=== PATIENT | female | born 1980 ===

== ENCOUNTER → 2019-01-06 | Outpatient (CLI) | payer MEDICAID ==
[~2019-01-06] MED LIST: GADOBUTROL 7.5 MMOL/7.5 ML (GADAVIST) VIAL IV ONE
--- NOTE | 2019-01-06 18:35 | Diagnostic Imaging Report ---
PROCEDURE: MRI pelvis with and without contrast. TECHNIQUE: Multiplanar, multisequence MRI of the pelvis was performed with and without contrast. INDICATION: Vaginal bleeding and cramping and pain status post hysterectomy. FINDINGS: No comparison available. There is a 2.5 x 1.7 cm T2 hypointense and T1 hyperintense focus involving the left adnexa keeping with an endometrioma. There are T2 hypointense bands pulling from the left adnexa to the vaginal cuff and also tethering the sigmoid colon. Findings in keeping with deep pelvic endometriosis. The lesion also tethers the posterior left aspect of the urinary bladder. The right ovary appears normal. The uterus is surgically absent. The deep pelvic endometriosis is best seen on series 8, image 27 and series 7, image nine. There is no dilated bowel. No osseous lesions are seen. No free pelvic fluid is seen. There is no lymphadenopathy in the pelvis. IMPRESSION: 1. Deep pelvic endometriosis with fibrotic bands of T2 hypointensity extending from a left ovarian endometrioma to involve the vaginal cuff, posterior wall of the urinary bladder and tethering the sigmoid colon. Dictated by: Dictated on workstation # [id number]
== END ==
LOC: RAD 16:45
PROVIDERS: ATTEND Obstetrics & Gynecology
DX: N93.9 Abnormal uterine and vaginal bleeding, unspecified (principal); N80.8 Other endometriosis; R19.09 Other intra-abdominal and pelvic swelling, mass and lump; N80.1 Endometriosis of ovary; N80.4 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 of rectovaginal septum and vagina
CPT/HCPCS: 72197

== ENCOUNTER 2019-02-07 11:58 | Emergency (ER) | payer MEDICAID ==
[~2019-02-07] VITALS: Ht 152 cm; Wt 73.3 kg
[2019-02-07] MEDS ORDERED: ONDANSETRON 4 MG/2 ML (SDV) Z0FRAN IVP ONE (12:30)
[2019-02-07] MEDS ORDERED: NS IV 1000 ML 1,000 ML IV SCH (12:30)
[2019-02-07] MEDS ORDERED: KETOROLAC 30 MG/ML VIAL IVP ONE (12:30)
--- NOTE | 2019-02-07 12:32 | ED GI ---
General Chief Complaint: Abdominal/GI Problems Stated Complaint: N/V/D Source of Information: Patient Exam Limitations: No Limitations History of Present Illness Date Seen by Provider: Feb 07, 2019 Time Seen by Provider: 12:20 Initial Comments This is a 38-year-old female who presents to the emergency department with right lower quadrant abdominal pain nausea, vomiting, diarrhea. Patient reports that she has been followed by Dr. Alvarez and Dr. Miller for endometriosis and is to have a colonoscopy on Thursday02/11/2019. Patient reports having an MRI last week which showed her endometriosis has spread close proximity to her colon. Patient reports having chronic diarrhea but states has already with 6 times this morning which is much more than her normal. Patient reports that the pain she is experiencing is worse than normal and different. Timing/Duration: 1 Day Severity/Quality: Mild Location: Generalized Abdomen Radiation: No Radiation Activities at Onset: None Modifying Factors: Improves With Resting Associated Symptoms: Denies Symptoms Allergies and Home Medications Allergies Coded Allergies: Penicillins (Verified Allergy, Unknown, 02/07/19) amoxicillin (Verified Allergy, Unknown, 02/07/19) Home Medications No Active Prescriptions or Reported Meds Patient Home Medication List Home Medication List Reviewed: Yes Review of Systems Review of Systems Constitutional: no symptoms reported, see HPI EENTM: No Symptoms Reported, See HPI Respiratory: No Symptoms Reported, See HPI Cardiovascular: No Symptoms Reported, See HPI Gastrointestinal: Diarrhea, Nausea Genitourinary: No Symptoms Reported, See HPI Musculoskeletal: no symptoms reported, see HPI Skin: no symptoms reported, see HPI Psychiatric/Neurological: No Symptoms Reported, See HPI Endocrine: No Symptoms Reported, See HPI Hematologic/Lymphatic: No Symptoms Reported, See HPI Past Qelyptu-Gjdgme-Mekmob Hx Past Med/Social Hx: Reviewed Nursing Past Med/Soc Hx Patient Social History Physical Abuse: No Sexual Abuse: No Mistreated: No Fear: No Physical Exam Vital Signs Vital Signs - First Documented 02/07/19 12:25 Temp 36.8 Pulse 90 Resp 16 B/P (MAP) 115/91 (99) Pulse Ox 97 Capillary Refill : Height/Weight/BMI Height: '" Weight: lbs. oz. kg; BMI Method: General Appearance: WD/WN, no apparent distress HEENT: PERRL/EOMI, normal ENT inspection, TMs normal, pharynx normal Neck: non-tender, full range of motion, supple, normal inspection Respiratory: chest non-tender, lungs clear, normal breath sounds, no respiratory distress, no accessory muscle use Cardiovascular: normal peripheral pulses, regular rate, rhythm, no edema, no gallop, no JVD, no murmur Gastrointestinal: soft, no pulsatile mass, tenderness (right lower quadrant) Rectal: normal exam Extremities: normal range of motion, non-tender, normal inspection, no pedal edema, no calf tenderness Back: normal inspection, no CVA tenderness Neurologic/Psychiatric: 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 as tested, no motor/sensory deficits, alert, normal mood/affect Skin: normal color, warm/dry Lymphatic: no adenopathy Progress/Results/Core Measures Results/Orders Lab Results Laboratory Tests Test 02/07/19 12:18 02/07/19 12:57 02/07/19 13:57 Range/Units Urine Color YELLOW Urine Clarity CLEAR Urine pH 6.5 5-9 Urine Specific [place] <=1.005 1.016-1.022 Urine Protein NEGATIVE NEGATIVE Urine Glucose (UA) NEGATIVE NEGATIVE Urine Ketones NEGATIVE NEGATIVE Urine Nitrite NEGATIVE NEGATIVE Urine Bilirubin NEGATIVE NEGATIVE Urine Urobilinogen 0.2 < = 1.0 MG/DL Urine Leukocyte Esterase NEGATIVE NEGATIVE Urine RBC (Auto) TRACE-L NEGATIVE Urine RBC NONE /HPF Urine WBC NONE /HPF Urine Squamous Epithelial Cells RARE /HPF Urine Crystals NONE /LPF Urine Bacteria NEGATIVE /HPF Urine Casts NONE /LPF Urine Mucus NEGATIVE /LPF Urine Culture Indicated NO White Blood Count 8.8 4.3-11.0 10^3/uL Red Blood Count 5.51 4.35-5.85 10^6/uL Hemoglobin 16.5 H 11.5-16.0 G/DL Hematocrit 47 35-52 % Mean Corpuscular Volume 86 80-99 FL Mean Corpuscular Hemoglobin 30 25-34 PG Mean Corpuscular Hemoglobin Concent 35 32-36 G/DL Red Cell Distribution Width 13.3 10.0-14.5 % Platelet Count 310 130-400 10^3/uL Mean Platelet Volume 9.6 7.4-10.4 FL Neutrophils (%) (Auto) 56 42-75 % Lymphocytes (%) (Auto) 34 12-44 % Monocytes (%) (Auto) 8 0-12 % Eosinophils (%) (Auto) 2 0-10 % Basophils (%) (Auto) 1 0-10 % Neutrophils # (Auto) 5.0 1.8-7.8 X 10^3 Lymphocytes # (Auto) 3.0 1.0-4.0 X 10^3 Monocytes # (Auto) 0.7 0.0-1.0 X 10^3 Eosinophils # (Auto) 0.2 0.0-0.3 10^3/uL Basophils # (Auto) 0.0 0.0-0.1 10^3/uL Sodium Level 143 135-145 MMOL/L Potassium Level 3.9 3.6-5.0 MMOL/L Chloride Level 107 98-107 MMOL/L Carbon Dioxide Level 27 21-32 MMOL/L Anion Gap 9 5-14 MMOL/L Blood Urea Nitrogen 8 7-18 MG/DL Creatinine 0.71 0.60-1.30 MG/DL Estimat Glomerular Filtration Rate > 60 BUN/Creatinine Ratio 11 Glucose Level 59 *L 70-105 MG/DL Calcium Level 9.6 8.5-10.1 MG/DL Corrected Calcium 8.5-10.1 MG/DL Total Bilirubin 0.3 0.1-1.0 MG/DL Aspartate Amino Transf (AST/SGOT) 22 5-34 U/L Alanine Aminotransferase (ALT/SGPT) 33 0-55 U/L Alkaline Phosphatase 60 40-136 U/L Total Protein 7.6 6.4-8.2 GM/DL Albumin 4.7 H 3.2-4.5 GM/DL Glucometer 119 H 70-110 MG/DL My Orders Orders - PERLA DIA Ua Culture If Indicated (02/07/19 12:24) Ns Iv 1000 Ml (Sodium Chloride 0.9%) (02/07/19 12:30) Ondansetron Injection (Zofran Injectio (02/07/19 12:30) Cbc With Automated Diff (02/07/19 12:24) Comprehensive Metabolic Panel (02/07/19 12:24) Ketorolac Injection (Toradol Injection) (02/07/19 12:30) D50w (Emergency) Syringe (Dextrose 50% 5 (02/07/19 13:32) Accucheck Stat ONCE (02/07/19 13:49) Medications Given in ED Current Medications Medications Dose Ordered Sig/Ismael Route Start Time Stop Time Status Last Admin Dose Admin Dextrose 50 ml STK-MED ONCE .ROUTE 02/07/19 13:32 02/07/19 13:34 DC 02/07/19 13:33 25 ML Ketorolac Tromethamine 30 mg ONCE ONCE IVP 02/07/19 12:30 02/07/19 12:31 DC 02/07/19 12:55 30 MG Ondansetron HCl 4 mg ONCE ONCE IVP 02/07/19 12:30 02/07/19 12:31 DC 02/07/19 12:55 4 MG Vital Signs/I&O 02/07/19 02/07/19 12:25 14:25 Temp 36.8 Pulse 90 74 Resp 16 16 B/P (MAP) 115/91 (99) 111/96 Pulse Ox 97 98 Progress Progress Note : Time: 12:20 Progress Note Patient seen and evaluated, will obtain labs, normal saline 1 L. Zofran 4 mg IV for nausea. 1330 patient found to Glucose of 59, will give half an amp of D50W, IV. Patient talking but slightly lethargic, oriented times 3. Taking sips of Pedialyte. 1355 Accucheck 119, patient reports to be feeling better. Patient is sitting in bed at this time alert stating that she feels much better drinking Pedialyte. Patient reports only eating a cheese sandwich and drinking coffee this morning. The patient was educated on the importance of having a proper diet habits and to eat small frequent meals especially if she is continuing to have problems with pain and nausea. Patient was informed to follow up with Dr. Alvarez and Dr. Miller and inform them of the change of pain and intensity. Patient verbalized understanding. Departure Impression Primary Impression: Abdominal pain Qualified Codes: R10.84 - Generalized abdominal pain Disposition: 01 HOME, SELF-CARE Condition: Improved Departure-Patient Inst. Decision time for Depature: 13:50 Referrals: JAQUAN CLARKE MD (PCP) Primary Care Physician Patient Instructions: Acute Abdomen (Belly Pain), Adult (DC) Add. Discharge Instructions: Follow-up with your general surgeon or her primary care provider if symptoms are not improving or worsen. Use Imodium one tablet every 4-6 hours as needed for diarrhea. Clear liquid diet for the next 4-6 hours, then bland diet as tolerated. Return to emergency department for new, urgent health care needs. All discharge instructions reviewed with patient and/or family. Voiced understanding. Scripts No Active Prescriptions or Reported Meds Copy Copies To 1: MARGARITA MILLER DO; JAQUAN CLARKE MD; DELMAR ALVAREZ AMY ARNP Feb 07, 2019 12:32 POS
[2019-02-07 13:04] LABS: BASOPHILS % (AUTO) 1 % (0-10); EOSINOPHILS # (AUTO) 0.2 10^3/uL (0.0-0.3); EOSINOPHILS % (AUTO) 2 % (0-10); HEMATOCRIT 47 % (35-52); HEMOGLOBIN 16.5 G/DL (11.5-16.0); LYMPHOCYTES % (AUTO) 34 % (12-44); MEAN CORPUSCULAR HEMOGLOBIN 30 PG (25-34); MEAN CORPUSCULAR HGB CONC 35 G/DL (32-36); MEAN CORPUSCULAR VOLUME 86 FL (80-99); MEAN PLATELET VOLUME 9.6 FL (7.4-10.4); MONOCYTES # (AUTO) 0.7 X 10^3 (0.0-1.0); MONOCYTES % (AUTO) 8 % (0-12); NEUTROPHILS % (AUTO) 56 % (42-75); PLATELET COUNT 310 10^3/uL (130-400); RED CELL DISTRIBUTION WIDTH 13.3 % (10.0-14.5); WHITE BLOOD COUNT 8.8 10^3/uL (4.3-11.0)
[2019-02-07 13:11] LABS: BILIRUBIN,URINE NEGATIVE (NEGATIVE); CLARITY,URINE CLEAR; COLOR,URINE YELLOW; GLUCOSE, URINE (UA) NEGATIVE (NEGATIVE); KETONES,URINE NEGATIVE (NEGATIVE); LEUKOCYTE ESTERASE ,URINE NEGATIVE (NEGATIVE); NITRITE,URINE NEGATIVE (NEGATIVE); PH,URINE 6.5 (5-9); PROTEIN,URINE NEGATIVE (NEGATIVE)
[2019-02-07 13:24] LABS: BACTERIA,URINE NEGATIVE /HPF; SQUAMOUS EPITHELIAL CELL,UR RARE /HPF
[2019-02-07 13:28] LABS: ALANINE AMINOTRANSFERASE 33 U/L (0-55); ALBUMIN 4.7 GM/DL (3.2-4.5); ALKALINE PHOSPHATASE 60 U/L (40-136); BILIRUBIN,TOTAL 0.3 MG/DL (0.1-1.0); BUN/CREATININE RATIO 11; CALCIUM 9.6 MG/DL (8.5-10.1); CARBON DIOXIDE 27 MMOL/L (21-32); CHLORIDE 107 MMOL/L (98-107); CREATININE SERUM 0.71 MG/DL (0.60-1.30); GFR ESTIMATED > 60; POTASSIUM 3.9 MMOL/L (3.6-5.0); SODIUM 143 MMOL/L (135-145); TOTAL PROTEIN 7.6 GM/DL (6.4-8.2)
[2019-02-07 13:32] LABS: GLUCOSE 59 MG/DL (70-105)
[2019-02-07] MEDS ORDERED: DEXTROSE 50% 50 ML (IMS) SYR ONE (13:32)
[2019-02-07 14:25] VITALS: BP 111/96
== END 2019-02-07 14:25 | disposition home or self-care (01) ==
LOC: EDUNIT# 11:58 → ER 11:59
DX: R10.31 Right lower quadrant pain (principal); Z88.0 Allergy status to penicillin
CPT/HCPCS: 36415; 80053; 81000; 82962; 85025

== ENCOUNTER 2019-02-09 13:48 | Outpatient (CLI) | payer MEDICAID ==
[~2019-02-09] VITALS: Ht 154 cm; Wt 71.8 kg
== END 2019-02-09 13:54 | disposition home or self-care (01) ==
LOC: PREOP 13:48
PROVIDERS: ATTEND Surgery
DX: Z01.818 Encounter for other preprocedural examination (principal)

== ENCOUNTER 2019-03-18 09:53 | Outpatient (CLI) | payer MEDICAID ==
[~2019-03-18] VITALS: Ht 157.9 cm; Wt 75.7 kg
[2019-03-18 10:01] VITALS: BP 124/84
[2019-03-18 10:35] LABS: BASOPHILS % (AUTO) 1 % (0-10); EOSINOPHILS # (AUTO) 0.1 10^3/uL (0.0-0.3); EOSINOPHILS % (AUTO) 1 % (0-10); HEMATOCRIT 45 % (35-52); HEMOGLOBIN 15.3 G/DL (11.5-16.0); LYMPHOCYTES % (AUTO) 30 % (12-44); MEAN CORPUSCULAR HEMOGLOBIN 30 PG (25-34); MEAN CORPUSCULAR HGB CONC 34 G/DL (32-36); MEAN CORPUSCULAR VOLUME 87 FL (80-99); MONOCYTES # (AUTO) 0.5 X 10^3 (0.0-1.0); MONOCYTES % (AUTO) 7 % (0-12); NEUTROPHILS # (AUTO) 3.9 X 10^3 (1.8-7.8); NEUTROPHILS % (AUTO) 61 % (42-75); PLATELET COUNT 256 10^3/uL (130-400); RED CELL DISTRIBUTION WIDTH 13.7 % (10.0-14.5); WHITE BLOOD COUNT 6.5 10^3/uL (4.3-11.0)
== END 2019-03-18 10:20 | disposition home or self-care (01) ==
LOC: PREOP 09:53
PROVIDERS: ATTEND Obstetrics & Gynecology
DX: Z01.812 Encounter for preprocedural laboratory examination (principal); Z11.2 Encounter for screening for other bacterial diseases; N80.9 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, unspecified
CPT/HCPCS: 36415; 85025; 86850; 86900; 86901; 87081

== ENCOUNTER 2019-04-02 01:19 | Inpatient (IN) | payer MEDICAID ==
[2019-04-02] VITALS (37 sets, daily range): BP systolic 70–165; BP diastolic 33–103
[~2019-04-02] VITALS: Ht 154.9 cm; Wt 77.1 kg
[~2019-04-02 01:19] MED LIST changes: +DOCU100C37 PO; -GADOBUTROL 7.5 MMOL/7.5 ML (GADAVIST) VIAL IV ONE; +HYDR-34 PO; +IBUP-844 PO; +SIME80TA16 PO
--- NOTE | 2019-04-02 01:25 | NUR ---
PT PRESENTS TO OB BY EMS CART. TRANSFERRED TO OB BED. PT NOTED TO BE MOANING AND CHANTING "HELP ME" OVER AND OVER AGAIN. PT REPORTS PAIN OF 10/10 TO ABD AFTER HAVING SMALL BM AND PAIN OF 10/10 TO RIGHT SHOULDER. PT REPORTS HAS NOT PASSED ANY GAS SINCE ARRIVING HOME AFTER SURGERY. PT REPORTS SHE HAS TAKEN PRESCRIBED PAIN MEDS PRIOR TO GOING TO [facility] ER, WHICH DID NOT LESSEN PAIN. PT REPORTS BEING A PREVIOUS DRUG USER, BUT HAS BEEN CLEAN FOR MONTHS, ASIDE FROM SOME MARIJUANA ON NEW YEARS.
--- NOTE | 2019-04-02 01:42 | NUR ---
DR SPEARS NOTIFIED OF PT ARRIVAL AND ASSESSMENT. NEW ORDERS RECEIVED.
[2019-04-02] MEDS ORDERED: fentaNYL INJECTION 100 MCG/2 ML AMP ONE ×2 (01:44→12:49)
[2019-04-02] MEDS ORDERED: METOCLOPRAMIDE INJ 10 MG/2 ML (REGLAN) ONE (01:45)
[2019-04-02] MEDS ORDERED: LORazepam INJ 2 MG/ML (ATIVAN) VIAL ONE (01:45)
--- NOTE | 2019-04-02 01:45 | NUR ---
IV REGLAN GIVEN. IV ATIVAN GIVEN OVER 5 MIN. IV FENTANYL GIVEN OVER 3 MIN. PT ENA WELL.
[2019-04-02] MEDS ORDERED: ONDANSETRON 4 MG/2 ML (SDV) Z0FRAN IVP PRN ×3 (02:00→16:15)
[2019-04-02] MEDS ORDERED: fentaNYL INJECTION 100 MCG/2 ML AMP IVP PRN (02:00)
[2019-04-02] MEDS ORDERED: LORazepam INJ 2 MG/ML (ATIVAN) VIAL IVP ONE (02:00)
--- NOTE | 2019-04-02 02:15 | NUR ---
PT RESTING, WITH CONT MOANING WITH RESP. PT EASILY AWAKENS TO NAME AND REPORTS PAIN IMPROVING. VS REMAIN STABLE WITH THOSE ON ADMIT AND THOSE FROM [facility].
--- NOTE | 2019-04-02 03:00 | NUR ---
PT CONT TO REST. AWAKENS EASILY. NOTED SOME WORK WITH BREATHING, BUT SLOWS DOWN RESP ON COMMAND.
--- NOTE | 2019-04-02 04:25 | NUR ---
NOTED PT TO BE HAVING MORE MOANING WITH AND WORK WITH RESPIRATIONS. HR AND RESP HAVE INCREASED IN RATE AND PT IS NOW DIAPHORETIC. PT CONT TO EASILY AWAKEN BY CALLING NAME. PT STATES PAIN IS BEGINNING TO INCREASE AGAIN IN RIGHT SHOULDER.
--- NOTE | 2019-04-02 04:31 | NUR ---
DR SPEARS NOTIFIED OF PT CHANGE IN STATUS/BEHAVIOR. ORDER OBTAINED FOR CT OF CHEST.
--- NOTE | 2019-04-02 04:45 | NUR ---
PT TAKEN TO CT BY BED BY THIS NURSE AND LABORATORY TECHNOLOGIST.
--- NOTE | 2019-04-02 05:23 | NUR ---
PT RETURNED TO OB ROOM AND VS OBTAINED. DR SPEARS NOTIFIED OF CT BEING COMPLETE. ORDER RECEIVED TO CONSULT INTERNAL MED AND HAVE PT TRANSFERRED TO ICU FOR CLOSER OBSERVATION.
--- NOTE | 2019-04-02 05:45 | NUR ---
PT TAKEN TO ICU BY BED AT THIS TIME. REPORT TO OVIDIO LEVI.
[2019-04-02] MEDS ORDERED: meTOprolol 5 MG/5 ML (LOPRESSOR) VIAL ONE ×2 (05:46→05:47)
[2019-04-02] MEDS ORDERED: METOCLOPRAMIDE INJ 10 MG/2 ML (REGLAN) IVP SCH (06:00)
[2019-04-02 06:02] LABS: ABG BASE EXCESS -4.3 MMOL/L (-2.5-2.5); ABG OXYGEN SATURATION 98 % (94-100); ABG PCO2 51 MMHG (35-45); ABG PO2 89 MMHG (79-93); ABG TCO2 23.8 MMOL/L (21.0-31.0)
--- NOTE | 2019-04-02 06:08 | Pulmonary Consultation ---
History of Present Illness History of Present Illness Date Seen by Provider: Apr 02, 2019 Time Seen by Provider: 05:58 Date of Admission History of Present Illness 38yo with hx of drug use, endometriosis, pelvic mass s/p resection 03/29/19 presents to [place] ED secondary to severe 10/10 abdominal/pelvic pain, and right shoulder pain. Ct of Abd/Pelvis was done there however I do not yet have radiology read. Verbal report is CT of Abd shows no acute process. Pt was transferred to [facility] to OB floor. Pt was given pain meds and Ativan. Pt was noted to be unstable by Dr. Cash and transferred to ICU. Upon presentation pt has SVT with HR 150's and accessory muscle use. No labs have been done here yet. Labs from ED show no leukocytosis, HB is 14. Unable to obtain ROS secondary to lethargy. Allergies and Home Medications Allergies Coded Allergies: Penicillins (Verified Allergy, Severe, childhood reaction-unsure of reaction, 03/18/19) amoxicillin (Verified Allergy, Severe, BREATHING ISSUES, 02/09/19) Home Medications Docusate Sodium 100 Mg Capsule, 100 MG PO BID PRN for CONSTIPATION-1ST LINE Prescribed by: MARCOS JACOBO on 03/28/19 1014 Hydrocodone Bit/Acetaminophen 1 Ea Tablet, 2 EA PO Q6H PRN for Pain-See Instructions Prescribed by: MARCOS JACOBO on 03/28/19 1014 Ibuprofen 600 Mg Tablet, 600 MG PO Q6H PRN for PAIN-MODERATE (5-7) Prescribed by: MARCOS JACOBO on 03/28/19 1014 Simethicone 80 Mg Tab.chew, 40 MG PO TID PRN for INDIGESTION 2ND LINE Prescribed by: MARCOS JACOBO on 03/28/19 1014 Past Cyancwl-Pqrazn-Gpottp Hx Patient Social History Type Used: Cigarettes 2nd Hand Smoke Exposure: Yes Recent Foreign Travel: No Contact w/Someone Who Travel: No Recent Hopitalizations: No Seasonal Allergies Seasonal Allergies: No Past Medical History Surgeries: Yes (DXLS x3, LEEP, oral sx) Section, Hysterectomy, Tonsillectomy Respiratory: No Cardiac: No Neurological: No Female 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 Disorders: 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 oz. kg; 30.71 BMI Method: Exam Exam Height & Weight Height: '" Weight: lbs. oz. kg; 30.71 BMI Method: General Appearance: Severe Distress (unresponsive) HEENT: PERRL/EOMI, TMs Normal, Pharynx Normal Neck: Full Range of Motion, Non Tender, Supple Respiratory: Accessory Muscle Use, Decreased Breath Sounds Cardiovascular: Regular Rate, Rhythm Capillary Refill: Less Than 3 Seconds Gastrointestinal: normal bowel sounds, distended, guarding, rebound Extremity: Normal Capillary Refill Neurologic/Psychiatric: Depressed Affect Skin: Normal Color, Warm/Dry Lymphatic: No Adenopathy Assessment/Plan Assessment/Plan Acute respiratory failure with lethargy - probably secondary to meds given while in hospital -ABG pending -D/C fentanyl and Ativan -Will order PRN Motrin and Tylenol -BiPAP 02/24 -Check UDS -CT scan of chest - reviewed - official report pending -Obtain CT of Abd/pelvis from [place] -Place on end tidal C02 Unresponsive - probably secondary to Ativan and Morphine given while on 3rd floor -Check ABG -Check Accu check -Check stat labs SVT with HR 150 -Give Lopressor 5mg IV x 1 -Check EKG -Check Troponins x 3 Q 6hrs apart Pelvic mass s/p resection/ bilateral oophorectomy 03/29/19 Severe Abdominal pain per report from [place] r/o sepsis -Obtain CT report of abd/pelvis from [facility] -Start Rocephin and Flagyl for now right shoulder pain -consider imaging once pt is more stable Hx of endometriosis Hx of methamphetamine and marijuana -Check UDS TOY SAEZ DO Apr 02, 2019 06:08
[2019-04-02 06:11] LABS: ABG PH 7.25 (7.37-7.43); ALLENS TEST YES-POS; INSPIRED O2 3L; VENTILATOR NO
[2019-04-02 06:12] LABS: PATIENT TEMP 35.4
[2019-04-02] MEDS ORDERED: LACTATED RINGERS 1,000 ML IV SCH ×2 (06:15→07:15)
[2019-04-02 06:37] LABS: HEMOGLOBIN 14.1 G/DL (11.5-16.0); MEAN PLATELET VOLUME 9.8 FL (7.4-10.4); RED CELL DISTRIBUTION WIDTH 13.7 % (10.0-14.5); WHITE BLOOD COUNT 2.9 10^3/uL (4.3-11.0)
[2019-04-02 06:42] LABS: AMPHETAMINE SCREEN, URINE NEGATIVE (NEGATIVE); BARBITURATE SCREEN URINE NEGATIVE (NEGATIVE); BENZODIAZEPINES SCREEN URINE POSITIVE (NEGATIVE); CANNABINOID SCREEN, URINE NEGATIVE (NEGATIVE); COCAINE SCREEN URINE NEGATIVE (NEGATIVE); METHADONE STAT NEGATIVE (NEGATIVE); METHAMPHETAMINE SCREEN URINE S NEGATIVE (NEGATIVE); OPIATE SCREEN URINE POSITIVE (NEGATIVE); OXYCODONE STAT NEGATIVE (NEGATIVE); PROPOXYPHENE STAT NEGATIVE (NEGATIVE); TRICYCLIC ANTIDEPRESSANTS SCRE NEGATIVE (NEGATIVE)
[2019-04-02 06:54] LABS: ALANINE AMINOTRANSFERASE 8 U/L (0-55); ALBUMIN 3.1 GM/DL (3.2-4.5); ALKALINE PHOSPHATASE 37 U/L (40-136); BILIRUBIN,TOTAL 0.4 MG/DL (0.1-1.0); BUN/CREATININE RATIO 10; CALCIUM 7.7 MG/DL (8.5-10.1); CARBON DIOXIDE 16 MMOL/L (21-32); CHLORIDE 114 MMOL/L (98-107); CREATININE SERUM 0.73 MG/DL (0.60-1.30); GFR ESTIMATED > 60; GLUCOSE 127 MG/DL (70-105); MAGNESIUM 1.6 MG/DL (1.6-2.4); PHOSPHORUS 3.9 MG/DL (2.3-4.7); POTASSIUM 4.3 MMOL/L (3.6-5.0); SODIUM 142 MMOL/L (135-145)
[2019-04-02] MEDS: IBUPROFEN 600 MG (MOTRIN) TAB PO SCH ×4 (07:07→23:46)
[2019-04-02] MEDS: ACETAMINOPHEN 325 MG TABLET PO PRN (07:07)
[2019-04-02] MEDS: cefTRIAXone FOR IV USE 1,000 MG in WATER (STERILE) FOR INJECTION 10 ML IV SCH (07:08)
[2019-04-02] MEDS: metroNIDAZOLE 500MG/100ML IVPB 100 ML IV SCH ×3 (07:09→23:00)
--- NOTE | 2019-04-02 07:52 | Diagnostic Imaging Report ---
PROCEDURE: CT angiography of the chest with contrast. TECHNIQUE: Multiple contiguous axial images were obtained through the chest after uneventful bolus administration of intravenous contrast. 3D reconstructed CTA MIP acquisitions were also performed. Auto Exposure Controls were utilized during the CT exam to meet ALARA standards for radiation dose reduction. INDICATION: Tachypnea, diaphoresis. CORRELATION STUDY: None FINDINGS: There is some patient motion artifact as well as attenuation artifact from the patient's upper extremities. This does result in degradation and limitation of this study. The pulmonary arteries demonstrate no definitive filling defect accounting for limitations to suggest pulmonary embolism. Heart size is normal without disproportionate right heart strain. Thoracic aorta unremarkable without aneurysm or dissection. No pathologically enlarged mediastinal lymph nodes. There is presence of trace left pleural effusion and subcentimeter right pleural effusion present. Subsegmental opacities in the posterior lung bases may be reflective of atelectasis. No damaris lobar consolidation. Small amount of perihepatic fluid below the right hemidiaphragm. Trace perisplenic fluid. Increased density of the gallbladder is present. This could reflect perhaps previous contrast administration. Some sludge or debris, however, is not excluded. IMPRESSION: 1. Given limitations with extensive respiratory motion artifact and attenuation artifact, no definitive large central pulmonary embolism suggested. 2. Presumed subsegmental atelectasis at the dependent lung bases along with small pleural effusions. 3. Small volume upper abdominal ascites. A preliminary report was provided by [employer]. Dictated by: Dictated on workstation # [id number]
[2019-04-02] MEDS: LACTATED RINGERS 1,000 ML IV SCH ×4 (08:13→20:47)
--- NOTE | 2019-04-02 08:30 | NUR ---
Patient is tachypneic, tachycardic and reporting abdominal pain. This nurse notified . Order received to obtain another ABG. at bedside 0830, intubation discussed with patient. Patient agreed. Central line, ART line and the possibility of surgery discussed as well. Informed consent's signed by patient. 0858 This nurse notified of patients critical pH 7.23 and lactic acid 3.35. , , RT, this nurse and several other nurses at bedside. 0903 4mg versed administered per Dr. Glass 0906 5cc propofol administered by 0907 size [address], positive color change, position 23 at the lip. Patient bagged while ET tube secured. 0910 IV propofol running @ 20ml/hr by IV pump per 0913 OG down, placement checked with air bolus auscultation. 0918 50mcg Fentanyl IV administered per 0919 50mg IV Rocuronium administered per 0925 Right central line inserted by 0927 Order received from to begin a fentanyl drip and to consult anesthesia for an ART line. This nurse contacted x-ray to update them on placement of central line and order for chest x-ray to confirm placement. 1000 patient hypotensive, on ICU floor verbal order received for Levophed drip, titrate per protocol. 1010 at bedside- order received to consult general surgery. 1017 at bedside- stated that he spoke with . 1029 at bedside. 1030 Myriam, patients sister in law called for an update. Patient spoke with this nurse and OVIDIO Willis about me contacting Myriam, her sister in law to update her, patient stated that it was ok to speak with Myriam about her care and that she wanted Myriam to stay updated, patient asked me to give Myriam her password. This nurse updated Myriam on patients condition.
[2019-04-02] MEDS ORDERED: proPOfol 200 MG/20 ML (DIPRIVAN) VIAL IV ONE (08:49)
[2019-04-02 08:55] LABS: ABG BASE EXCESS -4.6 MMOL/L (-2.5-2.5); ABG OXYGEN SATURATION 95 % (94-100); ABG PCO2 53 MMHG (35-45); ABG PO2 79 MMHG (79-93); ABG TCO2 23.6 MMOL/L (21.0-31.0)
[2019-04-02 08:58] LABS: ABG PH 7.23 (7.37-7.43)
[2019-04-02 08:59] LABS: ALLENS TEST YES-POS; INSPIRED O2 5 L; PATIENT TEMP 36.2; VENTILATOR NO
--- NOTE | 2019-04-02 09:21 | Consultation - Hospitalist ---
HPI History of Present Illness: HPI/Chief Complaint Pt is a Date Seen 04/02/19 Attending Physician Mj Alvarez Bethany N MD Referring Physician Date of Admission Apr 02, 2019 at 01:23 Home Medications & Allergies Home Medications Reviewed patient Home Medication Reconciliation performed by pharmacy medication reconciliations cable television technician and/or nursing. Patients Allergies have been reviewed. Allergies Allergies Coded Allergies Penicillins (Verified Allergy, Severe, childhood reaction-unsure of reaction, 03/18/19) amoxicillin (Verified Allergy, Severe, BREATHING ISSUES, 02/09/19) Past Vnctuft-Dktyeh-Aadbdr Hx Patient Social History Alcohol Use: Occasionally Uses Recreational Drug Use: Yes (marijuana) Smoking Status: Current Everyday Smoker Type Used: Cigarettes 2nd Hand Smoke Exposure: Yes Physical Abuse Screen: No Sexual Abuse: No Recent Foreign Travel: No Contact w/other who traveled: No Recent Hopitalizations: Yes Recent Infectious Disease Expo: No Seasonal Allergies Seasonal Allergies: No Past Medical History Surgeries: Section, Hysterectomy, Tonsillectomy Currently Using CPAP: No Currently Using BIPAP: No Female 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 Disorders: 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 Hysterectomy Loss of Vision: Denies Hearing Impairment: Denies History of Blood Disorders: No Adverse Reaction to Blood Terry: No Physical Exam Physical Exam Vital Signs Vital Signs - First Documented 04/02/19 04/02/19 01:30 09:32 Temp 35.5 Pulse 122 Resp 28 B/P (MAP) 127/85 (99) Pulse Ox 94 O2 Delivery Nasal Cannula O2 Flow Rate 2.00 FiO2 40 Capillary Refill : Less Than 3 Seconds Height, Weight, BMI Height: '" Weight: lbs. oz. kg; 31.84 BMI Method: General Appearance: Severe Distress (tachypneic, ill appearing) HEENT: No Scleral Icterus (L), No Scleral Icterus (R) Respiratory: Accessory Muscle Use, Decreased Breath Sounds, Respiratory Distress Cardiovascular: Regular Rate, Rhythm Gastrointestinal: Abnormal Bowel Sounds (quiet), Distended, Guarding, Tenderness (diffuse) Extremity: Normal Capillary Refill, No Calf Tenderness, No Pedal Edema Neurologic/Psychiatric: Alert, Oriented x3, Depressed Affect Skin: Normal Color, Warm/Dry; No Mottled, No Petechia Results Results/Procedures Labs Laboratory Tests 04/02/19 06:21 Patient resulted labs reviewed. Imaging: Reviewed Imaging Report Assessment/Plan Assessment and Plan Assess & Plan/Chief Complaint Acute Hypercapnic Respiratory Failure - Discussed with Dr Glass, plan to intubate - CTA with no evidence of PE Severe Sepsis Leukopenia - Concern for abdominal pathology given exam - Lactic elevated - Received 30cc/kg bolus - Continue Rocephin and Flagyl - Blood cultures pending Ovarian Mass s/p bilateral oophorectomy - s/p resection by Dr Alvarez earlier this week - Pathology reveals endometriosis - Discussed with Dr Cash who is coming to bedside to exam patient Clinical Quality Measures DVT/VTE Risk/Contraindication: Risk Factor Score Per Nursin RFS Level Per Nursing on Admit: 4+=Very High SAW MCBRIDE MD Apr 02, 2019 09:21
--- NOTE | 2019-04-02 09:44 | Pulmonary Procedures ---
Pulmonary Procedures Date of Procedure Date of Service: Apr 02, 2019 Lumen: triple (US guided) Central Line Procedure: betadine prep, sterile drapes applied, sterile dressing applied Position: internal jugular (R) Anesthesia: local Complications: none Post Position: sutured, good blood return, position confirmed w/ CXR TOY SAEZ DO Apr 02, 2019 09:44
--- NOTE | 2019-04-02 09:45 | Pulmonary Procedures ---
Pulmonary Procedures Date of Procedure Date of Service: Apr 02, 2019 Reason for Intubation: respiratory failure Time of Intubation: 09:45 Intubation Method: orotracheal Tube Size: 8 Medications: Fentanyl, Propofol, Rocuronium, Versed Positive End Tide CO2: Yes Breath Sounds after Intubation: bilateral-equal Intubation Complications: no complications Post Intubation Xray: Yes TOY SAEZ DO Apr 02, 2019 09:45
[2019-04-02] MEDS ORDERED: NS (IVPB) 0 ML ONE ×2 (09:52→20:31)
[2019-04-02] MEDS ORDERED: NOREPINEPHRINE 4 MG/250 ML 250 ML IV ONE (09:53)
--- NOTE | 2019-04-02 09:59 | Diagnostic Imaging Report ---
EXAMINATION: Chest radiograph, portable AP view. DATE: 04/02/2019 9:52 AM hours. INDICATION: 38-year-old female, intubation. COMPARISON: CT chest April 02, 2019. FINDINGS: The endotracheal tube is approximately 1.8 cm above the fanny. Right internal jugular central venous line overlies the mid SVC. The nasogastric tube is in the stomach. Heart size and mediastinal contours are unremarkable. Lung volumes are low. There is no identified pneumothorax. There is no large pleural effusion. There is no identified focal airspace consolidation. IMPRESSION: 1. Low lung volumes without identified acute cardiopulmonary abnormality. 2. Support lines and tubes as above. Dictated by: Dictated on workstation # [id number]
[2019-04-02] MEDS ORDERED: NS IV 1000 ML 1,000 ML ONE (10:03)
[2019-04-02] MEDS: NOREPINEPHRINE 4 MG/250 ML 250 ML IV SCH ×2 (10:05→18:52)
[2019-04-02] MEDS ORDERED: ROCURONIUM 10 MG/ML 5 ML SYRINGE IV ONE ×2 (10:11→15:46)
[2019-04-02] MEDS ORDERED: MIDAZOLAM 5 MG/5 ML (VERSED) VIAL INJ ONE (10:11)
[2019-04-02] MEDS ORDERED: fentaNYL INJECTION 100 MCG/2 ML AMP INJ ONE (10:11)
--- NOTE | 2019-04-02 10:16 | History & Physical-OB/GYN ---
History of Present Illness History of Present Illness Reason for visit/HPI Ms. Lockett was admitted to [facility] secondary to abdominal pain, nausea with vomiting, distended abdomen, elevated heart rate and Postoperative Day #6 from Robotic Surgery where she had a Bilateral Salpingo-oophorectomy and removal of her cervix. This surgery was performed by Dr. Alvarez. Marco Lockett was transferred to this facility from [facility]'s Emergency Department. After being admitted she was given IV pain medication and an anxiolytic, which calmed her down for several hours. However, when she woke up, her abdominal pain was worse with guarding and rebounding. Also, her heart rate and respiratory rate increase and she became diaphoretic. Ms. Lockett was then transferred to the ICU with a consult for the Hospital Remodeler. Date of Admission Apr 02, 2019 at 01:23 Date Seen by a Provider: Apr 02, 2019 Time Seen by a Provider: 09:45 I consulted on this patient on 04/02/19 10:08 Attending Physician Mj Alvarez DO Admitting Physician Mandeep Cash DO Consult Allergies and Home Medications Allergies Coded Allergies: Penicillins (Verified Allergy, Severe, childhood reaction-unsure of reaction, 03/18/19) amoxicillin (Verified Allergy, Severe, BREATHING ISSUES, 02/09/19) Home Medications Docusate Sodium 100 Mg Capsule, 100 MG PO BID PRN for CONSTIPATION-1ST LINE Prescribed by: MARCOS JACOBO on 03/28/19 1014 Hydrocodone Bit/Acetaminophen 1 Ea Tablet, 2 EA PO Q6H PRN for Pain-See Instructions Prescribed by: MARCOS JACOBO on 03/28/19 1014 Ibuprofen 600 Mg Tablet, 600 MG PO Q6H PRN for PAIN-MODERATE (5-7) Prescribed by: MARCOS JACOBO on 03/28/19 1014 Simethicone 80 Mg Tab.chew, 40 MG PO TID PRN for INDIGESTION 2ND LINE Prescribed by: MARCOS JACOBO on 03/28/19 1014 Patient Home Medication List Home Medication List Reviewed: Yes Past Mplxung-Afowtr-Btxzzd Hx Patient Social History Alcohol Use: Occasionally Uses Recreational Drug Use: Yes (marijuana) Smoking Status: Current Everyday Smoker Type Used: Cigarettes 2nd Hand Smoke Exposure: Yes Physical Abuse Screen: No Sexual Abuse: No Recent Foreign Travel: No Contact w/other who traveled: No Recent Hopitalizations: Yes Recent Infectious Disease Expo: No Seasonal Allergies Seasonal Allergies: No Surgeries Yes (DXLS x3, LEEP, oral sx) Section, Hysterectomy, Oophorectomy, Tonsillectomy Respiratory No Currently Using CPAP: No Currently Using BIPAP: No Cardiovascular No Neurological No 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 System Female 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 Disorders: 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 Genitourinary No Gastrointestinal No Musculoskeletal No Endocrine History of Endocrine Disorders: No HEENT History of HEENT Disorders: Yes (READING GLASSES) Loss of Vision: Denies Hearing Impairment: Denies Cancer No Psychosocial History of Psychiatric Problem: No Integumentary History of Skin or Integumenta: No Blood Transfusions History of Blood Disorders: No Adverse Reaction to a Blood Tr: No Review of Systems Constitutional: see HPI Physical Exam Physical Exam Vital Signs Vital Signs Date Time Temp Pulse Resp B/P (MAP) Pulse Ox O2 Delivery O2 Flow Rate FiO2 04/02/19 09:40 Mechanical Ventilator 100.00 04/02/19 09:32 124 24 95 40 04/02/19 09:00 133 35 124/46 (72) 94 Nasal Cannula 5.00 04/02/19 08:00 126 31 109/33 (58) 96 Nasal Cannula 5.00 04/02/19 07:00 124 04/02/19 07:00 124 38 101/59 (73) 98 Nasal Cannula 5.00 04/02/19 06:30 124 35 110/77 (88) 96 Nasal Cannula 5.00 04/02/19 06:27 Nasal Cannula 5.00 04/02/19 06:26 97 Nasal Cannula 5.00 04/02/19 06:15 118 29 110/52 (71) 98 Nasal Cannula 5.00 04/02/19 06:00 113 38 109/71 (84) 98 Nasal Cannula 5.00 04/02/19 05:45 147 04/02/19 05:45 146 25 122/83 (96) 91 Nasal Cannula 5.00 04/02/19 05:30 36.8 140 38 140/74 (96) 90 Nasal Cannula 3.00 04/02/19 05:25 142 36 145/84 (104) 90 Nasal Cannula 3.00 04/02/19 04:49 143 35 122/78 (93) 94 Nasal Cannula 3.00 04/02/19 04:39 146 32 135/74 (94) 92 Nasal Cannula 3.00 04/02/19 04:02 141 34 144/78 (100) 91 Nasal Cannula 3.00 04/02/19 02:45 36.7 138 30 124/81 (95) 94 Nasal Cannula 3.00 04/02/19 01:59 36.3 128 30 124/81 (95) 95 Nasal Cannula 2.00 04/02/19 01:30 35.5 122 28 127/85 (99) 94 Nasal Cannula 2.00 04/02/19 01:30 94 Nasal Cannula 2.00 Capillary Refill : Less Than 3 Seconds Labs Laboratory Tests 04/02/19 05:52: Blood Gas Puncture Site RIGHT RADIAL, Blood Gas Patient Temperature 35.4, Arterial Blood pH 7.25*L, Arterial Blood Partial Pressure CO2 51H, Arterial Blood Partial Pressure O2 89, Arterial Blood HCO3 22L, Arterial Blood Total CO2 23.8, Arterial Blood Oxygen Saturation 98, Arterial Blood Base Excess -4.3L, Sanju Test YES-POS, Blood Gas Ventilator Setting NO, Blood Gas Inspired Oxygen 3L 04/02/19 06:08: Urine Opiates Screen POSITIVEH, Urine Oxycodone Screen NEGATIVE, Urine Methadone Screen NEGATIVE, Urine Propoxyphene Screen NEGATIVE, Urine Barbiturates Screen NEGATIVE, Ur Tricyclic Antidepressants Screen NEGATIVE, Urine Phencyclidine Screen NEGATIVE, Urine Amphetamines Screen NEGATIVE, Urine Methamphetamines Screen NEGATIVE, Urine Benzodiazepines Screen POSITIVEH, Urine Cocaine Screen NEGATIVE, Urine Cannabinoids Screen NEGATIVE 04/02/19 06:21: White Blood Count 2.9L, Red Blood Count 4.79, Hemoglobin 14.1, Hematocrit 44, Mean Corpuscular Volume 91, Mean Corpuscular Hemoglobin 29, Mean Corpuscular Hemoglobin Concent 32, Red Cell Distribution Width 13.7, Platelet Count 126L, Mean Platelet Volume 9.8, Sodium Level 142, Potassium Level 4.3, Chloride Level 114H, Carbon Dioxide Level 16L, Anion Gap 12, Blood Urea Nitrogen 7, Creatinine 0.73, Estimat Glomerular Filtration Rate > 60, BUN/Creatinine Ratio 10, Glucose Level 127H, Lactic Acid Level 3.36*H, Calcium Level 7.7L, Corrected Calcium 8.4L , Phosphorus Level 3.9, Magnesium Level 1.6, Total Bilirubin 0.4, Aspartate Amino Transf (AST/SGOT) 6, Alanine Aminotransferase (ALT/SGPT) 8, Alkaline Phosphatase 37L, Troponin I < 0.028, B-Type Natriuretic Peptide 28.5, Total Protein 5.0L, Albumin 3.1L, Triglycerides Level 85 04/02/19 08:32: Lactic Acid Level 3.35*H 04/02/19 08:53: Blood Gas Puncture Site RT RAD, Blood Gas Patient Temperature 36.2, Arterial Blood pH 7.23*L, Arterial Blood Partial Pressure CO2 53H, Arterial Blood Partial Pressure O2 79, Arterial Blood HCO3 22L, Arterial Blood Total CO2 23.6, Arterial Blood Oxygen Saturation 95, Arterial Blood Base Excess -4.6L, Sanju Test YES- POS, Blood Gas Ventilator Setting NO, Blood Gas Inspired Oxygen 5 L General Appearance: Other (Ms. Lockett was being intubated by Hospital Remodeler when I evaluated her) Respiratory: Respiratory Distress Cardiovascular: Tachycardia Abdominal: distended, tenderness (Even intubated she responds to palpation. Incisions from robotic surgery appear to be healing well. Also, moderate amount of ecchymosis on right lateral side of abdomen) Extremity: Normal Inspection, Normal Range of Motion, Non Tender, No Calf Tenderness Assessment/Plan Assessment and Plan Assessment: Postoperative Day #6 from Robotic Surgery with Bilateral Salpingo- oophorectomy and Colpectomy 2.Abdominal Pain 3. Rebound 4. Guarding 5. Distended Abdomen 6. Tachypnea 7. Tachycardia Plan: Ms. Lockett was admitted to the ICU where Internal Medicine was consulted. She was intubated and continuous telemetry was started. General Surgery was con sulted. Admission Diagnosis Admission Status: Inpatient Order (span 2 midnights) Reason for Inpatient Admission: Intubated in the ICU. Clinical Quality Measures DVT/VTE Risk/Contraindication: Risk Factor Score Per Nursin RFS Level Per Nursing on Admit: 4+=Very High MANDEEP CASH DO Apr 02, 2019 10:16
[2019-04-02] MEDS: PROPOFOL DRIP (ICU) 100 ML IV SCH ×2 (11:05→17:39)
[2019-04-02] MEDS: RT-ALBUTEROL/IPRATROPIUM 3 ML (DUONEB) VIAL INH SCH ×3 (11:10→21:40)
[2019-04-02] MEDS: fentaNYL INJECTION 1,250 MCG in NS (IVPB) 250 ML IV SCH (11:21)
--- NOTE | 2019-04-02 11:39 | Consultation - Surgery ---
History of Present Illness History of Present Illness Patient Consulted On(dacia/time) 04/02/19 11:31 Time Seen by Provider: 10:20 History of Present Illness Surgery asked to consult regarding Abdominal distention, Elevated lactic acid, sepstic shock. HPI per IM: Ms. Lockett was admitted to [facility] secondary to abdominal pain, nausea with vomiting, distended abdomen, elevated heart rate and Postoperative Day #6 from Robotic Surgery where she had a Bilateral Salpingo- oophorectomy and removal of her cervix. This surgery was performed by Dr. Alvarez. Marco Lockett was transferred to this facility from [facility] Emergency Department. After being admitted she was given IV pain medication and an anxiolytic, which calmed her down for several hours. However, when she woke up, her abdominal pain was worse with guarding and rebounding. Also, her heart rate and respiratory rate increase and she became diaphoretic. When I saw pt she was intubated and sedated. All info obtained from chart and talking to the other physicians. Allergies and Home Medications Allergies Coded Allergies: Penicillins (Verified Allergy, Severe, childhood reaction-unsure of reaction, 03/18/19) amoxicillin (Verified Allergy, Severe, BREATHING ISSUES, 02/09/19) Home Medications Docusate Sodium 100 Mg Capsule, 100 MG PO BID PRN for CONSTIPATION-1ST LINE Prescribed by: MARCOS JACOBO on 03/28/19 1014 Hydrocodone Bit/Acetaminophen 1 Ea Tablet, 2 EA PO Q6H PRN for Pain-See Instructions Prescribed by: MARCOS JACOBO on 03/28/19 1014 Ibuprofen 600 Mg Tablet, 600 MG PO Q6H PRN for PAIN-MODERATE (5-7) Prescribed by: MARCOS JACOBO on 03/28/19 1014 Simethicone 80 Mg Tab.chew, 40 MG PO TID PRN for INDIGESTION 2ND LINE Prescribed by: MARCOS JACOBO on 03/28/19 1014 Patient Home Medication List Home Medication List Reviewed: Yes Past Nvmagot-Xisiuv-Zdbzfm Hx Patient Social History Alcohol Use: Occasionally Uses Recreational Drug Use: Yes (marijuana) Smoking Status: Current Everyday Smoker Type Used: Cigarettes 2nd Hand Smoke Exposure: Yes Recent Foreign Travel: No Contact w/Someone Who Travel: No Recent Infectious Disease Expo: No Recent Hopitalizations: Yes Physical Abuse Screen: No Sexual Abuse: No Seasonal Allergies Seasonal Allergies: No Surgeries History of Surgeries: Yes (DXLS x3, LEEP, oral sx) Surgeries: Section, Hysterectomy, Oophorectomy, Tonsillectomy Respiratory History of Respiratory Disorde: No Cardiovascular History of Cardiac Disorders: No Neurological History of Neurological Disord: No 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 System Female 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 Disorders: 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 Genitourinary History of Genitourinary Disor: No Gastrointestinal History of Gastrointestinal Di: No Musculoskeletal History of Musculoskeletal Dis: No Endocrine History of Endocrine Disorders: No HEENT History of HEENT Disorders: Yes (READING GLASSES) Loss of Vision: Denies Hearing Impairment: Denies Cancer History of Cancer: No Psychosocial History of Psychiatric Problem: No Integumentary History of Skin or Integumenta: No Blood Transfusions History of Blood Disorders: No Adverse Reaction to a Blood Tr: No Family Medical History Significant Family History: Other Conditions/Hx (unable to obtain, pt intubate d.) Review of Systems-General ROS-Unable to Obtain: pt intubate and sedated Physical Exam-General Problems Physical Exam Vital Signs Vital Signs - First Documented 04/02/19 04/02/19 01:30 09:32 Temp 35.5 Pulse 122 Resp 28 B/P (MAP) 127/85 (99) Pulse Ox 94 O2 Delivery Nasal Cannula O2 Flow Rate 2.00 FiO2 40 Capillary Refill : Less Than 3 Seconds General Appearance: moderate distress, obese Eyes: Bilateral Eye PERRL, Bilateral Eye EOMI HEENT: No scleral icterus (R), No scleral icterus (L); other (ET in place) Neck: supple; No thyromegaly Respiratory: lungs clear, decreased breath sounds (bases), accessory muscle use Cardiovascular: no murmur, tachycardia Gastrointestinal: distended, guarding, tenderness, other (small ecchymosis from previous sx) Extremities: no calf tenderness, normal capillary refill, pedal edema Neurologic/Psychiatric: other (unable to obtain, pt intubated) Skin: cool, diaphoresis Lymphatic: no adenopathy (neck, axilla or groin) Data Review Labs Laboratory Tests 04/02/19 05:52: Blood Gas Puncture Site RIGHT RADIAL, Blood Gas Patient Temperature 35.4, Arterial Blood pH 7.25*L, Arterial Blood Partial Pressure CO2 51H, Arterial Blood Partial Pressure O2 89, Arterial Blood HCO3 22L, Arterial Blood Total CO2 23.8, Arterial Blood Oxygen Saturation 98, Arterial Blood Base Excess -4.3L, Sanju Test YES-POS, Blood Gas Ventilator Setting NO, Blood Gas Inspired Oxygen 3L 04/02/19 06:08: Urine Opiates Screen POSITIVEH, Urine Oxycodone Screen NEGATIVE, Urine Methadone Screen NEGATIVE, Urine Propoxyphene Screen NEGATIVE, Urine Barbiturates Screen NEGATIVE, Ur Tricyclic Antidepressants Screen NEGATIVE, Urine Phencyclidine Screen NEGATIVE, Urine Amphetamines Screen NEGATIVE, Urine Methamphetamines Screen NEGATIVE, Urine Benzodiazepines Screen POSITIVEH, Urine Cocaine Screen NEGATIVE, Urine Cannabinoids Screen NEGATIVE 04/02/19 06:21: White Blood Count 2.9L, Red Blood Count 4.79, Hemoglobin 14.1, Hematocrit 44, Mean Corpuscular Volume 91, Mean Corpuscular Hemoglobin 29, Mean Corpuscular Hemoglobin Concent 32, Red Cell Distribution Width 13.7, Platelet Count 126L, Mean Platelet Volume 9.8, Sodium Level 142, Potassium Level 4.3, Chloride Level 114H, Carbon Dioxide Level 16L, Anion Gap 12, Blood Urea Nitrogen 7, Creatinine 0.73, Estimat Glomerular Filtration Rate > 60, BUN/Creatinine Ratio 10, Glucose Level 127H, Lactic Acid Level 3.36*H, Calcium Level 7.7L, Corrected Calcium 8.4L , Phosphorus Level 3.9, Magnesium Level 1.6, Total Bilirubin 0.4, Aspartate Amino Transf (AST/SGOT) 6, Alanine Aminotransferase (ALT/SGPT) 8, Alkaline Phosphatase 37L, Troponin I < 0.028, B-Type Natriuretic Peptide 28.5, Total Protein 5.0L, Albumin 3.1L, Triglycerides Level 85 04/02/19 08:32: Lactic Acid Level 3.35*H 04/02/19 08:53: Blood Gas Puncture Site RT RAD, Blood Gas Patient Temperature 36.2, Arterial Blood pH 7.23*L, Arterial Blood Partial Pressure CO2 53H, Arterial Blood Partial Pressure O2 79, Arterial Blood HCO3 22L, Arterial Blood Total CO2 23.6, Arterial Blood Oxygen Saturation 95, Arterial Blood Base Excess -4.6L, Sanju Test YES- POS, Blood Gas Ventilator Setting NO, Blood Gas Inspired Oxygen 5 L Assessment/Plan Assessment/Plan Assessment/Plan Sepsis Elevated Lactic Acid Abdominal distention with pain Pt did not have UA; therefore it was ordered. CTA of chest did not demonstrate PE, did show some mild atelectasis at bases. We are currently trying to get CT abd/pelvis clouded over from [place]. CT report from [place] did not indicate free air or abscess, but did show some thickened colon. Nothing is jumping out to explain her tachycardia, abdominal pain and hypotension. She may need a diagnostic laparoscopy to look at intestine and make sure nothing is compromised. I will attempt to get a hold of her family to discuss options. Clinical Quality Measures DVT/VTE Risk/Contraindication: Risk Factor Score Per Nursin RFS Level Per Nursing on Admit: 4+=Very High ARON BARKER DO Apr 02, 2019 11:39
[2019-04-02] MEDS: PHENYLEPHRINE INJECTION 20 MG in NS (IVPB) 250 ML IV SCH ×4 (12:00→23:05)
[2019-04-02] MEDS ORDERED: PROPOFOL INJECTION 50 ML IV ONE (12:48)
[2019-04-02] MEDS ORDERED: MIDAZOLAM 2 MG/2 ML (VERSED) VIAL ONE (12:49)
[2019-04-02] MEDS ORDERED: DEXAMETHASONE 10 MG/ML (DECADRON) 1 ML VIAL ONE ×2 (12:50→15:30)
[2019-04-02] MEDS ORDERED: SEVOFLURANE (ULTANE) 15 ML INHAL SOLN ONE ×8 (12:50→15:29)
[2019-04-02] MEDS ORDERED: BUP/EPI 0.5% 1:200,000 (SENSORCAINE) 30 ML VIAL ONE (12:56)
[2019-04-02] MEDS ORDERED: ONDANSETRON 4 MG/2 ML (SDV) Z0FRAN ONE (13:08)
--- NOTE | 2019-04-02 13:09 | Occ Therapy Progress Note ---
Therapy Progress Note Pt is intubated at this time and OT eval/tx is not indicated. OT will re-assess at later date once pt is appropriate for therapy. CIARA PEREZ OT Apr 02, 2019 13:08
--- NOTE | 2019-04-02 13:23 | Consultation - Hospitalist ---
HPI History of Present Illness: HPI/Chief Complaint Chief complaint: Medical management from hospitalist service History of present illness: This is a 38-year-old white female who presented after an uncomplicated robotic procedure removing her uterus and a significant fibroid that was adhesed to the ureters who had been doing well for the 6 days postoperatively and tell abruptly she began having abdominal pain went [place] [facility] subsequently sent to [facility] for higher level of management along with evaluation of critical illness. She ultimately required intubation by Dr. Glass due to respiratory compromise. CT did not show any evidence of pulmonary emboli. Abdominal pain and distention is noted. Hypotension is precluding aggressive sedation for ventilator purposes. Source: patient Date Seen 04/02/19 Attending Physician Mj Alvarez Bethany N MD Referring Physician Date of Admission Apr 02, 2019 at 01:23 Home Medications & Allergies Home Medications Reviewed patient Home Medication Reconciliation performed by pharmacy medication reconciliations police service technician and/or nursing. Patients Allergies have been reviewed. Allergies Allergies Coded Allergies Penicillins (Verified Allergy, Severe, childhood reaction-unsure of reaction, 03/18/19) amoxicillin (Verified Allergy, Severe, BREATHING ISSUES, 02/09/19) Past Wnbybnc-Sqwtei-Fatukx Hx Past Med/Social Hx: Reviewed Nursing Past Med/Soc Hx, Reviewed and Corrections made Patient Social History Alcohol Use: Occasionally Uses Recreational Drug Use: Yes (marijuana) Smoking Status: Current Everyday Smoker Type Used: Cigarettes 2nd Hand Smoke Exposure: Yes Physical Abuse Screen: No Sexual Abuse: No Recent Foreign Travel: No Contact w/other who traveled: No Recent Hopitalizations: Yes Recent Infectious Disease Expo: No Seasonal Allergies Seasonal Allergies: No Past Medical History Surgeries: Section, Hysterectomy, Oophorectomy, Tonsillectomy Currently Using CPAP: No Currently Using BIPAP: No Female 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 Disorders: 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 Hysterectomy Loss of Vision: Denies Hearing Impairment: Denies History of Blood Disorders: No Adverse Reaction to Blood Terry: No Family History Other Conditions/Hx (unable to obtain, pt intubated.) Review of Systems ROS-Unable to Obtain: intubated Constitutional: see HPI Physical Exam Physical Exam Vital Signs Vital Signs - First Documented 04/02/19 04/02/19 01:30 09:32 Temp 35.5 Pulse 122 Resp 28 B/P (MAP) 127/85 (99) Pulse Ox 94 O2 Delivery Nasal Cannula O2 Flow Rate 2.00 FiO2 40 Capillary Refill : Less Than 3 Seconds Height, Weight, BMI Height: '" Weight: lbs. oz. kg; 31.84 BMI Method: General Appearance: Moderate Distress (in process of sedation for intubation), Other (intubated) Eyes: Bilateral Eye PERRL, Bilateral Eye EOMI HEENT: No Scleral Icterus (L), No Scleral Icterus (R) Respiratory: Crackles, Decreased Breath Sounds, Other (intubated) Cardiovascular: Tachycardia Gastrointestinal: Abnormal Bowel Sounds (quiet), Distended, Guarding, Tenderness (diffuse) Back: Normal Inspection, No CVA Tenderness, No Vertebral Tenderness Extremity: Normal Inspection, Normal Range of Motion, Non Tender, No Calf Tenderness Neurologic/Psychiatric: Depressed Affect, Other (intubated) Skin: Normal Color, Warm/Dry; No Mottled, No Petechia Lymphatic: No Adenopathy Results Results/Procedures Labs Laboratory Tests 04/02/19 06:21 Patient resulted labs reviewed. Imaging: Reviewed Imaging Report Assessment/Plan Assessment and Plan Assess & Plan/Chief Complaint Assessment: Respiratory failure requiring intubation Postop abdominal pain with distention consulting general surgery Coarse breath sounds evaluating for postop pneumonia Hypotension Plan: Maintain intubation Critical illness management Appreciate general surgery Diagnosis/Problems Diagnosis/Problems (1) Respiratory failure (2) Required emergency intubation (3) Abdominal distention (4) Bilateral atelectasis (5) Hypotension (6) Abdominal pain Status: Acute Clinical Quality Measures DVT/VTE Risk/Contraindication: Risk Factor Score Per Nursin RFS Level Per Nursing on Admit: 4+=Very High MATEUSZ YUSUF DO Apr 02, 2019 13:23
[2019-04-02 13:39] LABS: BILIRUBIN,URINE NEGATIVE (NEGATIVE); CLARITY,URINE SL CLOUDY; COLOR,URINE DARK YELLOW; GLUCOSE, URINE (UA) NEGATIVE (NEGATIVE); KETONES,URINE NEGATIVE (NEGATIVE); LEUKOCYTE ESTERASE ,URINE NEGATIVE (NEGATIVE); NITRITE,URINE NEGATIVE (NEGATIVE); PH,URINE 6.5 (5-9); PROTEIN,URINE TRACE (NEGATIVE)
[2019-04-02 13:47] LABS: BACTERIA,URINE TRACE /HPF; RBC,URINE RARE /HPF
[2019-04-02] MEDS ORDERED: morphine INJ 10 MG/ML 1ML (SYR OR VIAL) ONE (13:50)
[2019-04-02] MEDS ORDERED: PHENYLEPHRINE INJ 10 MG/ML (FOR DRIP KITS ONLY) ONE ×3 (14:30→23:03)
[2019-04-02] MEDS: LACTATED RINGERS 1,000 ML IV PRN (14:53)
[2019-04-02] MEDS ORDERED: PHENYLEPHRINE 100 MCG/ML 10 ML (ANESTHESIA) SYR ONE (15:34)
--- NOTE | 2019-04-02 15:42 | Progress Note-Post Operative ---
Post-Operative Progess Note Surgeon (s)/Inspector Receiving (s) Surgeon ARON BARKER DO Inspector Receiving: Barbara Chavez, MSIII Vidhya Vigil MSIII Pre-Operative Diagnosis Abd pain and distention, Septic Shock Post-Operative Diagnosis Sigmoid Colon perforation Procedure & Operative Findings Date of Procedure 04/02/19 Procedure Performed/Findings Sigmoid colon Resection with end Colostomy, Consuelo's procedure Anesthesia Type GET Estimated Blood Loss Estimated blood loss (mL): 200ml Specimens/Packing Specimens Removed portion of sigmoid colon ARON BARKER DO Apr 02, 2019 15:42
[2019-04-02] MEDS ORDERED: PROMETHAZINE INJ 25 MG/ML (PHENERGAN) AMP IVP ONE (16:15)
[2019-04-02] MEDS ORDERED: HYDROmorphone 2 MG/ML VIAL (DILAUDID) IV ONE (16:15)
[2019-04-02] MEDS ORDERED: morphine INJ 10 MG/ML 1ML (SYR OR VIAL) IVP ONE (16:15)
--- NOTE | 2019-04-02 16:48 | Diagnostic Imaging Report ---
EXAMINATION: Chest radiograph, portable AP view. DATE: 04/02/2019 4:33 PM. INDICATION: 38-year-old female, endotracheal tube exchange. COMPARISON: April 02, 2019 at 0944 hours. FINDINGS: The endotracheal tube is approximately 2.5 cm above the fanny. Right internal jugular central venous line overlies the upper SVC. The nasogastric tube overlies the stomach. Stable overall appearance of the cardiomediastinal silhouette. There is no identified pneumothorax. There is no large pleural effusion. Lung lines are low. There is no identified focal airspace consolidation. IMPRESSION: 1. Low lung volumes without definite acute cardiopulmonary abnormality. 2. Support lines and tubes as above. Dictated by: Dictated on workstation # [id number]
--- NOTE | 2019-04-02 17:00 | NUR ---
This nurse taking over care of patient at 1700. Report received from Cristiane NOLANglobal consumer sector vice president. Midline abdominal incision with gauze and medipore tape, c/d/i. colostomy to left lower abdomen, stoma is moist and pink. VSS. Patient remains on ventilator. med in lowest position with wheels locked, side rails are up.
--- NOTE | 2019-04-02 17:20 | NUR ---
Telephone order received from for lovenox injection 30mg daily starting tomorrow, PADDY ohara, and SCD's.
[2019-04-03] VITALS (30 sets, daily range): BP systolic 94–125; BP diastolic 56–84
[2019-04-03] MEDS: inSUlin ASPART (NovoLOG) 1 UNIT/0.01 ML (CHARGE PER UNIT) SC SCH ×5 (00:20→23:00)
[2019-04-03] MEDS: PHENYLEPHRINE INJECTION 20 MG in NS (IVPB) 250 ML IV SCH ×4 (01:01→13:28)
[2019-04-03] MEDS: PROPOFOL DRIP (ICU) 100 ML IV SCH ×4 (01:02→20:29)
[2019-04-03] MEDS ORDERED: NS (IVPB) 100 ML ONE (02:00)
[2019-04-03] MEDS ORDERED: VASOPRESSIN INJECTION 20 UNIT/ML VIAL ONE (02:00)
[2019-04-03] MEDS: RT-ALBUTEROL/IPRATROPIUM 3 ML (DUONEB) VIAL INH SCH ×6 (02:05→22:19)
[2019-04-03] MEDS ORDERED: NOREPINEPHRINE 4 MG/250 ML 250 ML IV SCH (03:00)
[2019-04-03] MEDS ORDERED: VASOPRESSIN 20 UNITS/NS 100 ML DRIP IV SCH ×2 (03:00)
[2019-04-03] MEDS: LACTATED RINGERS 1,000 ML IV SCH ×3 (03:33→17:41)
[2019-04-03] MEDS: NOREPINEPHRINE 4 MG/250 ML 250 ML IV SCH ×3 (03:34→20:04)
--- NOTE | 2019-04-03 03:54 | OPERATIVE REPORT ---
DATE OF SERVICE: 04/02/2019 PREOPERATIVE DIAGNOSES: Abdominal pain, abdominal distention, septic shock. POSTOPERATIVE DIAGNOSIS: Sigmoid colon perforation. PROCEDURE: Sigmoid colon resection with end-colostomy with a Consuelo's procedure. SURGEON: Aron Barker DO FIRST ASSISTS: Barbara Chavez, MS3 and Vidhya Vigil MS3. ANESTHESIA: General endotracheal tube. SPECIMEN: Portion of sigmoid colon as well as fluid culture. BLOOD LOSS: Approximately 200 mL. FLUIDS: Per anesthesia. POSTOPERATIVE CONDITION: Stable. INDICATION FOR PROCEDURE: The patient is a 38-year-old female who on Thursday had a large surgery for removal of an endometrioma. She was doing well until yesterday when she stated she had a bowel movement, then felt abdominal pain and got progressively worse. She presented to the emergency room, sent here and then actually sent to the ICU in respiratory distress and then intubated. FINDINGS: The patient had a small hole in the sigmoid colon. PROCEDURE NOTE: After informed consent was obtained, the patient was brought to the operating room, placed on the table in supine position. First started with a diagnostic laparoscopy, placed 11 mm trocar port supraumbilically using a #11 blade with local lidocaine and carried this down through the skin and subcutaneous tissue, then deepened down to subcutaneous tissue with Bovie electrocautery down to fascia. Fascia incised with Bovie electrocautery, then bluntly entered the abdomen, placed an 11 mm trocar port under direct visualization. Created pneumoperitoneum and then placed another 5 mm port just suprapubically in the midline with local lidocaine, 11 blade for stab incision and VersaStep system all done under direct visualization. Upon entry, noted a lot of murky fluid. This was suctioned out and carefully started looking around. Using the suction automotive parts manager, carefully moved intestine either way and then placed the patient in Trendelenburg. Looking down in the pelvis, more murky fluid and thought we saw was a flecks of poop and then fecal material and then found a small hole in the sigmoid colon. At this point, then elected to switch to an open procedure. I made a midline incision with a #10 blade, carried down through the skin and subcutaneous tissue, then deepened down to subcutaneous tissue with Bovie electrocautery, going down to fascia, incised the fascia from the supraumbilical incision down to the suprapubic incision carefully protecting the bowel with my hand, then elected to place the Omni retractor. Placed Omni retractor with foreign body baker to hold the abdomen open and then packed the small intestine up and used a malleable to hold the small intestine out away, able to visualize the opening in the sigmoid colon. At this point, I elected to come across the sigmoid colon above this, got under the mesentery bluntly and then placed a PERI-75, clamped and fired, thereby transecting and then used this as a handle and coming across the mesentery with the LigaSure, clamping, coagulating and transecting coming down and then going past this whole. Again getting around the colon bluntly through the mesentery with my finger as well as use a little bit of Bovie electrocautery and then able to place a contour stapler across the distal portion of sigmoid colon was below the sacral promontory, saw almost low rectal, able to get across clamped and fired, thereby transecting and then continued to take this off, take the sigmoid colon off and removed this, passed this off table. Visualized both right and left ureters. These were carefully from all of our dissection, freed up the sigmoid colon along the sidewall along the white line of Toldt to get some length. Then copiously irrigated with 3-4 liters of warm normal saline and suctioned this out. At this point, then elected to create the colostomy, grasp the skin and made a circular incision and carried this down through the fat to the fascia, made a cruciate incision in the fascia and then spread the muscle gently and then went through the peritoneum into the abdomen, got two and almost three fingers into this opening to stretch it to be able to bring the sigmoid colon through. This point, then able to bring the sigmoid colon through, did not appear to be twisted and felt like it was in good position and then closed the midline incision closing with a #1 double stranded PDS suture, one from the superior portion, one from the inferior portion running together and meet in the middle and then tied and then irrigated the incision, closed the skin with sandi and then placed a 10/10 drape and then matured the colostomy using a 3-0 Vicryl to do a Devika type colostomy at the 3 o'clock, 6 o'clock, 9 o'clock and 12 o'position to crispin the colon and sutured to the skin and then in between here sutured with 3-0 Vicryl simple sutures two in between all of these. Colostomy looked good. A colostomy bag was placed. The patient was then transferred back to the ICU in stable condition. Sponge, instrument and needle count correct at the end of the case. Job ID: [id number] DocumentID: [id number] Dictated Date: 04/02/2019 20:14:28 Passenger Car Upholsterer Apprentice Date: 04/03/2019 03:54:06 Dictated By: ARON BARKER DO
[2019-04-03 03:55] LABS: BASOPHILS % (AUTO) 0 % (0-10); EOSINOPHILS # (AUTO) 0.1 10^3/uL (0.0-0.3); EOSINOPHILS % (AUTO) 1 % (0-10); HEMATOCRIT 39 % (35-52); HEMOGLOBIN 12.8 G/DL (11.5-16.0); LYMPHOCYTES # (AUTO) 0.5 X 10^3 (1.0-4.0); LYMPHOCYTES % (AUTO) 4 % (12-44); MEAN CORPUSCULAR HEMOGLOBIN 30 PG (25-34); MEAN CORPUSCULAR HGB CONC 33 G/DL (32-36); MEAN CORPUSCULAR VOLUME 90 FL (80-99); MEAN PLATELET VOLUME 9.6 FL (7.4-10.4); MONOCYTES # (AUTO) 0.7 X 10^3 (0.0-1.0); MONOCYTES % (AUTO) 4 % (0-12); NEUTROPHILS # (AUTO) 14.1 X 10^3 (1.8-7.8); NEUTROPHILS % (AUTO) 92 % (42-75); PLATELET COUNT 284 10^3/uL (130-400); RED CELL DISTRIBUTION WIDTH 14.1 % (10.0-14.5); WHITE BLOOD COUNT 15.5 10^3/uL (4.3-11.0)
[2019-04-03 04:12] LABS: ALANINE AMINOTRANSFERASE 10 U/L (0-55); ALBUMIN 2.2 GM/DL (3.2-4.5); ALKALINE PHOSPHATASE 28 U/L (40-136); BILIRUBIN,TOTAL 0.3 MG/DL (0.1-1.0); BUN/CREATININE RATIO 14; CALCIUM 7.7 MG/DL (8.5-10.1); CARBON DIOXIDE 16 MMOL/L (21-32); CHLORIDE 112 MMOL/L (98-107); CREATININE SERUM 0.78 MG/DL (0.60-1.30); GFR ESTIMATED > 60; GLUCOSE 197 MG/DL (70-105); MAGNESIUM 1.5 MG/DL (1.6-2.4); POTASSIUM 4.1 MMOL/L (3.6-5.0); SODIUM 140 MMOL/L (135-145); TOTAL PROTEIN 4.3 GM/DL (6.4-8.2)
[2019-04-03 04:17] LABS: BAND NEUTROPHILS 49 %; LYMPHOCYTES % (MANUAL) 3 %; MONOCYTES % (MANUAL) 10 %; NEUTROPHILS % (MANUAL) 38 %; RBC MORPH NORMAL
[2019-04-03 04:26] LABS: ABG BASE EXCESS -8.4 MMOL/L (-2.5-2.5); ABG OXYGEN SATURATION 79 % (94-100); ABG PCO2 39 MMHG (35-45); ABG PO2 47 MMHG (79-93); ABG TCO2 18.7 MMOL/L (21.0-31.0)
[2019-04-03] MEDS: POTASSIUM CL 10MEQ/50ML IVPB 50 ML IV SCH (04:28)
[2019-04-03] MEDS: KCL 20 MEQ TAB (K-DUR) PO SCH (04:28)
[2019-04-03] MEDS: MAGNESIUM 1 GM/100 ML IVPB 100 ML IV SCH ×3 (04:28→08:30)
[2019-04-03 04:30] LABS: ABG PH 7.26 (7.37-7.43)
[2019-04-03 04:31] LABS: INSPIRED O2 30%
[2019-04-03 04:32] LABS: VENTILATOR YES
[2019-04-03] MEDS ORDERED: SODIUM BICARB 8.4% 50 MEQ/50 ML VIAL IV ONE (06:00)
[2019-04-03] MEDS ORDERED: LACTATED RINGERS 1,000 ML IV SCH (06:00)
--- NOTE | 2019-04-03 06:09 | Pulmonary Progress Note ---
Subjective Time Seen by a Provider: 06:09 Subjective/Events-last exam Sedated on vent Sepsis Event Evaluation Height, Weight, BMI Height: '" Weight: lbs. oz. kg; 31.84 BMI Method: Focused Exam Lactate Level 04/02/19 06:21: Lactic Acid Level 3.36*H 04/02/19 08:32: Lactic Acid Level 3.35*H Exam Exam Vital Signs Date Time Temp Pulse Resp B/P (MAP) Pulse Ox O2 Delivery O2 Flow Rate FiO2 04/03/19 04:00 98 Mechanical Ventilator 30 04/03/19 04:00 36.0 30.00 04/03/19 03:00 105 24 107/62 (77) 97 Mechanical Ventilator 32.00 04/03/19 02:30 Mechanical Ventilator 32.00 04/03/19 02:05 97 24 96 36 04/03/19 02:00 107 23 122/75 (91) 96 Mechanical Ventilator 30.00 04/03/19 01:02 115 04/03/19 01:00 121 04/03/19 01:00 121 16 95/62 (73) 96 Mechanical Ventilator 50.00 04/03/19 00:00 113 24 94/63 (73) 97 Mechanical Ventilator 50.00 04/03/19 00:00 98 Mechanical Ventilator 36 04/02/19 23:00 122 15 84/59 (67) 96 Mechanical Ventilator 50.00 04/02/19 22:00 117 15 94/61 (72) 97 Mechanical Ventilator 50.00 04/02/19 21:40 113 24 98 36 04/02/19 21:00 117 24 97/63 (74) 97 Mechanical Ventilator 50.00 04/02/19 20:00 98 Mechanical Ventilator 36 04/02/19 20:00 118 24 94/63 (73) 98 Mechanical Ventilator 50.00 04/02/19 20:00 35.4 04/02/19 19:00 122 24 106/84 (91) 97 Mechanical Ventilator 50.00 04/02/19 19:00 122 04/02/19 18:51 120 24 99 40 04/02/19 18:00 122 24 104/79 (87) 99 Mechanical Ventilator 50.00 04/02/19 17:39 125 04/02/19 17:00 Mechanical Ventilator 40 04/02/19 17:00 36.5 24 98/78 (85) 97 Mechanical Ventilator 40 04/02/19 17:00 125 23 114/82 (93) 97 Mechanical Ventilator 50.00 04/02/19 17:00 36.5 04/02/19 16:50 24 97/78 (84) 96 Mechanical Ventilator 40 04/02/19 16:45 Mechanical Ventilator 40 04/02/19 16:40 24 98/60 (73) 96 Mechanical Ventilator 40 04/02/19 16:30 Mechanical Ventilator 40 04/02/19 16:30 24 97/50 (66) 96 Mechanical Ventilator 40 04/02/19 16:20 24 101/62 (75) 96 Mechanical Ventilator 40 04/02/19 16:15 Mechanical Ventilator 40 04/02/19 16:10 24 102/60 (74) 96 Mechanical Ventilator 40 04/02/19 16:00 138 24 100/72 (81) 95 Mechanical Ventilator 50.00 04/02/19 16:00 Mechanical Ventilator 40 04/02/19 16:00 24 102/67 (79) 96 Mechanical Ventilator 40 04/02/19 16:00 98 Mechanical Ventilator 40 04/02/19 15:53 36.4 12 104/60 (75) 100 Mechanical Ventilator 40 04/02/19 15:53 Mechanical Ventilator 40 04/02/19 13:00 129 13 110/63 (79) 97 Mechanical Ventilator 50.00 04/02/19 12:33 136 04/02/19 12:00 142 9 99/35 (56) 92 Mechanical Ventilator 100.00 04/02/19 12:00 36.2 04/02/19 12:00 97 Mechanical Ventilator 40 04/02/19 11:25 140 36 95 40 04/02/19 11:05 123 04/02/19 11:00 133 16 132/103 (113) 94 Mechanical Ventilator 100.00 04/02/19 10:00 120 11 70/55 (60) 99 Mechanical Ventilator 100.00 04/02/19 09:40 Mechanical Ventilator 100.00 04/02/19 09:32 124 24 95 40 04/02/19 09:00 133 35 124/46 (72) 94 Nasal Cannula 5.00 04/02/19 08:00 96 Nasal Cannula 5.00 04/02/19 08:00 36.4 04/02/19 08:00 126 31 109/33 (58) 96 Nasal Cannula 5.00 04/02/19 07:00 124 04/02/19 07:00 124 38 101/59 (73) 98 Nasal Cannula 5.00 04/02/19 06:30 124 35 110/77 (88) 96 Nasal Cannula 5.00 04/02/19 06:27 Nasal Cannula 5.00 04/02/19 06:26 97 Nasal Cannula 5.00 04/02/19 06:15 118 29 110/52 (71) 98 Nasal Cannula 5.00 I & O 04/03/19 07:00 Intake Total 2000 ml Output Total 1420 ml Balance 580 ml Height & Weight Height: '" Weight: lbs. oz. kg; 31.84 BMI Method: General Appearance: Severe Distress (unresponsive) HEENT: PERRL/EOMI, TMs Normal, Pharynx Normal Neck: Full Range of Motion, Non Tender, Supple Respiratory: Accessory Muscle Use, Decreased Breath Sounds Cardiovascular: Regular Rate, Rhythm Capillary Refill: Less Than 3 Seconds Gastrointestinal: normal bowel sounds, distended, guarding, rebound Extremity: Normal Capillary Refill Neurologic/Psychiatric: Depressed Affect Skin: Normal Color, Warm/Dry Lymphatic: No Adenopathy Results Lab Laboratory Tests 04/02/19 06:21 04/03/19 03:45 Assessment/Plan Assessment/Plan Acute respiratory failure -Continue Ventilator -Propofol, Fentanyl -CT scan of chest - reviewed - Severe sepisis with Sigmoid Perforation s/p resection with colostomy -Micro called and said she is growing enterococcus from surgical culture -Change Rocephin to Merrem and add vanco -Add Eraxis since pt had perforation Metabolic lactic acidosis -LA is worse -Give another liter bolus -Continue LR at 150 Hypotension -Pt is currently on Robert and Vasopressin Hypomag -replace Pelvic mass s/p resection/ bilateral oophorectomy 03/29/19 Hx of endometriosis Hx of methamphetamine and marijuana TOY SAEZ DO Apr 03, 2019 06:09
[2019-04-03] MEDS: IBUPROFEN 600 MG (MOTRIN) TAB PO SCH ×4 (06:28→23:01)
[2019-04-03] MEDS: metroNIDAZOLE 500MG/100ML IVPB 100 ML IV SCH ×3 (06:31→22:21)
[2019-04-03] MEDS: cefTRIAXone FOR IV USE 1,000 MG in WATER (STERILE) FOR INJECTION 10 ML IV SCH (06:32)
[2019-04-03] MEDS: ENOXAPARIN 30 MG/0.3 ML (LOVENOX) SYR SC SCH (08:30)
[2019-04-03] MEDS: PANTOPRAZOLE 40 MG (PROTONIX) VIAL IV SCH (08:30)
[2019-04-03] MEDS ORDERED: MAGNESIUM 1 GM/100 ML IVPB 100 ML IV ONE (08:45)
[2019-04-03] MEDS ORDERED: ANIDULAFUNGIN INJECTION 200 MG in NS (IVPB) 250 ML IV ONE (08:45)
[2019-04-03] MEDS ORDERED: PHARMACY TO DOSE IV SCH (08:45)
[2019-04-03] MEDS ORDERED: VANCOMYCIN 1,750 MG/NS 500 ML IVPB IV NR ×2 (08:48)
--- NOTE | 2019-04-03 08:54 | NUR ---
PTD Vanco - 1750mg over 2 hours x 1, then 1250mg every 12 hours. Trough 04/05 @ 0830.
--- NOTE | 2019-04-03 09:20 | Diagnostic Imaging Report ---
EXAMINATION: Chest radiograph, portable AP view. DATE: 04/03/2019 3:14 AM hours. INDICATION: 38-year-old female, on ventilation. COMPARISON: April 02, 2019. FINDINGS: The endotracheal tube is 1.9 cm above the fanny. The nasogastric tube extends to the distal margin of the included field of view. Right internal jugular central venous line overlies the lower SVC. Stable overall appearance of the cardiomediastinal silhouette. There is no identified pneumothorax. There is a gradient of attenuation overlying the right lung base. There is no definite airspace consolidation in the left lung. The opacification in the right lung base appears new since comparison study. IMPRESSION: 1. Gradient of attenuation overlying the right lung base which may relate to right-sided pleural effusion, infiltrate, and/or atelectasis. This is new since comparison exam. 2. Support lines and tubes, as above. Dictated by: Dictated on workstation # [id number]
--- NOTE | 2019-04-03 09:27 | Anesthesia-General Post-Op ---
General Significant Intra-Op Events Notes Patient to the OR yesterday. Was brought to the OR ventilated, sedated and requiring vasoactive medications. Patient Condition Mental Status/LOC: Same as Preop Cardiovascular: Satisfactory (Still requiring vasoactive medications) Nausea/Vomiting: Absent Respiratory: Satisfactory (Patient still ventilated as she was preop) Pain: Controlled Complications: Absent Post Op Complications Complications None Follow Up Care/Instructions Patient Instructions None needed. Anesthesia/Patient Condition Patient Condition No apparent adverse anesthesia problems. Someone from Anesthesia will follow up tomorrow. MAGEN VILLA CRNA Apr 03, 2019 09:26
[2019-04-03] MEDS: fentaNYL INJECTION 1,250 MCG in NS (IVPB) 250 ML IV SCH (10:18)
[2019-04-03] MEDS: MEROPENEM 500 MG in WATER (STERILE) FOR INJECTION 10 ML IV SCH ×3 (10:24→20:03)
--- NOTE | 2019-04-03 12:09 | Progress Note - Hospitalist ---
Subjective HPI/CC On Admission Date Seen by Provider: Apr 03, 2019 Time Seen by Provider: 10:30 Chief complaint: Medical management from hospitalist service History of present illness: This is a 38-year-old white female who presented after an uncomplicated robotic procedure removing her uterus and a significant fibroid that was adhesed to the ureters who had been doing well for the 6 days postoperatively and tell abruptly she began having abdominal pain went [facility] subsequently sent to [facility] for higher level of management along with evaluation of critical illness. She ultimately required intubation by Dr. Glass due to respiratory compromise. CT did not show any evidence of pulmonary emboli. Abdominal pain and distention is noted. Hypotension is precluding aggressive sedation for ventilator purposes. Subjective/Events-last exam Required Exp Lap with open procedure yesterday at [address] Arriaga revealing bowel perforation Requiring pressor therapy currently Vanc and Eraxis and Nikolay maintained Diprivan and Fentanyl maintained Colostomy output monitored Critically ill Focused Exam Lactate Level 04/02/19 08:32: Lactic Acid Level 3.35*H 04/03/19 06:15: Lactic Acid Level 5.38*H 04/03/19 08:15: Lactic Acid Level 5.95*H Lactic Acid Level Objective Exam Vital Signs Vital Signs Date Time Temp Pulse Resp B/P (MAP) Pulse Ox O2 Delivery O2 Flow Rate FiO2 04/03/19 14:00 93 24 103/71 (82) 96 Mechanical Ventilator 40.00 04/03/19 12:00 36.6 04/03/19 12:00 40 Capillary Refill : Less Than 3 SecondsLess Than 3 Seconds General Appearance: No Apparent Distress, Other (sedated on vent) Respiratory: Lungs Clear, Decreased Breath Sounds Cardiovascular: Tachycardia Skin: Normal Color, Warm/Dry Results/Procedures Lab Laboratory Tests 04/03/19 03:45 Patient resulted labs reviewed. Imaging: Reviewed Imaging Report Assessment/Plan Assessment and Plan Assess & Plan/Chief Complaint Assessment: Respiratory failure requiring intubation vent day # 2 Severe sepsis maintained on aggressive IVF and pressor therapy Acute peritonitis Bowel perforation s/p Exp Lap open procedure requiring colostomy POD # 1 Postop Hyst 6 days prior to admit PNA Hypotension requiring pressor therapy Plan: Maintain intubation Critical illness management Appreciate general surgery and Pulmonology Abx Monitor closely Diagnosis/Problems Diagnosis/Problems (1) Respiratory failure (2) Required emergency intubation (3) Abdominal distention (4) Bilateral atelectasis (5) Hypotension (6) Abdominal pain Status: Acute (7) S/P exploratory laparotomy (8) Bowel perforation (9) Peritonitis (10) Colostomy in place Clinical Quality Measures DVT/VTE Risk/Contraindication: Risk Factor Score Per Nursin RFS Level Per Nursing on Admit: 4+=Very High MATEUSZ YUSUF DO Apr 03, 2019 12:09
--- NOTE | 2019-04-03 12:22 | Physical Therapy Progress Note ---
Therapy Progress Note Orders received for therapy 04/02/2019, patient currently intubated. We will check patient status 04/04/2019 to begin PT evaluation. LINDSEY EDGE PT Apr 03, 2019 12:22
--- NOTE | 2019-04-03 14:26 | Progress Note - Surgery ---
Subjective Time Seen by a Provider: 11:56 Subjective/Events-last exam Pt seen and examined, sedated on vent. Pt is still requiring pressors for BP support. Review of Systems unable to obtain, pt sedated on vent Focused Exam Lactate Level 04/02/19 08:32: Lactic Acid Level 3.35*H 04/03/19 06:15: Lactic Acid Level 5.38*H 04/03/19 08:15: Lactic Acid Level 5.95*H Objective Exam Vital Signs Date Time Temp Pulse Resp B/P (MAP) Pulse Ox O2 Delivery O2 Flow Rate FiO2 04/03/19 13:29 94 04/03/19 13:00 98 24 114/73 (87) 93 Mechanical Ventilator 40.00 04/03/19 12:30 93 04/03/19 12:00 36.6 04/03/19 12:00 88 23 120/80 (93) 95 Mechanical Ventilator 40.00 04/03/19 11:00 92 24 112/73 (86) 96 Mechanical Ventilator 40.00 04/03/19 10:58 Mechanical Ventilator 40.00 04/03/19 10:54 98 24 94 40 04/03/19 10:00 87 24 125/84 (98) 95 Mechanical Ventilator 30.00 04/03/19 09:00 101 23 111/73 (86) 92 Mechanical Ventilator 30.00 04/03/19 08:20 98 24 92 32 04/03/19 08:00 91 23 116/77 (90) 94 Mechanical Ventilator 30.00 04/03/19 08:00 95 Mechanical Ventilator 40 04/03/19 07:56 98 04/03/19 07:00 84 04/03/19 07:00 85 23 123/77 (92) 94 Mechanical Ventilator 30.00 04/03/19 06:00 90 24 100/66 (77) 96 Mechanical Ventilator 30.00 04/03/19 05:00 94 24 96/60 (72) 97 Mechanical Ventilator 30.00 04/03/19 04:00 98 Mechanical Ventilator 30 04/03/19 04:00 111 24 96/56 (69) 94 Mechanical Ventilator 30.00 04/03/19 04:00 36.0 30.00 04/03/19 03:00 105 24 107/62 (77) 97 Mechanical Ventilator 32.00 04/03/19 02:30 Mechanical Ventilator 32.00 04/03/19 02:05 97 24 96 36 04/03/19 02:00 107 23 122/75 (91) 96 Mechanical Ventilator 30.00 04/03/19 01:02 115 04/03/19 01:00 121 04/03/19 01:00 121 16 95/62 (73) 96 Mechanical Ventilator 50.00 04/03/19 00:00 113 24 94/63 (73) 97 Mechanical Ventilator 50.00 04/03/19 00:00 98 Mechanical Ventilator 36 04/02/19 23:00 122 15 84/59 (67) 96 Mechanical Ventilator 50.00 04/02/19 22:00 117 15 94/61 (72) 97 Mechanical Ventilator 50.00 04/02/19 21:40 113 24 98 36 04/02/19 21:00 117 24 97/63 (74) 97 Mechanical Ventilator 50.00 04/02/19 20:00 98 Mechanical Ventilator 36 04/02/19 20:00 118 24 94/63 (73) 98 Mechanical Ventilator 50.00 04/02/19 20:00 35.4 04/02/19 19:00 122 24 106/84 (91) 97 Mechanical Ventilator 50.00 04/02/19 19:00 122 04/02/19 18:51 120 24 99 40 04/02/19 18:00 122 24 104/79 (87) 99 Mechanical Ventilator 50.00 04/02/19 17:39 125 04/02/19 17:00 Mechanical Ventilator 40 04/02/19 17:00 36.5 24 98/78 (85) 97 Mechanical Ventilator 40 04/02/19 17:00 125 23 114/82 (93) 97 Mechanical Ventilator 50.00 04/02/19 17:00 36.5 04/02/19 16:50 24 97/78 (84) 96 Mechanical Ventilator 40 04/02/19 16:45 Mechanical Ventilator 40 04/02/19 16:40 24 98/60 (73) 96 Mechanical Ventilator 40 04/02/19 16:30 Mechanical Ventilator 40 04/02/19 16:30 24 97/50 (66) 96 Mechanical Ventilator 40 04/02/19 16:20 24 101/62 (75) 96 Mechanical Ventilator 40 04/02/19 16:15 Mechanical Ventilator 40 04/02/19 16:10 24 102/60 (74) 96 Mechanical Ventilator 40 04/02/19 16:00 138 24 100/72 (81) 95 Mechanical Ventilator 50.00 04/02/19 16:00 Mechanical Ventilator 40 04/02/19 16:00 24 102/67 (79) 96 Mechanical Ventilator 40 04/02/19 16:00 98 Mechanical Ventilator 40 04/02/19 15:53 36.4 12 104/60 (75) 100 Mechanical Ventilator 40 04/02/19 15:53 Mechanical Ventilator 40 I & O 04/03/19 07:00 Intake Total 2000 ml Output Total 2070 ml Balance -70 ml Capillary Refill : Less Than 3 SecondsLess Than 3 Seconds General Appearance: No Apparent Distress, Chronically ill HEENT: Other (Pupils equal and reactive, ET tube in place) Respiratory: Accessory Muscle Use, Decreased Breath Sounds, Other (on ventilation support) Cardiovascular: Regular Rate, Rhythm, No Murmur Gastrointestinal: distended (mild), other (ostomy is slightly purple and eleazar matous (normal for Post-Op day 1)) Extremity: Normal Capillary Refill Neurologic/Psychiatric: Depressed Affect Results Lab Laboratory Tests 04/02/19 18:07: Glucometer 119H 04/02/19 18:25: Troponin I < 0.028 04/03/19 00:14: Glucometer 123H 04/03/19 03:45: White Blood Count 15.5H, Red Blood Count 4.31L, Hemoglobin 12.8, Hematocrit 39, Mean Corpuscular Volume 90, Mean Corpuscular Hemoglobin 30, Mean Corpuscular Hemoglobin Concent 33, Red Cell Distribution Width 14.1, Platelet Count 284, Mean Platelet Volume 9.6, Neutrophils (%) (Auto) 92H, Lymphocytes (%) (Auto) 4L, Monocytes (%) (Auto) 4, Eosinophils (%) (Auto) 1, Basophils (%) (Auto) 0, Neutrophils # (Auto) 14.1H, Lymphocytes # (Auto) 0.5L, Monocytes # (Auto) 0.7, Eosinophils # (Auto) 0.1, Basophils # (Auto) 0.0, Neutrophils % (Manual) 38, Lymphocytes % (Manual) 3, Monocytes % (Manual) 10, Band Neutrophils 49, Blood Morphology Comment NORMAL, Sodium Level 140, Potassium Level 4.1, Chloride Level 112H, Carbon Dioxide Level 16L, Anion Gap 12, Blood Urea Nitrogen 11, Creatinine 0.78, Estimat Glomerular Filtration Rate > 60, BUN/Creatinine Ratio 14, Glucose Level 197H, Calcium Level 7.7L, Corrected Calcium 9.1, Phosphorus Level 3.0, Magnesium Level 1.5L, Total Bilirubin 0.3, Aspartate Amino Transf (AST/SGOT) 14, Alanine Aminotransferase (ALT/SGPT) 10, Alkaline Phosphatase 28L, Total Protein 4.3L, Albumin 2.2L 04/03/19 04:10: Blood Gas Puncture Site LEFT BRACHIAL, Blood Gas Patient Temperature 36.0, Arterial Blood pH 7.26*L, Arterial Blood Partial Pressure CO2 39, Arterial Blood Partial Pressure O2 47L, Arterial Blood HCO3 17*L, Arterial Blood Total CO2 18.7L, Arterial Blood Oxygen Saturation 79L, Arterial Blood Base Excess -8.4L, Sanju Test NA, Blood Gas Ventilator Setting YES, Blood Gas Inspired Oxygen 30% 04/03/19 06:15: Lactic Acid Level 5.38*H 04/03/19 08:15: Lactic Acid Level 5.95*H 04/03/19 11:20: Glucometer 232H Microbiology 04/02/19 Gram Stain, Resulted Pending 04/02/19 Anaerobic Culture, Resulted Pending 04/02/19 Surgical Culture - Preliminary, Resulted Enterococcus species 04/02/19 Gram Stain - Final, Resulted 04/02/19 Sputum Culture - Preliminary, Resulted Usual upper respiratory susan Assessment/Plan Assessment/Plan Assessment/Plan S/P Hartmanns procedure Continue IV fluids, IV ABX, pain control, mechanical ventilation. Will try to wean down pressors and give pt sedation vacation; hopefully can get some weaning parameters and start trying tomorrow. Clinical Quality Measures DVT/VTE Risk/Contraindication: Risk Factor Score Per Nursin RFS Level Per Nursing on Admit: 4+=Very High ARON BARKER DO Apr 03, 2019 14:26
--- NOTE | 2019-04-03 17:32 | NUR ---
Neosynephrine titrated down this shift. Off at 1530. Vasopressin off at 1600. Patient tolerating well. VSS.
[2019-04-03] MEDS: VANCOMYCIN 1250 MG/NS 250 ML IVPB IV SCH ×2 (21:14)
[2019-04-04] VITALS (27 sets, daily range): BP systolic 98–134; BP diastolic 60–93
[2019-04-04] MEDS: LACTATED RINGERS 1,000 ML IV SCH ×2 (00:08→15:34)
[2019-04-04] MEDS: RT-ALBUTEROL/IPRATROPIUM 3 ML (DUONEB) VIAL INH SCH ×6 (02:23→21:31)
[2019-04-04] MEDS: MEROPENEM 500 MG in WATER (STERILE) FOR INJECTION 10 ML IV SCH ×4 (02:55→20:03)
[2019-04-04 03:14] LABS: BASOPHILS % (AUTO) 0 % (0-10); EOSINOPHILS % (AUTO) 0 % (0-10); HEMATOCRIT 28 % (35-52); HEMOGLOBIN 9.5 G/DL (11.5-16.0); LYMPHOCYTES # (AUTO) 0.6 X 10^3 (1.0-4.0); LYMPHOCYTES % (AUTO) 5 % (12-44); MEAN CORPUSCULAR HEMOGLOBIN 29 PG (25-34); MEAN CORPUSCULAR HGB CONC 34 G/DL (32-36); MEAN CORPUSCULAR VOLUME 88 FL (80-99); MEAN PLATELET VOLUME 9.7 FL (7.4-10.4); MONOCYTES # (AUTO) 0.4 X 10^3 (0.0-1.0); MONOCYTES % (AUTO) 3 % (0-12); NEUTROPHILS # (AUTO) 11.1 X 10^3 (1.8-7.8); NEUTROPHILS % (AUTO) 92 % (42-75); PLATELET COUNT 230 10^3/uL (130-400); RED CELL DISTRIBUTION WIDTH 13.6 % (10.0-14.5); WHITE BLOOD COUNT 12.1 10^3/uL (4.3-11.0)
[2019-04-04 03:43] LABS: ALANINE AMINOTRANSFERASE 7 U/L (0-55); ALBUMIN 1.9 GM/DL (3.2-4.5); ALKALINE PHOSPHATASE 37 U/L (40-136); BILIRUBIN,TOTAL 0.3 MG/DL (0.1-1.0); BUN/CREATININE RATIO 17; CALCIUM 7.4 MG/DL (8.5-10.1); CARBON DIOXIDE 22 MMOL/L (21-32); CHLORIDE 110 MMOL/L (98-107); CREATININE SERUM 0.64 MG/DL (0.60-1.30); GFR ESTIMATED > 60; GLUCOSE 99 MG/DL (70-105); MAGNESIUM 2.2 MG/DL (1.6-2.4); PHOSPHORUS 1.7 MG/DL (2.3-4.7); SODIUM 141 MMOL/L (135-145); TRIGLYCERIDES 263 MG/DL (<150)
[2019-04-04 04:42] LABS: ABG BASE EXCESS 2.8 MMOL/L (-2.5-2.5); ABG OXYGEN SATURATION 96 % (94-100); ABG PCO2 31 MMHG (35-45); ABG PH 7.53 (7.37-7.43); ABG PO2 68 MMHG (79-93); ABG TCO2 26.4 MMOL/L (21.0-31.0)
[2019-04-04 04:45] LABS: ALLENS TEST YES-POS; INSPIRED O2 35%; PATIENT TEMP 37.2; VENTILATOR YES
[2019-04-04] MEDS: PROPOFOL DRIP (ICU) 100 ML IV SCH (04:54)
[2019-04-04] MEDS: NOREPINEPHRINE 4 MG/250 ML 250 ML IV SCH (05:03)
[2019-04-04] MEDS: POTASSIUM CL 10MEQ/50ML IVPB 50 ML IV SCH ×10 (05:03→11:51)
[2019-04-04] MEDS: MAGNESIUM 1 GM/100 ML IVPB 100 ML IV SCH (05:04)
[2019-04-04] MEDS: KCL 20 MEQ TAB (K-DUR) PO SCH (05:04)
[2019-04-04] MEDS: IBUPROFEN 600 MG (MOTRIN) TAB PO SCH ×3 (05:05→18:16)
[2019-04-04] MEDS: inSUlin ASPART (NovoLOG) 1 UNIT/0.01 ML (CHARGE PER UNIT) SC SCH ×3 (05:05→18:17)
[2019-04-04] MEDS ORDERED: FUROSEMIDE 40 MG/4 ML INJ (LASIX) IVP ONE (05:30)
--- NOTE | 2019-04-04 05:33 | Pulmonary Progress Note ---
Subjective Time Seen by a Provider: 05:32 Subjective/Events-last exam sedated on vent Sepsis Event Evaluation Height, Weight, BMI Height: '" Weight: lbs. oz. kg; 31.84 BMI Method: Focused Exam Lactate Level 04/02/19 08:32: Lactic Acid Level 3.35*H 04/03/19 06:15: Lactic Acid Level 5.38*H 04/03/19 08:15: Lactic Acid Level 5.95*H Exam Exam Vital Signs Date Time Temp Pulse Resp B/P (MAP) Pulse Ox O2 Delivery O2 Flow Rate FiO2 04/04/19 05:00 112 23 104/64 (77) 95 Mechanical Ventilator 35.00 04/04/19 04:54 107/67 04/04/19 04:00 95 Mechanical Ventilator 40 04/04/19 04:00 37.2 04/04/19 04:00 121 23 105/62 (76) 95 Mechanical Ventilator 35.00 04/04/19 03:00 121 24 111/61 (78) 93 Mechanical Ventilator 35.00 04/04/19 02:33 Mechanical Ventilator 35.00 04/04/19 02:23 112 24 97 35 04/04/19 02:00 112 23 98/60 (73) 96 Mechanical Ventilator 40.00 04/04/19 01:00 120 24 112/66 (81) 96 Mechanical Ventilator 40.00 04/04/19 00:42 119 04/04/19 00:00 37.0 04/04/19 00:00 95 Mechanical Ventilator 40 04/04/19 00:00 120 23 113/72 (86) 96 Mechanical Ventilator 40.00 04/03/19 23:00 113 23 114/69 (84) 95 Mechanical Ventilator 40.00 04/03/19 22:19 Mechanical Ventilator 40.00 04/03/19 22:19 113 24 97 40 04/03/19 22:00 117 24 115/71 (86) 97 Mechanical Ventilator 50.00 04/03/19 21:00 116 23 115/71 (86) 96 Mechanical Ventilator 50.00 04/03/19 20:29 111/71 04/03/19 20:00 115 23 112/70 (84) 95 Mechanical Ventilator 50.00 04/03/19 20:00 95 Mechanical Ventilator 40 04/03/19 19:31 37.1 1/12/20 19:00 117 24 112/67 (82) 94 Mechanical Ventilator 50.00 04/03/19 18:50 114 24 94 50 04/03/19 18:44 115 04/03/19 18:00 118 24 111/68 (82) 93 Mechanical Ventilator 40.00 04/03/19 17:00 123 23 100/60 (73) 94 Mechanical Ventilator 40.00 04/03/19 16:00 125 23 105/69 (81) 92 Mechanical Ventilator 40.00 04/03/19 16:00 95 Mechanical Ventilator 40 04/03/19 16:00 37.0 04/03/19 15:25 111 24 92 50 04/03/19 15:00 112 23 103/69 (80) 90 Mechanical Ventilator 40.00 04/03/19 14:00 93 24 103/71 (82) 96 Mechanical Ventilator 40.00 04/03/19 13:29 94 04/03/19 13:00 98 24 114/73 (87) 93 Mechanical Ventilator 40.00 04/03/19 12:30 93 04/03/19 12:00 36.6 04/03/19 12:00 88 23 120/80 (93) 95 Mechanical Ventilator 40.00 04/03/19 12:00 95 Mechanical Ventilator 40 04/03/19 11:00 92 24 112/73 (86) 96 Mechanical Ventilator 40.00 04/03/19 10:58 Mechanical Ventilator 40.00 04/03/19 10:54 98 24 94 40 04/03/19 10:00 87 24 125/84 (98) 95 Mechanical Ventilator 30.00 04/03/19 09:00 101 23 111/73 (86) 92 Mechanical Ventilator 30.00 04/03/19 08:20 98 24 92 32 04/03/19 08:00 91 23 116/77 (90) 94 Mechanical Ventilator 30.00 04/03/19 08:00 95 Mechanical Ventilator 40 04/03/19 07:56 98 04/03/19 07:00 84 04/03/19 07:00 85 23 123/77 (92) 94 Mechanical Ventilator 30.00 04/03/19 06:00 90 24 100/66 (77) 96 Mechanical Ventilator 30.00 I & O 04/04/19 07:00 Intake Total 1199 ml Output Total 1420 ml Balance -221 ml Height & Weight Height: '" Weight: lbs. oz. kg; 31.84 BMI Method: General Appearance: No Apparent Distress, Other (sedated on vent) HEENT: Other (Pupils equal and reactive, ET tube in place) Respiratory: Lungs Clear, Decreased Breath Sounds Cardiovascular: Tachycardia Capillary Refill: Less Than 3 Seconds Gastrointestinal: distended (mild), other (ostomy is slightly purple and edematous (normal for Post-Op day 1)) Extremity: Normal Capillary Refill Neurologic/Psychiatric: Depressed Affect Skin: Normal Color, Warm/Dry Results Lab Laboratory Tests 04/02/19 06:21 04/03/19 03:45 04/04/19 03:00 Assessment/Plan Assessment/Plan Acute respiratory failure -Continue Ventilator -will attempt vent weaning -Propofol, Fentanyl -CT scan of chest - reviewed - 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
[2019-04-04] MEDS: metroNIDAZOLE 500MG/100ML IVPB 100 ML IV SCH (06:09)
--- NOTE | 2019-04-04 07:23 | Diagnostic Imaging Report ---
EXAMINATION: Chest 1 view HISTORY: Dyspnea. COMPARISON: 04/03/2019 FINDINGS: Stable configuration of the endotracheal tube, enteric tube, and right internal jugular central line. Continued low lung volumes are noted. There is somewhat improved aeration in the right lung base with continued likely layering pleural effusion. No new focal consolidations are seen. Stable cardiac silhouette. No acute osseous abnormalities. IMPRESSION: 1. Somewhat improved aeration in the right lung base with continued likely layering pleural effusion. 2. Stable support devices. Dictated by: Dictated on workstation # [id number]
[2019-04-04 07:51] LABS: ABG BASE EXCESS 3.4 MMOL/L (-2.5-2.5); ABG OXYGEN SATURATION 93 % (94-100); ABG PCO2 34 MMHG (35-45); ABG PH 7.51 (7.37-7.43); ABG PO2 59 MMHG (79-93); ABG TCO2 27.6 MMOL/L (21.0-31.0); ALLENS TEST YES-POS
[2019-04-04 07:52] LABS: INSPIRED O2 35%; PATIENT TEMP 36.8; VENTILATOR YES
--- NOTE | 2019-04-04 08:19 | Anesthesia-General Post-Op ---
General Patient Condition Mental Status/LOC: Unreactive Cardiovascular: Satisfactory Nausea/Vomiting: Absent Respiratory: Unsatisfactory Post Op Complications Complications None Follow Up Care/Instructions Patient Instructions None needed. Anesthesia/Patient Condition Patient Condition Patient is still intubated. Plan is to ween and attempt to extubate today SILAS SWARTZ CRNA Apr 04, 2019 08:19
--- NOTE | 2019-04-04 08:22 | Physical Therapy Progress Note ---
Therapy Progress Note Patient is currently sedated and intubated. PT will continue to monitor patient's medical statue and initiate treatment when patient is able to actively participate with skilled therapy. VICKEY SUMMERS PT Apr 04, 2019 08:22
[2019-04-04] MEDS: ENOXAPARIN 30 MG/0.3 ML (LOVENOX) SYR SC SCH (09:05)
[2019-04-04] MEDS: PANTOPRAZOLE 40 MG (PROTONIX) VIAL IV SCH (09:06)
--- NOTE | 2019-04-04 09:07 | NUR ---
UNABLE TO SPEAK WITH THE PATIENT AT THIS TIME. REVIEWED MED REC IT WAS AT LAST RECENT ADMISSION, ACCORDING TO EXT MED HX PATIENT DID FILL THE PRESCRIPTION MEDICATION ORDERED AND I LEFT OTC MEDS REPORTED.
[2019-04-04] MEDS: ANIDULAFUNGIN INJECTION 100 MG in NS (IVPB) 100 ML IV SCH (09:33)
[2019-04-04] MEDS: VANCOMYCIN 1250 MG/NS 250 ML IVPB IV SCH ×4 (09:42→21:27)
--- NOTE | 2019-04-04 11:15 | Physical Therapy Progress Note ---
Therapy Progress Note PT rechecked with RN secondary to patient extubated this a.m. Hold per RN on this date. PT to begin in a.m. VICKEY SUMMERS PT Apr 04, 2019 11:15
--- NOTE | 2019-04-04 11:32 | Progress Note - Hospitalist ---
MELISSA MONIQUE [facility] 04/04/19 1132: Subjective HPI/CC On Admission Date Seen by Provider: Apr 04, 2019 Time Seen by Provider: 09:00 Chief complaint: Medical management from hospitalist service History of present illness: This is a 38-year-old white female who presented after an uncomplicated robotic procedure removing her uterus and a significant fibroid that was adhesed to the ureters who had been doing well for the 6 days postoperatively and tell abruptly she began having abdominal pain went [facility] subsequently sent to [facility] for higher level of management along with evaluation of critical illness. She ultimately required intubation by Dr. Glass due to respiratory compromise. CT did not show any evidence of pulmonary emboli. Abdominal pain and distention is noted. Hypotension is precluding aggressive sedation for ventilator purposes. Subjective/Events-last exam Patient is s/p surgery for extensive endometriosis on 03/29/2019 and Consuelo procedure on 04/02/2019 for bowel perforation. She went to the [place] ED department with excruciating abdominal pain on 04/02/2019 and was transferred over to [facility] floor and later to ICU. Patient was extubated this morning at approximately 8:30am and is doing better. Patient was awake and minimally talking but responding to questions as best she could. Focused Exam Lactate Level 04/02/19 08:32: Lactic Acid Level 3.35*H 04/03/19 06:15: Lactic Acid Level 5.38*H 04/03/19 08:15: Lactic Acid Level 5.95*H Respiratory: No Accessory Muscle Use, No Respiratory Distress Skin: normal color Objective Exam Vital Signs Vital Signs Date Time Temp Pulse Resp B/P (MAP) Pulse Ox O2 Delivery O2 Flow Rate FiO2 04/04/19 11:06 96 Nasal Cannula 2.00 04/04/19 10:00 111 11 111/68 (82) 04/04/19 08:00 30 04/04/19 04:00 37.2 Capillary Refill : Less Than 3 SecondsLess Than 3 Seconds General Appearance: No Apparent Distress, WD/WN Respiratory: No Accessory Muscle Use, No Respiratory Distress Rectal: Deferred Neurologic/Psychiatric: Alert Skin: Normal Color Results/Procedures Lab Laboratory Tests 04/04/19 03:00 Patient resulted labs reviewed. Imaging: Reviewed Imaging Report Assessment/Plan Assessment and Plan Assess & Plan/Chief Complaint Assessment: Respiratory failure requiring intubation, currently off of vent Bowel perforation s/p Exp Lap open procedure requiring colostomy Postop Hyst 6 days prior to admit electrolyte abnormalities Plan: Critical illness management replace electrolytes Continue abx Monitor closely Clinical Quality Measures DVT/VTE Risk/Contraindication: Risk Factor Score Per Nursin RFS Level Per Nursing on Admit: 4+=Very High NAJMA MYLES DO 04/04/192106: Subjective Subjective/Events-last exam Pt was extubated. Enterococcus and other bacteria on preliminary culture of peritoneal fluid. Pt doing very well. Illicit drug abuse in history noted. Will maintain ICU status for now. Review of Systems General: Fatigue Pulmonary: Dyspnea, Cough Gastrointestinal: Abdominal Pain Objective Exam General Appearance: No Apparent Distress, WD/WN, Chronically ill Respiratory: Chest Non Tender, Lungs Clear, Normal Breath Sounds, No Accessory Muscle Use, No Respiratory Distress Cardiovascular: Regular Rate, Rhythm, No Edema, No Gallop, No JVD, No Murmur, Normal Peripheral Pulses Neurologic/Psychiatric: Alert Assessment/Plan Assessment and Plan Assess & Plan/Chief Complaint Maintain broad spectrum abx ICU status Diagnosis/Problems Diagnosis/Problems (1) Respiratory failure (2) Colostomy in place (3) Peritonitis (4) Bowel perforation (5) Required emergency intubation (6) Bilateral atelectasis (7) Hypotension (8) S/P exploratory laparotomy Supervisory-Addendum Brief Verification & Attestation Participated in pt care: history, MDM, physical Personally performed: exam, history, MDM, supervision of care Care discussed with: Medical Student Procedures: n/a Results interpretation: Verified all documentation Verification and Attestation of Medical Student E/M Service A medical student performed and documented this service in my presence. I reviewed and verified all information documented by the medical student and made modifications to such information, when appropriate. I personally performed the physical exam and medical decision making. Najma Myles, Apr 04, 2019,21:06 MELISSA MONIQUE [facility] Apr 04, 2019 11:32 NAJMA MYLES DO Apr 04, 2019 21:07
[2019-04-04] MEDS: fentaNYL INJECTION 1,250 MCG in NS (IVPB) 250 ML IV SCH ×2 (11:52→16:18)
--- NOTE | 2019-04-04 14:21 | Progress Note - Surgery ---
Subjective Time Seen by a Provider: 13:05 Subjective/Events-last exam Pt seen and examined, extubated and alert. States pain is controlled, she is just very tired and weak. Review of Systems Pulmonary: No Dyspnea, No Cough Cardiovascular: No: Chest Pain, Palpitations Gastrointestinal: No: Nausea, Vomiting unable to obtain, pt sedated on vent Focused Exam Lactate Level 04/02/19 08:32: Lactic Acid Level 3.35*H 04/03/19 06:15: Lactic Acid Level 5.38*H 04/03/19 08:15: Lactic Acid Level 5.95*H Objective Exam Vital Signs Date Time Temp Pulse Resp B/P (MAP) Pulse Ox O2 Delivery O2 Flow Rate FiO2 04/04/19 12:00 95 Nasal Cannula 2.00 04/04/19 12:00 37.0 04/04/19 12:00 101 12 110/69 (83) 96 Nasal Cannula 2.00 04/04/19 11:06 96 Nasal Cannula 2.00 04/04/19 11:00 99 9 121/66 (84) 96 Nasal Cannula 2.00 04/04/19 10:00 111 11 111/68 (82) 96 Nasal Cannula 2.00 04/04/19 09:00 125 17 101/65 (77) 95 Nasal Cannula 2.00 04/04/19 08:30 Nasal Cannula 2.00 04/04/19 08:30 97 Nasal Cannula 2.00 04/04/19 08:00 96 Mechanical Ventilator 30 04/04/19 08:00 114 12 117/65 (82) 97 Mechanical Ventilator 35.00 04/04/19 07:00 114 04/04/19 07:00 111 13 111/69 (83) 97 Mechanical Ventilator 35.00 04/04/19 06:50 113 12 95 35 04/04/19 06:45 110 24 96 35 04/04/19 06:00 114 24 105/67 (80) 96 Mechanical Ventilator 35.00 04/04/19 05:00 112 23 104/64 (77) 95 Mechanical Ventilator 35.00 04/04/19 04:54 107/67 04/04/19 04:00 95 Mechanical Ventilator 40 04/04/19 04:00 37.2 04/04/19 04:00 121 23 105/62 (76) 95 Mechanical Ventilator 35.00 04/04/19 03:00 121 24 111/61 (78) 93 Mechanical Ventilator 35.00 04/04/19 02:33 Mechanical Ventilator 35.00 04/04/19 02:23 112 24 97 35 04/04/19 02:00 112 23 98/60 (73) 96 Mechanical Ventilator 40.00 04/04/19 01:00 120 24 112/66 (81) 96 Mechanical Ventilator 40.00 04/04/19 00:42 119 04/04/19 00:00 37.0 04/04/19 00:00 95 Mechanical Ventilator 40 04/04/19 00:00 120 23 113/72 (86) 96 Mechanical Ventilator 40.00 04/03/19 23:00 113 23 114/69 (84) 95 Mechanical Ventilator 40.00 04/03/19 22:19 Mechanical Ventilator 40.00 04/03/19 22:19 113 24 97 40 04/03/19 22:00 117 24 115/71 (86) 97 Mechanical Ventilator 50.00 04/03/19 21:00 116 23 115/71 (86) 96 Mechanical Ventilator 50.00 04/03/19 20:29 111/71 04/03/19 20:00 115 23 112/70 (84) 95 Mechanical Ventilator 50.00 04/03/19 20:00 95 Mechanical Ventilator 40 04/03/19 19:31 37.1 04/03/19 19:00 117 24 112/67 (82) 94 Mechanical Ventilator 50.00 04/03/19 18:50 114 24 94 50 04/03/19 18:44 115 04/03/19 18:00 118 24 111/68 (82) 93 Mechanical Ventilator 40.00 04/03/19 17:00 123 23 100/60 (73) 94 Mechanical Ventilator 40.00 04/03/19 16:00 125 23 105/69 (81) 92 Mechanical Ventilator 40.00 04/03/19 16:00 95 Mechanical Ventilator 40 04/03/19 16:00 37.0 04/03/19 15:25 111 24 92 50 04/03/19 15:00 112 23 103/69 (80) 90 Mechanical Ventilator 40.00 I & O 04/04/19 07:00 Intake Total 1199 ml Output Total 1590 ml Balance -391 ml Capillary Refill : Less Than 3 SecondsLess Than 3 Seconds General Appearance: No Apparent Distress, WD/WN Respiratory: Lungs Clear, No Accessory Muscle Use, No Respiratory Distress Cardiovascular: Tachycardia Gastrointestinal: distended (mild), other (ostomy is slightly purple and edematous (normal for Post-Op day 2), midline incision is C/D/I) Extremity: No Calf Tenderness Neurologic/Psychiatric: Alert Results Lab Laboratory Tests 04/03/19 17:23: Glucometer 117H 04/03/19 22:51: Glucometer 83 04/04/19 03:00: White Blood Count 12.1H, Red Blood Count 3.23L, Hemoglobin 9.5#L, Hematocrit 28L , Mean Corpuscular Volume 88, Mean Corpuscular Hemoglobin 29, Mean Corpuscular Hemoglobin Concent 34, Red Cell Distribution Width 13.6, Platelet Count 230, Mean Platelet Volume 9.7, Neutrophils (%) (Auto) 92H, Lymphocytes (%) (Auto) 5L, Monocytes (%) (Auto) 3, Eosinophils (%) (Auto) 0, Basophils (%) (Auto) 0, Neutrophils # (Auto) 11.1H, Lymphocytes # (Auto) 0.6L, Monocytes # (Auto) 0.4, Eosinophils # (Auto) 0.0, Basophils # (Auto) 0.0, Sodium Level 141, Potassium Level 3.0L, Chloride Level 110H, Carbon Dioxide Level 22, Anion Gap 9, Blood Urea Nitrogen 11, Creatinine 0.64, Estimat Glomerular Filtration Rate > 60, BUN/Creatinine Ratio 17, Glucose Level 99, Calcium Level 7.4L, Corrected Calcium 9.1, Phosphorus Level 1.7L, Magnesium Level 2.2, Total Bilirubin 0.3, Aspartate Amino Transf (AST/SGOT) 10, Alanine Aminotransferase (ALT/SGPT) 7, Alkaline Phosphatase 37L, Total Protein 4.0L, Albumin 1.9L, Triglycerides Level 263H 04/04/19 04:00: Blood Gas Puncture Site RIGHT RADIAL, Blood Gas Patient Temperature 37.2, Arterial Blood pH 7.53H, Arterial Blood Partial Pressure CO2 31L, Arterial Blood Partial Pressure O2 68L, Arterial Blood HCO3 26, Arterial Blood Total CO2 26.4, Arterial Blood Oxygen Saturation 96, Arterial Blood Base Excess 2.8H, Sanju Test YES-POS, Blood Gas Ventilator Setting YES, Blood Gas Inspired Oxygen 35% 04/04/19 07:44: Blood Gas Puncture Site RR, Blood Gas Patient Temperature 36.8, Arterial Blood pH 7.51H, Arterial Blood Partial Pressure CO2 34L, Arterial Blood Partial Pressure O2 59L, Arterial Blood HCO3 27, Arterial Blood Total CO2 27.6, Arterial Blood Oxygen Saturation 93L, Arterial Blood Base Excess 3.4H, Sanju Test YES- POS, Blood Gas Ventilator Setting YES, Blood Gas Inspired Oxygen 35% 04/04/19 11:16: Glucometer 89 Microbiology 04/02/19 Gram Stain - Final, Resulted 04/02/19 Anaerobic Culture - Preliminary, Resulted Culture In Progress 04/02/19 Surgical Culture - Preliminary, Resulted Enterococcus species Gram Positive Simon 04/02/19 Urine Culture - Final, Complete NO GROWTH 04/02/19 Gram Stain - Final, Complete 04/02/19 Sputum Culture - Final, Complete Usual upper respiratory susan Assessment/Plan Assessment/Plan Assessment/Plan S/P Hartmanns procedure Continue IV fluids, IV ABX, and pain control. Pt told to use IS and move around more, ambulate if possible. Clinical Quality Measures DVT/VTE Risk/Contraindication: Risk Factor Score Per Nursin RFS Level Per Nursing on Admit: 4+=Very High ARON BARKER DO Apr 04, 2019 14:21
--- NOTE | 2019-04-04 14:48 | ST Dysphagia Evaluation ---
Speech Evaluation-General Medical Diagnosis Postoperative abdom. pain acute respiratory failure requiring intubatio Onset Date: Apr 02, 2019 Therapy Diagnosis Therapy Diagnosis: Oropharyngeal Dysphagia Precautions Precautions: Aspiration Referral Referring Physician: Dr. Myles Medical History Reviewed History: Yes Social History Current Living Status: Friend Speech PLF/Current-Dysphagia Prior Level of Function Patient was active and independent prior to her initial surgery. Subjective Patient was pleasant and cooperative with the Bedside Dysphagia Evaluation. Cognitive Status Patient Orientation: Person, Place, Situation Oral Motor Skills Dentition: Natural, Tumbled, Stained Ability to Follow Directions: Good Oral Expression Ability: No Impairment Voice Voice Phonatory-Based Quality: Breathy Voice Pitch: Normal Voice Loudness: Mildly Soft/Quiet Face Facial Symmetry: Symmetrical Oral-Facial Assessment Oral-Facial Dentition: Normal Labial Seal Description: Normal Smile: Reduced ROM Puff Cheeks: Reduced Strength Lingual Protrusion: Normal Lingual ROM: Normal Lingual Strength: Normal Pharynx Velopharyngeal Move.: Normal Volitional Dry Swallow: Yes Voluntary Cough: Yes Can Clear Throat Volitionally: Yes Dysphagia Evaluation Consistencies Presented: Regular, Thin Liquid, Mechanical Soft, Pureed Oral phase is within normal limits for all consistencies. Pharyngeal phase is within normal range of function. Dietary Recommendations: Regular Liquid Recommendations: Thin Swallowing Precautions: Alternate Liquids/Solids, Double Swallow, Decreased Bolus 1/2 Tsp, Liquids from Straw, Small Bites and Sips, Sitting Upright 90 Degrees, Sitting 90 Degrees 30 Post Intake Dysphagia Evaluation Summary Patient had undergone removal of the uterus. She suffered complications with severe abdominal pain and was re-admitted to the ICU via ED. Patient was intubated at that time. The patient was extubated today with physician's orders received for BDE. Patient completed the eval with the following presentations: Thin at 1/2 tsp via spoon x2, small sips via straw x2 without difficultly. Patient received 1/2 tsp of puree, mechanical soft and regular without difficulty. Patient is recommended for regular texture with thin liquids. Patient's nurse was informed of the recommendation as well as written on the white board in her room. Barriers to Learning None identified Speech-Plan Patient/Family Goals Patient/Family Goals: Patient plans on returning home upon hospital discharge. Treatment Plan Speech Therapy Treatment Plan: Discontinue ST Patient does not require further ST services at this time. Treatment Duration: Apr 04, 2019 Frequency: 1 time per week Estimated Hrs Per Day: .25 hour per day Rehab Potential: Good Barriers to Learning: None identified Pt/Family Agrees to Plan: Yes Safety Risks/Education Teaching Recipient: Patient, Family Teaching Methods: Discussion Response to Teaching: Verbalize Understanding Education Topics Provided: Safety of oral intake and diet recs. Time Speech Therapy Time In: 14:40 Speech Therapy Time Out: 14:55 Total Billed Time: 15 Billed Treatment Time 1ANA ROSA [address] Apr 04, 2019 14:48
[2019-04-04] MEDS ORDERED: FLU QUADRIvalent (5+ YOA) 2019-2020 (AFLURIA) 0.5 ML IM ONE (16:30)
[2019-04-05] VITALS (29 sets, daily range): BP systolic 106–157; BP diastolic 60–119
[2019-04-05] MEDS: IBUPROFEN 600 MG (MOTRIN) TAB PO SCH ×4 (00:27→18:00)
[2019-04-05] MEDS: inSUlin ASPART (NovoLOG) 1 UNIT/0.01 ML (CHARGE PER UNIT) SC SCH ×4 (00:27→18:00)
[2019-04-05] MEDS: RT-ALBUTEROL/IPRATROPIUM 3 ML (DUONEB) VIAL INH SCH ×5 (01:43→21:32)
--- NOTE | 2019-04-05 01:49 | NUR ---
FIO2 TO 40% REPORTED TO RN Addendum: 04/05/19 at 0150 by VICKEY ROTH RT Amended: Links added.
[2019-04-05 03:39] LABS: BASOPHILS % (AUTO) 0 % (0-10); EOSINOPHILS # (AUTO) 0.1 10^3/uL (0.0-0.3); EOSINOPHILS % (AUTO) 1 % (0-10); HEMATOCRIT 34 % (35-52); LYMPHOCYTES # (AUTO) 0.6 X 10^3 (1.0-4.0); LYMPHOCYTES % (AUTO) 3 % (12-44); MEAN CORPUSCULAR HEMOGLOBIN 29 PG (25-34); MEAN CORPUSCULAR HGB CONC 32 G/DL (32-36); MEAN CORPUSCULAR VOLUME 91 FL (80-99); MEAN PLATELET VOLUME 9.3 FL (7.4-10.4); MONOCYTES # (AUTO) 0.6 X 10^3 (0.0-1.0); MONOCYTES % (AUTO) 3 % (0-12); NEUTROPHILS # (AUTO) 20.9 X 10^3 (1.8-7.8); NEUTROPHILS % (AUTO) 94 % (42-75); PLATELET COUNT 269 10^3/uL (130-400); RED CELL DISTRIBUTION WIDTH 14.5 % (10.0-14.5); WHITE BLOOD COUNT 22.2 10^3/uL (4.3-11.0)
[2019-04-05] MEDS: MEROPENEM 500 MG in WATER (STERILE) FOR INJECTION 10 ML IV SCH ×4 (03:54→20:24)
[2019-04-05 04:02] LABS: ALANINE AMINOTRANSFERASE 9 U/L (0-55); ALBUMIN 2.3 GM/DL (3.2-4.5); ALKALINE PHOSPHATASE 59 U/L (40-136); BILIRUBIN,TOTAL 0.3 MG/DL (0.1-1.0); BUN/CREATININE RATIO 25; CALCIUM 7.9 MG/DL (8.5-10.1); CARBON DIOXIDE 23 MMOL/L (21-32); CHLORIDE 109 MMOL/L (98-107); CREATININE SERUM 0.53 MG/DL (0.60-1.30); GFR ESTIMATED > 60; GLUCOSE 66 MG/DL (70-105); MAGNESIUM 1.9 MG/DL (1.6-2.4); PHOSPHORUS 3.8 MG/DL (2.3-4.7); POTASSIUM 4.3 MMOL/L (3.6-5.0); SODIUM 142 MMOL/L (135-145); TOTAL PROTEIN 4.7 GM/DL (6.4-8.2)
[2019-04-05 04:25] LABS: ABG BASE EXCESS 3.2 MMOL/L (-2.5-2.5); ABG OXYGEN SATURATION 93 % (94-100); ABG PCO2 59 MMHG (35-45); ABG PO2 72 MMHG (79-93); ABG TCO2 30.7 MMOL/L (21.0-31.0)
[2019-04-05 04:26] LABS: ABG PH 7.35 (7.37-7.43); ALLENS TEST YES-POS; INSPIRED O2 65%; VENTILATOR NO
--- NOTE | 2019-04-05 04:56 | Pulmonary Progress Note ---
Subjective Time Seen by a Provider: 04:50 Subjective/Events-last exam Pt currently on BiPAP. Sepsis Event Evaluation Height, Weight, BMI Height: '" Weight: lbs. oz. kg; 31.84 BMI Method: Focused Exam Lactate Level 04/02/19 08:32: Lactic Acid Level 3.35*H 04/03/19 06:15: Lactic Acid Level 5.38*H 04/03/19 08:15: Lactic Acid Level 5.95*H Exam Exam Vital Signs Date Time Temp Pulse Resp B/P (MAP) Pulse Ox O2 Delivery O2 Flow Rate FiO2 04/05/19 04:20 NIV Bilevel 40.00 04/05/19 04:00 94 Nasal Cannula 2.00 04/05/19 04:00 117 19 145/110 (122) 92 NIV Bilevel 65.00 04/05/19 03:00 115 15 125/77 (93) 92 NIV Bilevel 65.00 04/05/19 02:00 120 17 123/77 (92) 92 NIV Bilevel 65.00 04/05/19 01:43 112 21 97 50.00 04/05/19 01:00 114 17 136/80 (98) 95 NIV Bilevel 65.00 04/05/19 00:41 119 04/05/19 00:00 118 23 132/87 (102) 93 NIV Bilevel 65.00 04/05/19 00:00 36.8 04/05/19 00:00 94 Nasal Cannula 2.00 04/04/19 23:00 106 16 128/93 (105) 93 NIV Bilevel 65.00 04/04/19 22:30 NIV Bilevel 65.00 04/04/19 22:25 107 17 90 80.00 04/04/19 22:00 109 20 125/76 (92) 88 Nasal Cannula 3.00 04/04/19 21:31 91 Nasal Cannula 8.00 04/04/19 21:00 105 17 110/80 (90) 90 Nasal Cannula 3.00 04/04/19 20:00 105 12 111/66 (81) 90 Nasal Cannula 3.00 04/04/19 20:00 36.8 04/04/19 20:00 94 Nasal Cannula 2.00 04/04/19 19:03 89 Nasal Cannula 3.00 04/04/19 19:00 125 24 111/68 (82) 80 Nasal Cannula 3.00 04/04/19 18:40 105 04/04/19 18:00 101 14 130/93 (105) 91 Nasal Cannula 3.00 04/04/19 17:00 102 8 112/68 (83) 90 Nasal Cannula 2.00 04/04/19 16:00 94 Nasal Cannula 2.00 04/04/19 16:00 101 11 117/68 (84) 93 Nasal Cannula 2.00 04/04/19 16:00 36.8 04/04/19 15:00 99 19 134/82 (99) 93 Nasal Cannula 2.00 04/04/19 14:59 93 Nasal Cannula 2.00 04/04/19 14:00 95 10 117/68 (84) 93 Nasal Cannula 2.00 04/04/19 13:00 101 13 104/73 (83) 95 Nasal Cannula 2.00 04/04/19 13:00 102 04/04/19 12:00 95 Nasal Cannula 2.00 04/04/19 12:00 37.0 04/04/19 12:00 101 12 110/69 (83) 96 Nasal Cannula 2.00 04/04/19 11:06 96 Nasal Cannula 2.00 04/04/19 11:00 99 9 121/66 (84) 96 Nasal Cannula 2.00 04/04/19 10:00 111 11 111/68 (82) 96 Nasal Cannula 2.00 04/04/19 09:00 125 17 101/65 (77) 95 Nasal Cannula 2.00 04/04/19 08:30 Nasal Cannula 2.00 04/04/19 08:30 97 Nasal Cannula 2.00 04/04/19 08:00 96 Mechanical Ventilator 30 04/04/19 08:00 114 12 117/65 (82) 97 Mechanical Ventilator 35.00 04/04/19 07:00 114 04/04/19 07:00 111 13 111/69 (83) 97 Mechanical Ventilator 35.00 04/04/19 06:50 113 12 95 35 04/04/19 06:45 110 24 96 35 04/04/19 06:00 114 24 105/67 (80) 96 Mechanical Ventilator 35.00 04/04/19 05:00 112 23 104/64 (77) 95 Mechanical Ventilator 35.00 04/04/19 04:54 107/67 I & O 04/05/19 07:00 Intake Total 660 ml Output Total 4250 ml Balance -3590 ml Height & Weight Height: '" Weight: lbs. oz. kg; 31.84 BMI Method: General Appearance: No Apparent Distress, WD/WN, Chronically ill Respiratory: Chest Non Tender, Lungs Clear, Normal Breath Sounds, No Accessory Muscle Use, No Respiratory Distress Cardiovascular: Regular Rate, Rhythm, No Edema, No Gallop, No JVD, No Murmur, Normal Peripheral Pulses Capillary Refill: Less Than 3 Seconds Gastrointestinal: distended (mild), other (ostomy is slightly purple and edematous (normal for Post-Op day 2), midline incision is C/D/I) Extremity: No Calf Tenderness Neurologic/Psychiatric: Alert Results Lab Laboratory Tests 04/04/19 03:00 04/05/19 03:30 Assessment/Plan Assessment/Plan Acute respiratory failure -Currently requiring BiPAP -Trial back to vapotherm today -CXR shows worsening bilateral infiltrates and elevated leukocytosis -Continue Merrem and vanco, and eraxis -Repeat [place] cultures -Check BNP and give 80mg of lasix x 1 -Propofol, Fentanyl -CT scan of chest - reviewed - Severe sepisis with Sigmoid Perforation s/p resection with colostomy -Micro called and said she is growing enterococcus from surgical culture -Merrem and vanco Eraxis Worsening leukocytosis -Repeat [place] cultures Pelvic mass s/p resection/ bilateral oophorectomy 03/29/19 Hx of endometriosis Hx of methamphetamine and marijuana TOY SAEZ DO Apr 05, 2019 04:56
[2019-04-05] MEDS ORDERED: FUROSEMIDE 40 MG/4 ML INJ (LASIX) IVP ONE (05:00)
--- NOTE | 2019-04-05 05:59 | Diagnostic Imaging Report ---
CHEST 1 VIEW, AP/PA ONLY Indication: Dyspnea Comparison: 04/04/2019 Findings: Diffuse airspace consolidations have developed since exam of prior day. ET and enteric tubes have been removed. Stable right IJ central venous catheter. No pleural effusion or pneumothorax. Normal heart size. Impression: 1. New diffuse bilateral pulmonary opacities would favor pulmonary edema given the rapidity of development. Pulmonary hemorrhage or multifocal infection is also a possibility. Dictated by: Dictated on workstation # [id number]
[2019-04-05] MEDS: POTASSIUM CL 10MEQ/50ML IVPB 50 ML IV SCH ×5 (06:02→09:04)
[2019-04-05] MEDS: KCL 20 MEQ TAB (K-DUR) PO SCH (06:03)
[2019-04-05] MEDS: MAGNESIUM 1 GM/100 ML IVPB 100 ML IV SCH (06:03)
[2019-04-05 08:02] LABS: BILIRUBIN,URINE NEGATIVE (NEGATIVE); CLARITY,URINE CLEAR; COLOR,URINE YELLOW; GLUCOSE, URINE (UA) NEGATIVE (NEGATIVE); KETONES,URINE NEGATIVE (NEGATIVE); LEUKOCYTE ESTERASE ,URINE NEGATIVE (NEGATIVE); NITRITE,URINE NEGATIVE (NEGATIVE); PH,URINE 5.5 (5-9); PROTEIN,URINE NEGATIVE (NEGATIVE)
[2019-04-05] MEDS ORDERED: POTASSIUM PHOSPHATE INJ 30 MM in NS (IVPB) 250 ML IV ONE (08:11)
[2019-04-05 08:33] LABS: BACTERIA,URINE NEGATIVE /HPF; WBC,URINE RARE /HPF
[2019-04-05] MEDS ORDERED: TROUGH ORDER-PHARMACY XX NR (09:00)
[2019-04-05] MEDS: PANTOPRAZOLE 40 MG (PROTONIX) VIAL IV SCH (09:04)
[2019-04-05] MEDS: VANCOMYCIN 1250 MG/NS 250 ML IVPB IV SCH ×2 (09:04)
[2019-04-05] MEDS: ENOXAPARIN 40 MG/0.4 ML (LOVENOX) SYR SC SCH (09:05)
[2019-04-05] MEDS: ANIDULAFUNGIN INJECTION 100 MG in NS (IVPB) 100 ML IV SCH (09:05)
--- NOTE | 2019-04-05 09:30 | NUR ---
flu vac non admin due to low grade temp at this time.
--- NOTE | 2019-04-05 10:04 | NUR ---
vanc am dose given now post trough.
--- NOTE | 2019-04-05 10:17 | Physical Therapy Progress Note ---
Therapy Progress Note On hold per RN and on bipap. PT will continue to monitor and check back tomorrow. VICKEY SUMMERS PT Apr 05, 2019 10:17
[2019-04-05] MEDS: VANCOMYCIN INJECTION 1,500 MG in NS IV 500 ML 500 ML IV SCH ×2 (10:30→23:26)
--- NOTE | 2019-04-05 11:58 | Progress Note - Hospitalist ---
MELISSA MONIQUE [facility] 04/05/19 1158: Subjective HPI/CC On Admission Date Seen by Provider: Apr 05, 2019 Time Seen by Provider: 08:32 Chief complaint: Medical management from hospitalist service History of present illness: This is a 38-year-old white female who presented after an uncomplicated robotic procedure removing her uterus and a significant fibroid that was adhesed to the ureters who had been doing well for the 6 days postoperatively and tell abruptly she began having abdominal pain went [place] [facility] subsequently sent to [facility] for higher level of management along with evaluation of critical illness. She ultimately required intubation by Dr. Glass due to respiratory compromise. CT did not show any evidence of pulmonary emboli. Abdominal pain and distention is noted. Hypotension is precluding aggressive sedation for ventilator purposes. Subjective/Events-last exam Yesterday patient became tachypneic and tachycardic. Trial of increased pain meds were done to r/o pain as a cause of poor vital signs but patient did not improve and was placed on BIPAP machine. CXR showed worsening b/l infiltrates. Pt has leukocytosis and repeat blood cultures were drawn, BNP was also drawn. Patient will undergo CT of abdomen and pelvis to r/o abscess. Pulmonology is following. Focused Exam Lactate Level 04/03/19 06:15: Lactic Acid Level 5.38*H 04/03/19 08:15: Lactic Acid Level 5.95*H 04/05/19 05:30: Lactic Acid Level 0.71 Objective Exam Vital Signs Vital Signs Date Time Temp Pulse Resp B/P (MAP) Pulse Ox O2 Delivery O2 Flow Rate FiO2 04/05/19 11:00 112 12 128/85 (99) 98 NIV Bilevel 40.00 04/05/19 08:00 40 04/05/19 07:00 37.6 Capillary Refill : Less Than 3 SecondsLess Than 3 Seconds Results/Procedures Lab Laboratory Tests 04/05/19 03:30 Patient resulted labs reviewed. Imaging: Reviewed Imaging Report Assessment/Plan Assessment and Plan Assess & Plan/Chief Complaint Assessment: Acute respiratory failure, patient currently on bipap and being monitored, possible early ARDS b/l infiltrates in lung Bowel perforation s/p Exp Lap open procedure requiring colostomy Postop Hyst 6 days prior to admit Electrolyte abnormalities Plan: Critical illness management Blood cultures pain control Continue abx replace electrolytes Monitor closely Clinical Quality Measures DVT/VTE Risk/Contraindication: Risk Factor Score Per Nursin RFS Level Per Nursing on Admit: 4+=Very High NAJMA MYLES DO 04/05/192125: Subjective Subjective/Events-last exam Pt having tachycardia and tachypnea requiring biPAP Elevated white count of 22 may suggest sepsis with abdominal abscess versus ARDS Review of Systems General: Fatigue Pulmonary: Dyspnea Neurological: Confusion Objective Exam General Appearance: No Apparent Distress, WD/WN, Chronically ill Respiratory: Accessory Muscle Use, Decreased Breath Sounds, Respiratory Distress, Other (on bipap) Cardiovascular: Regular Rate, Rhythm, Tachycardia Assessment/Plan Assessment and Plan Assess & Plan/Chief Complaint BiPAP Prognosis guarded Supervisory-Addendum Brief Verification & Attestation Participated in pt care: history, MDM, physical Personally performed: exam, history, MDM, supervision of care Care discussed with: Medical Student Procedures: n/a Results interpretation: Verified all documentation Verification and Attestation of Medical Student E/M Service A medical student performed and documented this service in my presence. I reviewed and verified all information documented by the medical student and made modifications to such information, when appropriate. I personally performed the physical exam and medical decision making. Najma Mlyes, Apr 05, 2019,21:[address] [facility] Apr 05, 2019 11:58 NAJMA MYLES DO Apr 05, 2019 21:26
--- NOTE | 2019-04-05 11:59 | Progress Note - Surgery ---
Subjective Time Seen by a Provider: 11:37 Subjective/Events-last exam Pt seen and examined, on BiPap. States pain controlled. Review of Systems Pulmonary: Dyspnea, Cough Cardiovascular: No: Chest Pain, Palpitations Gastrointestinal: Abdominal Pain (minimal); No: Nausea, Vomiting unable to obtain, pt sedated on vent Focused Exam Lactate Level 04/03/19 06:15: Lactic Acid Level 5.38*H 04/03/19 08:15: Lactic Acid Level 5.95*H 04/05/19 05:30: Lactic Acid Level 0.71 Objective Exam Vital Signs Date Time Temp Pulse Resp B/P (MAP) Pulse Ox O2 Delivery O2 Flow Rate FiO2 04/05/19 11:00 112 12 128/85 (99) 98 NIV Bilevel 40.00 04/05/19 10:17 116 15 96 40.00 04/05/19 10:00 114 12 150/119 (129) 96 NIV Bilevel 40.00 04/05/19 09:00 111 18 116/99 (105) 94 NIV Bilevel 40.00 04/05/19 08:00 97 NIV Bilevel 2.00 40 04/05/19 08:00 112 22 147/87 (107) 96 NIV Bilevel 40.00 04/05/19 07:00 121 04/05/19 07:00 122 18 111/95 (100) 96 NIV Bilevel 40.00 04/05/19 07:00 37.6 04/05/19 06:00 129 36 157/92 (113) 95 NIV Bilevel 40.00 04/05/19 05:00 123 20 138/79 (98) 93 NIV Bilevel 40.00 04/05/19 04:20 NIV Bilevel 40.00 04/05/19 04:00 94 Nasal Cannula 2.00 04/05/19 04:00 117 19 145/110 (122) 92 NIV Bilevel 65.00 04/05/19 03:00 115 15 125/77 (93) 92 NIV Bilevel 65.00 04/05/19 02:00 120 17 123/77 (92) 92 NIV Bilevel 65.00 04/05/19 01:43 112 21 97 50.00 04/05/19 01:00 114 17 136/80 (98) 95 NIV Bilevel 65.00 04/05/19 00:41 119 04/05/19 00:00 118 23 132/87 (102) 93 NIV Bilevel 65.00 04/05/19 00:00 36.8 04/05/19 00:00 94 Nasal Cannula 2.00 04/04/19 23:00 106 16 128/93 (105) 93 NIV Bilevel 65.00 04/04/19 22:30 NIV Bilevel 65.00 04/04/19 22:25 107 17 90 80.00 04/04/19 22:00 109 20 125/76 (92) 88 Nasal Cannula 3.00 04/04/19 21:31 91 Nasal Cannula 8.00 04/04/19 21:00 105 17 110/80 (90) 90 Nasal Cannula 3.00 04/04/19 20:00 105 12 111/66 (81) 90 Nasal Cannula 3.00 04/04/19 20:00 36.8 04/04/19 20:00 94 Nasal Cannula 2.00 04/04/19 19:03 89 Nasal Cannula 3.00 04/04/19 19:00 125 24 111/68 (82) 80 Nasal Cannula 3.00 04/04/19 18:40 105 04/04/19 18:00 101 14 130/93 (105) 91 Nasal Cannula 3.00 04/04/19 17:00 102 8 112/68 (83) 90 Nasal Cannula 2.00 04/04/19 16:00 94 Nasal Cannula 2.00 04/04/19 16:00 101 11 117/68 (84) 93 Nasal Cannula 2.00 04/04/19 16:00 36.8 04/04/19 15:00 99 19 134/82 (99) 93 Nasal Cannula 2.00 04/04/19 14:59 93 Nasal Cannula 2.00 04/04/19 14:00 95 10 117/68 (84) 93 Nasal Cannula 2.00 04/04/19 13:00 101 13 104/73 (83) 95 Nasal Cannula 2.00 04/04/19 13:00 102 04/04/19 12:00 95 Nasal Cannula 2.00 04/04/19 12:00 37.0 04/04/19 12:00 101 12 110/69 (83) 96 Nasal Cannula 2.00 I & O 04/05/19 07:00 Intake Total 760 ml Output Total 4750 ml Balance -3990 ml Capillary Refill : Less Than 3 SecondsLess Than 3 Seconds General Appearance: No Apparent Distress, Chronically ill HEENT: PERRL/EOMI Respiratory: Accessory Muscle Use, Decreased Breath Sounds Cardiovascular: No Murmur, Tachycardia Gastrointestinal: distended, other (ostomy is still purplish and edematous (still normal for postop) midline incision c/d/i) Extremity: Normal Capillary Refill Neurologic/Psychiatric: Depressed Affect Skin: Normal Color, Warm/Dry Lymphatic: No Adenopathy Results Lab Laboratory Tests 04/04/19 17:50: Glucometer 77 04/04/19 22:54: Glucometer 78 04/05/19 03:30: White Blood Count 22.2H, Red Blood Count 3.76L, Hemoglobin 11.0L, Hematocrit 34L , Mean Corpuscular Volume 91, Mean Corpuscular Hemoglobin 29, Mean Corpuscular Hemoglobin Concent 32, Red Cell Distribution Width 14.5, Platelet Count 269, Mean Platelet Volume 9.3, Neutrophils (%) (Auto) 94H, Lymphocytes (%) (Auto) 3L, Monocytes (%) (Auto) 3, Eosinophils (%) (Auto) 1, Basophils (%) (Auto) 0, Neutrophils # (Auto) 20.9H, Lymphocytes # (Auto) 0.6L, Monocytes # (Auto) 0.6, Eosinophils # (Auto) 0.1, Basophils # (Auto) 0.0, Sodium Level 142, Potassium Level 4.3, Chloride Level 109H, Carbon Dioxide Level 23, Anion Gap 10, Blood Urea Nitrogen 13, Creatinine 0.53L, Estimat Glomerular Filtration Rate > 60, BUN/Creatinine Ratio 25, Glucose Level 66L, Calcium Level 7.9L, Corrected Calcium 9.3, Phosphorus Level 3.8, Magnesium Level 1.9, Total Bilirubin 0.3, Aspartate Amino Transf (AST/SGOT) 20, Alanine Aminotransferase (ALT/SGPT) 9, Alkaline Phosphatase 59, B-Type Natriuretic Peptide 71.0, Total Protein 4.7L, Albumin 2.3L 04/05/19 04:15: Blood Gas Puncture Site RIGHT RADIAL, Blood Gas Patient Temperature 37.0, Arterial Blood pH 7.35L, Arterial Blood Partial Pressure CO2 59H, Arterial Blood Partial Pressure O2 72L, Arterial Blood HCO3 29H, Arterial Blood Total CO2 30.7, Arterial Blood Oxygen Saturation 93L, Arterial Blood Base Excess 3.2H, Sanju Test YES-POS, Blood Gas Ventilator Setting NO, Blood Gas Inspired Oxygen 65% 04/05/19 05:30: Lactic Acid Level 0.71 04/05/19 05:45: Glucometer 67L 04/05/19 06:10: Urine Color YELLOW, Urine Clarity CLEAR, Urine pH 5.5, Urine Specific [place] 1.010L, Urine Protein NEGATIVE, Urine Glucose (UA) NEGATIVE, Urine Ketones NEGATIVE, Urine Nitrite NEGATIVE, Urine Bilirubin NEGATIVE, Urine Urobilinogen 0.2, Urine Leukocyte Esterase NEGATIVE, Urine RBC (Auto) TRACE-I, Urine RBC 2-5H , Urine WBC RARE, Urine Squamous Epithelial Cells NONE, Urine Crystals NONE, Urine Bacteria NEGATIVE, Urine Casts NONE, Urine Mucus NEGATIVE, Urine Culture Indicated NO 04/05/19 06:31: Glucometer 91 04/05/19 09:08: Vancomycin Level Trough 11.4 04/05/19 11:28: Glucometer 93 Microbiology 04/02/19 Gram Stain - Final, Resulted 04/02/19 Anaerobic Culture - Preliminary, Resulted Culture In Progress 04/02/19 Surgical Culture - Preliminary, Resulted Lactobacillus rhamnosus Enterococcus faecalis See Comments 04/02/19 Urine Culture - Final, Complete NO GROWTH 04/02/19 Gram Stain - Final, Complete 04/02/19 Sputum Culture - Final, Complete Usual upper respiratory susan 04/02/19 Blood Culture - Preliminary, Resulted No growth Assessment/Plan Assessment/Plan Assessment/Plan S/P Hartmanns procedure Increased WBC - probably respiratory in nature. Continue IV fluids, IV ABX, and pain control. Pt told to use IS and move around more, ambulate if possible. Clinical Quality Measures DVT/VTE Risk/Contraindication: Risk Factor Score Per Nursin RFS Level Per Nursing on Admit: 4+=Very High ARON BARKER DO Apr 05, 2019 11:59
[2019-04-05] MEDS: LACTATED RINGERS 1,000 ML IV SCH (20:23)
[2019-04-05] MEDS: fentaNYL INJECTION 1,250 MCG in NS (IVPB) 250 ML IV SCH (23:26)
[2019-04-06] VITALS (30 sets, daily range): BP systolic 92–153; BP diastolic 56–104
[2019-04-06] MEDS: inSUlin ASPART (NovoLOG) 1 UNIT/0.01 ML (CHARGE PER UNIT) SC SCH ×4 (00:50→18:01)
[2019-04-06] MEDS: IBUPROFEN 600 MG (MOTRIN) TAB PO SCH ×4 (00:50→18:01)
[2019-04-06] MEDS: RT-ALBUTEROL/IPRATROPIUM 3 ML (DUONEB) VIAL INH SCH ×6 (01:30→22:49)
[2019-04-06] MEDS: MEROPENEM 500 MG in WATER (STERILE) FOR INJECTION 10 ML IV SCH ×4 (03:28→21:00)
[2019-04-06 03:43] LABS: BASOPHILS % (AUTO) 0 % (0-10); EOSINOPHILS # (AUTO) 0.1 10^3/uL (0.0-0.3); EOSINOPHILS % (AUTO) 1 % (0-10); HEMATOCRIT 32 % (35-52); HEMOGLOBIN 10.1 G/DL (11.5-16.0); LYMPHOCYTES # (AUTO) 0.8 X 10^3 (1.0-4.0); LYMPHOCYTES % (AUTO) 5 % (12-44); MEAN CORPUSCULAR HEMOGLOBIN 29 PG (25-34); MEAN CORPUSCULAR HGB CONC 31 G/DL (32-36); MEAN CORPUSCULAR VOLUME 94 FL (80-99); MEAN PLATELET VOLUME 9.4 FL (7.4-10.4); MONOCYTES # (AUTO) 0.9 X 10^3 (0.0-1.0); MONOCYTES % (AUTO) 5 % (0-12); NEUTROPHILS # (AUTO) 15.9 X 10^3 (1.8-7.8); NEUTROPHILS % (AUTO) 90 % (42-75); PLATELET COUNT 256 10^3/uL (130-400); RED CELL DISTRIBUTION WIDTH 14.4 % (10.0-14.5); WHITE BLOOD COUNT 17.7 10^3/uL (4.3-11.0)
[2019-04-06 04:05] LABS: ALANINE AMINOTRANSFERASE 8 U/L (0-55); ALBUMIN 2.3 GM/DL (3.2-4.5); ALKALINE PHOSPHATASE 83 U/L (40-136); BILIRUBIN,TOTAL 0.4 MG/DL (0.1-1.0); BUN/CREATININE RATIO 21; CALCIUM 8.4 MG/DL (8.5-10.1); CARBON DIOXIDE 28 MMOL/L (21-32); CHLORIDE 105 MMOL/L (98-107); CREATININE SERUM 0.56 MG/DL (0.60-1.30); GFR ESTIMATED > 60; GLUCOSE 78 MG/DL (70-105); MAGNESIUM 1.9 MG/DL (1.6-2.4); POTASSIUM 4.8 MMOL/L (3.6-5.0); SODIUM 144 MMOL/L (135-145); TOTAL PROTEIN 4.9 GM/DL (6.4-8.2); TRIGLYCERIDES 244 MG/DL (<150)
--- NOTE | 2019-04-06 04:40 | Pulmonary Progress Note ---
Subjective Time Seen by a Provider: 04:35 Subjective/Events-last exam No complications noted. Sepsis Event Evaluation Height, Weight, BMI Height: '" Weight: lbs. oz. kg; 31.84 BMI Method: Focused Exam Lactate Level 04/03/19 06:15: Lactic Acid Level 5.38*H 04/03/19 08:15: Lactic Acid Level 5.95*H 04/05/19 05:30: Lactic Acid Level 0.71 Exam Exam Vital Signs Date Time Temp Pulse Resp B/P (MAP) Pulse Ox O2 Delivery O2 Flow Rate FiO2 04/06/19 04:00 97 NIV Bilevel 30 04/06/19 03:00 107 15 106/65 (79) 95 NIV Bilevel 30.00 04/06/19 02:00 118 28 115/70 (85) 95 NIV Bilevel 30.00 04/06/19 01:31 107 19 96 30.00 04/06/19 01:00 107 17 108/80 (89) 95 NIV Bilevel 30.00 04/06/19 01:00 105 04/06/19 00:00 111 25 116/73 (87) 96 NIV Bilevel 30.00 04/06/19 00:00 97 NIV Bilevel 30 04/05/19 23:00 111 17 109/71 (84) 95 NIV Bilevel 30.00 04/05/19 22:00 109 23 112/65 (81) 95 NIV Bilevel 30.00 04/05/19 21:32 112 19 94 40.00 04/05/19 21:00 112 20 113/69 (84) 94 NIV Bilevel 30.00 04/05/19 20:00 112 26 112/60 (77) 95 NIV Bilevel 30.00 04/05/19 20:00 36.4 04/05/19 20:00 97 NIV Bilevel 30 04/05/19 19:00 110 04/05/19 19:00 25 116/68 (84) 94 NIV Bilevel 30.00 04/05/19 18:58 110 19 97 40.00 04/05/19 18:00 108 29 113/66 (82) 94 NIV Bilevel 30.00 04/05/19 17:00 110 24 106/66 (79) 94 NIV Bilevel 30.00 04/05/19 16:00 97 NIV Bilevel 35 04/05/19 16:00 36.8 04/05/19 16:00 107 23 107/62 (77) 94 NIV Bilevel 30.00 04/05/19 15:12 NIV Bilevel 30.00 04/05/19 15:10 110 16 97 40.00 04/05/19 15:00 109 25 125/106 (112) 97 NIV Bilevel 40.00 04/05/19 14:00 105 25 128/78 (95) 98 NIV Bilevel 40.00 04/05/19 13:00 105 18 120/86 (97) 98 NIV Bilevel 40.00 04/05/19 13:00 104 04/05/19 12:00 97 NIV Bilevel 40 04/05/19 12:00 35.8 04/05/19 12:00 105 13 109/90 (96) 98 NIV Bilevel 40.00 04/05/19 11:00 112 12 128/85 (99) 98 NIV Bilevel 40.00 04/05/19 10:17 116 15 96 40.00 04/05/19 10:00 114 12 150/119 (129) 96 NIV Bilevel 40.00 04/05/19 09:00 111 18 116/99 (105) 94 NIV Bilevel 40.00 04/05/19 08:00 97 NIV Bilevel 2.00 40 04/05/19 08:00 112 22 147/87 (107) 96 NIV Bilevel 40.00 04/05/19 07:00 121 04/05/19 07:00 122 18 111/95 (100) 96 NIV Bilevel 40.00 04/05/19 07:00 37.6 04/05/19 06:00 129 36 157/92 (113) 95 NIV Bilevel 40.00 04/05/19 05:00 123 20 138/79 (98) 93 NIV Bilevel 40.00 I & O 04/06/19 07:00 Intake Total 0 ml Output Total 3575 ml Balance -3575 ml Height & Weight Height: '" Weight: lbs. oz. kg; 31.84 BMI Method: General Appearance: No Apparent Distress, WD/WN, Chronically ill HEENT: PERRL/EOMI Respiratory: Accessory Muscle Use, Decreased Breath Sounds, Respiratory Distress, Other (on bipap) Cardiovascular: Regular Rate, Rhythm, Tachycardia Capillary Refill: Less Than 3 Seconds Gastrointestinal: distended, other (ostomy is still purplish and edematous (still normal for postop) midline incision c/d/i) Extremity: Normal Capillary Refill Neurologic/Psychiatric: Depressed Affect Skin: Normal Color, Warm/Dry Lymphatic: No Adenopathy Results Lab Laboratory Tests 04/05/19 03:30 04/06/19 03:30 Assessment/Plan Assessment/Plan Acute respiratory failure -Currently requiring BiPAP -Trial back to vapotherm today -CXR shows worsening bilateral infiltrates and elevated leukocytosis -Continue Merrem and vanco, d/c eraxis -Repeat segovia cultures -Propofol, Fentanyl -CT scan of chest - reviewed - Bilateral peumonia -IS -Continue Vanco, Merrem, and Zyvox 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
[2019-04-06] MEDS: KCL 20 MEQ TAB (K-DUR) PO SCH (05:34)
[2019-04-06] MEDS: POTASSIUM CL 10MEQ/50ML IVPB 50 ML IV SCH (05:34)
[2019-04-06] MEDS: MAGNESIUM 1 GM/100 ML IVPB 100 ML IV SCH (05:34)
--- NOTE | 2019-04-06 06:47 | Progress Note - Surgery ---
POLI LARIOS,MED STUDENT 04/06/19 0647: Subjective Date Seen by a Provider: Apr 06, 2019 Time Seen by a Provider: 06:23 Subjective/Events-last exam Patient seen and examined this morning. She is on bipap. Denies any pain at this time. Review of Systems Pulmonary: Dyspnea, Cough Cardiovascular: No: Chest Pain, Palpitations Gastrointestinal: No: Nausea, Abdominal Pain Focused Exam Lactate Level 04/03/19 08:15: Lactic Acid Level 5.95*H 04/05/19 05:30: Lactic Acid Level 0.71 Objective Exam Vital Signs Date Time Temp Pulse Resp B/P (MAP) Pulse Ox O2 Delivery O2 Flow Rate FiO2 04/06/19 06:00 105 12 134/94 (107) 95 NIV Bilevel 30.00 04/06/19 05:00 104 18 145/83 (103) 96 NIV Bilevel 30.00 04/06/19 04:00 97 NIV Bilevel 30 04/06/19 04:00 104 21 128/90 (103) 95 NIV Bilevel 30.00 04/06/19 03:00 107 15 106/65 (79) 95 NIV Bilevel 30.00 04/06/19 02:00 118 28 115/70 (85) 95 NIV Bilevel 30.00 04/06/19 01:31 107 19 96 30.00 04/06/19 01:00 107 17 108/80 (89) 95 NIV Bilevel 30.00 04/06/19 01:00 105 04/06/19 00:00 111 25 116/73 (87) 96 NIV Bilevel 30.00 04/06/19 00:00 97 NIV Bilevel 30 04/05/19 23:00 111 17 109/71 (84) 95 NIV Bilevel 30.00 04/05/19 22:00 109 23 112/65 (81) 95 NIV Bilevel 30.00 04/05/19 21:32 112 19 94 40.00 04/05/19 21:00 112 20 113/69 (84) 94 NIV Bilevel 30.00 04/05/19 20:00 112 26 112/60 (77) 95 NIV Bilevel 30.00 04/05/19 20:00 36.4 04/05/19 20:00 97 NIV Bilevel 30 04/05/19 19:00 110 1/14/20 19:00 25 116/68 (84) 94 NIV Bilevel 30.00 04/05/19 18:58 110 19 97 40.00 04/05/19 18:00 108 29 113/66 (82) 94 NIV Bilevel 30.00 04/05/19 17:00 110 24 106/66 (79) 94 NIV Bilevel 30.00 04/05/19 16:00 97 NIV Bilevel 35 04/05/19 16:00 36.8 04/05/19 16:00 107 23 107/62 (77) 94 NIV Bilevel 30.00 04/05/19 15:12 NIV Bilevel 30.00 04/05/19 15:10 110 16 97 40.00 04/05/19 15:00 109 25 125/106 (112) 97 NIV Bilevel 40.00 04/05/19 14:00 105 25 128/78 (95) 98 NIV Bilevel 40.00 04/05/19 13:00 105 18 120/86 (97) 98 NIV Bilevel 40.00 04/05/19 13:00 104 04/05/19 12:00 97 NIV Bilevel 40 04/05/19 12:00 35.8 04/05/19 12:00 105 13 109/90 (96) 98 NIV Bilevel 40.00 04/05/19 11:00 112 12 128/85 (99) 98 NIV Bilevel 40.00 04/05/19 10:17 116 15 96 40.00 04/05/19 10:00 114 12 150/119 (129) 96 NIV Bilevel 40.00 04/05/19 09:00 111 18 116/99 (105) 94 NIV Bilevel 40.00 04/05/19 08:00 97 NIV Bilevel 2.00 40 04/05/19 08:00 112 22 147/87 (107) 96 NIV Bilevel 40.00 04/05/19 07:00 121 04/05/19 07:00 122 18 111/95 (100) 96 NIV Bilevel 40.00 04/05/19 07:00 37.6 I & O 04/06/19 07:00 Intake Total 0 ml Output Total 3575 ml Balance -3575 ml Capillary Refill : Less Than 3 SecondsLess Than 3 Seconds General Appearance: WD/WN HEENT: PERRL/EOMI; No Scleral Icterus (L), No Scleral Icterus (R) Respiratory: Accessory Muscle Use, Decreased Breath Sounds, Respiratory Distress, Other (on bipap) Cardiovascular: No Murmur, Tachycardia Peripheral Pulses: 2+ Dorsalis Pedis (R), 2+ Left Dors-Pedis (L), 2+ Radial Pulses (R), 2+ Radial Pulses (L) Gastrointestinal: distended, other (ostomy is still purplish and edematous (still normal for postop) midline incision c/d/i) Neurologic/Psychiatric: Alert Skin: Normal Color, Warm/Dry Results Lab Laboratory Tests 04/05/19 09:08: Vancomycin Level Trough 11.4 04/05/19 11:28: Glucometer 93 04/05/19 17:26: Glucometer 75 04/06/19 03:30: White Blood Count 17.7H, Red Blood Count 3.44L, Hemoglobin 10.1L, Hematocrit 32L , Mean Corpuscular Volume 94, Mean Corpuscular Hemoglobin 29, Mean Corpuscular Hemoglobin Concent 31L, Red Cell Distribution Width 14.4, Platelet Count 256, Mean Platelet Volume 9.4, Neutrophils (%) (Auto) 90H, Lymphocytes (%) (Auto) 5L, Monocytes (%) (Auto) 5, Eosinophils (%) (Auto) 1, Basophils (%) (Auto) 0, Neutrophils # (Auto) 15.9H, Lymphocytes # (Auto) 0.8L, Monocytes # (Auto) 0.9, Eosinophils # (Auto) 0.1, Basophils # (Auto) 0.0, Sodium Level 144, Potassium Level 4.8, Chloride Level 105, Carbon Dioxide Level 28, Anion Gap 11, Blood Urea Nitrogen 12, Creatinine 0.56L, Estimat Glomerular Filtration Rate > 60, BUN/Creatinine Ratio 21, Glucose Level 78, Calcium Level 8.4L, Corrected Calcium 9.8, Phosphorus Level 4.0, Magnesium Level 1.9, Total Bilirubin 0.4, Aspartate Amino Transf (AST/SGOT) 20, Alanine Aminotransferase (ALT/SGPT) 8, Alkaline Phosphatase 83, Total Protein 4.9L, Albumin 2.3L, Triglycerides Level 244H Microbiology 04/02/19 Gram Stain - Final, Resulted 04/02/19 Anaerobic Culture - Preliminary, Resulted Bacteroides thetaiotaomicron 04/02/19 Surgical Culture - Final, Resulted Lactobacillus rhamnosus Enterococcus faecalis See Comments 1/11/20 Urine Culture - Final, Complete NO GROWTH 04/02/19 Gram Stain - Final, Complete 04/02/19 Sputum Culture - Final, Complete Usual upper respiratory susan 04/02/19 Blood Culture - Preliminary, Resulted No growth Assessment/Plan Assessment/Plan Assessment/Plan Assessment: -s/p Hartmanns procedure -Acute respiratory failure Plan: -Continue IV fluids, IV abx and pain control -Trial off bipap to be done later today Clinical Quality Measures DVT/VTE Risk/Contraindication: Risk Factor Score Per Nursin RFS Level Per Nursing on Admit: 4+=Very High KADEEM ARRIAGA DO 04/06/19 1631: Subjective Time Seen by a Provider: 16:15 Subjective/Events-last exam Pt seen and examined, no new complaints. Unfortunately nurse states colostomy has changed color. Objective Exam Gastrointestinal: other (ostomy now looks dusky brown, tried to visualize lower to see if intestine was viable, but couldn't) Assessment/Plan Assessment/Plan Assessment/Plan Colostomy Failure It appears that the colostomy has lost blood supply and will need to be revised. I explained to the pt; she was obviously upset because she doesn't want to have to go back to surgery. I told her if she didn't it would get worse and then she could get sick and . She agreed to colostomy revision; will try to just go through ostomy site and not open pt back up. May have to open midline incision. Pt understood and all questions answered to her satisfaction. Supervisory-Addendum Brief Verification & Attestation Participated in pt care: history, MDM, physical Personally performed: exam, history, MDM Care discussed with: Medical Student Procedures: n/a Verification and Attestation of Medical Student E/M Service A medical student performed and documented this service in my presence. I reviewed and verified all information documented by the medical student and made modifications to such information, when appropriate. I personally performed the physical exam and medical decision making. Kadeem Arriaga, Apr 06, 2019,16:31 POLI LARIOS,MED STUDENT Apr 06, 2019 06:47 KADEEM ARRIAGA DO Apr 06, 2019 16:31
--- NOTE | 2019-04-06 07:46 | Diagnostic Imaging Report ---
INDICATION: Sepsis Upright portable AP view of chest is obtained. Since study of one day earlier, diffuse bilateral airspace disease has shown slight improvement. Right jugular central venous catheter remains in place and there is no evidence of pneumothorax or significant pleural fluid. IMPRESSION: Diffuse bilateral airspace disease which may represent edema, pneumonia or ARDS has shown mild improvement. Dictated by: Dictated on workstation # [id number]
[2019-04-06] MEDS: PANTOPRAZOLE 40 MG (PROTONIX) VIAL IV SCH (08:31)
[2019-04-06] MEDS: ANIDULAFUNGIN INJECTION 100 MG in NS (IVPB) 100 ML IV SCH (08:31)
[2019-04-06] MEDS: ENOXAPARIN 40 MG/0.4 ML (LOVENOX) SYR SC SCH (08:32)
--- NOTE | 2019-04-06 08:50 | NUR ---
Risk Management Note: AID discussion completed with patient regarding her return to surgery. Explained to the patient that her unexpected return to surgery will be reviewed/investigated according to our processes for reviewing these events. Informed her that I will disclose the findings of the review following it's completion. Allowed the patient the opportunity to ask questions regarding this review. None at this time. Provided the patient with my business card with contact information if she would like to reach out to me at any time.
--- NOTE | 2019-04-06 08:54 | NUR ---
THIS NURSE NOTIFIED DR BARKER PT STOMA LOOKED BLACK. DR BARKER TO ASSESS PT SOON.
--- NOTE | 2019-04-06 08:56 | Physical Therapy Evaluation ---
PT Evaluation-General Medical Diagnosis Admission Date Apr 02, 2019 at 01:23 Medical Diagnosis: Postoperative abdom. pain acute respiratory failure requiring intubatio Onset Date: Apr 02, 2019 Therapy Diagnosis Therapy Diagnosis: impaired mobility, strength, endurance Precautions Precautions/Isolations: Fall Prevention, Standard Precautions Referral Physician: Maria Luisa Reason for Referral: Evaluation/Treatment Medical History Additional Medical History Surgeries Yes (DXLS x3, LEEP, oral sx) Section, Hysterectomy, Oophorectomy, Tonsillectomy Reviewed History: Yes Social History Home: [facility] Current Living Status: Other Family Entry Into Home: Stairs With Railing PT Steps Into Home: 5 Prior Prior Level of Function SCALE: Activities may be completed with or without assistive devices. 1-Stsphjwhgj-jmbjvfz completes the activity by him/herself with no assistance from a helper. 5-Set-up or Clean-up Assistance-helper sets up or cleans up; patient completes activity. [place] assists only prior to or following the activity. 4-Supervision or Touching Assistance-helper provides verbal cues and/or touching/steadying and/or contact guard assistance as patient completes activity. Assistance may be provided throughout the activity or intermittently. 3-Partial/Moderate Assistance-helper does LESS THAN HALF the effort. [place] lifts, holds or supports trunk or limbs, but provides less than half the effort. 2-Substantial/Maximal Assistance-helper does MORE THAN HALF the effort. [place] lifts or holds trunk or limbs and provides more than half the effort. 1-Zfudxribu-azyoku does ALL the effort. Patient does none of the effort to complete the activity. Or, the assistance of 2 or more helpers is required for the patient to complete the activity. If activity was not attempted, code reason: 7-Patient Refused. 9-Not Applicable-not attempted and the patient did not perform the activity before the current illness, exacerbation or injury. 10-Not Attempted due to Environmental Limitations-(lack of equipment, weather restraints, etc.). 88-Not Attempted due to Medical Conditions or Safety Concerns. Bed Mobility: 6 Transfers (B,C,W/C): 6 Gait: 6 Stairs: 6 Indoor Mobility (Ambulation): Independent Stairs: Independent PT Evaluation-Current Subjective Patient in bed pre tx, agrees to PT, has no complaints of pain at rest. Pt/Family Goals to be independent at home Objective Patient Orientation: Person, Confused Attachments: SCD's, Mcadams Catheter, IV vapotherm ROM/Strength ROM Lower Extremities WNL Strength Lower Extremities 4/5 gross BLE Integumentary/Posture Integumentary BLE swelling but not pitting Sensory Hearing: Functional Sensation Right Lower Extremit: Intact Sensation Left Lower Extremity: Intact Transfers Roll Left to Right (QC): 1 Sit to Lying (QC): 1 Lying to Sitting/Side of Bed(Q: 1 Patient is able to assist with rolling and supine <-> sit but still needs assist of 2 therapists. Patient sat at the edge of the bed for about 10 min. Balance Sitting Static: Fair Sitting Dynamic: Poor Treatment BLE seated exercises x10 (AP, LAQ) Assessment/Needs Patient has impaired mobility, strength, endurance. She gets SOB with activity but is able and eager to participate. Rehab Potential: Fair PT Prison Goals Prison Goals PT Engineering Test Mechanic Goals Time Frame: Apr 13, 2019 Roll Left & Right (QC): 3 Sit to Lying (QC): 3 Lying-Sitting on Side/Bed(QC): 3 Sit to Stand (QC): 3 Chair/Eed-sf-Juloq Xfer(QC): 3 Walk 10 feet (QC): 3 PT Plan Problem List Problem List: Activity Tolerance, Functional Strength, Safety, Balance, Gait, Transfer, Bed Mobility, ROM Treatment/Plan Treatment Plan: Continue Plan of Care Treatment Plan: Bed Mobility, Education, Functional Activity Darius, Functional Strength, Gait, Safety, Therapeutic Exercise, Transfers Treatment Duration: Apr 13, 2019 Frequency: 6 times per week Estimated Hrs Per Day: .25 hour per day Patient and/or Family Agrees t: Yes Safety Risks/Education Patient Education: Transfer Techniques, Correct Positioning, Safety Issues Teaching Recipient: Patient Teaching Methods: Demonstration, Discussion Response to Teaching: Reinforcement Needed Discharge Recommendations Plan Patient will perform bed mobility and transfer training, balance and endurance training, functional strengthening, stair training, gait training, and education, to improve functional mobility and independence at home. Therapy Discharge Recommendati: Other, See Comments (home with family) Time/GCodes Time In: 827 Time Out: 843 Total Billed Treatment Time: 16 Total Billed Treatment 1 visit EVJay Laure MARCIEKIMANI CASASIS PT Apr 06, 2019 08:56
[2019-04-06] MEDS ORDERED: TROUGH ORDER-PHARMACY XX NR (09:00)
--- NOTE | 2019-04-06 10:56 | Progress Note - Hospitalist ---
MELISSA MONIQUE [facility] 04/06/19 1056: Subjective HPI/CC On Admission Date Seen by Provider: Apr 06, 2019 Time Seen by Provider: 08:20 Chief complaint: Medical management from hospitalist service History of present illness: This is a 38-year-old white female who presented after an uncomplicated robotic procedure removing her uterus and a significant fibroid that was adhesed to the ureters who had been doing well for the 6 days postoperatively and tell abruptly she began having abdominal pain went [place] [facility] subsequently sent to [facility] for higher level of management along with evaluation of critical illness. She ultimately required intubation by Dr. Glass due to respiratory compromise. CT did not show any evidence of pulmonary emboli. Abdominal pain and distention is noted. Hypotension is precluding aggressive sedation for ventilator purposes. Subjective/Events-last exam Patient was awake and off bipap at the time of visit. She was drinking water and was alert. Waiting on cultures to be re-drawn. Pulmonology is following. CXR shows ARDS has mild improvement. Focused Exam Lactate Level 04/05/19 05:30: Lactic Acid Level 0.71 Objective Exam Vital Signs Vital Signs Date Time Temp Pulse Resp B/P (MAP) Pulse Ox O2 Delivery O2 Flow Rate FiO2 04/06/19 10:11 96 Vapotherm 30.00 35 04/06/19 09:00 100 134/97 (109) 04/06/19 08:00 17 04/06/19 08:00 36.2 Capillary Refill : Less Than 3 SecondsLess Than 3 Seconds General Appearance: No Apparent Distress, WD/WN Respiratory: No Accessory Muscle Use, Crackles Cardiovascular: Regular Rate, Rhythm Rectal: Deferred Neurologic/Psychiatric: Alert Results/Procedures Lab Laboratory Tests 04/06/19 03:30 Patient resulted labs reviewed. Imaging: Reviewed Imaging Report Assessment/Plan Assessment and Plan Assess & Plan/Chief Complaint Assessment: Acute respiratory failure, will continue bipap and being monitored, possible early ARDS (improving based on CXR) b/l infiltrates in lung Bowel perforation s/p Exp Lap open procedure requiring colostomy Postop Hyst 6 days prior to admit Electrolyte abnormalities Plan: Critical illness management Blood cultures pain control Continue abx replace electrolytes Monitor closely Clinical Quality Measures DVT/VTE Risk/Contraindication: Risk Factor Score Per Nursin RFS Level Per Nursing on Admit: 4+=Very High NAJMA MYLES DO 04/06/192049: Subjective Subjective/Events-last exam ARDS appears improved on chest X-ray. White count is decreased. BiPAP off and now on Vapotherm. Pt doing well otherwise. Pt is oriented and appears to be doing better. Review of Systems General: Fatigue Pulmonary: Dyspnea Objective Exam General Appearance: Anxious, Chronically ill, Mild Distress Respiratory: Accessory Muscle Use, Crackles, Decreased Breath Sounds Cardiovascular: Regular Rate, Rhythm Neurologic/Psychiatric: Alert, Oriented x3, No Motor/Sensory Deficits, Normal Mood/Affect Assessment/Plan Assessment and Plan Assess & Plan/Chief Complaint ICU status Vapotherm IV abx IVF Max support Diagnosis/Problems Diagnosis/Problems (1) Respiratory failure (2) Hypotension (3) Bilateral atelectasis (4) Required emergency intubation (5) Bowel perforation (6) Peritonitis (7) Colostomy in place (8) S/P exploratory laparotomy Supervisory-Addendum Brief Verification & Attestation Participated in pt care: history, MDM, physical Personally performed: exam, history, MDM, supervision of care Care discussed with: Medical Student Procedures: n/a Results interpretation: Verified all documentation Verification and Attestation of Medical Student E/M Service A medical student performed and documented this service in my presence. I reviewed and verified all information documented by the medical student and made modifications to such information, when appropriate. I personally performed the physical exam and medical decision making. Najma Myles, Apr 06, 2019,20:50 [facility] Apr 06, 2019 10:56 NAJMA MYLES DO Apr 06, 2019 20:50
[2019-04-06] MEDS: VANCOMYCIN INJECTION 1,500 MG in NS IV 500 ML 500 ML IV SCH (11:50)
--- NOTE | 2019-04-06 14:46 | NUR ---
1145 DUE TO CHANGES IN STAFFING CARE OF PT TO THIS RN. REPORT RECEIVED FROM Elsy BURDICK RN.
--- NOTE | 2019-04-06 16:00 | Occupational Therapy Eval ---
OT Evaluation-General/PLF Medical Diagnosis Admission Date Apr 02, 2019 at 01:23 Medical Diagnosis: Postoperative abdom. pain acute respiratory failure requiring intubatio Onset Date: Apr 02, 2019 Therapy Diagnosis Therapy Diagnosis: Decreased ADL skills Precautions Precautions/Isolations: Fall Prevention, Standard Precautions Safety Interventions: None Weight Bear Status Weight Bearing Restriction: Weight Bearing/Tolerated Referral Physician: Maria Luisa Referral Reason: Activity Tolerance, Self Care, Evaluation/Treatment, Strengthening/ROM Medical History Current History Pt. underwent hysterectomy and had difficulty post op. Sustained respiratory failure and went on ventilator. Extubated on 04-04-19. Reviewed History: Yes Social History Home: Multilevel (Can stay on main level) Current Living Status: Other Family (brother, sis-in-law, son) Entry Into Home: Stairs With Railing Steps Into Home: 5 ADL-Prior Level of Function SCALE: Activities may be completed with or without assistive devices. 7-Bvubrgfdzs-ljuousc completes the activity by him/herself with no assistance from a helper. 5-Set-up or Clean-up Assistance-helper sets up or cleans up; patient completes activity. [place] assists only prior to or following the activity. 4-Supervision or Touching Assistance-helper provides verbal cues and/or touching/steadying and/or contact guard assistance as patient completes activity. Assistance may be provided throughout the activity or intermittently. 3-Partial/Moderate Assistance-helper does LESS THAN HALF the effort. [place] lifts, holds or supports trunk or limbs, but provides less than half the effort. 2-Substantial/Maximal Assistance-helper does MORE THAN HALF the effort. [place] lifts or holds trunk or limbs and provides more than half the effort. 6-Eostnypxq-efctdg does ALL the effort. Patient does none of the effort to complete the activity. Or, the assistance of 2 or more helpers is required for the patient to complete the activity. If activity was not attempted, code reason: 7-Patient Refused. 9-Not Applicable-not attempted and the patient did not perform the activity before the current illness, exacerbation or injury. 10-Not Attempted due to Environmental Limitations-(lack of equipment, weather restraints, etc.). 88-Not Attempted due to Medical Conditions or Safety Concerns. ADL PLOF Comments Pt. was independent with ADLs, driving. Has 11 year old son. 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 Appearance Pt. in bed. Agrees to work with OT. Mental Status/Objective Patient Orientation: Person, Place Attachments: Drains, Mcadams Catheter, IV, Oxygen, Telemetry Current Hand Dominance: Right Upper Extremity ROM Pt. is able to raise bilateral shoulders to approximately 90 degrees. Able to grasp but grasp is weak and slow. Upper Extremity Strength 3/5 distally 2/5 proximally ADL-Treatment Eating (QC): 9 (Pt. is NPO at this time.) Oral Hygiene (QC): 7 Shower/Bathe Self (QC): 88 Upper Body Dressing (QC): 88 Lower Body Dressing (QC): 88 On/Off Footwear (QC): 1 Toileting Hygiene (QC): 1 Pt. transferred supine-sit with mod x 2. Sat on side of bed with CGA for approximately 10 minutes. Pt. has multiple lines and tubing. Pt. able to wash face with warm washcloth. Attempted to brush hair but unable to do so thoroughly. OT did this for her. Pt. has difficulty fully keeping head upright. Slumped position noted. Transferred sit-supine with max x 2. Max x 2 to roll in bed and then for bed positioning. All needs met. Education OT Patient Education: Correct positioning, Modified ADL techniques, Progress toward Goal/Update tx plan, Purpose of tx/functional activities, Reviewed precautions, Rehab process, Transfer techniques Teaching Recipient: Patient, Family Teaching Methods: Demonstration, Discussion Response to Teaching: Verbalize Understanding, Return Demonstration, Reinforcement Needed OT Short Term Goals Short Term Goals Time Frame: Apr 20, 2019 Eatin Oral hygiene: 3 Toileting hygiene: 2 Shower/bathe self: 2 Upper body dressin Lower body dressin Putting on/taking off footwear: 2 OT Residential Goals Wrecking Supervisor Goals Time Frame: May 04, 2019 Eating (QC): 5 Oral Hygiene (QC): 5 Toileting Hygiene (QC): 4 Shower/Bathe Self (QC): 4 Upper Body Dressing (QC): 5 Lower Body Dressing (QC): 4 On/Off Footwear (QC): 4 Additional Goals: 1-Demonstrate ADL Tasks, 2-Verbalize Understanding, 3- ImproveStrength/Darius 1=Demonstrate adherence to instructed precautions during ADL tasks. 2=Patient will verbalize/demonstrate understanding of assistive devices/modifications for ADL. 3=Patient will improve strength/tolerance for activity to enable patient to perform ADL's. OT Education/Plan Problem List/Assessment Assessment: Decreased Activ Tolerance, Decreased UE Strength, Dependent Transfers, Impaired Bed Mobility, Impaired Funct Balance, Impaired I ADL's, Impaired Self-Care Skills, Restricted Funct UE ROM Discharge Recommendations Plan/Recommendations: Continue POC Therapy Discharge Recommendati: 24 Hour Supervision, Post Acute OT Comment Equipment needs and discharge location to be determined. Treatment Plan/Plan of Care Treatment,Training & Education: Yes Patient would benefit from OT for education, treatment and training to promote independence in ADL's, mobility, safety and/or upper extremity function for ADL's. Plan of Care: ADL Retraining, Functional Mobility, UE Funct Exercise/Act Treatment Duration: May 04, 2019 Frequency: 5 times per week Estimated Hrs Per Day: .5 hour per day Agreement: Yes Rehab Potential: Fair Time/GCodes Start Time: 14:25 Stop Time: 14:50 Total Time Billed (hr/min): 25 Billed Treatment Time 1, EVH x 10minutes, ADL x 15minutes RAJAN MARCELINO OT Apr 06, 2019 16:00
[2019-04-06] MEDS ORDERED: HYDROmorphone 2 MG/ML VIAL (DILAUDID) ONE (17:28)
[2019-04-06] MEDS ORDERED: morphine INJ 10 MG/ML 1ML (SYR OR VIAL) ONE (17:29)
[2019-04-06] MEDS ORDERED: PROMETHAZINE INJ 25 MG/ML (PHENERGAN) AMP ONE (17:29)
[2019-04-06] MEDS: VANCOMYCIN INJECTION 1,250 MG in NS (IVPB) 250 ML IV SCH (18:00)
[2019-04-06] MEDS: LACTATED RINGERS 1,000 ML IV SCH (18:07)
--- NOTE | 2019-04-06 18:58 | NUR ---
PT TO OR VIA BED ACCOMPANIED BY OR STAFF. PT PLACED ON NON REBREATHER WITH FLOW PER RT.
[2019-04-06] MEDS ORDERED: SEVOFLURANE (ULTANE) 15 ML INHAL SOLN ONE (19:01)
[2019-04-06] MEDS ORDERED: ROCURONIUM 10 MG/ML 5 ML SYRINGE IV ONE (19:01)
[2019-04-06] MEDS ORDERED: proPOfol 200 MG/20 ML (DIPRIVAN) VIAL IV ONE (19:01)
[2019-04-06] MEDS ORDERED: MIDAZOLAM 2 MG/2 ML (VERSED) VIAL ONE ×3 (19:01→19:52)
[2019-04-06] MEDS ORDERED: SUCCINYLCHOLINE INJ 100 MG/5 ML SYR ONE (19:01)
[2019-04-06] MEDS ORDERED: fentaNYL INJECTION 100 MCG/2 ML AMP ONE (19:02)
[2019-04-06] MEDS: LACTATED RINGERS 1,000 ML IV PRN ×2 (19:11→19:55)
--- NOTE | 2019-04-06 19:59 | Progress Note-Post Operative ---
Post-Operative Progess Note Surgeon (s)/Driver Helper (s) Surgeon ARON BARKER DO Driver Helper: Veronica Pre-Operative Diagnosis Colostomy complication - ischemic Post-Operative Diagnosis Same Procedure & Operative Findings Date of Procedure 04/06/19 Procedure Performed/Findings Partial colon resection with colostomy revision Anesthesia Type GET Estimated Blood Loss Estimated blood loss (mL): scant Specimens/Packing Specimens Removed portion of sigmoid colon ARON BARKER DO Apr 06, 2019 19:59
[2019-04-06] MEDS ORDERED: PROPOFOL DRIP (ICU) 100 ML IV ONE (20:00)
[2019-04-06] MEDS ORDERED: PHENYLEPHRINE 100 MCG/ML 10 ML (ANESTHESIA) SYR ONE (20:22)
[2019-04-06] MEDS ORDERED: ONDANSETRON 4 MG/2 ML (SDV) Z0FRAN IVP PRN (20:30)
[2019-04-06] MEDS ORDERED: HYDROmorphone 2 MG/ML VIAL (DILAUDID) IV ONE (20:30)
--- NOTE | 2019-04-06 21:00 | NUR ---
REPORT REC FROM MARK PRESS OPERATOR [employer]. PT IS POST OP COLOSTOMY REVISION. PT IS INTUBATED WITH SIZE 8 ETT WITH VENT SETTINGS OF TV 450, RATE 16, FIO2 60% AND 5 OF PEEP
--- NOTE | 2019-04-06 21:20 | Diagnostic Imaging Report ---
INDICATION: Status post tube placement. COMPARISON: Earlier same day FINDINGS: Single frontal radiographic view of the chest was obtained and demonstrates interval placement of endotracheal tube, tip of which terminates just below the clavicular heads. Right internal jugular central venous catheter is also seen with tip projecting over the SVC. Lungs continue to show scattered infiltrates bilaterally, although there has been significant interval improvement in aeration when compared to prior exam. Small left effusion is suspected. There is no pneumothorax. Cardiac silhouette is stable. IMPRESSION: 1. Lines and tubes as above. 2. Significant overall improved aeration, but with persistent scattered bilateral infiltrates, greatest within the right upper lobe. 3. Probable small left basilar effusion. Dictated by: Dictated on workstation # [id number]
[2019-04-06] MEDS ORDERED: NS IV 1000 ML 1,000 ML IV SCH (21:45)
[2019-04-06 22:48] LABS: ABG BASE EXCESS 8.6 MMOL/L (-2.5-2.5); ABG OXYGEN SATURATION 84 % (94-100); ABG PCO2 52 MMHG (35-45); ABG PH 7.42 (7.37-7.43); ABG PO2 48 MMHG (79-93)
[2019-04-06 22:49] LABS: ALLENS TEST YES-POS; INSPIRED O2 35%; PATIENT TEMP 36.3; VENTILATOR YES
[2019-04-06] MEDS ORDERED: DOBUTamine DRIP 250 ML IV SCH (23:00)
[2019-04-07] VITALS (28 sets, daily range): BP systolic 92–129; BP diastolic 58–82
[2019-04-07] MEDS: IBUPROFEN 600 MG (MOTRIN) TAB PO SCH ×4 (00:20→18:31)
[2019-04-07] MEDS: inSUlin ASPART (NovoLOG) 1 UNIT/0.01 ML (CHARGE PER UNIT) SC SCH ×4 (00:21→18:31)
[2019-04-07] MEDS: fentaNYL INJECTION 1,250 MCG in NS (IVPB) 250 ML IV SCH (02:28)
[2019-04-07] MEDS: RT-ALBUTEROL/IPRATROPIUM 3 ML (DUONEB) VIAL INH SCH ×5 (02:35→18:19)
[2019-04-07] MEDS: MEROPENEM 500 MG in WATER (STERILE) FOR INJECTION 10 ML IV SCH ×4 (02:36→21:11)
[2019-04-07] MEDS: VANCOMYCIN INJECTION 1,250 MG in NS (IVPB) 250 ML IV SCH ×3 (02:36→17:47)
--- NOTE | 2019-04-07 02:37 | OPERATIVE REPORT ---
DATE OF SERVICE: 04/06/2019 PREOPERATIVE DIAGNOSIS: Colostomy complication ischemia. POSTOPERATIVE DIAGNOSIS: Colostomy complication ischemia. PROCEDURE: Partial colon resection with colostomy revision. SURGEON: Kadeem Arriaga DO. FIELD LIABILITY GENERALIST: Theron Martin DO ANESTHESIA: General endotracheal tube. SPECIMEN: Portion of sigmoid colon. BLOOD LOSS: Scant. FLUIDS: Per anesthesia. POSTOPERATIVE CONDITION: Stable. INDICATION FOR PROCEDURE: The patient is a 38-year-old female, who recently had a colostomy secondary to sigmoid colon perforation. The colostomy began looking ischemic and needed to get this revised. FINDINGS: The patient had ischemic portion end of the colostomy, but able to revise this. PROCEDURE NOTE: After informed consent was obtained, the patient was brought to the operating room, placed on the table in supine position. She was sterilely prepped and draped in normal fashion. Elected to try first going through and taking down the colostomy. Cut out all the sutures, pulled the colostomy up and actually could get a pretty decent amount pulled up, able to then just cut the ischemic portion off (basically resecting a portion of colon. Cut down until that the portion of colon was bleeding and saw good pink colon. Once we removed this portion; then we revised the colostomy and sutured it at 3, 6 and 9 o'clock positions and in between with 2 to 3 separate 3-0 Vicryl pop-offs. Colostomy is pink, could feel there was good going into the abdomen and at this point end of the procedure, sponge, instrument and needle count correct at the end of the case. Dr. Martin assisted on this case helping to mature the colostomy, identify anatomy and hold anatomy out of the way. Job ID: [id number] DocumentID: [id number] Dictated Date: 04/06/2019 20:02:01 Bus Girl Date: 04/07/2019 02:36:48 Dictated By: KADEEM ARRIAGA DO [facility]
[2019-04-07 03:06] LABS: ABG OXYGEN SATURATION 91 % (94-100); ABG PCO2 55 MMHG (35-45); ABG PO2 65 MMHG (79-93); ABG TCO2 34.7 MMOL/L (21.0-31.0); BASOPHILS % (AUTO) 0 % (0-10); EOSINOPHILS % (AUTO) 0 % (0-10); HEMATOCRIT 29 % (35-52); HEMOGLOBIN 8.9 G/DL (11.5-16.0); LYMPHOCYTES # (AUTO) 0.5 X 10^3 (1.0-4.0); LYMPHOCYTES % (AUTO) 5 % (12-44); MEAN CORPUSCULAR HEMOGLOBIN 29 PG (25-34); MEAN CORPUSCULAR HGB CONC 31 G/DL (32-36); MEAN CORPUSCULAR VOLUME 93 FL (80-99); MEAN PLATELET VOLUME 9.4 FL (7.4-10.4); MONOCYTES # (AUTO) 0.2 X 10^3 (0.0-1.0); MONOCYTES % (AUTO) 3 % (0-12); NEUTROPHILS # (AUTO) 8.5 X 10^3 (1.8-7.8); NEUTROPHILS % (AUTO) 92 % (42-75); PLATELET COUNT 232 10^3/uL (130-400); RED CELL DISTRIBUTION WIDTH 14.4 % (10.0-14.5); WHITE BLOOD COUNT 9.2 10^3/uL (4.3-11.0)
[2019-04-07 03:08] LABS: ALLENS TEST YES-POS; INSPIRED O2 50%; PATIENT TEMP 36.8; VENTILATOR YES
[2019-04-07 03:22] LABS: CARBON DIOXIDE 29 MMOL/L (21-32); CHLORIDE 101 MMOL/L (98-107); POTASSIUM 4.7 MMOL/L (3.6-5.0); SODIUM 141 MMOL/L (135-145)
[2019-04-07 03:23] LABS: ALANINE AMINOTRANSFERASE 10 U/L (0-55); ALBUMIN 2.2 GM/DL (3.2-4.5); ALKALINE PHOSPHATASE 70 U/L (40-136); BILIRUBIN,TOTAL 0.3 MG/DL (0.1-1.0); BUN/CREATININE RATIO 22; CREATININE SERUM 0.49 MG/DL (0.60-1.30); GFR ESTIMATED > 60; GLUCOSE 122 MG/DL (70-105); MAGNESIUM 1.8 MG/DL (1.6-2.4); TOTAL PROTEIN 4.7 GM/DL (6.4-8.2)
--- NOTE | 2019-04-07 03:59 | Pulmonary Progress Note ---
Subjective Date Seen by a Provider: Apr 07, 2019 Time Seen by a Provider: 03:54 Subjective/Events-last exam S/p repeat surgery. Pt was left on vent post surgery. Sepsis Event Evaluation Height, Weight, BMI Height: '" Weight: lbs. oz. kg; 31.84 BMI Method: Focused Exam Lactate Level 04/05/19 05:30: Lactic Acid Level 0.71 Exam Exam Vital Signs Date Time Temp Pulse Resp B/P (MAP) Pulse Ox O2 Delivery O2 Flow Rate FiO2 04/07/19 01:00 93 04/07/19 00:00 97 Mechanical Ventilator 55 04/07/19 00:00 36.3 04/07/19 00:00 95 15 97/60 (72) 100 Mechanical Ventilator 55.00 04/06/19 23:00 85 16 95/61 (72) 100 Mechanical Ventilator 55.00 04/06/19 22:00 86 16 95/66 (76) 99 Mechanical Ventilator 60.00 04/06/19 21:00 101 15 102/64 (77) 98 Mechanical Ventilator 60.00 04/06/19 21:00 Mechanical Ventilator 70 04/06/19 21:00 97 Mechanical Ventilator 60 04/06/19 21:00 36.5 16 121/82 (95) 98 Mechanical Ventilator 70 04/06/19 20:50 20 121/82 (95) 98 Mechanical Ventilator 04/06/19 20:45 Mechanical Ventilator 80 04/06/19 20:40 20 99/63 (75) 98 Mechanical Ventilator 80 04/06/19 20:30 Mechanical Ventilator 80 04/06/19 20:30 16 97/59 (72) 97 Mechanical Ventilator 80 04/06/19 20:30 99 93/55 04/06/19 20:20 16 97/56 (70) 97 Mechanical Ventilator 80 04/06/19 20:14 Mechanical Ventilator 80 04/06/19 20:14 36.5 16 100/69 (79) 98 Mechanical Ventilator 80 04/06/19 19:00 106 04/06/19 18:00 96 129/98 (108) 96 Vapotherm 30.00 35.00 04/06/19 17:00 95 136/85 (102) 95 Vapotherm 30.00 35.00 04/06/19 16:15 96 Vapotherm 35 04/06/19 16:00 98 131/89 (103) 98 Vapotherm 30.00 35.00 04/06/19 16:00 36.8 04/06/19 15:17 96 Vapotherm 30.00 35 04/06/19 15:00 101 139/85 (103) 97 Vapotherm 30.00 35.00 04/06/19 14:00 101 147/104 (118) 95 Vapotherm 30.00 35.00 04/06/19 13:00 107 153/92 (112) 95 Vapotherm 30.00 35.00 04/06/19 12:37 103 04/06/19 12:00 37.1 04/06/19 12:00 96 Vapotherm 35 04/06/19 12:00 106 140/97 (111) 97 Vapotherm 30.00 35.00 04/06/19 11:00 97 102/83 (89) 95 Vapotherm 30.00 35.00 04/06/19 10:11 96 Vapotherm 30.00 35 04/06/19 10:00 98 139/85 (103) 93 Vapotherm 30.00 35.00 04/06/19 09:00 100 134/97 (109) 95 Vapotherm 30.00 35.00 04/06/19 08:00 110 17 128/76 (93) 94 Vapotherm 30.00 35.00 04/06/19 08:00 96 Vapotherm 35 04/06/19 08:00 36.2 04/06/19 07:34 Vapotherm 30.00 35.00 04/06/19 07:31 94 Vapotherm 30.00 35 04/06/19 07:00 102 14 146/101 (116) 97 NIV Bilevel 30.00 04/06/19 06:39 103 04/06/19 06:00 105 12 134/94 (107) 95 NIV Bilevel 30.00 04/06/19 05:00 104 18 145/83 (103) 96 NIV Bilevel 30.00 04/06/19 04:00 97 NIV Bilevel 30 04/06/19 04:00 104 21 128/90 (103) 95 NIV Bilevel 30.00 I & O 04/07/19 07:00 Intake Total 2430 ml Output Total 1400 ml Balance 1030 ml Height & Weight Height: '" Weight: lbs. oz. kg; 31.84 BMI Method: General Appearance: Anxious, Chronically ill, Other (sedated on vent) HEENT: PERRL/EOMI; No Scleral Icterus (L), No Scleral Icterus (R) Respiratory: Accessory Muscle Use, Crackles, Decreased Breath Sounds Cardiovascular: Regular Rate, Rhythm Capillary Refill: Less Than 3 Seconds Peripheral Pulses: 2+ Dorsalis Pedis (R), 2+ Left Dors-Pedis (L), 2+ Radial Pulses (R), 2+ Radial Pulses (L) Gastrointestinal: other (ostomy now looks dusky brown, tried to visualize lower to see if intestine was viable, but couldn't) Skin: Normal Color, Warm/Dry Results Lab Laboratory Tests 04/06/19 03:30 04/07/19 02:55 Assessment/Plan Assessment/Plan Acute respiratory failure -Pt was left on vent after repeat surgery yesterday -Wean vent -CXR shows worsening bilateral infiltrates and elevated leukocytosis - Merrem and vanco, -Repeat segovia cultures -Propofol, Fentanyl -CT scan of chest - reviewed - S/p colostomy revision 04/05/19 Bilateral peumonia -IS -Continue Vanco, Merrem 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
[2019-04-07] MEDS ORDERED: FUROSEMIDE 40 MG/4 ML INJ (LASIX) IVP ONE (04:00)
[2019-04-07] MEDS: LACTATED RINGERS 1,000 ML IV SCH (04:50)
[2019-04-07] MEDS: POTASSIUM CL 10MEQ/50ML IVPB 50 ML IV SCH (05:58)
[2019-04-07] MEDS: MAGNESIUM 1 GM/100 ML IVPB 100 ML IV SCH (05:59)
[2019-04-07] MEDS: KCL 20 MEQ TAB (K-DUR) PO SCH (05:59)
[2019-04-07] MEDS: ENOXAPARIN 40 MG/0.4 ML (LOVENOX) SYR SC SCH (08:05)
[2019-04-07] MEDS: PANTOPRAZOLE 40 MG (PROTONIX) VIAL IV SCH (08:05)
--- NOTE | 2019-04-07 08:24 | Diagnostic Imaging Report ---
INDICATION: Intubated, infiltrate. COMPARISON: 04/06/2019. FINDINGS: Single view of the chest demonstrates stable support lines. There has been interval increase in bilateral interstitial pulmonary infiltrates. There is no pneumothorax or large effusion. The heart size is stable. Osseous structures are age-appropriate. IMPRESSION: 1. Stable support lines without pneumothorax. 2. Increasing interstitial infiltrates. Dictated by: Dictated on workstation # [id number]
--- NOTE | 2019-04-07 08:24 | Physical Therapy Progress Note ---
Therapy Progress Note Patient is sedated on ventilator at this time. PT will continue to monitor and resume therapy when indicated. VICKEY SUMMERS PT Apr 07, 2019 08:24
--- NOTE | 2019-04-07 08:29 | Occ Therapy Progress Note ---
Therapy Progress Note Pt. evaluated yesterday. Pt. was put back on ventilator support. Will hold therapy at this time until extubated and medically stable. Will continue to monitor. [id number] RAJAN MARCELINO OT Apr 07, 2019 08:29
--- NOTE | 2019-04-07 09:56 | NUR ---
Pastoral care, have rounded on pt who has been intubated, have not had any contact with family, will continue to monitor.
--- NOTE | 2019-04-07 11:12 | Anesthesia-General Post-Op ---
General Patient Condition Mental Status/LOC: Same as Preop Cardiovascular: Satisfactory Nausea/Vomiting: Absent Respiratory: Satisfactory Pain: Controlled Complications: Absent Post Op Complications Complications None Follow Up Care/Instructions Patient Instructions None needed. Anesthesia/Patient Condition Patient Condition Patient is doing well, no complaints, stable vital signs, no apparent adverse anesthesia problems. No complications reported per nursing. POONAM DOWNING CRNA Apr 07, 2019 11:12
--- NOTE | 2019-04-07 11:34 | Progress Note - Hospitalist ---
MELISSA MONIQUE [facility] 04/07/19 1134: Subjective HPI/CC On Admission Date Seen by Provider: Apr 07, 2019 Time Seen by Provider: 08:20 Chief complaint: Medical management from hospitalist service History of present illness: This is a 38-year-old white female who presented after an uncomplicated robotic procedure removing her uterus and a significant fibroid that was adhesed to the ureters who had been doing well for the 6 days postoperatively and tell abruptly she began having abdominal pain went [place] [facility] subsequently sent to [facility] for higher level of management along with evaluation of critical illness. She ultimately required intubation by Dr. Glass due to respiratory compromise. CT did not show any evidence of pulmonary emboli. Abdominal pain and distention is noted. Hypotension is precluding aggressive sedation for ventilator purposes. Subjective/Events-last exam Patient underwent repeat surgery due to ischemic colostomy. Colostomy was revised by Dr. Arriaga and patient is currently on vent. Pulmonology is following. Focused Exam Lactate Level 04/05/19 05:30: Lactic Acid Level 0.71 Objective Exam Vital Signs Vital Signs Date Time Temp Pulse Resp B/P (MAP) Pulse Ox O2 Delivery O2 Flow Rate FiO2 04/07/19 11:09 94 15 100 04/07/19 11:08 40 04/07/19 11:00 113/73 (86) Mechanical Ventilator 50.00 04/07/19 00:00 36.3 Capillary Refill : Less Than 3 SecondsLess Than 3 Seconds Respiratory: Crackles, Respiratory Distress Results/Procedures Lab Laboratory Tests 04/07/19 02:55 Patient resulted labs reviewed. Imaging: Reviewed Imaging Report Assessment/Plan Assessment and Plan Assess & Plan/Chief Complaint Assessment: s/p repeat surgery for colostomy revision Acute respiratory failure, off bipap now and was left on vent post-op b/l infiltrates in lung Bowel perforation s/p Exp Lap open procedure requiring colostomy Postop Hyst 6 days prior to admit Electrolyte abnormalities Plan: Critical illness management Blood cultures pain control Continue abx replace electrolytes Monitor closely Clinical Quality Measures DVT/VTE Risk/Contraindication: Risk Factor Score Per Nursin RFS Level Per Nursing on Admit: 4+=Very High NAJMA YUSUF DO 04/08/19 0705: Subjective Subjective/Events-last exam Pt was reintubated for surgery and we are working on extubation today Necrosis of the ostomy noted so that was performed yesterday by surgery Coarse breath sounds noted Prognosis remains guarded Objective Exam General Appearance: No Apparent Distress, WD/WN, Chronically ill, Other (intubated) Respiratory: Crackles, Wheezing Cardiovascular: Regular Rate, Rhythm Assessment/Plan Assessment and Plan Assess & Plan/Chief Complaint Extubation per Dr Glass Supervisory-Addendum Brief Verification & Attestation Participated in pt care: history, MDM, physical Personally performed: exam, history, MDM, supervision of care Care discussed with: Medical Student Procedures: n/a Results interpretation: Verified all documentation Verification and Attestation of Medical Student E/M Service A medical student performed and documented this service in my presence. I reviewed and verified all information documented by the medical student and made modifications to such information, when appropriate. I personally performed the physical exam and medical decision making. Najma Yusuf, Apr 08, 2019,07:05 MEL[facility] MONIQUE [facility] Apr 07, 2019 11:34 NAJMA YUSUF DO Apr 08, 2019 07:05
[2019-04-07 12:19] LABS: ABG BASE EXCESS 10.2 MMOL/L (-2.5-2.5); ABG OXYGEN SATURATION 93 % (94-100); ABG PCO2 46 MMHG (35-45); ABG PH 7.49 (7.37-7.43); ABG PO2 66 MMHG (79-93); ABG TCO2 35.5 MMOL/L (21.0-31.0)
[2019-04-07 12:20] LABS: ALLENS TEST POSITIVE; INSPIRED O2 40%; PATIENT TEMP 37.5; VENTILATOR YES
--- NOTE | 2019-04-07 16:33 | Progress Note - Surgery ---
POLI LARIOS,MED STUDENT 04/07/19 1633: Subjective Date Seen by a Provider: Apr 07, 2019 Time Seen by a Provider: 12:35 Subjective/Events-last exam Patient seen and examined this afternoon. She is still on the vent. Denies any pain at this time. Nurse states they are going to try to take her off the vent this afternoon. Review of Systems General: No Chills HEENT: No Head Aches Pulmonary: No Dyspnea, No Cough Cardiovascular: No: Chest Pain, Palpitations Gastrointestinal: No: Nausea, Vomiting, Abdominal Pain Focused Exam Lactate Level 04/05/19 05:30: Lactic Acid Level 0.71 Objective Exam Vital Signs Date Time Temp Pulse Resp B/P (MAP) Pulse Ox O2 Delivery O2 Flow Rate FiO2 04/07/19 16:24 36.2 04/07/19 16:06 98 Vapotherm 30.00 45 04/07/19 16:00 89 9 115/65 (82) 96 Vapotherm 30.00 45.00 04/07/19 15:00 95 18 111/67 (82) 100 Vapotherm 30.00 45.00 04/07/19 14:00 86 10 124/72 (89) 96 Vapotherm 30.00 45.00 04/07/19 13:00 105 24 118/74 (89) 100 Vapotherm 30.00 45.00 04/07/19 12:21 98 04/07/19 12:15 97 Mechanical Ventilator 50 04/07/19 12:00 99 19 118/82 (94) 100 Mechanical Ventilator 50.00 04/07/19 11:09 94 15 100 04/07/19 11:08 92 18 100 40 04/07/19 11:00 90 16 113/73 (86) 100 Mechanical Ventilator 50.00 04/07/19 10:00 96 15 101/63 (76) 96 Mechanical Ventilator 50.00 04/07/19 09:00 98 11 101/61 (74) 96 Mechanical Ventilator 50.00 04/07/19 08:35 97 Mechanical Ventilator 50 04/07/19 08:00 89 12 104/69 (81) 95 Mechanical Ventilator 50.00 04/07/19 07:55 86 16 95 40 04/07/19 07:00 94 15 99/62 (74) 96 Mechanical Ventilator 50.00 04/07/19 07:00 86 04/07/19 06:00 94 16 104/67 (79) 94 Mechanical Ventilator 50.00 04/07/19 05:00 86 16 104/70 (81) 97 Mechanical Ventilator 50.00 04/07/19 04:00 97 Mechanical Ventilator 50 04/07/19 04:00 90 16 99/58 (72) 97 Mechanical Ventilator 50.00 04/07/19 03:00 93 15 108/70 (83) 98 Mechanical Ventilator 50.00 04/07/19 02:37 Mechanical Ventilator 50.00 04/07/19 02:37 88 16 98 55 04/07/19 02:00 88 15 100/76 (84) 98 Mechanical Ventilator 55.00 04/07/19 01:00 90 16 93/61 (72) 99 Mechanical Ventilator 55.00 04/07/19 01:00 93 04/07/19 00:00 97 Mechanical Ventilator 55 04/07/19 00:00 36.3 04/07/19 00:00 95 15 97/60 (72) 100 Mechanical Ventilator 55.00 04/06/19 23:00 85 16 95/61 (72) 100 Mechanical Ventilator 55.00 04/06/19 22:49 80 16 100 60 04/06/19 22:00 86 16 95/66 (76) 99 Mechanical Ventilator 60.00 04/06/19 21:00 101 15 102/64 (77) 98 Mechanical Ventilator 60.00 04/06/19 21:00 Mechanical Ventilator 70 04/06/19 21:00 97 Mechanical Ventilator 60 04/06/19 21:00 36.5 16 121/82 (95) 98 Mechanical Ventilator 70 04/06/19 20:50 98 16 98 70 04/06/19 20:50 20 121/82 (95) 98 Mechanical Ventilator 04/06/19 20:45 Mechanical Ventilator 80 04/06/19 20:40 20 99/63 (75) 98 Mechanical Ventilator 80 04/06/19 20:30 Mechanical Ventilator 80 04/06/19 20:30 16 97/59 (72) 97 Mechanical Ventilator 80 04/06/19 20:30 99 93/55 04/06/19 20:20 16 97/56 (70) 97 Mechanical Ventilator 80 04/06/19 20:15 105 16 96 100 04/06/19 20:14 Mechanical Ventilator 80 04/06/19 20:14 36.5 16 100/69 (79) 98 Mechanical Ventilator 80 04/06/19 19:00 106 04/06/19 18:00 96 129/98 (108) 96 Vapotherm 30.00 35.00 04/06/19 17:00 95 136/85 (102) 95 Vapotherm 30.00 35.00 I & O 04/07/19 07:00 Intake Total 3230 ml Output Total 2295 ml Balance 935 ml Capillary Refill : Less Than 3 SecondsLess Than 3 Seconds General Appearance: No Apparent Distress, WD/WN HEENT: PERRL/EOMI Respiratory: Other (on vent) Cardiovascular: Regular Rate, Rhythm, Tachycardia Peripheral Pulses: 2+ Dorsalis Pedis (R), 2+ Left Dors-Pedis (L), 2+ Radial Pulses (R), 2+ Radial Pulses (L) Gastrointestinal: non tender, soft, other (ostomy pink) Extremity: Normal Capillary Refill, Pedal Edema, Swelling (arms and legs) Neurologic/Psychiatric: Alert, Depressed Affect Skin: Normal Color, Warm/Dry Results Lab Laboratory Tests 04/06/19 17:55: Glucometer 85 04/06/19 22:40: Blood Gas Puncture Site R BRACH, Blood Gas Patient Temperature 36.3, Arterial Blood pH 7.42, Arterial Blood Partial Pressure CO2 52H, Arterial Blood Partial Pressure O2 48L, Arterial Blood HCO3 33H, Arterial Blood Total CO2 35.0H, Arterial Blood Oxygen Saturation 84L, Arterial Blood Base Excess 8.6H, Sanju Test YES-POS, Blood Gas Ventilator Setting YES, Blood Gas Inspired Oxygen 35% 04/07/19 00:08: Glucometer 141H 04/07/19 02:55: Blood Gas Puncture Site R BRACH, Blood Gas Patient Temperature 36.8, Arterial Blood pH 7.40, Arterial Blood Partial Pressure CO2 55H, Arterial Blood Partial Pressure O2 65L, Arterial Blood HCO3 33H, Arterial Blood Total CO2 34.7H, Arterial Blood Oxygen Saturation 91L, Arterial Blood Base Excess 8.0H, Sanju Test YES-POS, Blood Gas Ventilator Setting YES, Blood Gas Inspired Oxygen 50%, White Blood Count 9.2, Red Blood Count 3.08L, Hemoglobin 8.9L, Hematocrit 29L, Mean Corpuscular Volume 93, Mean Corpuscular Hemoglobin 29, Mean Corpuscular Hemoglobin Concent 31L, Red Cell Distribution Width 14.4, Platelet Count 232, Mean Platelet Volume 9.4, Neutrophils (%) (Auto) 92H, Lymphocytes (%) (Auto) 5L, Monocytes (%) (Auto) 3, Eosinophils (%) (Auto) 0, Basophils (%) (Auto) 0, Neutrophils # (Auto) 8.5H, Lymphocytes # (Auto) 0.5L, Monocytes # (Auto) 0.2, Eosinophils # (Auto) 0.0, Basophils # (Auto) 0.0, Sodium Level 141, Potassium Level 4.7, Chloride Level 101, Carbon Dioxide Level 29, Anion Gap 11, Blood Urea Nitrogen 11, Creatinine 0.49L, Estimat Glomerular Filtration Rate > 60, BUN/Creatinine Ratio 22, Glucose Level 122H, Calcium Level 8.0L, Corrected Calcium 9.4, Phosphorus Level 4.0, Magnesium Level 1.8, Total Bilirubin 0.3, Aspartate Amino Transf (AST/SGOT) 19, Alanine Aminotransferase (ALT/SGPT) 10, Alkaline Phosphatase 70, B-Type Natriuretic Peptide 33.4, Total Protein 4.7L, Albumin 2.2L 04/07/19 11:46: Glucometer 112H 04/07/19 12:10: Blood Gas Puncture Site RIGHT RADIAL, Blood Gas Patient Temperature 37.5, Arterial Blood pH 7.49H, Arterial Blood Partial Pressure CO2 46H, Arterial Blood Partial Pressure O2 66L, Arterial Blood HCO3 34H, Arterial Blood Total CO2 35.5H , Arterial Blood Oxygen Saturation 93L, Arterial Blood Base Excess 10.2H, Sanju Test POSITIVE, Blood Gas Ventilator Setting YES, Blood Gas Inspired Oxygen 40% Microbiology 04/06/19 Gram Stain - Final, Resulted 04/06/19 Sputum Culture - Preliminary, Resulted Culture In Progress 04/05/19 Blood Culture - Preliminary, Resulted No growth 04/02/19 Gram Stain - Final, Resulted 04/02/19 Anaerobic Culture - Preliminary, Resulted Bacteroides thetaiotaomicron See Comments 04/02/19 Surgical Culture - Final, Resulted Lactobacillus rhamnosus Enterococcus faecalis See Comments 04/02/19 Urine Culture - Final, Complete NO GROWTH Assessment/Plan Assessment/Plan Assessment/Plan Assessment: -s/p colostomy revision Plan: Colostomy looks pink today. Will continue to monitor for signs of decreased blood flow. Patient to be extubated later this afternoon. Encouraged patient to move as much as she can to help with swelling. Clinical Quality Measures DVT/VTE Risk/Contraindication: Risk Factor Score Per Nursin RFS Level Per Nursing on Admit: 4+=Very High KADEEM ARRIAGA DO 04/08/19 1034: Subjective Time Seen by a Provider: 12:35 Subjective/Events-last exam Pt seen and examined, on vent but alert. Objective Exam General Appearance: No Apparent Distress Cardiovascular: Regular Rate, Rhythm Gastrointestinal: soft, other (ostomy pink) Assessment/Plan Assessment/Plan Assessment/Plan Plan to extubate and can start clears. Supervisory-Addendum Brief Verification & Attestation Participated in pt care: history, MDM, physical Personally performed: exam, history, MDM Care discussed with: Medical Student Procedures: n/a Verification and Attestation of Medical Student E/M Service A medical student performed and documented this service in my presence. I reviewed and verified all information documented by the medical student and made modifications to such information, when appropriate. I personally performed the physical exam and medical decision making. Kadeem Arriaga, Apr 08, 2019,10:34 POLI LARIOS,MED STUDENT Apr 07, 2019 16:33 KADEEM ARRIAGA DO Apr 08, 2019 10:34
--- NOTE | 2019-04-07 16:34 | NUR ---
1215 DR SAEZ NOTIFIED OF ABG RESULTS ORDERS RECEIVED TO EXTUBATE AND PLACE PT ON VAPOTHERM. 1255 PT EXTUBATED VAPOTHERM PLACED ON PT PER RT SETTINGS PT SA02 NOTED TO BE 96%, BEDSIDE SWALLOW STUDY COMPLETED AND PT TOLERATED WELL. PT VOICES NO C/O OF PAIN OR ANY FURTHER NEEDS AT THIS TIME, FAMILY AT BEDSIDE, WILL CONTINUE TO MONITOR.
[2019-04-08] VITALS (10 sets, daily range): BP systolic 100–124; BP diastolic 58–77
[2019-04-08] MEDS: RT-ALBUTEROL/IPRATROPIUM 3 ML (DUONEB) VIAL INH SCH ×6 (01:41→21:36)
[2019-04-08] MEDS: VANCOMYCIN INJECTION 1,250 MG in NS (IVPB) 250 ML IV SCH (02:11)
[2019-04-08] MEDS: LACTATED RINGERS 1,000 ML IV SCH (02:12)
[2019-04-08 03:32] LABS: BASOPHILS % (AUTO) 0 % (0-10); EOSINOPHILS % (AUTO) 0 % (0-10); HEMATOCRIT 27 % (35-52); HEMOGLOBIN 8.6 G/DL (11.5-16.0); LYMPHOCYTES # (AUTO) 1.4 X 10^3 (1.0-4.0); LYMPHOCYTES % (AUTO) 13 % (12-44); MEAN CORPUSCULAR HEMOGLOBIN 29 PG (25-34); MEAN CORPUSCULAR HGB CONC 32 G/DL (32-36); MEAN CORPUSCULAR VOLUME 92 FL (80-99); MEAN PLATELET VOLUME 9.5 FL (7.4-10.4); MONOCYTES # (AUTO) 0.9 X 10^3 (0.0-1.0); MONOCYTES % (AUTO) 8 % (0-12); NEUTROPHILS # (AUTO) 8.3 X 10^3 (1.8-7.8); NEUTROPHILS % (AUTO) 78 % (42-75); PLATELET COUNT 281 10^3/uL (130-400); RED CELL DISTRIBUTION WIDTH 14.2 % (10.0-14.5); WHITE BLOOD COUNT 10.6 10^3/uL (4.3-11.0)
[2019-04-08] MEDS: MEROPENEM 500 MG in WATER (STERILE) FOR INJECTION 10 ML IV SCH ×4 (03:45→20:10)
[2019-04-08 03:53] LABS: ALANINE AMINOTRANSFERASE 8 U/L (0-55); ALBUMIN 2.3 GM/DL (3.2-4.5); ALKALINE PHOSPHATASE 64 U/L (40-136); BILIRUBIN,TOTAL 0.3 MG/DL (0.1-1.0); BUN/CREATININE RATIO 28; CARBON DIOXIDE 32 MMOL/L (21-32); CHLORIDE 100 MMOL/L (98-107); GFR ESTIMATED > 60; GLUCOSE 104 MG/DL (70-105); MAGNESIUM 1.9 MG/DL (1.6-2.4); PHOSPHORUS 3.4 MG/DL (2.3-4.7); POTASSIUM 3.9 MMOL/L (3.6-5.0); SODIUM 139 MMOL/L (135-145); TOTAL PROTEIN 4.9 GM/DL (6.4-8.2); TRIGLYCERIDES 189 MG/DL (<150)
--- NOTE | 2019-04-08 04:20 | Pulmonary Progress Note ---
Subjective Time Seen by a Provider: 07:06 Subjective/Events-last exam Pt appears to be doing better. Sepsis Event Evaluation Height, Weight, BMI Height: '" Weight: lbs. oz. kg; 31.84 BMI Method: Focused Exam Lactate Level 04/05/19 05:30: Lactic Acid Level 0.71 Exam Exam Vital Signs Date Time Temp Pulse Resp B/P (MAP) Pulse Ox O2 Delivery O2 Flow Rate FiO2 04/08/19 03:00 79 12 114/66 (82) 93 Vapotherm 30.00 45.00 04/08/19 02:00 92 13 110/66 (81) 94 Vapotherm 30.00 45.00 04/08/19 01:41 98 Vapotherm 25.00 30 04/08/19 01:41 98 Vapotherm 30.00 35 04/08/19 01:00 86 04/08/19 01:00 85 21 100/70 (80) 98 Vapotherm 30.00 45.00 04/08/19 00:00 82 16 115/70 (85) 98 Vapotherm 30.00 45.00 04/08/19 00:00 97 Vapotherm 45 04/07/19 23:00 81 18 108/69 (82) 99 Vapotherm 30.00 45.00 04/07/19 22:00 86 16 112/66 (81) 97 Vapotherm 30.00 35.00 04/07/19 21:00 85 17 110/79 (89) 97 Vapotherm 30.00 35.00 04/07/19 20:33 36.8 04/07/19 20:00 82 11 114/69 (84) 97 Vapotherm 30.00 35.00 04/07/19 20:00 97 Vapotherm 45 04/07/19 19:17 Vapotherm 30.00 35.00 04/07/19 19:00 87 11 115/76 (89) 96 Vapotherm 30.00 45.00 04/07/19 19:00 92 04/07/19 18:19 98 Vapotherm 30.00 35 04/07/19 18:00 92 21 122/70 (87) 94 Vapotherm 30.00 45.00 04/07/19 17:00 97 20 129/77 (94) 96 Vapotherm 30.00 45.00 04/07/19 16:30 97 Vapotherm 45 04/07/19 16:24 36.2 04/07/19 16:06 98 Vapotherm 30.00 45 04/07/19 16:00 89 9 115/65 (82) 96 Vapotherm 30.00 45.00 04/07/19 15:00 95 18 111/67 (82) 100 Vapotherm 30.00 45.00 04/07/19 14:00 86 10 124/72 (89) 96 Vapotherm 30.00 45.00 04/07/19 13:00 105 24 118/74 (89) 100 Vapotherm 30.00 45.00 04/07/19 12:21 98 04/07/19 12:15 97 Mechanical Ventilator 50 04/07/19 12:00 99 19 118/82 (94) 100 Mechanical Ventilator 50.00 04/07/19 11:09 94 15 100 04/07/19 11:08 92 18 100 40 04/07/19 11:00 90 16 113/73 (86) 100 Mechanical Ventilator 50.00 04/07/19 10:00 96 15 101/63 (76) 96 Mechanical Ventilator 50.00 04/07/19 09:00 98 11 101/61 (74) 96 Mechanical Ventilator 50.00 04/07/19 08:35 97 Mechanical Ventilator 50 04/07/19 08:00 89 12 104/69 (81) 95 Mechanical Ventilator 50.00 04/07/19 07:55 86 16 95 40 04/07/19 07:00 94 15 99/62 (74) 96 Mechanical Ventilator 50.00 04/07/19 07:00 86 04/07/19 06:00 94 16 104/67 (79) 94 Mechanical Ventilator 50.00 04/07/19 05:00 86 16 104/70 (81) 97 Mechanical Ventilator 50.00 I & O 04/08/19 07:00 Intake Total 1025 ml Output Total 2745 ml Balance -1720 ml Height & Weight Height: '" Weight: lbs. oz. kg; 31.84 BMI Method: General Appearance: No Apparent Distress, WD/WN HEENT: PERRL/EOMI Respiratory: Other (on vent) Cardiovascular: Regular Rate, Rhythm, Tachycardia Capillary Refill: Less Than 3 Seconds Peripheral Pulses: 2+ Dorsalis Pedis (R), 2+ Left Dors-Pedis (L), 2+ Radial Pulses (R), 2+ Radial Pulses (L) Gastrointestinal: non tender, soft, other (ostomy pink) Extremity: Normal Capillary Refill, Pedal Edema, Swelling (arms and legs) Neurologic/Psychiatric: Alert, Depressed Affect Skin: Normal Color, Warm/Dry Results Lab Laboratory Tests 04/07/19 02:55 04/08/19 03:20 Assessment/Plan Assessment/Plan Acute respiratory failure -PT is doing well off ventilator. -CXR shows worsening bilateral infiltrates and elevated leukocytosis - Merrem and vanco, -Repeat segovia cultures -Will give lasix 60mg x 1 secondary to pulmonary edema. 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
[2019-04-08] MEDS ORDERED: LACTATED RINGERS 1,000 ML IV SCH (05:00)
[2019-04-08] MEDS ORDERED: morphine INJ 10 MG/ML 1ML (SYR OR VIAL) IVP PRN (05:15)
[2019-04-08] MEDS ORDERED: FUROSEMIDE 40 MG/4 ML INJ (LASIX) ONE (05:48)
[2019-04-08] MEDS ORDERED: POTASSIUM CL 10MEQ/50ML IVPB 200 ML IV ONE (05:49)
[2019-04-08] MEDS ORDERED: FUROSEMIDE 40 MG/4 ML INJ (LASIX) IVP ONE (06:00)
[2019-04-08] MEDS: POTASSIUM CL 10MEQ/50ML IVPB 50 ML IV SCH ×4 (06:03→08:53)
[2019-04-08] MEDS: inSUlin ASPART (NovoLOG) 1 UNIT/0.01 ML (CHARGE PER UNIT) SC SCH ×2 (06:15)
[2019-04-08] MEDS: IBUPROFEN 600 MG (MOTRIN) TAB PO SCH ×4 (06:15→17:56)
--- NOTE | 2019-04-08 06:53 | Diagnostic Imaging Report ---
INDICATION: Shortness of breath. Portable chest 3:37 AM Right IJ central line tip projects over the SVC. There is minimal right perihilar consolidation. Left lung is clear. There are no effusions. IMPRESSION: Improving chest as the previous day with minimal residual right perihilar consolidation. Dictated by: Dictated on workstation # [id number]
--- NOTE | 2019-04-08 07:42 | Progress Note - Surgery ---
POLI LARIOS,MED STUDENT 04/08/19 0742: Subjective Date Seen by a Provider: Apr 08, 2019 Time Seen by a Provider: 07:09 Subjective/Events-last exam Patient seen and examined this morning. She denies pain or feeling short of breath. She is on vapotherm and her oxygen saturation is 94%. Review of Systems General: No Chills, No Night Sweats HEENT: No Head Aches Pulmonary: No Dyspnea, No Cough Cardiovascular: No: Chest Pain Gastrointestinal: No: Nausea, Vomiting, Abdominal Pain Objective Exam Vital Signs Date Time Temp Pulse Resp B/P (MAP) Pulse Ox O2 Delivery O2 Flow Rate FiO2 04/08/19 06:00 80 18 97 Vapotherm 30.00 45.00 04/08/19 05:00 82 12 101/66 (78) 97 Vapotherm 30.00 45.00 04/08/19 04:00 85 17 108/66 (80) 96 Vapotherm 30.00 45.00 04/08/19 04:00 97 Vapotherm 20.00 25 04/08/19 03:00 79 12 114/66 (82) 93 Vapotherm 30.00 45.00 04/08/19 02:00 92 13 110/66 (81) 94 Vapotherm 30.00 45.00 04/08/19 01:41 98 Vapotherm 25.00 30 04/08/19 01:41 98 Vapotherm 30.00 35 04/08/19 01:00 86 04/08/19 01:00 85 21 100/70 (80) 98 Vapotherm 30.00 45.00 04/08/19 00:00 82 16 115/70 (85) 98 Vapotherm 30.00 45.00 04/08/19 00:00 97 Vapotherm 45 04/07/19 23:00 81 18 108/69 (82) 99 Vapotherm 30.00 45.00 04/07/19 22:00 86 16 112/66 (81) 97 Vapotherm 30.00 35.00 04/07/19 21:00 85 17 110/79 (89) 97 Vapotherm 30.00 35.00 04/07/19 20:33 36.8 04/07/19 20:00 82 11 114/69 (84) 97 Vapotherm 30.00 35.00 04/07/19 20:00 97 Vapotherm 45 04/07/19 19:17 Vapotherm 30.00 35.00 04/07/19 19:00 87 11 115/76 (89) 96 Vapotherm 30.00 45.00 04/07/19 19:00 92 04/07/19 18:19 98 Vapotherm 30.00 35 04/07/19 18:00 92 21 122/70 (87) 94 Vapotherm 30.00 45.00 04/07/19 17:00 97 20 129/77 (94) 96 Vapotherm 30.00 45.00 04/07/19 16:30 97 Vapotherm 45 04/07/19 16:24 36.2 04/07/19 16:06 98 Vapotherm 30.00 45 04/07/19 16:00 89 9 115/65 (82) 96 Vapotherm 30.00 45.00 04/07/19 15:00 95 18 111/67 (82) 100 Vapotherm 30.00 45.00 04/07/19 14:00 86 10 124/72 (89) 96 Vapotherm 30.00 45.00 04/07/19 13:00 105 24 118/74 (89) 100 Vapotherm 30.00 45.00 04/07/19 12:21 98 04/07/19 12:15 97 Mechanical Ventilator 50 04/07/19 12:00 99 19 118/82 (94) 100 Mechanical Ventilator 50.00 04/07/19 11:09 94 15 100 04/07/19 11:08 92 18 100 40 04/07/19 11:00 90 16 113/73 (86) 100 Mechanical Ventilator 50.00 04/07/19 10:00 96 15 101/63 (76) 96 Mechanical Ventilator 50.00 04/07/19 09:00 98 11 101/61 (74) 96 Mechanical Ventilator 50.00 04/07/19 08:35 97 Mechanical Ventilator 50 04/07/19 08:00 89 12 104/69 (81) 95 Mechanical Ventilator 50.00 04/07/19 07:55 86 16 95 40 I & O 04/08/19 07:00 Intake Total 1475 ml Output Total 3045 ml Balance -1570 ml Capillary Refill : Less Than 3 SecondsLess Than 3 Seconds General Appearance: No Apparent Distress, WD/WN HEENT: PERRL/EOMI; No Scleral Icterus (L), No Scleral Icterus (R) Neck: Non Tender; No Lymphadenopathy (L), No Lymphadenopathy (R) Respiratory: No Accessory Muscle Use, Wheezing (right lung), Other (on vapotherm) Cardiovascular: Regular Rate, Rhythm, No Murmur, Tachycardia Peripheral Pulses: 2+ Dorsalis Pedis (R), 2+ Left Dors-Pedis (L), 2+ Radial Pulses (R), 2+ Radial Pulses (L) Gastrointestinal: non tender, soft, other (ostomy looks pink, no surrounding erythema) Extremity: Normal Capillary Refill, Pedal Edema, Swelling (arms and legs) Neurologic/Psychiatric: Alert, Normal Mood/Affect Skin: Normal Color, Warm/Dry Results Lab Laboratory Tests 04/07/19 11:46: Glucometer 112H 04/07/19 12:10: Blood Gas Puncture Site RIGHT RADIAL, Blood Gas Patient Temperature 37.5, Arterial Blood pH 7.49H, Arterial Blood Partial Pressure CO2 46H, Arterial Blood Partial Pressure O2 66L, Arterial Blood HCO3 34H, Arterial Blood Total CO2 35.5H , Arterial Blood Oxygen Saturation 93L, Arterial Blood Base Excess 10.2H, Sanju Test POSITIVE, Blood Gas Ventilator Setting YES, Blood Gas Inspired Oxygen 40% 04/07/19 18:01: Glucometer 153H 04/08/19 03:20: White Blood Count 10.6, Red Blood Count 2.95L, Hemoglobin 8.6L, Hematocrit 27L, Mean Corpuscular Volume 92, Mean Corpuscular Hemoglobin 29, Mean Corpuscular Hemoglobin Concent 32, Red Cell Distribution Width 14.2, Platelet Count 281, Mean Platelet Volume 9.5, Neutrophils (%) (Auto) 78H, Lymphocytes (%) (Auto) 13, Monocytes (%) (Auto) 8, Eosinophils (%) (Auto) 0, Basophils (%) (Auto) 0, Neutrophils # (Auto) 8.3H, Lymphocytes # (Auto) 1.4, Monocytes # (Auto) 0.9, Eosinophils # (Auto) 0.0, Basophils # (Auto) 0.0, Sodium Level 139, Potassium Level 3.9, Chloride Level 100, Carbon Dioxide Level 32, Anion Gap 7, Blood Urea Nitrogen 14, Creatinine 0.50L, Estimat Glomerular Filtration Rate > 60, BUN/Creatinine Ratio 28, Glucose Level 104, Calcium Level 8.0L, Corrected Calcium 9.4, Phosphorus Level 3.4, Magnesium Level 1.9, Total Bilirubin 0.3, Aspartate Amino Transf (AST/SGOT) 18, Alanine Aminotransferase (ALT/SGPT) 8, A lkaline Phosphatase 64, Total Protein 4.9L, Albumin 2.3L, Triglycerides Level 189H Microbiology 04/06/19 Gram Stain - Final, Resulted 04/06/19 Sputum Culture - Preliminary, Resulted Culture In Progress 04/05/19 Blood Culture - Preliminary, Resulted No growth 04/02/19 Gram Stain - Final, Resulted 04/02/19 Anaerobic Culture - Preliminary, Resulted Bacteroides thetaiotaomicron See Comments 04/02/19 Surgical Culture - Final, Resulted Lactobacillus rhamnosus Enterococcus faecalis See Comments 04/02/19 Urine Culture - Final, Complete NO GROWTH Assessment/Plan Assessment/Plan Assessment/Plan Assessment: -s/p colostomy revision Plan: Colostomy looks pink this morning. Continue IS, lasix, antibiotics and pain control. Encourage increased physical activity if tolerated. Clinical Quality Measures DVT/VTE Risk/Contraindication: Risk Factor Score Per Nursin RFS Level Per Nursing on Admit: 4+=Very High KADEEM ARRIAGA DO 04/08/19 1418: Subjective Time Seen by a Provider: 13:56 Subjective/Events-last exam Pt seen and examined, sitting in chair. Minimal pain and is asking to increase diet. Objective Exam General Appearance: No Apparent Distress, WD/WN Respiratory: No Accessory Muscle Use, Wheezing (right lung), Other (on vap otherm) Gastrointestinal: non tender, soft, other (ostomy looks pink, no surrounding erythema) Assessment/Plan Assessment/Plan Assessment/Plan Increase diet as tolerated, increase ambulation and IS use. D/C arriaga tomorrow Supervisory-Addendum Brief Verification & Attestation Participated in pt care: history, MDM, physical Personally performed: exam, history, MDM Care discussed with: Medical Student Procedures: n/a Verification and Attestation of Medical Student E/M Service A medical student performed and documented this service in my presence. I reviewed and verified all information documented by the medical student and made modifications to such information, when appropriate. I personally performed the physical exam and medical decision making. Kadeem Arriaga, Apr 08, 2019,14:18 POLI LARIOS,MED STUDENT Apr 08, 2019 07:42 KADEEM ARRIAGA DO Apr 08, 2019 14:18
[2019-04-08] MEDS: PANTOPRAZOLE 40 MG (PROTONIX) VIAL IV SCH (08:53)
[2019-04-08] MEDS: ENOXAPARIN 40 MG/0.4 ML (LOVENOX) SYR SC SCH (08:53)
[2019-04-08] MEDS ORDERED: TROUGH ORDER-PHARMACY XX NR ×2 (09:00→17:00)
--- NOTE | 2019-04-08 09:48 | Physical Therapy Evaluation ---
PT Evaluation-General Medical Diagnosis Admission Date Apr 02, 2019 at 01:23 Medical Diagnosis: Postoperative abdom. pain acute respiratory failure requiring intubatio Onset Date: Apr 02, 2019 Therapy Diagnosis Therapy Diagnosis: generalized weakness/debility Precautions Precautions/Isolations: Fall Prevention, Standard Precautions Weight Bear Status Right Lower Extremity: Right Weight Bearing/Tolerated Left Lower Extremity: Left Weight Bearing/Tolerated Referral Physician: Maria Luisa Reason for Referral: Evaluation/Treatment Medical History Current History s/p colostomy revision Reviewed History: Yes Social History Home: Multilevel (Can stay on main level) Current Living Status: Other Family (brother, sis-in-law, son) Entry Into Home: Stairs With Railing PT Steps Into Home: 5 Prior Prior Level of Function SCALE: Activities may be completed with or without assistive devices. 3-Nrdbyzrctg-vskzorr completes the activity by him/herself with no assistance from a helper. 5-Set-up or Clean-up Assistance-helper sets up or cleans up; patient completes activity. [place] assists only prior to or following the activity. 4-Supervision or Touching Assistance-helper provides verbal cues and/or touching/steadying and/or contact guard assistance as patient completes activity. Assistance may be provided throughout the activity or intermittently. 3-Partial/Moderate Assistance-helper does LESS THAN HALF the effort. [place] lifts, holds or supports trunk or limbs, but provides less than half the effort. 2-Substantial/Maximal Assistance-helper does MORE THAN HALF the effort. [place] lifts or holds trunk or limbs and provides more than half the effort. 9-Swbthyntf-hlxweg does ALL the effort. Patient does none of the effort to complete the activity. Or, the assistance of 2 or more helpers is required for the patient to complete the activity. If activity was not attempted, code reason: 7-Patient Refused. 9-Not Applicable-not attempted and the patient did not perform the activity before the current illness, exacerbation or injury. 10-Not Attempted due to Environmental Limitations-(lack of equipment, weather restraints, etc.). 88-Not Attempted due to Medical Conditions or Safety Concerns. Bed Mobility: 6 Transfers (B,C,W/C): 6 Gait: 6 Stairs: 6 Indoor Mobility (Ambulation): Independent Stairs: Independent PT Evaluation-Current Subjective Patient voices frustration with current condition. Agrees to PT. Patient extubated 04/07/19 Pain Numeric Pain Scale: 10-Worst Possible Pain Location: Lower Location Body Site: Abdomen Pain Description: Acute Objective Patient Orientation: Normal For Age Attachments: Oxygen (vapotherm), Mcadams Catheter, IV ROM/Strength ROM Lower Extremities bilateral LE WFL Strength Lower Extremities 3-/5 grossly bilateral LE Integumentary/Posture Integumentary refer to nursing notes Bowel Incontinence: No Bladder Incontinence: Mcadams Cath Posture trunk flexed posture due to abdominal pain Neuromuscular (Tone, Coordination, Reflexes) slightly diminished coordination due to inactivity Sensory Vision: Functional Hearing: Functional Hand Dominance: Right Sensation Right Lower Extremit: Intact Sensation Left Lower Extremity: Intact Transfers Roll Left to Right (QC): 3 Lying to Sitting/Side of Bed(Q: 3 Sit to Stand (QC): 3 Chair/Gtp-cd-Suecy Xfer(QC): 3 Gait Does the Patient Walk?: Yes Mode of Locomotion: Walk Anticipated Mode of Locomotion: Walk Balance Sitting Static: Normal Sitting Dynamic: Normal Standing Static: Fair Standing Dynamic: Fair Assessment/Needs 38 y.o. female, will benefit from skilled PT to address functional strength and mobility to improve current LOF to safely return to home at maximum LOF. Rehab Potential: Fair PT Gl Accountant Goals Gl Accountant Goals PT Gl Accountant Goals Time Frame: Apr 22, 2019 Roll Left & Right (QC): 5 Sit to Lying (QC): 5 Lying-Sitting on Side/Bed(QC): 5 Sit to Stand (QC): 5 Chair/Qtw-fg-Duazv Xfer(QC): 5 Does the Patient Walk: Yes Walk 10 feet (QC): 3 Walk 50ft with 2 Turns (QC): 3 Walk 150 ft (QC): 3 PT Plan Problem List Problem List: Activity Tolerance, Functional Strength, Safety, Balance, Gait, Transfer, Bed Mobility Treatment/Plan Treatment Plan: Continue Plan of Care Treatment Plan: Bed Mobility, Education, Functional Activity Darius, Functional Strength, Gait, Safety, Therapeutic Exercise, Transfers Treatment Duration: Apr 13, 2019 Frequency: 6 times per week Estimated Hrs Per Day: .25 hour per day Patient and/or Family Agrees t: Yes Time/GCodes Time In: 820 Time Out: 839 Total Billed Treatment Time: 19 Total Billed Treatment 1 visit EVMod 19 min VICKEY SUMMERS PT Apr 08, 2019 09:48
--- NOTE | 2019-04-08 10:14 | NUR ---
VANCOMYCIN DOSING TROUGH LEVEL 24.3 ON VANC 1250 MG Q8H - HOLD 0900 DOSE AND RECHECK LEVEL THIS AFTERNOON 04/08 1700
--- NOTE | 2019-04-08 11:20 | Progress Note - Hospitalist ---
[facility] 04/08/19 1120: Subjective HPI/CC On Admission Date Seen by Provider: Apr 08, 2019 Time Seen by Provider: 08:20 Chief complaint: Medical management from hospitalist service History of present illness: This is a 38-year-old white female who presented after an uncomplicated robotic procedure removing her uterus and a significant fibroid that was adhesed to the ureters who had been doing well for the 6 days postoperatively and tell abruptly she began having abdominal pain went [place] [facility] subsequently sent to [facility] for higher level of management along with evaluation of critical illness. She ultimately required intubation by Dr. Glass due to respiratory compromise. CT did not show any evidence of pulmonary emboli. Abdominal pain and distention is noted. Hypotension is precluding aggressive sedation for ventilator purposes. Subjective/Events-last exam Patient was off of vent, sitting up in bed and breathing on her own when I arrived. She is alert and responsive. She has no complaints at this time. She is doing much better and pain is well controlled. Lung auscultation revealed improvement in lung sounds. Repeat cultures are in progress. PT/OT evaluation is underway. Pulmonology is following. Objective Exam Vital Signs Vital Signs Date Time Temp Pulse Resp B/P (MAP) Pulse Ox O2 Delivery O2 Flow Rate FiO2 04/08/19 09:54 Nasal Cannula 4.00 04/08/19 09:54 99 30 04/08/19 09:00 84 24 04/07/19 20:33 36.8 Capillary Refill : Less Than 3 SecondsLess Than 3 Seconds General Appearance: No Apparent Distress, WD/WN Respiratory: No Accessory Muscle Use, No Respiratory Distress, Crackles Cardiovascular: Regular Rate, Rhythm, No Gallop, No Murmur Rectal: Deferred Neurologic/Psychiatric: Alert Skin: Normal Color, Warm/Dry Results/Procedures Lab Laboratory Tests 04/08/19 03:20 Patient resulted labs reviewed. Imaging: Reviewed Imaging Report Assessment/Plan Assessment and Plan Assess & Plan/Chief Complaint Assessment: s/p repeat surgery for colostomy revision Acute respiratory failure - patient currently off vent and breathing on their own b/l infiltrates in lung - improving Bowel perforation s/p Exp Lap open procedure requiring colostomy Postop Hyst 6 days prior to admit Plan: Critical illness management Blood cultures pain control Continue abx Monitor closely Clinical Quality Measures DVT/VTE Risk/Contraindication: Risk Factor Score Per Nursin RFS Level Per Nursing on Admit: 4+=Very High NAJMA MYLES DO 04/08/192039: Subjective Subjective/Events-last exam Pt doing extremely well Lungs are improved Chest x ray is better Will DC Accu-checks Review of Systems General: Fatigue Gastrointestinal: Abdominal Pain Objective Exam General Appearance: No Apparent Distress, WD/WN, Chronically ill Respiratory: Chest Non Tender, Lungs Clear, Normal Breath Sounds, No Accessory Muscle Use, No Respiratory Distress Cardiovascular: Regular Rate, Rhythm, No Edema, No Gallop, No JVD, No Murmur, Normal Peripheral Pulses Neurologic/Psychiatric: Alert, Oriented x3, No Motor/Sensory Deficits, Normal Mood/Affect Assessment/Plan Assessment and Plan Assess & Plan/Chief Complaint Monitor lung function Diagnosis/Problems Diagnosis/Problems (1) Respiratory failure (2) S/P exploratory laparotomy (3) Colostomy in place (4) Peritonitis (5) Bowel perforation (6) Required emergency intubation (7) Bilateral atelectasis (8) Hypotension Supervisory-Addendum Brief Verification & Attestation Participated in pt care: history, MDM, physical Personally performed: exam, history, MDM, supervision of care Care discussed with: Medical Student Procedures: n/a Results interpretation: Verified all documentation Verification and Attestation of Medical Student E/M Service A medical student performed and documented this service in my presence. I reviewed and verified all information documented by the medical student and made modifications to such information, when appropriate. I personally performed the physical exam and medical decision making. Najma Myles, Apr 08, 2019,20:38 [facility] Apr 08, 2019 11:20 NAJMA MYLES DO Apr 08, 2019 20:40
--- NOTE | 2019-04-08 11:54 | Occupational Ther Daily Note ---
OT Current Status-Daily Note Subjective Pt expresses moderate pain in abdomen. Pt seen sitting up in recliner chair, stating she needed "a lot" of help moving from bed to chair. Pt agreeable to OT tx session with goals of sponge bath. Mental Status/Objective Patient Orientation: Person, Place, Situation, Normal For Age Attachments: Colostomy/Ileostomy, Mcadams Catheter, Telemetry ADL-Treatment Therapy Code Descriptions/Definitions Functional [place] Measure: 0=Not Assessed/NA 4=Minimal Assistance 1=Total Assistance 5=Supervision or Setup 2=Maximal Assistance 6=Modified [place] 3=Moderate Assistance 7=Complete IndependenceSCALE: Activities may be completed with or without assistive devices. 6-Udmfmovoqp-yahthtp completes the activity by him/herself with no assistance from a helper. 5-Set-up or Clean-up Assistance-helper sets up or cleans up; patient completes activity. [place] assists only prior to or following the activity. 4-Supervision or Touching Assistance-helper provides verbal cues and/or touching/steadying and/or contact guard assistance as patient completes activity. Assistance may be provided throughout the activity or intermittently. 3-Partial/Moderate Assistance-helper does LESS THAN HALF the effort. [place] lifts, holds or supports trunk or limbs, but provides less than half the effort. 2-Substantial/Maximal Assistance-helper does MORE THAN HALF the effort. [place] lifts or holds trunk or limbs and provides more than half the effort. 6-Epyhyodsp-gbzvjc does ALL the effort. Patient does none of the effort to complete the activity. Or, the assistance of 2 or more helpers is required for the patient to complete the activity. If activity was not attempted, code reason: 7-Patient Refused. 9-Not Applicable-not attempted and the patient did not perform the activity before the current illness, exacerbation or injury. 10-Not Attempted due to Environmental Limitations-(lack of equipment, weather restraints, etc.). 88-Not Attempted due to Medical Conditions or Safety Concerns. Eating (QC): 7 Bathing Location: L Arm, R Arm, Chest Shower/Bathe Self (QC): 2 (Pt requires assist with BLE, radha area, R arm pit, back, hair with wipes/ hair cap. Pt denies OOB, educated on rolling in bed for bottom hygiene) Upper Body Dressing (QC): 3 (mod A for gown doff/ donning) On/Off Footwear: 1 Other Treatment Pt seen in recliner chair, agrees to sponge bath. Pt has multiple boils on abdomen, denies washing abdomen. Once bottom hygiene addressed pt denies out of chair activity, stating she is afraid of falling. Pt educated of routine of standing and no need to worry of falling but can wait and perform bottom hygiene in bed. pt agrees. Pt has decreased strength, educated on HEP and importance of movement of UE's during day. BLE edematous, elevated with pillow under legs. Pt left in room with call light in reach, all needs met. Education OT Patient Education: Correct positioning, Exercise program, Home exercise program, Modified ADL techniques, Purpose of tx/functional activities, Safety issues Teaching Recipient: Patient Teaching Methods: Demonstration, Discussion Response to Teaching: Verbalize Understanding, Return Demonstration OT Short Term Goals Short Term Goals Time Frame: Apr 20, 2019 Eatin Oral hygiene: 3 Toileting hygiene: 2 Shower/bathe self: 2 (met) Upper body dressin (met) Lower body dressin Putting on/taking off footwear: 2 OT Sanitation Engineer Goals Retirement Goals Time Frame: May 04, 2019 Eating (QC): 5 Oral Hygiene (QC): 5 Toileting Hygiene (QC): 4 Shower/Bathe Self (QC): 4 Upper Body Dressing (QC): 5 Lower Body Dressing (QC): 4 On/Off Footwear (QC): 4 Additional Goals: 1-Demonstrate ADL Tasks, 2-Verbalize Understanding, 3- ImproveStrength/Darius 1=Demonstrate adherence to instructed precautions during ADL tasks. 2=Patient will verbalize/demonstrate understanding of assistive devices/obi fications for ADL. 3=Patient will improve strength/tolerance for activity to enable patient to perform ADL's. OT Education/Plan Problem List/Assessment Assessment: Decreased Activ Tolerance, Decreased UE Strength, Dependent Transfers, Edema, Impaired Bed Mobility, Impaired Funct Balance, Impaired I ADL's, Impaired Self-Care Skills Discharge Recommendations Plan/Recommendations: Continue POC Treatment Plan/Plan of Care Treatment,Training & Education: Yes Patient would benefit from OT for education, treatment and training to promote independence in ADL's, mobility, safety and/or upper extremity function for ADL's. Plan of Care: ADL Retraining, Functional Mobility, UE Funct Exercise/Act Treatment Duration: May 04, 2019 Frequency: 5 times per week Estimated Hrs Per Day: .5 hour per day Agreement: Yes Rehab Potential: Fair Time/GCodes Start Time: 10:50 Stop Time: 11:19 Total Time Billed (hr/min): 29 Billed Treatment Time 1, ADL 2 (29) NAVNEET OSHEA OTR Apr 08, 2019 11:54
--- NOTE | 2019-04-08 13:32 | NUR ---
"RD ASSESSMENT PMHx: no significant PMH; s/p colostomy resection; hx of methamphetamine/marijuana use PT INTERACTION: Pt was awake and pleasant during nutrition assessment. Pt states current appetite is poor and has been that way for some time. Note avg PO intake of 63% [id number], per chart review. Pt states following a regular diet at home and has no issues with chewing/swallowing food. Note pt has missing teeth, per visual exam. Pt states no recent issues with n/v at this time. Pt states having a colostomy and that her output is good. Pt states no recent wt changes. Note unable to determine recent wt hx, per chart review. ABNORMAL NUTRITION-RELATED LAB VALUES LOW: cr 0.50; Ca 8.0; Pro 4.9; alb 2.3 HIGH: Est. kcal needs: 4590-3553 kcal | 15-20 kcal/kg Est. Pro needs: 84-101 kcal | 1.0-1.2 g Pro/kg PES STATEMENT: Inadequate oral intake (NI-2.1) related to loss of appetite as evidenced by pt interview | avg PO intake 63% x2meal INTERVENTION: Continue with current diet order of Clear Liquid diet. Add Ensure Clear to meals BID for increased kcal intake. Provides 250 kcal and 8 g Pro per serving. Will continue to follow and reassess as pt needs and status change. MONITOR/EVALUATE: PO Intake; Plan of Care; Hydration Status; Weight Status; Lab Values Megan Padron, MS, RD, LD"
--- NOTE | 2019-04-08 15:08 | NUR ---
IRF Evaluation Order received to evaluate patient for the ARU. Chart review complete and findings discussed with Dr. Myles - will continue to follow as patient progresses. Patient's primary insurance is [facility]; therefore, prior authorization will need to be initiated and obtained. Thank you for this referral.
[2019-04-08] MEDS: VANCOMYCIN 1,750 MG/NS 500 ML IVPB IV SCH ×2 (20:10)
[2019-04-09] VITALS (7 sets, daily range): BP systolic 96–126; BP diastolic 45–89
[2019-04-09] MEDS: IBUPROFEN 600 MG (MOTRIN) TAB PO SCH ×4 (00:26→18:52)
[2019-04-09] MEDS: RT-ALBUTEROL/IPRATROPIUM 3 ML (DUONEB) VIAL INH SCH ×6 (02:20→21:57)
[2019-04-09 03:58] LABS: BASOPHILS # (AUTO) 0.1 10^3/uL (0.0-0.1); BASOPHILS % (AUTO) 0 % (0-10); EOSINOPHILS # (AUTO) 0.1 10^3/uL (0.0-0.3); EOSINOPHILS % (AUTO) 0 % (0-10); HEMATOCRIT 35 % (35-52); HEMOGLOBIN 11.4 G/DL (11.5-16.0); LYMPHOCYTES # (AUTO) 1.3 X 10^3 (1.0-4.0); LYMPHOCYTES % (AUTO) 8 % (12-44); MEAN CORPUSCULAR HEMOGLOBIN 29 PG (25-34); MEAN CORPUSCULAR HGB CONC 33 G/DL (32-36); MEAN CORPUSCULAR VOLUME 90 FL (80-99); MEAN PLATELET VOLUME 9.4 FL (7.4-10.4); MONOCYTES # (AUTO) 0.8 X 10^3 (0.0-1.0); MONOCYTES % (AUTO) 5 % (0-12); NEUTROPHILS # (AUTO) 13.9 X 10^3 (1.8-7.8); NEUTROPHILS % (AUTO) 86 % (42-75); PLATELET COUNT 379 10^3/uL (130-400); RED CELL DISTRIBUTION WIDTH 14.3 % (10.0-14.5); WHITE BLOOD COUNT 16.2 10^3/uL (4.3-11.0)
[2019-04-09 04:17] LABS: ALANINE AMINOTRANSFERASE 10 U/L (0-55); ALBUMIN 2.4 GM/DL (3.2-4.5); ALKALINE PHOSPHATASE 66 U/L (40-136); BILIRUBIN,TOTAL 0.8 MG/DL (0.1-1.0); BUN/CREATININE RATIO 22; CARBON DIOXIDE 26 MMOL/L (21-32); CHLORIDE 101 MMOL/L (98-107); GFR ESTIMATED > 60; GLUCOSE 92 MG/DL (70-105); MAGNESIUM 1.6 MG/DL (1.6-2.4); PHOSPHORUS 3.3 MG/DL (2.3-4.7); POTASSIUM 3.8 MMOL/L (3.6-5.0); SODIUM 138 MMOL/L (135-145); TOTAL PROTEIN 5.1 GM/DL (6.4-8.2)
[2019-04-09] MEDS: MEROPENEM 500 MG in WATER (STERILE) FOR INJECTION 10 ML IV SCH ×4 (04:37→20:12)
[2019-04-09 05:45] LABS: LYMPHOCYTES % (MANUAL) 8 %; MONOCYTES % (MANUAL) 5 %; NEUTROPHILS % (MANUAL) 87 %
--- NOTE | 2019-04-09 05:53 | Pulmonary Progress Note ---
Subjective Time Seen by a Provider: 05:50 Subjective/Events-last exam No complications noted. Sepsis Event Evaluation Height, Weight, BMI Height: '" Weight: lbs. oz. kg; 31.84 BMI Method: Exam Exam Vital Signs Date Time Temp Pulse Resp B/P (MAP) Pulse Ox O2 Delivery O2 Flow Rate FiO2 04/09/19 04:00 85 18 112/75 (87) 95 Nasal Cannula 1.50 04/09/19 04:00 94 Room Air 04/09/19 02:20 98 Nasal Cannula 1.50 04/09/19 01:00 92 04/09/19 00:00 94 Room Air 04/09/19 00:00 36.8 04/09/19 00:00 95 14 121/64 (83) 96 Nasal Cannula 1.50 04/08/19 21:36 100 Nasal Cannula 1.50 04/08/19 20:00 79 15 117/73 (88) 96 Nasal Cannula 1.50 04/08/19 20:00 36.5 04/08/19 20:00 94 Room Air 04/08/19 19:00 86 04/08/19 18:23 98 Room Air 04/08/19 16:15 94 Room Air 04/08/19 16:00 81 18 118/58 (78) 89 Room Air 04/08/19 16:00 36.2 04/08/19 15:08 Room Air 04/08/19 15:08 98 Nasal Cannula 2.00 04/08/19 13:52 Nasal Cannula 2.00 04/08/19 12:29 80 04/08/19 12:00 98 Nasal Cannula 4.00 04/08/19 12:00 36.4 04/08/19 12:00 82 114/71 (85) 98 Nasal Cannula 4.00 04/08/19 09:54 Nasal Cannula 4.00 04/08/19 09:54 99 Vapotherm 25.00 30 04/08/19 09:00 84 24 98 Vapotherm 30.00 45.00 04/08/19 08:22 97 Vapotherm 20.00 25 04/08/19 08:00 76 18 124/77 (93) 96 Vapotherm 30.00 45.00 04/08/19 07:00 81 04/08/19 07:00 80 18 94 Vapotherm 30.00 45.00 04/08/19 06:00 80 18 97 Vapotherm 30.00 45.00 I & O 04/09/19 07:00 Intake Total 1420 ml Output Total 5200 ml Balance -3780 ml Height & Weight Height: '" Weight: lbs. oz. kg; 31.84 BMI Method: General Appearance: No Apparent Distress, WD/WN, Chronically ill HEENT: PERRL/EOMI; No Scleral Icterus (L), No Scleral Icterus (R) Neck: Non Tender; No Lymphadenopathy (L), No Lymphadenopathy (R) Respiratory: Chest Non Tender, Lungs Clear, Normal Breath Sounds, No Accessory Muscle Use, No Respiratory Distress Cardiovascular: Regular Rate, Rhythm, No Edema, No Gallop, No JVD, No Murmur, Normal Peripheral Pulses Capillary Refill: Less Than 3 Seconds Peripheral Pulses: 2+ Dorsalis Pedis (R), 2+ Left Dors-Pedis (L), 2+ Radial Pulses (R), 2+ Radial Pulses (L) Gastrointestinal: non tender, soft, other (ostomy looks pink, no surrounding erythema) Extremity: Normal Capillary Refill, Pedal Edema, Swelling (arms and legs) Neurologic/Psychiatric: Alert, Oriented x3, No Motor/Sensory Deficits, Normal Mood/Affect Skin: Normal Color, Warm/Dry Results Lab Laboratory Tests 04/08/19 03:20 04/09/19 03:30 Assessment/Plan Assessment/Plan S/p colostomy revision 04/05/19 Bilateral peumonia -CXR is now improving -Worsening Leukocytosis -Continue to monitor -IS -Continue Nhung Reddy 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 TOY SAEZ DO Apr 09, 2019 05:52
[2019-04-09] MEDS: VANCOMYCIN 1,750 MG/NS 500 ML IVPB IV SCH ×4 (06:29→18:53)
--- NOTE | 2019-04-09 07:08 | Diagnostic Imaging Report ---
INDICATION: Respiratory failure. Upright portable AP view of chest is obtained. FINDINGS: Since examination one day earlier, there is continued right perihilar density which may be due to infiltrate and/or pleural fluid. There is no evidence of pneumothorax or significant pleural fluid. Right jugular central venous catheter remains in place with tip projecting over the upper superior vena cava. IMPRESSION: Stable right perihilar density may represent infiltrate or fissural fluid. Dictated by: Dictated on workstation # [id number]
[2019-04-09] MEDS: ENOXAPARIN 40 MG/0.4 ML (LOVENOX) SYR SC SCH (08:47)
[2019-04-09] MEDS: PANTOPRAZOLE 40 MG (PROTONIX) VIAL IV SCH (08:47)
--- NOTE | 2019-04-09 09:14 | Progress Note - Surgery ---
MELODY WILCOX [facility] 04/09/19 0914: Subjective Date Seen by a Provider: Apr 09, 2019 Time Seen by a Provider: 08:55 Subjective/Events-last exam Pt reports still having some abdominal pain, but the pain medication does help. she has not been ambulating much other than from bed to chair. She has PT working with her currently. Review of Systems Pulmonary: No Dyspnea, No Cough Cardiovascular: No: Chest Pain Gastrointestinal: Abdominal Pain; No: Nausea, Vomiting Objective Exam Vital Signs Date Time Temp Pulse Resp B/P (MAP) Pulse Ox O2 Delivery O2 Flow Rate FiO2 04/09/19 08:00 102 17 126/89 (101) 96 Room Air 04/09/19 07:31 96 Nasal Cannula 1.00 04/09/19 07:00 94 04/09/19 04:00 85 18 112/75 (87) 95 Nasal Cannula 1.50 04/09/19 04:00 94 Room Air 04/09/19 02:20 98 Nasal Cannula 1.50 04/09/19 01:00 92 04/09/19 00:00 94 Room Air 04/09/19 00:00 36.8 04/09/19 00:00 95 14 121/64 (83) 96 Nasal Cannula 1.50 04/08/19 21:36 100 Nasal Cannula 1.50 04/08/19 20:00 79 15 117/73 (88) 96 Nasal Cannula 1.50 04/08/19 20:00 36.5 04/08/19 20:00 94 Room Air 04/08/19 19:00 86 04/08/19 18:23 98 Room Air 04/08/19 16:15 94 Room Air 04/08/19 16:00 81 18 118/58 (78) 89 Room Air 04/08/19 16:00 36.2 04/08/19 15:08 Room Air 04/08/19 15:08 98 Nasal Cannula 2.00 04/08/19 13:52 Nasal Cannula 2.00 04/08/19 12:29 80 04/08/19 12:00 98 Nasal Cannula 4.00 04/08/19 12:00 36.4 04/08/19 12:00 82 114/71 (85) 98 Nasal Cannula 4.00 04/08/19 09:54 Nasal Cannula 4.00 04/08/19 09:54 99 Vapotherm 25.00 30 I & O 04/09/19 07:00 Intake Total 1620 ml Output Total 5700 ml Balance -4080 ml Capillary Refill : Less Than 3 SecondsLess Than 3 Seconds General Appearance: No Apparent Distress, WD/WN, Chronically ill HEENT: PERRL/EOMI Neck: Non Tender Respiratory: No Accessory Muscle Use, No Respiratory Distress Cardiovascular: Regular Rate, Rhythm, No Edema, No JVD, Normal Peripheral Pulses Peripheral Pulses: 2+ Dorsalis Pedis (R), 2+ Left Dors-Pedis (L), 2+ Radial Pulses (R), 2+ Radial Pulses (L) Gastrointestinal: non tender, soft, other Extremity: Normal Capillary Refill, Pedal Edema, Swelling Neurologic/Psychiatric: Alert, Oriented x3, No Motor/Sensory Deficits, Normal Mood/Affect Skin: Normal Color, Warm/Dry Results Lab Laboratory Tests 04/08/19 17:10: Vancomycin Level Trough 12.4 04/09/19 03:30: White Blood Count 16.2H, Red Blood Count 3.91L, Hemoglobin 11.4#L, Hematocrit 35, Mean Corpuscular Volume 90, Mean Corpuscular Hemoglobin 29, Mean Corpuscular Hemoglobin Concent 33, Red Cell Distribution Width 14.3, Platelet Count 379, Mean Platelet Volume 9.4, Neutrophils (%) (Auto) 86H, Lymphocytes (%) (Auto) 8L, Monocytes (%) (Auto) 5, Eosinophils (%) (Auto) 0, Basophils (%) (Auto) 0, Neutrophils # (Auto) 13.9H, Lymphocytes # (Auto) 1.3, Monocytes # (Auto) 0.8, Eosinophils # (Auto) 0.1, Basophils # (Auto) 0.1, Neutrophils % (Manual) 87, Lymphocytes % (Manual) 8, Monocytes % (Manual) 5, Sodium Level 138, Potassium Level 3.8, Chloride Level 101, Carbon Dioxide Level 26, Anion Gap 11, Blood Urea Nitrogen 11, Creatinine 0.50L, Estimat Glomerular Filtration Rate > 60, BUN/Creatinine Ratio 22, Glucose Level 92, Calcium Level 8.0L, Corrected Calcium 9.3, Phosphorus Level 3.3, Magnesium Level 1.6, Total Bilirubin 0.8, Aspartate Amino Transf (AST/SGOT) 20, Alanine Aminotransferase (ALT/SGPT) 10, Alkaline Phosphatase 66, Total Protein 5.1L, Albumin 2.4L Microbiology 04/06/19 Gram Stain - Final, Resulted 04/06/19 Sputum Culture - Preliminary, Resulted Culture In Progress 04/05/19 Blood Culture - Preliminary, Resulted No growth 04/02/19 Gram Stain - Final, Complete 04/02/19 Anaerobic Culture - Final, Complete Bacteroides thetaiotaomicron See Comments 04/02/19 Surgical Culture - Final, Complete Lactobacillus rhamnosus Enterococcus faecalis See Comments 04/02/19 Urine Culture - Final, Complete NO GROWTH Assessment/Plan Assessment/Plan Assessment/Plan Increase diet as tolerated, increase ambulation and IS use. D/C arriaga today Clinical Quality Measures DVT/VTE Risk/Contraindication: Risk Factor Score Per Nursin RFS Level Per Nursing on Admit: 4+=Very High MARGARITA MILLER DO 04/09/192037: Subjective Subjective/Events-last exam Patient tolerating diet. Having some abdominal pain in abdomen, but controlled with pain medication. Colostomy has had some output. Only been getting up to chair. Using IS. Denies n/v fever sweats chills shortness of breath or chest pain. WBC up. Arriaga adequate urine output. Objective Exam General Appearance: No Apparent Distress, WD/WN HEENT: PERRL/EOMI Neck: Normal Inspection, Non Tender Respiratory: Chest Non Tender, No Accessory Muscle Use, No Respiratory Distress Cardiovascular: Regular Rate, Rhythm Gastrointestinal: non tender, distended (minimally), other (colostomy dark pink no ischemic changes) Extremity: Pedal Edema, Swelling Neurologic/Psychiatric: Alert, Oriented x3, No Motor/Sensory Deficits, Normal Mood/Affect Skin: Normal Color, Warm/Dry Lymphatic: No Adenopathy Assessment/Plan Assessment/Plan Assessment/Plan s/p Consuelo s/p revision of colostomy continue with medical management IS Encouraged to ambulate dc arriaga monitor wbc Supervisory-Addendum Brief Verification & Attestation Participated in pt care: history, MDM, physical Personally performed: exam, history, MDM, supervision of care Care discussed with: Medical Student Procedures: n/a Results interpretation: Verified all documentation Verification and Attestation of Medical Student E/M Service A medical student performed and documented this service in my presence. I reviewed and verified all information documented by the medical student and made modifications to such information, when appropriate. I personally performed the physical exam and medical decision making. Margarita Miller, Apr 09, 2019,20:38 [facility] Apr 09, 2019 09:14 MARGARITA MILLER DO Apr 09, 2019 20:38
--- NOTE | 2019-04-09 09:39 | Physical Therapy Daily Note ---
PT Daily Note-Current Subjective Patient agrees to PT. She reports frustration with her medical situation. Pain Numeric Pain Scale: 8 Location: Lower Location Body Site: Abdomen Pain Description: Acute Mental Status Patient Orientation: Normal For Age Attachments: Oxygen, Mcadams Catheter, IV Transfers SCALE: Activities may be completed with or without assistive devices. 5-Owlbuxbvbr-tuvkikv completes the activity by him/herself with no assistance from a helper. 5-Set-up or Clean-up Assistance-helper sets up or cleans up; patient completes activity. [place] assists only prior to or following the activity. 4-Supervision or Touching Assistance-helper provides verbal cues and/or touching/steadying and/or contact guard assistance as patient completes activity. Assistance may be provided throughout the activity or intermittently. 3-Partial/Moderate Assistance-helper does LESS THAN HALF the effort. [place] lifts, holds or supports trunk or limbs, but provides less than half the effort. 2-Substantial/Maximal Assistance-helper does MORE THAN HALF the effort. [place] lifts or holds trunk or limbs and provides more than half the effort. 7-Gxbvwhuwy-wzkmgz does ALL the effort. Patient does none of the effort to complete the activity. Or, the assistance of 2 or more helpers is required for the patient to complete the activity. If activity was not attempted, code reason: 7-Patient Refused. 9-Not Applicable-not attempted and the patient did not perform the activity before the current illness, exacerbation or injury. 10-Not Attempted due to Environmental Limitations-(lack of equipment, weather restraints, etc.). 88-Not Attempted due to Medical Conditions or Safety Concerns. Roll Left & Right (QC): 3 Sit to Lying (QC): 3 Lying to Sitting/Side of Bed(Q: 3 Sit to Stand (QC): 3 Chair/Hvk-py-Efjjs Xfer(QC): 3 Weight Bearing Right Lower Extremity: Right Weight Bearing/Tolerated Left Lower Extremity: Left Weight Bearing/Tolerated Gait Training Does the Patient Walk?: Yes Distance: 5' Gait Assistive Device: FWW very weak and unable to ambulate distance Exercises Supine Ex: Ankle pumps, Quad Set, Heel Slides Supine Reps: 12 Seated Therapy Exercises: Ankle pumps, Long arc quads Seated Reps: 12 Standing: Sit to Stand Standing Reps: 5 Assessment Patient is up in recliner with breakfast in situ. Patient is attempting to eat with encouragement. PT to increase activity as tolerated by patient. PT Detention Goals Air Sampler Goals PT Air Sampler Goals Time Frame: Apr 22, 2019 Roll Left & Right (QC): 5 Sit to Lying (QC): 5 Lying-Sitting on Side/Bed(QC): 5 Sit to Stand (QC): 5 Chair/Ocg-yy-Muzls Xfer(QC): 5 Does the Patient Walk: Yes Walk 10 feet (QC): 3 Walk 50ft with 2 Turns (QC): 3 Walk 150 ft (QC): 3 PT Plan Treatment/Plan Treatment Plan: Continue Plan of Care Treatment Plan: Bed Mobility, Education, Functional Activity Darius, Functional Strength, Gait, Safety, Therapeutic Exercise, Transfers Treatment Duration: Apr 13, 2019 Frequency: 6 times per week Estimated Hrs Per Day: .25 hour per day Patient and/or Family Agrees t: Yes Time/GCodes Time In: 756 Time Out: 819 Total Billed Treatment Time: 23 Total Billed Treatment 1 visit EX 14 min FA 9 min VICKEY SUMMERS PT Apr 09, 2019 09:39
--- NOTE | 2019-04-09 11:27 | Progress Note - Hospitalist ---
Subjective HPI/CC On Admission Date Seen by Provider: Apr 09, 2019 Time Seen by Provider: 10:45 Chief complaint: Medical management from hospitalist service History of present illness: This is a 38-year-old white female who presented after an uncomplicated robotic procedure removing her uterus and a significant fibroid that was adhesed to the ureters who had been doing well for the 6 days postoperatively and tell abruptly she began having abdominal pain went [facility] subsequently sent to [facility] for higher level of management along with evaluation of critical illness. She ultimately required intubation by Dr. Glass due to respiratory compromise. CT did not show any evidence of pulmonary emboli. Abdominal pain and distention is noted. Hypotension is precluding aggressive sedation for ventilator purposes. Subjective/Events-last exam patient is extubated and sitting up in Her chair this morning. She complains of having abdominal pain. On examination she does have stool in her colostomy bag. She does not have bowel sounds. Review of Systems Gastrointestinal: Abdominal Pain Neurological: Weakness Objective Exam Vital Signs Vital Signs Date Time Temp Pulse Resp B/P (MAP) Pulse Ox O2 Delivery O2 Flow Rate FiO2 04/09/19 10:30 98 Nasal Cannula 1.00 04/09/19 08:00 102 17 126/89 (101) 04/09/19 00:00 36.8 04/08/19 09:54 30 Capillary Refill : Less Than 3 SecondsLess Than 3 Seconds General Appearance: Chronically ill HEENT: Other (poor dentition) Neck: Normal Inspection, Supple Respiratory: Chest Non Tender, Lungs Clear, Normal Breath Sounds, No Accessory Muscle Use, No Respiratory Distress Cardiovascular: Regular Rate, Rhythm, No Gallop, No JVD, No Murmur Gastrointestinal: Abnormal Bowel Sounds, Distended, Other (colostomy with stool left lower quadrant) Back: Normal Inspection Extremity: Swelling Neurologic/Psychiatric: Alert, Oriented x3, No Motor/Sensory Deficits, Normal Mood/Affect, dial mounter II-XII Norm as Tested Skin: Normal Color, Warm/Dry Results/Procedures Lab Laboratory Tests 04/09/19 03:30 Patient resulted labs reviewed. Imaging: Reviewed Imaging Report Assessment/Plan Assessment and Plan Assess & Plan/Chief Complaint respiratory failure resolved (2) S/P exploratory laparotomy-will recheck KUB-secondary to perforated bowel (3) Colostomy in place (4) Peritonitis Clinical Quality Measures DVT/VTE Risk/Contraindication: Risk Factor Score Per Nursin RFS Level Per Nursing on Admit: 4+=Very High MARY ELLEN PRESTON MD Apr 09, 2019 11:27
--- NOTE | 2019-04-09 13:14 | Diagnostic Imaging Report ---
INDICATION: Recent fibroid removal with injury to colon. Colostomy, abdominal distention and gas. TECHNIQUE: Supine and upright view of the abdomen 12:48 PM CORRELATION STUDY: None FINDINGS: There does appear to be bibasilar areas of atelectasis and/or infiltrate along with small effusions, right greater than left. Vertically oriented skin sandi are present. Ostomy ring over the left lower quadrant. Stomach is mildly distended with gas. In addition, there is some small bowel gas distention with a few air-fluid levels. These do appear to be slightly differentiating and does raise concern for potential early or partial bowel obstruction. There is some stool and gas within the colon. IMPRESSION: 1. There is presence of a somewhat prominent small bowel gas distention centrally with a few air-fluid levels. Given the appearance, possibility of early and/or partial small bowel obstruction is not excluded. Follow-up imaging as clinically warranted. Dictated by: Dictated on workstation # [id number]
[2019-04-09] MEDS: ACETAMINOPHEN 325 MG TABLET PO PRN (15:31)
[2019-04-10] VITALS (20 sets, daily range): BP systolic 95–126; BP diastolic 52–85
[2019-04-10] MEDS: IBUPROFEN 600 MG (MOTRIN) TAB PO SCH ×5 (00:13→23:21)
[2019-04-10] MEDS: MEROPENEM 500 MG in WATER (STERILE) FOR INJECTION 10 ML IV SCH ×4 (02:16→21:55)
[2019-04-10] MEDS: RT-ALBUTEROL/IPRATROPIUM 3 ML (DUONEB) VIAL INH SCH ×6 (03:36→22:23)
[2019-04-10 05:51] LABS: BASOPHILS % (AUTO) 0 % (0-10); EOSINOPHILS # (AUTO) 0.1 10^3/uL (0.0-0.3); EOSINOPHILS % (AUTO) 0 % (0-10); HEMATOCRIT 30 % (35-52); LYMPHOCYTES # (AUTO) 1.1 X 10^3 (1.0-4.0); LYMPHOCYTES % (AUTO) 5 % (12-44); MEAN CORPUSCULAR HEMOGLOBIN 29 PG (25-34); MEAN CORPUSCULAR HGB CONC 33 G/DL (32-36); MEAN CORPUSCULAR VOLUME 89 FL (80-99); MEAN PLATELET VOLUME 9.7 FL (7.4-10.4); MONOCYTES % (AUTO) 5 % (0-12); NEUTROPHILS # (AUTO) 20.2 X 10^3 (1.8-7.8); NEUTROPHILS % (AUTO) 90 % (42-75); PLATELET COUNT 418 10^3/uL (130-400); RED CELL DISTRIBUTION WIDTH 14.3 % (10.0-14.5); WHITE BLOOD COUNT 22.4 10^3/uL (4.3-11.0)
[2019-04-10] MEDS ORDERED: MIDAZOLAM 5 MG/5 ML (VERSED) VIAL IVP ONE (06:00)
[2019-04-10 06:10] LABS: ALANINE AMINOTRANSFERASE < 6 U/L (0-55); ALBUMIN 2.1 GM/DL (3.2-4.5); ALKALINE PHOSPHATASE 72 U/L (40-136); BILIRUBIN,TOTAL 0.6 MG/DL (0.1-1.0); BUN/CREATININE RATIO 16; CALCIUM 7.6 MG/DL (8.5-10.1); CARBON DIOXIDE 26 MMOL/L (21-32); CHLORIDE 102 MMOL/L (98-107); CREATININE SERUM 0.51 MG/DL (0.60-1.30); GFR ESTIMATED > 60; GLUCOSE 106 MG/DL (70-105); MAGNESIUM 1.8 MG/DL (1.6-2.4); PHOSPHORUS 3.8 MG/DL (2.3-4.7); POTASSIUM 3.3 MMOL/L (3.6-5.0); SODIUM 138 MMOL/L (135-145); TRIGLYCERIDES 183 MG/DL (<150)
[2019-04-10 06:16] LABS: VANCOMYCIN,TROUGH 15.5 UG/ML (10.0-20.0)
[2019-04-10] MEDS: VANCOMYCIN 1,750 MG/NS 500 ML IVPB IV SCH ×4 (06:39→20:22)
--- NOTE | 2019-04-10 07:11 | Pulmonary Progress Note ---
Subjective Time Seen by a Provider: 07:25 Subjective/Events-last exam PT denies SOB, abdominal pain, N/V . She is currently eating breakfast. Sepsis Event Evaluation Height, Weight, BMI Height: '" Weight: lbs. oz. kg; 31.84 BMI Method: Exam Exam Vital Signs Date Time Temp Pulse Resp B/P (MAP) Pulse Ox O2 Delivery O2 Flow Rate FiO2 04/10/19 06:00 99 22 119/83 (95) 96 Room Air 04/10/19 05:00 97 19 119/76 (90) 96 Room Air 04/10/19 04:00 96 21 126/81 (96) 95 Room Air 04/10/19 04:00 Room Air 04/10/19 03:36 94 Room Air 04/10/19 03:00 92 20 123/82 (96) 94 Room Air 04/10/19 02:16 36.5 04/10/19 02:00 92 17 109/71 (84) 93 Room Air 04/10/19 01:00 95 13 114/70 (85) 93 Room Air 04/10/19 01:00 90 04/10/19 00:00 Room Air 04/10/19 00:00 96 15 112/75 (87) 92 Room Air 04/10/19 00:00 36.7 04/09/19 21:59 96 Room Air 04/09/19 20:00 90 20 109/77 (88) 95 Room Air 04/09/19 20:00 Room Air 04/09/19 20:00 36.7 04/09/19 19:00 98 17 102/75 (84) 91 Room Air 04/09/19 19:00 98 04/09/19 18:07 94 Room Air 04/09/19 16:00 36.5 04/09/19 16:00 107 47 107/59 (75) 93 Room Air 04/09/19 16:00 94 Room Air 04/09/19 14:37 95 Room Air 04/09/19 14:00 108 18 96/45 (62) 96 Room Air 04/09/19 13:00 104 04/09/19 12:00 116 21 97 Room Air 04/09/19 12:00 94 Room Air 04/09/19 12:00 36.9 04/09/19 10:30 98 Nasal Cannula 1.00 04/09/19 08:00 94 Room Air 04/09/19 08:00 102 17 126/89 (101) 96 Room Air 04/09/19 07:31 96 Nasal Cannula 1.00 I & O 04/10/19 07:00 Intake Total 2915.0 ml Output Total 1555 ml Balance 1360.0 ml Height & Weight Height: '" Weight: lbs. oz. kg; 31.84 BMI Method: General Appearance: No Apparent Distress, WD/WN HEENT: PERRL/EOMI Neck: Normal Inspection, Non Tender Respiratory: Chest Non Tender, No Accessory Muscle Use, No Respiratory Distress Cardiovascular: Regular Rate, Rhythm Capillary Refill: Less Than 3 Seconds Peripheral Pulses: 2+ Dorsalis Pedis (R), 2+ Left Dors-Pedis (L), 2+ Radial Pulses (R), 2+ Radial Pulses (L) Gastrointestinal: non tender, distended (minimally), other (colostomy dark pink no ischemic changes) Extremity: Pedal Edema, Swelling Neurologic/Psychiatric: Alert, Oriented x3, No Motor/Sensory Deficits, Normal Mood/Affect Skin: Normal Color, Warm/Dry Lymphatic: No Adenopathy Results Lab Laboratory Tests 04/09/19 03:30 04/10/19 05:45 Assessment/Plan Assessment/Plan S/p colostomy revision 04/05/19 Bilateral peumonia -CXR is now improving -Worsening Leukocytosis -Add back eraxis -Pt may need repeat CT of chest abd/pelvis . Pt just had breakfast so will reevaluate in AM. Pt denies n/v and abdominal pain. 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 TOY SAEZ DO Apr 10, 2019 07:10
[2019-04-10] MEDS ORDERED: ANIDULAFUNGIN INJECTION 200 MG in NS (IVPB) 250 ML IV NR (07:15)
--- NOTE | 2019-04-10 07:42 | Diagnostic Imaging Report ---
Indication: Dyspnea. Comparison: 04/09/2019. Discussion: Single portable upright view of the chest was obtained. Mild infiltrate within the right lung base is stable. Stable normal heart size. Right IJ central venous catheter is stable. Cannot exclude small right pleural effusion. No pneumothorax or osseous abnormality. Impression: 1. Stable chest. Dictated by: Dictated on workstation # [id number]
[2019-04-10] MEDS: ENOXAPARIN 40 MG/0.4 ML (LOVENOX) SYR SC SCH (09:19)
[2019-04-10] MEDS: PANTOPRAZOLE 40 MG (PROTONIX) VIAL IV SCH (09:19)
--- NOTE | 2019-04-10 10:02 | Progress Note - Surgery ---
MELODY WILCOX [facility] 04/10/19 1002: Subjective Date Seen by a Provider: Apr 10, 2019 Time Seen by a Provider: 09:15 Subjective/Events-last exam Pt reports she was up walking around her room this morning and feels like she is getting a little better. She does report having some epigastric pain described as pressure that is relieved by burping and worse after she eats food. She denies any chest pain or trouble urinating. She does report having a bit of a productive cough in the mornings and after her breathing treatments with primarily clear sputum. She reports that her oxygen saturation has been going down at night requiring nasal cannula oxygen, but denied any trouble breathing when she was up walking earlier. She does feel very tired after walking. Review of Systems General: No Chills; Fatigue HEENT: Head Aches (intermittent); No Visual Changes, No Dysphasia, No Sinus Congestion, No Sore Throat Pulmonary: No Dyspnea; Cough Cardiovascular: Edema (minor to hands); No: Chest Pain, Palpitations Gastrointestinal: Abdominal Pain; No: Nausea, Vomiting Genitourinary: No Dysuria, No Frequency, No Hematuria Neurological: No: Weakness, Confusion Objective Exam Vital Signs Date Time Temp Pulse Resp B/P (MAP) Pulse Ox O2 Delivery O2 Flow Rate FiO2 04/10/19 09:38 97 Nasal Cannula 2.00 04/10/19 09:00 101 18 123/67 (85) 95 Nasal Cannula 2.00 04/10/19 08:00 98 18 107/85 (92) 97 Nasal Cannula 2.00 04/10/19 07:00 100 04/10/19 07:00 93 19 117/63 (81) 96 Nasal Cannula 2.00 04/10/19 06:00 99 22 119/83 (95) 96 Room Air 04/10/19 05:00 97 19 119/76 (90) 96 Room Air 04/10/19 04:00 96 21 126/81 (96) 95 Room Air 04/10/19 04:00 Room Air 04/10/19 03:36 94 Room Air 04/10/19 03:00 92 20 123/82 (96) 94 Room Air 04/10/19 02:16 36.5 04/10/19 02:00 92 17 109/71 (84) 93 Room Air 04/10/19 01:00 95 13 114/70 (85) 93 Room Air 04/10/19 01:00 90 04/10/19 00:00 Room Air 04/10/19 00:00 96 15 112/75 (87) 92 Room Air 04/10/19 00:00 36.7 04/09/19 21:59 96 Room Air 04/09/19 20:00 90 20 109/77 (88) 95 Room Air 04/09/19 20:00 Room Air 04/09/19 20:00 36.7 04/09/19 19:00 98 17 102/75 (84) 91 Room Air 04/09/19 19:00 98 04/09/19 18:07 94 Room Air 04/09/19 16:00 36.5 04/09/19 16:00 107 47 107/59 (75) 93 Room Air 04/09/19 16:00 94 Room Air 04/09/19 14:37 95 Room Air 04/09/19 14:00 108 18 96/45 (62) 96 Room Air 04/09/19 13:00 104 04/09/19 12:00 116 21 97 Room Air 04/09/19 12:00 94 Room Air 04/09/19 12:00 36.9 04/09/19 10:30 98 Nasal Cannula 1.00 I & O 04/10/19 07:00 Intake Total 2915.0 ml Output Total 1555 ml Balance 1360.0 ml Capillary Refill : Less Than 3 SecondsLess Than 3 Seconds General Appearance: No Apparent Distress, WD/WN HEENT: PERRL/EOMI Neck: Normal Inspection, Non Tender Respiratory: Chest Non Tender, No Accessory Muscle Use, No Respiratory Distress Cardiovascular: Regular Rate, Rhythm, Normal Peripheral Pulses Peripheral Pulses: 2+ Dorsalis Pedis (R), 2+ Left Dors-Pedis (L), 2+ Radial Pulses (R), 2+ Radial Pulses (L) Gastrointestinal: No normal bowel sounds (Decreased); non tender, distended (minimally), other (colostomy dark pink no ischemic changes) Extremity: No Calf Tenderness, Pedal Edema (Minor bilateral improving), Swelling (Bilateral hands) Neurologic/Psychiatric: Alert, Oriented x3, No Motor/Sensory Deficits, Normal Mood/Affect Skin: Normal Color, Warm/Dry Lymphatic: No Adenopathy Results Lab Laboratory Tests 04/10/19 05:45: White Blood Count 22.4H, Red Blood Count 3.42L, Hemoglobin 10.0L, Hematocrit 30L , Mean Corpuscular Volume 89, Mean Corpuscular Hemoglobin 29, Mean Corpuscular Hemoglobin Concent 33, Red Cell Distribution Width 14.3, Platelet Count 418H, Mean Platelet Volume 9.7, Neutrophils (%) (Auto) 90H, Lymphocytes (%) (Auto) 5L, Monocytes (%) (Auto) 5, Eosinophils (%) (Auto) 0, Basophils (%) (Auto) 0, Neutrophils # (Auto) 20.2H, Lymphocytes # (Auto) 1.1, Monocytes # (Auto) 1.0, Eosinophils # (Auto) 0.1, Basophils # (Auto) 0.0, Sodium Level 138, Potassium Level 3.3L, Chloride Level 102, Carbon Dioxide Level 26, Anion Gap 10, Blood Urea Nitrogen 8, Creatinine 0.51L, Estimat Glomerular Filtration Rate > 60, BUN/Creatinine Ratio 16, Glucose Level 106H, Calcium Level 7.6L, Corrected Calcium 9.1, Phosphorus Level 3.8, Magnesium Level 1.8, Total Bilirubin 0.6, Aspartate Amino Transf (AST/SGOT) 14, Alanine Aminotransferase (ALT/SGPT) < 6, Alkaline Phosphatase 72, Total Protein 5.0L, Albumin 2.1L, Triglycerides Level 1 83H, Vancomycin Level Trough 15.5 Microbiology 04/06/19 Gram Stain - Final, Complete 04/06/19 Sputum Culture - Final, Complete Lactobacillus rhamnosus See Comments 04/05/19 Blood Culture - Preliminary, Resulted No growth 04/02/19 Gram Stain - Final, Complete 04/02/19 Anaerobic Culture - Final, Complete Bacteroides thetaiotaomicron See Comments 04/02/19 Surgical Culture - Final, Complete Lactobacillus rhamnosus Enterococcus faecalis See Comments 04/02/19 Urine Culture - Final, Complete NO GROWTH Assessment/Plan Assessment/Plan Assessment/Plan s/p Consuelo s/p revision of colostomy continue with medical management IS Encouraged to ambulate Leukocytosis -increased today from previous, monitor WBC, continue abx Abdominal x ray showed- somewhat prominent small bowel gas distention centrally with a few air-fluid levels. Given the appearance, possibility of early and/or partial small bowel obstruction is not excluded. -CT abdomen to evaluate further Clinical Quality Measures DVT/VTE Risk/Contraindication: Risk Factor Score Per Nursin RFS Level Per Nursing on Admit: 4+=Very High KADEEM ARRIAGA DO 04/10/19 1227: Subjective Time Seen by a Provider: 11:06 Subjective/Events-last exam Pt seen and examined, looks sleepy but easily arousable. Pt without any new complaints. Objective Exam General Appearance: No Apparent Distress, Chronically ill Respiratory: No Accessory Muscle Use, No Respiratory Distress, Decreased Breath Sounds (bases) Gastrointestinal: soft, distended (minimally), other (colostomy pink no ischemic changes, good output and fxn) Assessment/Plan Assessment/Plan Assessment/Plan Pt to increase IS use and ambulation. Will D/C central line and culture tip. Supervisory-Addendum Brief Verification & Attestation Participated in pt care: history, MDM, physical Personally performed: exam, history, MDM Care discussed with: Medical Student Procedures: n/a Verification and Attestation of Medical Student E/M Service A medical student performed and documented this service in my presence. I reviewed and verified all information documented by the medical student and made modifications to such information, when appropriate. I personally performed the physical exam and medical decision making. Kadeem Arriaga, Apr 10, 2019,12:27 MELODY WILCOX [facility] Apr 10, 2019 10:02 KADEEM ARRIAGA DO Apr 10, 2019 12:27
--- NOTE | 2019-04-10 10:25 | Progress Note - Hospitalist ---
Subjective HPI/CC On Admission Date Seen by Provider: Apr 10, 2019 Time Seen by Provider: 10:00 Chief complaint: Medical management from hospitalist service History of present illness: This is a 38-year-old white female who presented after an uncomplicated robotic procedure removing her uterus and a significant fibroid that was adhesed to the ureters who had been doing well for the 6 days postoperatively and tell abruptly she began having abdominal pain went [facility] subsequently sent to [facility] for higher level of management along with evaluation of critical illness. She ultimately required intubation by Dr. Glass due to respiratory compromise. CT did not show any evidence of pulmonary emboli. Abdominal pain and distention is noted. Hypotension is precluding aggressive sedation for ventilator purposes. Subjective/Events-last exam patient is laying sleeping in bed. She ate breakfast today but did have increased abdominal pain. She does have output from her colostomy and gas from it as well. white count went up again today to 22, Dr. Glass addded back Eraxis Review of Systems Gastrointestinal: Abdominal Pain Objective Exam Vital Signs Vital Signs Date Time Temp Pulse Resp B/P (MAP) Pulse Ox O2 Delivery O2 Flow Rate FiO2 04/10/19 09:38 97 Nasal Cannula 2.00 04/10/19 09:00 101 18 123/67 (85) 04/10/19 02:16 36.5 04/08/19 09:54 30 Capillary Refill : Less Than 3 SecondsLess Than 3 Seconds General Appearance: No Apparent Distress, WD/WN HEENT: Other (poor dentition) Neck: Normal Inspection, Non Tender, Supple Respiratory: Chest Non Tender, Lungs Clear, Normal Breath Sounds, No Accessory Muscle Use, No Respiratory Distress Cardiovascular: Regular Rate, Rhythm, No Gallop, No Murmur, Normal Peripheral Pulses Gastrointestinal: Abnormal Bowel Sounds, Distended Extremity: Normal Capillary Refill, Non Tender, No Pedal Edema Neurologic/Psychiatric: Alert, Oriented x3, No Motor/Sensory Deficits, Normal Mood/Affect Results/Procedures Lab Laboratory Tests 04/10/19 05:45 Patient resulted labs reviewed. Imaging: Reviewed Imaging Report Assessment/Plan Assessment and Plan Assess & Plan/Chief Complaint respiratory failure resolved-on 2 L nasal cannula with sats 96 (2) S/P exploratory laparotomy secondary to perforated bowel-KUB shows air-fluid levels from yesterday. With increasing white count consideration may be given to repeat a CT tomorrow if not improved (3) Colostomy in place (4) Peritonitis Clinical Quality Measures DVT/VTE Risk/Contraindication: Risk Factor Score Per Nursin RFS Level Per Nursing on Admit: 4+=Very High MARY ELLEN PRESTON MD Apr 10, 2019 10:25
[2019-04-10] MEDS ORDERED: TROUGH ORDER-PHARMACY XX NR (17:00)
[2019-04-11] VITALS: BP 118/61
[2019-04-11] MEDS: RT-ALBUTEROL/IPRATROPIUM 3 ML (DUONEB) VIAL INH SCH ×6 (02:13→23:07)
[2019-04-11 03:28] LABS: BASOPHILS % (AUTO) 0 % (0-10); EOSINOPHILS # (AUTO) 0.1 10^3/uL (0.0-0.3); EOSINOPHILS % (AUTO) 1 % (0-10); HEMATOCRIT 27 % (35-52); HEMOGLOBIN 8.8 G/DL (11.5-16.0); LYMPHOCYTES # (AUTO) 1.1 X 10^3 (1.0-4.0); LYMPHOCYTES % (AUTO) 7 % (12-44); MEAN CORPUSCULAR HEMOGLOBIN 30 PG (25-34); MEAN CORPUSCULAR HGB CONC 33 G/DL (32-36); MEAN CORPUSCULAR VOLUME 90 FL (80-99); MEAN PLATELET VOLUME 9.8 FL (7.4-10.4); MONOCYTES % (AUTO) 6 % (0-12); NEUTROPHILS # (AUTO) 13.7 X 10^3 (1.8-7.8); NEUTROPHILS % (AUTO) 86 % (42-75); PLATELET COUNT 441 10^3/uL (130-400); RED CELL DISTRIBUTION WIDTH 14.2 % (10.0-14.5); WHITE BLOOD COUNT 15.9 10^3/uL (4.3-11.0)
[2019-04-11 03:49] LABS: ALANINE AMINOTRANSFERASE 10 U/L (0-55); ALBUMIN 2.1 GM/DL (3.2-4.5); ALKALINE PHOSPHATASE 74 U/L (40-136); BILIRUBIN,TOTAL 0.4 MG/DL (0.1-1.0); BUN/CREATININE RATIO 10; CALCIUM 7.6 MG/DL (8.5-10.1); CARBON DIOXIDE 25 MMOL/L (21-32); CHLORIDE 104 MMOL/L (98-107); GFR ESTIMATED > 60; GLUCOSE 107 MG/DL (70-105); MAGNESIUM 1.8 MG/DL (1.6-2.4); PHOSPHORUS 3.6 MG/DL (2.3-4.7); POTASSIUM 3.1 MMOL/L (3.6-5.0); SODIUM 139 MMOL/L (135-145); TOTAL PROTEIN 5.1 GM/DL (6.4-8.2)
[2019-04-11 04:00] VITALS: BP 115/68
[2019-04-11] MEDS: MEROPENEM 500 MG in WATER (STERILE) FOR INJECTION 10 ML IV SCH ×4 (04:00→20:26)
[2019-04-11] MEDS ORDERED: MAGNESIUM 1 GM/100 ML IVPB 100 ML IV ONE ×2 (05:00→05:04)
[2019-04-11] MEDS: POTASSIUM CL 10MEQ/50ML IVPB 50 ML IV SCH ×6 (05:38→09:42)
[2019-04-11] MEDS: IBUPROFEN 600 MG (MOTRIN) TAB PO SCH ×4 (06:15→23:29)
[2019-04-11] MEDS: VANCOMYCIN 1,750 MG/NS 500 ML IVPB IV SCH ×4 (06:49→18:16)
--- NOTE | 2019-04-11 07:34 | Diagnostic Imaging Report ---
INDICATION: Dyspnea Portable upright AP view of the chest is obtained with comparison made to the study of 04/10/2019. There has been an increase in blunting of right costophrenic sulcus. Right perihilar and basilar density may be due to edema or pneumonitis. There may be slight left basilar atelectasis as well. Right jugular central venous catheter is in place with tip projecting over the mid superior vena cava. No pneumothorax is seen. IMPRESSION: Right perihilar and bibasilar atelectasis and/or pneumonitis with increasing right pleural fluid. Dictated by: Dictated on workstation # [id number]
[2019-04-11 08:00] VITALS: BP 114/67
--- NOTE | 2019-04-11 08:01 | Pulmonary Progress Note ---
Subjective Time Seen by a Provider: 07:57 Subjective/Events-last exam No complications noted. Sepsis Event Evaluation Height, Weight, BMI Height: '" Weight: lbs. oz. kg; 31.84 BMI Method: Exam Exam Vital Signs Date Time Temp Pulse Resp B/P (MAP) Pulse Ox O2 Delivery O2 Flow Rate FiO2 04/11/19 07:00 91 04/11/19 04:00 36.9 04/11/19 04:00 Room Air 04/11/19 04:00 89 22 115/68 (84) 97 Nasal Cannula 1.00 04/11/19 02:14 95 Nasal Cannula 1.00 04/11/19 00:45 90 04/11/19 00:00 Room Air 04/11/19 00:00 36.6 04/11/19 00:00 92 13 118/61 (80) 98 Nasal Cannula 1.00 04/10/19 22:05 97 Nasal Cannula 2.00 04/10/19 20:00 Room Air 04/10/19 20:00 104 22 126/72 (90) 95 Nasal Cannula 1.00 04/10/19 20:00 37.1 04/10/19 19:00 106 25 96 Nasal Cannula 1.00 04/10/19 18:45 105 04/10/19 18:00 96 12 111/68 (82) 100 Nasal Cannula 1.00 04/10/19 17:54 98 Nasal Cannula 1.00 04/10/19 17:00 93 24 95/54 (68) 96 Nasal Cannula 1.00 04/10/19 16:00 96 19 110/70 (83) 97 Nasal Cannula 1.00 04/10/19 16:00 36.3 04/10/19 16:00 Room Air 04/10/19 15:00 89 21 102/58 (73) 96 Nasal Cannula 1.00 04/10/19 14:20 95 Nasal Cannula 1.00 04/10/19 14:00 92 16 98/65 (76) 96 Nasal Cannula 1.00 04/10/19 13:00 96 20 114/75 (88) 96 Nasal Cannula 1.00 04/10/19 13:00 96 04/10/19 12:00 36.4 04/10/19 12:00 97 18 119/69 (86) 95 Nasal Cannula 1.00 04/10/19 12:00 Room Air 04/10/19 11:00 90 12 102/52 (69) 97 Nasal Cannula 1.00 04/10/19 10:00 91 13 110/72 (85) 96 Nasal Cannula 1.00 04/10/19 09:38 97 Nasal Cannula 2.00 04/10/19 09:00 101 18 123/67 (85) 95 Nasal Cannula 2.00 04/10/19 08:00 98 18 107/85 (92) 97 Nasal Cannula 2.00 04/10/19 08:00 Room Air I & O 04/11/19 06:59 Intake Total 2740.0 ml Output Total 1100 ml Balance 1640.0 ml Height & Weight Height: '" Weight: lbs. oz. kg; 31.84 BMI Method: General Appearance: No Apparent Distress, Chronically ill HEENT: Other (poor dentition) Neck: Normal Inspection, Non Tender, Supple Respiratory: No Accessory Muscle Use, No Respiratory Distress, Decreased Breath Sounds (bases) Cardiovascular: Regular Rate, Rhythm, No Gallop, No Murmur, Normal Peripheral Pulses Capillary Refill: Less Than 3 Seconds Peripheral Pulses: 2+ Dorsalis Pedis (R), 2+ Left Dors-Pedis (L), 2+ Radial Pulses (R), 2+ Radial Pulses (L) Gastrointestinal: soft, distended (minimally), other (colostomy pink no ischemic changes, good output and fxn) Extremity: Normal Capillary Refill, Non Tender, No Pedal Edema Neurologic/Psychiatric: Alert, Oriented x3, No Motor/Sensory Deficits, Normal Mood/Affect Skin: Normal Color, Warm/Dry Lymphatic: No Adenopathy Results Lab Laboratory Tests 04/10/19 05:45 04/11/19 03:20 Assessment/Plan Assessment/Plan S/p colostomy revision 04/05/19 Bilateral peumonia -CXR is now improving -Leukocytosis - eraxis restarted 04/10 - repeat CT of chest abd/pelvis .Repeat segovia cultures pending -Continue Nhung Reddy 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
[2019-04-11] MEDS: PANTOPRAZOLE 40 MG (PROTONIX) VIAL IV SCH (08:17)
[2019-04-11] MEDS: ANIDULAFUNGIN INJECTION 100 MG in NS (IVPB) 100 ML IV SCH (08:17)
[2019-04-11] MEDS: ENOXAPARIN 40 MG/0.4 ML (LOVENOX) SYR SC SCH (08:18)
[2019-04-11] MEDS: FLUoxetine HCL 20 MG (PROzac) CAP PO SCH (08:18)
[2019-04-11] MEDS: fentaNYL INJECTION 100 MCG/2 ML AMP IV PRN ×2 (08:23→16:13)
[2019-04-11] MEDS ORDERED: NS 100 ML (IVPB) BAG IV ONE (08:45)
[2019-04-11] MEDS ORDERED: IOHEXOL 350 MG/ML 100 ML (OMNIPAQUE 350) VIAL IV ONE (08:45)
[2019-04-11] MEDS ORDERED: HOLD METFORMIN - RECEIVED CONTRAST 20 ML VIAL IV SCH (08:45)
[2019-04-11] MEDS ORDERED: CATHETER FLUSH 10 ML SYR IV PRN (08:45)
--- NOTE | 2019-04-11 11:15 | Occupational Ther Daily Note ---
OT Current Status-Daily Note Subjective Pt seen in bed, nursing present post-pic line procedure. Pt agreeable to ex in bed, denies ADLs at the moment though states she would like to wash up later this afternoon or tomorrow morning. Mental Status/Objective Patient Orientation: Person, Place, Situation, Normal For Age Attachments: Mcadams Catheter, IV, Oxygen, Telemetry ADL-Treatment Therapy Code Descriptions/Definitions Functional [place] Measure: 0=Not Assessed/NA 4=Minimal Assistance 1=Total Assistance 5=Supervision or Setup 2=Maximal Assistance 6=Modified Grayson 3=Moderate Assistance 7=Complete IndependenceSCALE: Activities may be completed with or without assistive devices. 7-Exbbfdrhnf-bicnbci completes the activity by him/herself with no assistance from a helper. 5-Set-up or Clean-up Assistance-helper sets up or cleans up; patient completes activity. [place] assists only prior to or following the activity. 4-Supervision or Touching Assistance-helper provides verbal cues and/or touching/steadying and/or contact guard assistance as patient completes activity. Assistance may be provided throughout the activity or intermittently. 3-Partial/Moderate Assistance-helper does LESS THAN HALF the effort. [place] lifts, holds or supports trunk or limbs, but provides less than half the effort. 2-Substantial/Maximal Assistance-helper does MORE THAN HALF the effort. [place] lifts or holds trunk or limbs and provides more than half the effort. 2-Fqczcnpdg-adimnk does ALL the effort. Patient does none of the effort to complete the activity. Or, the assistance of 2 or more helpers is required for the patient to complete the activity. If activity was not attempted, code reason: 7-Patient Refused. 9-Not Applicable-not attempted and the patient did not perform the activity before the current illness, exacerbation or injury. 10-Not Attempted due to Environmental Limitations-(lack of equipment, weather restraints, etc.). 88-Not Attempted due to Medical Conditions or Safety Concerns. Other Treatment Pt raised toward HOB with 2 person assist. Pt completes UE theraband ex with yellow theraband while reclined in bed; pt completes 5 reps of each exercise bilaterally: back flies, biceps, triceps. Pt demonstrates fatigue, requires rest breaks in between. Pt educated on setting goals/ reminders for self to complete UE ex throughout day. Pt agrees to sponge bath tomorrow, but prefers today though not at the moment. Pt educated on time management and goals of OT to complete bathing with more IND. Pt's family member present throughout. Pt left in bed with call light in reach, all needs met. Education OT Patient Education: Correct positioning, Exercise program, Home exercise program, Modified ADL techniques Teaching Recipient: Patient Teaching Methods: Demonstration, Discussion Response to Teaching: Verbalize Understanding, Return Demonstration OT Short Term Goals Short Term Goals Time Frame: Apr 20, 2019 Eatin Oral hygiene: 3 Toileting hygiene: 2 Shower/bathe self: 2 (met) Upper body dressin (met) Lower body dressin Putting on/taking off footwear: 2 OT Skilled Nursing Goals Skilled Nursing Goals Time Frame: May 04, 2019 Eating (QC): 5 Oral Hygiene (QC): 5 Toileting Hygiene (QC): 4 Shower/Bathe Self (QC): 4 Upper Body Dressing (QC): 5 Lower Body Dressing (QC): 4 On/Off Footwear (QC): 4 Additional Goals: 1-Demonstrate ADL Tasks, 2-Verbalize Understanding, 3- ImproveStrength/Darius 1=Demonstrate adherence to instructed precautions during ADL tasks. 2=Patient will verbalize/demonstrate understanding of assistive devices/modifications for ADL. 3=Patient will improve strength/tolerance for activity to enable patient to perform ADL's. OT Education/Plan Problem List/Assessment Assessment: Decreased Activ Tolerance, Decreased UE Strength, Dependent Transfers, Impaired Bed Mobility, Impaired Funct Balance, Impaired I ADL's, Impaired Self-Care Skills Discharge Recommendations Plan/Recommendations: Continue POC Treatment Plan/Plan of Care Treatment,Training & Education: Yes Patient would benefit from OT for education, treatment and training to promote independence in ADL's, mobility, safety and/or upper extremity function for ADL's. Plan of Care: ADL Retraining, Functional Mobility, UE Funct Exercise/Act Treatment Duration: May 04, 2019 Frequency: 5 times per week Estimated Hrs Per Day: .5 hour per day Agreement: Yes Rehab Potential: Fair Time/GCodes Start Time: 10:55 Stop Time: 11:07 Total Time Billed (hr/min): 12 Billed Treatment Time 1, EX (12) NAVNEET OSHEA OTR Apr 11, 2019 11:15
--- NOTE | 2019-04-11 11:16 | Diagnostic Imaging Report ---
PROCEDURE: CT chest, abdomen, and pelvis with contrast. TECHNIQUE: Multiple contiguous axial images were obtained through the chest, abdomen, and pelvis after the administration of intravenous contrast. Auto Exposure Controls were utilized during the CT exam to meet ALARA standards for radiation dose reduction. INDICATION: Persistent leukocytosis. Patient had recent hysterectomy with bowel perforation. COMPARISON: Correlation made with prior CT chest study from 04/02/[address] abdomen and pelvis study from 04/01/2019. CT CHEST: No axillary lymphadenopathy is detected. No definite mediastinal or hilar lymphadenopathy is detected. There is no pericardial fluid. There is a small left pleural effusion. There is a moderate size right pleural effusion which appears to layer dependently. No loculated effusion is identified. There are some areas of parenchymal consolidation or atelectasis bilateral lower lobes. IMPRESSION: Moderate right and small left pleural effusion with associated bibasilar atelectasis. No other significant abnormality is seen. CT ABDOMEN AND PELVIS: Appears to be a small subcapsular fluid collection along the upper posterior right lobe of the liver measuring 2.0 x 0.8 cm. No liver mass or fluid collection is seen. Gallbladder is unremarkable. There is no biliary duct dilatation. The pancreas and spleen are unremarkable. There is trace fluid around the spleen. No adrenal mass is detected. Kidneys are unremarkable. Aorta is non-aneurysmal. Postsurgical changes in the abdomen are noted. There is a left lower quadrant ostomy. There appears to be some small amount of free fluid in the left lower quadrant as well as in the central low abdomen and pelvis. There is some fluid in the pelvis which does show some thin peripheral enhancement near the anastomoses at the rectosigmoid junction. This fluid measures approximately 6.7 cm transverse by 5.0 cm AP. This is surrounded by bowel loops and could not likely be percutaneously accessed. No definite gas within the fluid collection is seen. There are some mildly dilated fluid-filled bowel loops within the abdomen but no definite transition point is seen to suggest obstruction. The bladder is unremarkable. IMPRESSION: Postsurgical changes, as described. There is some free fluid in the abdomen as well as a small fluid collection in the midline low pelvis. This could be a postoperative fluid collection. No gas within the collection is seen. Continued follow-up could be obtained as this could not be percutaneously accessed. There are some mildly prominent fluid-filled bowel loops in the abdomen without evidence of transition point, perhaps on the basis of ileus. Dictated by: Dictated on workstation # [id number]
--- NOTE | 2019-04-11 11:20 | Physical Therapy Daily Note ---
PT Daily Note-Current Subjective Patient very emotional on this date and reports frustration with medical situation. Pain Numeric Pain Scale: 5-Moderate Pain Location: Right, Lower Location Body Site: Abdomen Pain Description: Sharp Mental Status Patient Orientation: Normal For Age Attachments: Oxygen, IV Transfers SCALE: Activities may be completed with or without assistive devices. 3-Rlhsxiscmj-rzqbdgq completes the activity by him/herself with no assistance from a helper. 5-Set-up or Clean-up Assistance-helper sets up or cleans up; patient completes activity. [place] assists only prior to or following the activity. 4-Supervision or Touching Assistance-helper provides verbal cues and/or touching/steadying and/or contact guard assistance as patient completes act ivity. Assistance may be provided throughout the activity or intermittently. 3-Partial/Moderate Assistance-helper does LESS THAN HALF the effort. [place] lifts, holds or supports trunk or limbs, but provides less than half the effort. 2-Substantial/Maximal Assistance-helper does MORE THAN HALF the effort. [place] lifts or holds trunk or limbs and provides more than half the effort. 7-Mbzshcfzq-mylfvp does ALL the effort. Patient does none of the effort to complete the activity. Or, the assistance of 2 or more helpers is required for the patient to complete the activity. If activity was not attempted, code reason: 7-Patient Refused. 9-Not Applicable-not attempted and the patient did not perform the activity before the current illness, exacerbation or injury. 10-Not Attempted due to Environmental Limitations-(lack of equipment, weather restraints, etc.). 88-Not Attempted due to Medical Conditions or Safety Concerns. Sit to Stand (QC): 5 Weight Bearing Right Lower Extremity: Right Weight Bearing/Tolerated Left Lower Extremity: Left Weight Bearing/Tolerated Exercises Standing: Marching (15), Mini squats (15) Assessment Patient tolerates minimal activity and becomes increasingly emotional during treatment. PT to increase activity as tolerated by patient. 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 Wood Processing Worker Goals PT Skilled Nursing Goals Time Frame: Apr 22, 2019 Roll Left & Right (QC): 5 Sit to Lying (QC): 5 Lying-Sitting on Side/Bed(QC): 5 Sit to Stand (QC): 5 Chair/Pox-fx-Wqrzn Xfer(QC): 5 Does the Patient Walk: Yes Walk 10 feet (QC): 3 Walk 50ft with 2 Turns (QC): 3 Walk 150 ft (QC): 3 PT Plan Treatment/Plan Treatment Plan: Continue Plan of Care Treatment Plan: Bed Mobility, Education, Functional Activity Darius, Functional Strength, Gait, Safety, Therapeutic Exercise, Transfers Treatment Duration: Apr 22, 2019 Frequency: 6 times per week Estimated Hrs Per Day: .25 hour per day Patient and/or Family Agrees t: Yes Time/GCodes Time In: 830 Time Out: 845 Total Billed Treatment Time: 15 Total Billed Treatment 1 visit EX 15 min VICKEY SUMMERS PT Apr 11, 2019 11:20
--- NOTE | 2019-04-11 11:31 | Progress Note - Surgery ---
POLI LARIOS,MED STUDENT 04/11/19 1131: Subjective Date Seen by a Provider: Apr 11, 2019 Time Seen by a Provider: 07:05 Subjective/Events-last exam Patient seen and examined this morning. States she is doing okay and has been trying to increase her activity by getting up to the commode. States that she has some abdominal discomfort, but no pain. Review of Systems General: No Chills, No Fatigue HEENT: No Head Aches, No Visual Changes Pulmonary: No Dyspnea, No Cough Cardiovascular: Edema; No: Chest Pain, Palpitations Gastrointestinal: No: Nausea, Vomiting, Abdominal Pain Objective Exam Vital Signs Date Time Temp Pulse Resp B/P (MAP) Pulse Ox O2 Delivery O2 Flow Rate FiO2 04/11/19 08:00 Room Air 04/11/19 08:00 89 21 114/67 (83) 98 Nasal Cannula 1.00 04/11/19 08:00 36.9 04/11/19 07:00 91 04/11/19 04:00 36.9 04/11/19 04:00 Room Air 04/11/19 04:00 89 22 115/68 (84) 97 Nasal Cannula 1.00 04/11/19 02:14 95 Nasal Cannula 1.00 04/11/19 00:45 90 04/11/19 00:00 Room Air 04/11/19 00:00 36.6 04/11/19 00:00 92 13 118/61 (80) 98 Nasal Cannula 1.00 04/10/19 22:05 97 Nasal Cannula 2.00 04/10/19 20:00 Room Air 04/10/19 20:00 104 22 126/72 (90) 95 Nasal Cannula 1.00 04/10/19 20:00 37.1 04/10/19 19:00 106 25 96 Nasal Cannula 1.00 04/10/19 18:45 105 04/10/19 18:00 96 12 111/68 (82) 100 Nasal Cannula 1.00 04/10/19 17:54 98 Nasal Cannula 1.00 04/10/19 17:00 93 24 95/54 (68) 96 Nasal Cannula 1.00 04/10/19 16:00 96 19 110/70 (83) 97 Nasal Cannula 1.00 04/10/19 16:00 36.3 04/10/19 16:00 Room Air 04/10/19 15:00 89 21 102/58 (73) 96 Nasal Cannula 1.00 04/10/19 14:20 95 Nasal Cannula 1.00 04/10/19 14:00 92 16 98/65 (76) 96 Nasal Cannula 1.00 04/10/19 13:00 96 20 114/75 (88) 96 Nasal Cannula 1.00 04/10/19 13:00 96 04/10/19 12:00 36.4 04/10/19 12:00 97 18 119/69 (86) 95 Nasal Cannula 1.00 04/10/19 12:00 Room Air I & O 04/11/19 07:00 Intake Total 2740.0 ml Output Total 1100 ml Balance 1640.0 ml Capillary Refill : Less Than 3 SecondsLess Than 3 Seconds General Appearance: No Apparent Distress, WD/WN HEENT: PERRL/EOMI, Moist Mucous Membranes, Other (poor dentition) Respiratory: No Accessory Muscle Use, No Respiratory Distress, Decreased Breath Sounds (bases) Cardiovascular: Regular Rate, Rhythm, No Murmur Peripheral Pulses: 2+ Dorsalis Pedis (R), 2+ Left Dors-Pedis (L), 2+ Radial Pulses (R), 2+ Radial Pulses (L) Gastrointestinal: non tender, soft, distended, other (colostomy pink no ischemic changes) Extremity: Pedal Edema (minimal), Swelling (bilateral hands, improving) Neurologic/Psychiatric: Alert, Oriented x3, Normal Mood/Affect Skin: Normal Color, Warm/Dry Results Lab Laboratory Tests 04/10/19 17:48: Vancomycin Level Trough 15.7 04/11/19 03:20: White Blood Count 15.9H, Red Blood Count 2.98L, Hemoglobin 8.8L, Hematocrit 27L, Mean Corpuscular Volume 90, Mean Corpuscular Hemoglobin 30, Mean Corpuscular Hemoglobin Concent 33, Red Cell Distribution Width 14.2, Platelet Count 441H, Mean Platelet Volume 9.8, Neutrophils (%) (Auto) 86H, Lymphocytes (%) (Auto) 7L, Monocytes (%) (Auto) 6, Eosinophils (%) (Auto) 1, Basophils (%) (Auto) 0, Neutrophils # (Auto) 13.7H, Lymphocytes # (Auto) 1.1, Monocytes # (Auto) 1.0, Eosinophils # (Auto) 0.1, Basophils # (Auto) 0.0, Sodium Level 139, Potassium Level 3.1L, Chloride Level 104, Carbon Dioxide Level 25, Anion Gap 10, Blood Urea Nitrogen 5L, Creatinine 0.50L, Estimat Glomerular Filtration Rate > 60, BUN/Creatinine Ratio 10, Glucose Level 107H, Calcium Level 7.6L, Corrected Calcium 9.1, Phosphorus Level 3.6, Magnesium Level 1.8, Total Bilirubin 0.4, Aspartate Amino Transf (AST/SGOT) 19, Alanine Aminotransferase (ALT/SGPT) 10, Alkaline Phosphatase 74, B-Type Natriuretic Peptide 24.7, Total Protein 5.1L, Albumin 2.1L Microbiology 04/06/19 Gram Stain - Final, Complete 04/06/19 Sputum Culture - Final, Complete Lactobacillus rhamnosus See Comments 04/05/19 Blood Culture - Final, Complete No growth 04/02/19 Gram Stain - Final, Complete 04/02/19 Anaerobic Culture - Final, Complete Bacteroides thetaiotaomicron See Comments 04/02/19 Surgical Culture - Final, Complete Lactobacillus rhamnosus Enterococcus faecalis See Comments 04/02/19 Urine Culture - Final, Complete NO GROWTH Assessment/Plan Assessment/Plan Assessment/Plan Assessment: s/p Consuelo's procedure s/p colostomy revision Plan: encouraged patient to continue using IS, as she is still requiring supplemental oxygen off and on. Continue to increase activity as tolerated Clinical Quality Measures DVT/VTE Risk/Contraindication: Risk Factor Score Per Nursin RFS Level Per Nursing on Admit: 4+=Very High KADEEM ARRIAGA DO 04/11/19 1650: Subjective Time Seen by a Provider: 15:11 Subjective/Events-last exam Pt seen and examined, no new complaints and pain is controlled. Pt is tolerating diet. Objective Exam General Appearance: No Apparent Distress, WD/WN Respiratory: No Accessory Muscle Use, No Respiratory Distress, Decreased Breath Sounds (bases) Gastrointestinal: soft, distended (minimally), other (colostomy pink no ischemic changes) Extremity: Pedal Edema (minimal), Swelling (bilateral hands, improving) Assessment/Plan Assessment/Plan Assessment/Plan Increase ambulation and IS use. Supervisory-Addendum Brief Verification & Attestation Participated in pt care: history, MDM, physical Personally performed: exam, history, MDM Care discussed with: Medical Student Procedures: n/a Verification and Attestation of Medical Student E/M Service A medical student performed and documented this service in my presence. I reviewed and verified all information documented by the medical student and made modifications to such information, when appropriate. I personally performed the physical exam and medical decision making. Kadeem Arriaga, Apr 11, 2019,16:50 POLI LARIOS,MED STUDENT Apr 11, 2019 11:31 KADEEM ARRIAGA DO Apr 11, 2019 16:50
--- NOTE | 2019-04-11 11:46 | Diagnostic Imaging Report ---
INDICATION: Central venous catheter evaluation. FINDINGS: Single portable upright view of the abdomen is obtained. Since the examination of earlier in the day, there has been placement of right upper extremity PICC with tip projecting over the mid superior vena cava near the same level of right internal jugular venous catheter tip. There is continued right pleural fluid with subjacent atelectasis. No pneumothorax is identified. IMPRESSION: No evidence of complication or significant change post right upper extremity PICC placement. Dictated by: Dictated on workstation # [id number]
--- NOTE | 2019-04-11 13:55 | Occ Therapy Progress Note ---
Therapy Progress Note In OT tx this AM, pt stated she wanted a sponge bath today/tomorrow but preferably this afternoon. OT attempted tx at this time with focus on sponge bath. Pt's family present stating pt has not even ate her lunch yet. Pt asked if OT could come back later this afternoon. This OT informed pt she could come back in 15 mins but pt declined stating this was too soon. OT informed pt that OT will attempt again later today or tomorrow as time allows in order to assist pt with her requested sponge bath. 1, visit 1346 COLIN KIRKLAND OT Apr 11, 2019 13:55
--- NOTE | 2019-04-11 14:01 | NUR ---
Met with pt, her Grandmother from [place], and her Great aunt from [place]. Pt is a single Mom with a 11 year old son Josie who has a Autism diagnosis. Currently his son is being cared for by relatives in [place] but is scheduled to visit tomorrow. Pt tearful when she talks about son as has never been away from him. She is interested in filing for disability as hasn't worked since June of last year due to her current illness.Will follow and assist.
--- NOTE | 2019-04-11 14:35 | NUR ---
Met with pt, her Grandmother Kathryn and her Great Aunt Peggy. The pt became tearful when I introduced myself and said she believed my arrival was a "God thing" because they were just talking about how God brings people into your life at important times. The pt shared she is spiritual and believes all ways lead to God. 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
[2019-04-11 15:18] VITALS: BP 121/81
[2019-04-11] MEDS ORDERED: NICOTINE 21 MG (NICODERM) PATCH ONE (18:09)
[2019-04-11 19:00] VITALS: BP 116/67
--- NOTE | 2019-04-11 19:59 | Progress Note ---
Subjective Subjective/Events-last exam Patient sitting up in bed this AM. States that she has mild abdominal pain this AM. Review of Systems Pulmonary: Cough Cardiovascular: No: Chest Pain, Palpitations, Edema Gastrointestinal: Abdominal Pain; No: Nausea, Vomiting Neurological: Weakness, Incoordination Objective Exam Last Set of Vital Signs Vital Signs Date Time Temp Pulse Resp B/P (MAP) Pulse Ox O2 Delivery O2 Flow Rate FiO2 04/11/19 19:47 92 Room Air 04/11/19 19:00 104 24 116/67 (83) 1.00 04/11/19 15:18 36.4 04/08/19 09:54 30 Capillary Refill : Less Than 3 SecondsLess Than 3 Seconds I&O Intake and Output 04/11/19 00:00 Intake Total 2572.5 ml Output Total 700 ml Balance 1872.5 ml Intake Oral 1785 ml IV Total 787.5 ml Output Urine Total 700 ml # Voids 6 # Bowel Movements 3 General: Alert, Oriented X3, No Acute Distress HEENT: Mucous Memb Moist/[place] Lungs: Clear to Auscultation, Normal Air Movement Heart: Regular Rate, No Murmurs Abdomen: Soft, Other (mild ttp) Extremities: No Edema, No Tenderness/Swelling Neuro: Normal Speech, Cranial Nerves 3-12 NL Psych/Mental Status: Mental Status NL, Mood NL Results/Procedures Lab Laboratory Tests 04/11/19 03:20: White Blood Count 15.9H, Red Blood Count 2.98L, Hemoglobin 8.8L, Hematocrit 27L, Mean Corpuscular Volume 90, Mean Corpuscular Hemoglobin 30, Mean Corpuscular Hemoglobin Concent 33, Red Cell Distribution Width 14.2, Platelet Count 441H, Mean Platelet Volume 9.8, Neutrophils (%) (Auto) 86H, Lymphocytes (%) (Auto) 7L, Monocytes (%) (Auto) 6, Eosinophils (%) (Auto) 1, Basophils (%) (Auto) 0, Neutrophils # (Auto) 13.7H, Lymphocytes # (Auto) 1.1, Monocytes # (Auto) 1.0, Eosinophils # (Auto) 0.1, Basophils # (Auto) 0.0, Sodium Level 139, Potassium Level 3.1L, Chloride Level 104, Carbon Dioxide Level 25, Anion Gap 10, Blood Urea Nitrogen 5L, Creatinine 0.50L, Estimat Glomerular Filtration Rate > 60, BUN/Creatinine Ratio 10, Glucose Level 107H, Calcium Level 7.6L, Corrected Calcium 9.1, Phosphorus Level 3.6, Magnesium Level 1.8, Total Bilirubin 0.4, Aspartate Amino Transf (AST/SGOT) 19, Alanine Aminotransferase (ALT/SGPT) 10, Alkaline Phosphatase 74, B-Type Natriuretic Peptide 24.7, Total Protein 5.1L, Albumin 2.1L Microbiology 04/06/19 Gram Stain - Final, Complete 04/06/19 Sputum Culture - Final, Complete Lactobacillus rhamnosus See Comments 04/05/19 Blood Culture - Final, Complete No growth 04/02/19 Gram Stain - Final, Complete 04/02/19 Anaerobic Culture - Final, Complete Bacteroides thetaiotaomicron See Comments 04/02/19 Surgical Culture - Final, Complete Lactobacillus rhamnosus Enterococcus faecalis See Comments 04/02/19 Urine Culture - Final, Complete NO GROWTH Assessment/Plan Assessment/Plan (1) Bowel perforation Status: Acute Assessment & Plan: 04/11: S/p Ex Lap (2) Respiratory failure Status: Resolved (3) Postoperative anemia Status: Acute (4) Hypokalemia Status: Acute (5) Colostomy in place Status: Acute (6) S/P exploratory laparotomy Status: Acute (7) Peritonitis Clinical Quality Measures DVT/VTE Risk/Contraindication: Risk Factor Score Per Nursin RFS Level Per Nursing on Admit: 4+=Very High LAKESHA CHACKO MD Apr 11, 2019 19:59
[2019-04-11 23:29] VITALS: BP 116/69
[2019-04-12] VITALS (7 sets, daily range): BP systolic 106–130; BP diastolic 65–87
[2019-04-12] MEDS: MEROPENEM 500 MG in WATER (STERILE) FOR INJECTION 10 ML IV SCH ×4 (03:11→20:43)
[2019-04-12] MEDS: ACETAMINOPHEN 325 MG TABLET PO PRN ×2 (03:20→20:43)
[2019-04-12 03:27] LABS: BASOPHILS % (AUTO) 0 % (0-10); EOSINOPHILS # (AUTO) 0.1 10^3/uL (0.0-0.3); EOSINOPHILS % (AUTO) 1 % (0-10); HEMATOCRIT 24 % (35-52); HEMOGLOBIN 7.9 G/DL (11.5-16.0); LYMPHOCYTES # (AUTO) 1.1 X 10^3 (1.0-4.0); LYMPHOCYTES % (AUTO) 8 % (12-44); MEAN CORPUSCULAR HEMOGLOBIN 29 PG (25-34); MEAN CORPUSCULAR HGB CONC 33 G/DL (32-36); MEAN CORPUSCULAR VOLUME 89 FL (80-99); MEAN PLATELET VOLUME 9.5 FL (7.4-10.4); MONOCYTES # (AUTO) 1.1 X 10^3 (0.0-1.0); MONOCYTES % (AUTO) 9 % (0-12); NEUTROPHILS # (AUTO) 10.8 X 10^3 (1.8-7.8); NEUTROPHILS % (AUTO) 82 % (42-75); PLATELET COUNT 498 10^3/uL (130-400); RED CELL DISTRIBUTION WIDTH 14.2 % (10.0-14.5); WHITE BLOOD COUNT 13.2 10^3/uL (4.3-11.0)
[2019-04-12] MEDS: RT-ALBUTEROL/IPRATROPIUM 3 ML (DUONEB) VIAL INH SCH ×6 (03:31→21:06)
[2019-04-12 03:48] LABS: ALANINE AMINOTRANSFERASE 14 U/L (0-55); ALKALINE PHOSPHATASE 86 U/L (40-136); BILIRUBIN,TOTAL 0.4 MG/DL (0.1-1.0); BUN/CREATININE RATIO 10; CALCIUM 7.6 MG/DL (8.5-10.1); CARBON DIOXIDE 24 MMOL/L (21-32); CHLORIDE 106 MMOL/L (98-107); CREATININE SERUM 0.48 MG/DL (0.60-1.30); GFR ESTIMATED > 60; GLUCOSE 99 MG/DL (70-105); PHOSPHORUS 3.4 MG/DL (2.3-4.7); POTASSIUM 3.2 MMOL/L (3.6-5.0); SODIUM 139 MMOL/L (135-145); TOTAL PROTEIN 5.1 GM/DL (6.4-8.2); TRIGLYCERIDES 184 MG/DL (<150)
[2019-04-12] MEDS ORDERED: FUROSEMIDE 40 MG/4 ML INJ (LASIX) IVP ONE (06:15)
--- NOTE | 2019-04-12 06:24 | Pulmonary Progress Note ---
Subjective Time Seen by a Provider: 06:18 Subjective/Events-last exam Pt appears to be doing better. Sepsis Event Evaluation Height, Weight, BMI Height: '" Weight: lbs. oz. kg; 31.84 BMI Method: Exam Exam Vital Signs Date Time Temp Pulse Resp B/P (MAP) Pulse Ox O2 Delivery O2 Flow Rate FiO2 04/12/19 05:15 37.0 90 20 116/78 (91) 94 Room Air 04/12/19 03:32 92 Room Air 04/12/19 03:12 36.5 96 22 120/73 (89) 93 Room Air 04/12/19 01:00 97 04/11/19 23:29 36.7 104 20 116/69 (85) 94 Room Air 04/11/19 23:08 94 Room Air 04/11/19 21:08 92 Room Air 04/11/19 20:25 37.4 04/11/19 19:47 92 Room Air 04/11/19 19:00 104 24 116/67 (83) 93 Nasal Cannula 1.00 04/11/19 19:00 97 04/11/19 18:47 94 Room Air 04/11/19 16:00 Room Air 04/11/19 15:18 36.4 121/81 (94) 04/11/19 14:31 93 Room Air 04/11/19 12:39 87 04/11/19 12:00 Room Air 04/11/19 12:00 89 29 Nasal Cannula 1.00 04/11/19 11:29 36.4 04/11/19 08:00 Room Air 04/11/19 08:00 89 21 114/67 (83) 98 Nasal Cannula 1.00 04/11/19 08:00 36.9 04/11/19 07:00 91 I & O 04/12/19 07:00 Intake Total 1525 ml Output Total 750 ml Balance 775 ml Height & Weight Height: '" Weight: lbs. oz. kg; 31.84 BMI Method: General Appearance: No Apparent Distress, WD/WN HEENT: PERRL/EOMI, Moist Mucous Membranes, Other (poor dentition) Respiratory: No Accessory Muscle Use, No Respiratory Distress, Decreased Breath Sounds (bases) Cardiovascular: Regular Rate, Rhythm, No Murmur Capillary Refill: Less Than 3 Seconds Peripheral Pulses: 2+ Dorsalis Pedis (R), 2+ Left Dors-Pedis (L), 2+ Radial Pulses (R), 2+ Radial Pulses (L) Gastrointestinal: soft, distended (minimally), other (colostomy pink no ischemic changes) Extremity: Pedal Edema (minimal), Swelling (bilateral hands, improving) Neurologic/Psychiatric: Alert, Oriented x3, Normal Mood/Affect Skin: Normal Color, Warm/Dry Results Lab Laboratory Tests 04/11/19 03:20 04/12/19 03:21 Assessment/Plan Assessment/Plan S/p colostomy revision 04/05/19 Bilateral peumonia -CXR is now improving -Leukocytosis - improving - eraxis restarted 04/10 - CT of chest abd/pelvis . -Vanco, Merrem Bilateral Right > left pleural effusions -I offered pt thoracentesis she does not want at this time -Will give 60mg of lasix and continue to monitor Hypokalemia -Monitor Severe sepsis with Sigmoid Perforation s/p resection with colostomy Pelvic mass s/p resection/ bilateral oophorectomy 03/29/19 Hx of endometriosis Hx of methamphetamine and marijuana TOY SAEZ DO Apr 12, 2019 06:24
[2019-04-12] MEDS: IBUPROFEN 600 MG (MOTRIN) TAB PO SCH ×4 (06:56→23:54)
[2019-04-12] MEDS: POTASSIUM CL 10MEQ/50ML IVPB 50 ML IV SCH ×8 (06:56→12:00)
[2019-04-12] MEDS: VANCOMYCIN 1,750 MG/NS 500 ML IVPB IV SCH ×2 (07:10)
--- NOTE | 2019-04-12 07:57 | Diagnostic Imaging Report ---
INDICATION: Shortness of breath. Frontal view of the chest was obtained and compared to yesterday. FINDINGS: Today's study shows the right IJ central catheter has been removed. The right PICC line is in place but the tip is crossing the midline, probably into the left innominate vein. The heart size is within normal limits. No mediastinal widening. Moderate right pleural effusion with right greater than left atelectasis versus infiltrate. IMPRESSION: 1. The right IJ central line has been removed and the right PICC line crosses the midline probably into the left innominate vein. 2. Moderate right pleural effusion with right greater than left bibasilar atelectasis. Effusions and atelectasis are about the same. Dictated by: Dictated on workstation # [id number]
--- NOTE | 2019-04-12 08:45 | Progress Note - Surgery ---
POLI LARIOS,MED STUDENT 04/12/19 0845: Subjective Date Seen by a Provider: Apr 12, 2019 Time Seen by a Provider: 07:30 Subjective/Events-last exam Patient seen and examined this morning. She states she did not sleep well last night, and has been feeling shakey and anxious this morning. She is also having some abdominal pain and shortness of breath as well. She is still continuing to increase her activity. Review of Systems General: No Chills, No Night Sweats HEENT: No Head Aches, No Visual Changes Pulmonary: Dyspnea; No Cough Cardiovascular: Edema; No: Chest Pain, Palpitations Gastrointestinal: Abdominal Pain; No: Nausea, Vomiting Musculoskeletal: shoulder pain (right, "feels like a pulled muscle") Objective Exam Vital Signs Date Time Temp Pulse Resp B/P (MAP) Pulse Ox O2 Delivery O2 Flow Rate FiO2 04/12/19 08:00 99 130/79 (96) Nasal Cannula 2.00 04/12/19 07:40 95 Room Air 04/12/19 07:00 100 04/12/19 06:33 91 Room Air 04/12/19 05:15 37.0 90 20 116/78 (91) 94 Room Air 04/12/19 03:32 92 Room Air 04/12/19 03:12 36.5 96 22 120/73 (89) 93 Room Air 04/12/19 01:00 97 04/11/19 23:29 36.7 104 20 116/69 (85) 94 Room Air 04/11/19 23:08 94 Room Air 04/11/19 21:08 92 Room Air 04/11/19 20:25 37.4 04/11/19 19:47 92 Room Air 04/11/19 19:00 104 24 116/67 (83) 93 Nasal Cannula 1.00 04/11/19 19:00 97 04/11/19 18:47 94 Room Air 04/11/19 16:00 Room Air 04/11/19 15:18 36.4 121/81 (94) 04/11/19 14:31 93 Room Air 04/11/19 12:39 87 04/11/19 12:00 Room Air 04/11/19 12:00 89 29 Nasal Cannula 1.00 04/11/19 11:29 36.4 I & O 04/12/19 06:59 Intake Total 2525 ml Output Total 1200 ml Balance 1325 ml Capillary Refill : Less Than 3 SecondsLess Than 3 Seconds General Appearance: WD/WN, Mild Distress HEENT: PERRL/EOMI, Moist Mucous Membranes, Other (poor dentition) Respiratory: Lungs Clear, No Accessory Muscle Use, Decreased Breath Sounds (right base) Cardiovascular: No Murmur, Tachycardia Peripheral Pulses: 2+ Dorsalis Pedis (R), 2+ Left Dors-Pedis (L), 2+ Radial Pulses (R), 2+ Radial Pulses (L) Gastrointestinal: soft, distended (minimally), tenderness (worse in RLQ), other (colostomy pink no ischemic changes) Extremity: Pedal Edema (minimal), Swelling (bilateral hands, improving) Neurologic/Psychiatric: Alert, Oriented x3, Normal Mood/Affect Skin: Normal Color, Warm/Dry, Other (abdominal incisions without drainage or erythema) Results Lab Laboratory Tests 04/12/19 03:21: White Blood Count 13.2H, Red Blood Count 2.72L, Hemoglobin 7.9L, Hematocrit 24L, Mean Corpuscular Volume 89, Mean Corpuscular Hemoglobin 29, Mean Corpuscular Hemoglobin Concent 33, Red Cell Distribution Width 14.2, Platelet Count 498H, Mean Platelet Volume 9.5, Neutrophils (%) (Auto) 82H, Lymphocytes (%) (Auto) 8L, Monocytes (%) (Auto) 9, Eosinophils (%) (Auto) 1, Basophils (%) (Auto) 0, Neutrophils # (Auto) 10.8H, Lymphocytes # (Auto) 1.1, Monocytes # (Auto) 1.1H, Eosinophils # (Auto) 0.1, Basophils # (Auto) 0.0, Sodium Level 139, Potassium Level 3.2L, Chloride Level 106, Carbon Dioxide Level 24, Anion Gap 9, Blood Urea Nitrogen 5L, Creatinine 0.48L, Estimat Glomerular Filtration Rate > 60, BUN/Creatinine Ratio 10, Glucose Level 99, Calcium Level 7.6L, Corrected Calcium 9.2, Phosphorus Level 3.4, Magnesium Level 2.0, Total Bilirubin 0.4, Aspartate Amino Transf (AST/SGOT) 31, Alanine Aminotransferase (ALT/SGPT) 14, Alkaline Phosphatase 86, Total Protein 5.1L, Albumin 2.0L, Triglycerides Level 184H Microbiology 04/06/19 Gram Stain - Final, Complete 1/15/20 Sputum Culture - Final, Complete Lactobacillus rhamnosus See Comments 04/05/19 Blood Culture - Final, Complete No growth 04/02/19 Gram Stain - Final, Complete 04/02/19 Anaerobic Culture - Final, Complete Bacteroides thetaiotaomicron See Comments 04/02/19 Surgical Culture - Final, Complete Lactobacillus rhamnosus Enterococcus faecalis See Comments 04/02/19 Urine Culture - Final, Complete NO GROWTH Assessment/Plan Assessment/Plan Assessment/Plan Assessment: -s/p Consuelo's procedure -s/p colostomy revision Plan: Encourage continued IS use and increasing activity. Continue diuretics to help with fluid build-up. Clinical Quality Measures DVT/VTE Risk/Contraindication: Risk Factor Score Per Nursin RFS Level Per Nursing on Admit: 4+=Very High KADEEM ARRIAGA DO 04/13/19 1203: Subjective Time Seen by a Provider: 11:48 Subjective/Events-last exam Pt seen and examined, c/o of some right sided pain. Objective Exam General Appearance: WD/WN, Anxious Respiratory: Lungs Clear, No Accessory Muscle Use, Decreased Breath Sounds (right base) Gastrointestinal: soft, distended (minimally), tenderness (worse in RLQ), other (colostomy pink no ischemic changes) Assessment/Plan Assessment/Plan Assessment/Plan Encourage ambulation, Lasix, pain control as needed. Supervisory-Addendum Brief Verification & Attestation Participated in pt care: history, MDM, physical Personally performed: exam, history, MDM Care discussed with: Medical Student Procedures: n/a Verification and Attestation of Medical Student E/M Service A medical student performed and documented this service in my presence. I reviewed and verified all information documented by the medical student and made modifications to such information, when appropriate. I personally performed the physical exam and medical decision making. Kadeem Arriaga, Apr 13, 2019,12:03 POLI LARIOS,MED STUDENT Apr 12, 2019 08:45 KADEEM ARRIAGA DO Apr 13, 2019 12:03
[2019-04-12] MEDS: ANIDULAFUNGIN INJECTION 100 MG in NS (IVPB) 100 ML IV SCH (09:07)
[2019-04-12] MEDS: NICOTINE PATCH REMOVAL TP SCH (09:07)
[2019-04-12] MEDS: ENOXAPARIN 40 MG/0.4 ML (LOVENOX) SYR SC SCH (09:08)
[2019-04-12] MEDS: FLUoxetine HCL 20 MG (PROzac) CAP PO SCH (09:08)
[2019-04-12] MEDS: NICOTINE 21 MG (NICODERM) PATCH TD SCH (09:08)
[2019-04-12] MEDS: PANTOPRAZOLE 40 MG (PROTONIX) VIAL IV SCH (09:08)
--- NOTE | 2019-04-12 09:39 | Physical Therapy Daily Note ---
PT Daily Note-Current Subjective Patient agreeable to therapy. Appearance Patient in recliner with bedside table and call light within reach. Mental Status Patient Orientation: Person, Place, Time, Situation Attachments: IV Transfers SCALE: Activities may be completed with or without assistive devices. 3-Xcmofzmfsv-vjpexzh completes the activity by him/herself with no assistance from a helper. 5-Set-up or Clean-up Assistance-helper sets up or cleans up; patient completes activity. [place] assists only prior to or following the activity. 4-Supervision or Touching Assistance-helper provides verbal cues and/or alec rufino/steadying and/or contact guard assistance as patient completes activity. Assistance may be provided throughout the activity or intermittently. 3-Partial/Moderate Assistance-helper does LESS THAN HALF the effort. [place] lifts, holds or supports trunk or limbs, but provides less than half the effort. 2-Substantial/Maximal Assistance-helper does MORE THAN HALF the effort. [place] lifts or holds trunk or limbs and provides more than half the effort. 7-Uvcrynihq-ohvzlg does ALL the effort. Patient does none of the effort to complete the activity. Or, the assistance of 2 or more helpers is required for the patient to complete the activity. If activity was not attempted, code reason: 7-Patient Refused. 9-Not Applicable-not attempted and the patient did not perform the activity before the current illness, exacerbation or injury. 10-Not Attempted due to Environmental Limitations-(lack of equipment, weather restraints, etc.). 88-Not Attempted due to Medical Conditions or Safety Concerns. Sit to Stand (QC): 4 Chair/Qdy-np-Xrcjm Xfer(QC): 4 Toilet Transfer (QC): 4 CGA for safety. Patient toilets IND. Weight Bearing Right Lower Extremity: Right Weight Bearing/Tolerated Left Lower Extremity: Left Weight Bearing/Tolerated Gait Training Does the Patient Walk?: Yes Distance: 50' Walk 10 feet (QC): 4 Walk 50 ft with 2 Turns(QC): 4 Gait Persons Needed: 1 Gait Assistive Device: FWW CGA for safety. Patient fatigues quickly. Wheelchair Training Does the Pt Use a Wheelchair?: No Assessment Current Status: Good Progress Patient appears to be in better spirits today. Patient ambulates in hallway with rest breaks so patient can catch her breath. Patient ceases ambulation due to fatigue. Patient reports she performs bilateral LE exercises PRN during day. PT Interior Decorator Paperhanging Goals Retirement Goals PT Retirement Goals Time Frame: Apr 22, 2019 Roll Left & Right (QC): 5 Sit to Lying (QC): 5 Lying-Sitting on Side/Bed(QC): 5 Sit to Stand (QC): 5 Chair/Mwq-xq-Rabng Xfer(QC): 5 Does the Patient Walk: Yes Walk 10 feet (QC): 3 Walk 50ft with 2 Turns (QC): 3 Walk 150 ft (QC): 3 PT Plan Problem List Problem List: Activity Tolerance, Functional Strength, Safety, Balance, Gait, Transfer, Bed Mobility, ROM Treatment/Plan Treatment Plan: Continue Plan of Care Treatment Plan: Bed Mobility, Education, Functional Activity Darius, Functional Strength, Gait, Safety, Therapeutic Exercise, Transfers Treatment Duration: Apr 22, 2019 Frequency: 6 times per week Estimated Hrs Per Day: .25 hour per day Patient and/or Family Agrees t: Yes Safety Risks/Education Patient Education: Gait Training, Transfer Techniques Teaching Recipient: Patient Teaching Methods: Discussion Response to Teaching: Reinforcement Needed Time/GCodes Time In: 830 Time Out: 843 Total Billed Treatment Time: 13 Total Billed Treatment 1 visit FA (13 minutes) VICKEY SUMMERS PT Apr 12, 2019 09:39
--- NOTE | 2019-04-12 10:27 | Occupational Ther Daily Note ---
OT Current Status-Daily Note Subjective Pt seen in high back chair, pt states she has been urinating frequently due to lasix. Pt agreeable to sponge bath. States moderate pain in abdomen. Mental Status/Objective Patient Orientation: Person, Place, Situation, Normal For Age Attachments: IV, Oxygen, Telemetry ADL-Treatment Therapy Code Descriptions/Definitions Functional [place] Measure: 0=Not Assessed/NA 4=Minimal Assistance 1=Total Assistance 5=Supervision or Setup 2=Maximal Assistance 6=Modified [place] 3=Moderate Assistance 7=Complete IndependenceSCALE: Activities may be completed with or without assistive devices. 1-Ikziidwevs-drmalvh completes the activity by him/herself with no assistance from a helper. 5-Set-up or Clean-up Assistance-helper sets up or cleans up; patient completes activity. [place] assists only prior to or following the activity. 4-Supervision or Touching Assistance-helper provides verbal cues and/or touching/steadying and/or contact guard assistance as patient completes activity. Assistance may be provided throughout the activity or intermittently. 3-Partial/Moderate Assistance-helper does LESS THAN HALF the effort. [place] lifts, holds or supports trunk or limbs, but provides less than half the effort. 2-Substantial/Maximal Assistance-helper does MORE THAN HALF the effort. [place] lifts or holds trunk or limbs and provides more than half the effort. 4-Ngqiuuyzt-yqptne does ALL the effort. Patient does none of the effort to complete the activity. Or, the assistance of 2 or more helpers is required for the patient to complete the activity. If activity was not attempted, code reason: 7-Patient Refused. 9-Not Applicable-not attempted and the patient did not perform the activity before the current illness, exacerbation or injury. 10-Not Attempted due to Environmental Limitations-(lack of equipment, weather restraints, etc.). 88-Not Attempted due to Medical Conditions or Safety Concerns. Eating (QC): 6 Oral Hygiene (QC): 7 Bathing Location: L Arm, R Arm, L Upper Leg, R Upper Leg, Chest Shower/Bathe Self (QC): 2 (Pt requires assist with back, radha area, bottom, BL E/ feet.) Upper Body Dressing (QC): 5 (s/u for lines.) Lower Body Dressing (QC): 7 On/Off Footwear: 1 Toileting Hygiene (QC): 2 (Pt completes toilet routine, sit to stand from recliner with SBA to [facility] [place] completes toilet hygiene, stating she isn't able to complete thoroughly. Pt denies assist. Max A bottom/ radha hygiene durin bathing.) Toilet Transfer (QC): 4 (SBA.) Other Treatment Pt completes sponge bath in recliner chair, sit to stands to [facility] with SBA. Pt states she is moving to 4th floor on this date. Nursing and DO in/out of room during session. Pt states son is coming to visit, denies additional needs, left in recliner chair with all needs met, call light in reach. Education OT Patient Education: Correct positioning, Modified ADL techniques, Progress toward Goal/Update tx plan Teaching Recipient: Patient Teaching Methods: Demonstration, Discussion Response to Teaching: Verbalize Understanding, Return Demonstration OT Short Term Goals Short Term Goals Time Frame: Apr 20, 2019 Eatin (met) Oral hygiene: 3 Toileting hygiene: 2 Shower/bathe self: 2 (met) Upper body dressin (met) Lower body dressin Putting on/taking off footwear: 2 OT Jewelry Facer Goals Mcfp Goals Time Frame: May 04, 2019 Eating (QC): 5 Oral Hygiene (QC): 5 Toileting Hygiene (QC): 4 Shower/Bathe Self (QC): 4 Upper Body Dressing (QC): 5 Lower Body Dressing (QC): 4 On/Off Footwear (QC): 4 Additional Goals: 1-Demonstrate ADL Tasks, 2-Verbalize Understanding, 3- ImproveStrength/Darius 1=Demonstrate adherence to instructed precautions during ADL tasks. 2=Patient will verbalize/demonstrate understanding of assistive devices/modifications for ADL. 3=Patient will improve strength/tolerance for activity to enable patient to perform ADL's. OT Education/Plan Problem List/Assessment Assessment: Decreased Activ Tolerance, Decreased UE Strength, Dependent Transfers, Impaired I ADL's, Impaired Self-Care Skills Discharge Recommendations Plan/Recommendations: Continue POC Treatment Plan/Plan of Care Treatment,Training & Education: Yes Patient would benefit from OT for education, treatment and training to promote independence in ADL's, mobility, safety and/or upper extremity function for ADL's. Plan of Care: ADL Retraining, Functional Mobility, UE Funct Exercise/Act Treatment Duration: May 04, 2019 Frequency: 5 times per week Estimated Hrs Per Day: .5 hour per day Agreement: Yes Rehab Potential: Fair Time/GCodes Start Time: 09:15 Stop Time: 09:47 Total Time Billed (hr/min): 32 Billed Treatment Time 1, ADL 2 (32) NAVNEET OSHEA OTR Apr 12, 2019 10:27
--- NOTE | 2019-04-12 11:34 | NUR ---
IRF Prior authorization process initiated with [facility]. Will continue to follow.
[2019-04-12] MEDS ORDERED: SIMETHICONE 80 MG (MYLICON) CHEW PO PRN (17:30)
--- NOTE | 2019-04-12 20:26 | Progress Note ---
Subjective Subjective/Events-last exam Patient up in chair. Doing much better. Tolerating some PO. Has but standing but states that she is weak Review of Systems Pulmonary: Dyspnea, Cough Cardiovascular: No: Chest Pain, Palpitations Gastrointestinal: Abdominal Pain; No: Nausea, Vomiting, Diarrhea, Constipation Neurological: Weakness, Incoordination Objective Exam Last Set of Vital Signs Vital Signs Date Time Temp Pulse Resp B/P (MAP) Pulse Ox O2 Delivery O2 Flow Rate FiO2 04/12/19 18:00 98 Room Air 04/12/19 16:00 86 116/72 (87) 04/12/19 11:04 16 04/12/19 08:00 36.6 04/12/19 08:00 2.00 04/08/19 09:54 30 Capillary Refill : Less Than 3 SecondsLess Than 3 Seconds I&O Intake and Output 04/12/19 00:00 Intake Total 2452.5 ml Output Total 1000 ml Balance 1452.5 ml Intake Oral 905 ml IV Total 1547.5 ml Output Urine Total 1000 ml # Voids 5 General: Alert, Oriented X3, Cooperative, No Acute Distress Lungs: Normal Air Movement, Other (basilar wheezing, normal work of breathing, no crackles) Heart: Regular Rate, No Murmurs Abdomen: Soft, Other (mild incisional pain, no rebound or gaurding) Extremities: No Edema, No Tenderness/Swelling Neuro: Normal Speech, Sensation Intact, Cranial Nerves 3-12 NL Results/Procedures Lab Laboratory Tests 04/12/19 03:21: White Blood Count 13.2H, Red Blood Count 2.72L, Hemoglobin 7.9L, Hematocrit 24L, Mean Corpuscular Volume 89, Mean Corpuscular Hemoglobin 29, Mean Corpuscular Hemoglobin Concent 33, Red Cell Distribution Width 14.2, Platelet Count 498H, Mean Platelet Volume 9.5, Neutrophils (%) (Auto) 82H, Lymphocytes (%) (Auto) 8L, Monocytes (%) (Auto) 9, Eosinophils (%) (Auto) 1, Basophils (%) (Auto) 0, Neutrophils # (Auto) 10.8H, Lymphocytes # (Auto) 1.1, Monocytes # (Auto) 1.1H, Eosinophils # (Auto) 0.1, Basophils # (Auto) 0.0, Sodium Level 139, Potassium Level 3.2L, Chloride Level 106, Carbon Dioxide Level 24, Anion Gap 9, Blood Urea Nitrogen 5L, Creatinine 0.48L, Estimat Glomerular Filtration Rate > 60, BUN/Creatinine Ratio 10, Glucose Level 99, Calcium Level 7.6L, Corrected Calcium 9.2, Phosphorus Level 3.4, Magnesium Level 2.0, Total Bilirubin 0.4, Aspartate Amino Transf (AST/SGOT) 31, Alanine Aminotransferase (ALT/SGPT) 14, Alkaline Phosphatase 86, Total Protein 5.1L, Albumin 2.0L, Triglycerides Level 184H Microbiology 04/11/19 Catheter Tip Culture - Preliminary, Resulted No growth 04/06/19 Gram Stain - Final, Complete 04/06/19 Sputum Culture - Final, Complete Lactobacillus rhamnosus See Comments 04/02/19 Gram Stain - Final, Complete 04/02/19 Anaerobic Culture - Final, Complete Bacteroides thetaiotaomicron See Comments 04/02/19 Surgical Culture - Final, Complete Lactobacillus rhamnosus Enterococcus faecalis See Comments 04/02/19 Urine Culture - Final, Complete NO GROWTH Assessment/Plan Assessment/Plan (1) Bowel perforation Status: Acute Assessment & Plan: 04/11: S/p Ex Lap 04/12: On Meropneum and Eraxis (2) Respiratory failure Status: Resolved (3) Postoperative anemia Status: Acute Assessment & Plan: 04/12: Iron studies pending, consider IV iron replacement (4) Hypokalemia Status: Acute (5) Colostomy in place Status: Acute (6) S/P exploratory laparotomy Status: Acute (7) Peritonitis Clinical Quality Measures DVT/VTE Risk/Contraindication: Risk Factor Score Per Nursin RFS Level Per Nursing on Admit: 4+=Very High LAKESHA CHACKO MD Apr 12, 2019 20:26
[2019-04-13] MEDS: RT-ALBUTEROL/IPRATROPIUM 3 ML (DUONEB) VIAL INH SCH ×6 (01:13→23:43)
[2019-04-13 03:11] VITALS: BP 138/55
[2019-04-13 03:26] LABS: BASOPHILS % (AUTO) 0 % (0-10); EOSINOPHILS # (AUTO) 0.1 10^3/uL (0.0-0.3); EOSINOPHILS % (AUTO) 1 % (0-10); HEMATOCRIT 25 % (35-52); HEMOGLOBIN 7.9 G/DL (11.5-16.0); LYMPHOCYTES # (AUTO) 1.1 X 10^3 (1.0-4.0); LYMPHOCYTES % (AUTO) 10 % (12-44); MEAN CORPUSCULAR HEMOGLOBIN 29 PG (25-34); MEAN CORPUSCULAR HGB CONC 32 G/DL (32-36); MEAN CORPUSCULAR VOLUME 90 FL (80-99); MEAN PLATELET VOLUME 9.4 FL (7.4-10.4); MONOCYTES # (AUTO) 1.1 X 10^3 (0.0-1.0); MONOCYTES % (AUTO) 10 % (0-12); NEUTROPHILS # (AUTO) 8.5 X 10^3 (1.8-7.8); NEUTROPHILS % (AUTO) 79 % (42-75); PLATELET COUNT 561 10^3/uL (130-400); RED CELL DISTRIBUTION WIDTH 14.2 % (10.0-14.5); WHITE BLOOD COUNT 10.9 10^3/uL (4.3-11.0)
[2019-04-13] MEDS: MEROPENEM 500 MG in WATER (STERILE) FOR INJECTION 10 ML IV SCH ×4 (03:32→20:04)
[2019-04-13] MEDS: ACETAMINOPHEN 325 MG TABLET PO PRN (03:32)
[2019-04-13 03:51] LABS: ALANINE AMINOTRANSFERASE 31 U/L (0-55); ALBUMIN 2.3 GM/DL (3.2-4.5); ALKALINE PHOSPHATASE 97 U/L (40-136); BILIRUBIN,TOTAL 0.4 MG/DL (0.1-1.0); BUN/CREATININE RATIO 7; CALCIUM 7.9 MG/DL (8.5-10.1); CARBON DIOXIDE 24 MMOL/L (21-32); CHLORIDE 105 MMOL/L (98-107); CREATININE SERUM 0.54 MG/DL (0.60-1.30); GFR ESTIMATED > 60; GLUCOSE 104 MG/DL (70-105); MAGNESIUM 1.9 MG/DL (1.6-2.4); PHOSPHORUS 4.5 MG/DL (2.3-4.7); POTASSIUM 3.6 MMOL/L (3.6-5.0); SODIUM 138 MMOL/L (135-145); TOTAL PROTEIN 5.8 GM/DL (6.4-8.2)
--- NOTE | 2019-04-13 05:19 | Pulmonary Progress Note ---
Subjective Time Seen by a Provider: 05:20 Subjective/Events-last exam No complications noted. Sepsis Event Evaluation Height, Weight, BMI Height: '" Weight: lbs. oz. kg; 31.84 BMI Method: Exam Exam Vital Signs Date Time Temp Pulse Resp B/P (MAP) Pulse Ox O2 Delivery O2 Flow Rate FiO2 04/13/19 03:11 36.6 72 18 138/55 (82) 97 Room Air 04/13/19 01:13 93 Room Air 04/13/19 01:00 87 04/12/19 23:54 36.7 75 17 126/83 (97) 95 Room Air 04/12/19 21:07 93 Room Air 04/12/19 21:00 97 Room Air 04/12/19 20:00 37.0 68 18 127/87 (100) 97 Room Air 04/12/19 19:00 95 04/12/19 18:00 98 Room Air 04/12/19 16:00 86 116/72 (87) 93 Room Air 04/12/19 14:34 96 Room Air 04/12/19 12:21 87 04/12/19 11:04 77 16 106/65 (79) 96 Room Air 04/12/19 09:55 94 Room Air 04/12/19 08:00 36.6 24 95 Room Air 04/12/19 08:00 99 130/79 (96) Nasal Cannula 2.00 04/12/19 07:40 95 Room Air 04/12/19 07:00 100 04/12/19 06:33 91 Room Air 04/12/19 05:15 37.0 90 20 116/78 (91) 94 Room Air I & O 04/13/19 07:00 Intake Total 1210 ml Output Total 3800 ml Balance -2590 ml Height & Weight Height: '" Weight: lbs. oz. kg; 31.84 BMI Method: General Appearance: No Apparent Distress, WD/WN, Anxious HEENT: PERRL/EOMI, Moist Mucous Membranes, Other (poor dentition) Respiratory: Lungs Clear, No Accessory Muscle Use, Decreased Breath Sounds (right base) Cardiovascular: No Murmur, Tachycardia Capillary Refill: Less Than 3 Seconds Peripheral Pulses: 2+ Dorsalis Pedis (R), 2+ Left Dors-Pedis (L), 2+ Radial Pulses (R), 2+ Radial Pulses (L) Gastrointestinal: soft, distended (minimally), tenderness (worse in RLQ), other (colostomy pink no ischemic changes) Extremity: Pedal Edema (minimal), Swelling (bilateral hands, improving) Neurologic/Psychiatric: Alert, Oriented x3, Normal Mood/Affect Skin: Normal Color, Warm/Dry, Other (abdominal incisions without drainage or erythema) Results Lab Laboratory Tests 04/12/19 03:21 04/13/19 03:15 Assessment/Plan Assessment/Plan S/p colostomy revision 04/05/19 Bilateral peumonia -Leukocytosis - improving - CT of chest abd/pelvis reviewed Merrem, and Eraxis Bilateral Right > left pleural effusions -Pt does not want thoracentesis -Continue Lasix Atelectasis -IS -Increase activity Hypokalemia -Monitor Severe sepsis with Sigmoid Perforation s/p resection with colostomy Pelvic mass s/p resection/ bilateral oophorectomy 03/29/19 Hx of endometriosis Hx of methamphetamine and marijuana TOY SAEZ DO Apr 13, 2019 05:19
[2019-04-13] MEDS: IBUPROFEN 600 MG (MOTRIN) TAB PO SCH ×4 (06:34→23:14)
--- NOTE | 2019-04-13 07:51 | Progress Note - Surgery ---
POLI LARIOS,MED STUDENT 04/13/19 0751: Subjective Date Seen by a Provider: Apr 13, 2019 Time Seen by a Provider: 07:20 Subjective/Events-last exam Patient seen and examined this morning. She states she did not sleep well last night. She is not sure if this is because she is anxious or if it is because she is a light-sleeper. She states she is very worried because she is having right sided abdominal pain still, and it feels like the same pains she would have before she had surgery for her endometriosis. She states the pain is different every time she gets it, sometimes crampy, sometimes gassy. It is also worse when she eats, so she has not been eating much. Review of Systems General: No Chills, No Night Sweats HEENT: No Head Aches Pulmonary: No Dyspnea, No Cough Cardiovascular: Edema (improving); No: Chest Pain, Palpitations Gastrointestinal: Nausea, Abdominal Pain; No: Vomiting Musculoskeletal: shoulder pain (right) Objective Exam Vital Signs Date Time Temp Pulse Resp B/P (MAP) Pulse Ox O2 Delivery O2 Flow Rate FiO2 04/13/19 06:53 91 Room Air 04/13/19 03:11 36.6 72 18 138/55 (82) 97 Room Air 04/13/19 01:13 93 Room Air 04/13/19 01:00 87 04/12/19 23:54 36.7 75 17 126/83 (97) 95 Room Air 04/12/19 21:07 93 Room Air 04/12/19 21:00 97 Room Air 04/12/19 20:00 37.0 68 18 127/87 (100) 97 Room Air 04/12/19 19:00 95 04/12/19 18:00 98 Room Air 04/12/19 16:00 86 116/72 (87) 93 Room Air 04/12/19 14:34 96 Room Air 04/12/19 12:21 87 04/12/19 11:04 77 16 106/65 (79) 96 Room Air 04/12/19 09:55 94 Room Air 04/12/19 08:00 36.6 24 95 Room Air 04/12/19 08:00 99 130/79 (96) Nasal Cannula 2.00 I & O 04/13/19 07:00 Intake Total 1270 ml Output Total 3900 ml Balance -2630 ml Capillary Refill : Less Than 3 SecondsLess Than 3 Seconds General Appearance: WD/WN, Anxious HEENT: PERRL/EOMI, Moist Mucous Membranes, Other (poor dentition) Neck: Non Tender; No Lymphadenopathy (L), No Lymphadenopathy (R) Respiratory: Lungs Clear, No Accessory Muscle Use, Decreased Breath Sounds (right base) Cardiovascular: Regular Rate, Rhythm, No Murmur Peripheral Pulses: 2+ Dorsalis Pedis (R), 2+ Left Dors-Pedis (L), 2+ Radial Pulses (R), 2+ Radial Pulses (L) Gastrointestinal: soft, distended (minimally), tenderness (worse in RLQ), other (colostomy pink ) Extremity: Pedal Edema (minimal), Swelling (bilateral hands, improving) Neurologic/Psychiatric: Alert, Oriented x3, Normal Mood/Affect Skin: Normal Color, Warm/Dry, Other (abdominal incisions without drainage or erythema) Results Lab Laboratory Tests 04/13/19 03:15: White Blood Count 10.9, Red Blood Count 2.75L, Hemoglobin 7.9L, Hematocrit 25L, Mean Corpuscular Volume 90, Mean Corpuscular Hemoglobin 29, Mean Corpuscular Hemoglobin Concent 32, Red Cell Distribution Width 14.2, Platelet Count 561H, Mean Platelet Volume 9.4, Neutrophils (%) (Auto) 79H, Lymphocytes (%) (Auto) 10L , Monocytes (%) (Auto) 10, Eosinophils (%) (Auto) 1, Basophils (%) (Auto) 0, Neutrophils # (Auto) 8.5H, Lymphocytes # (Auto) 1.1, Monocytes # (Auto) 1.1H, Eosinophils # (Auto) 0.1, Basophils # (Auto) 0.0, Sodium Level 138, Potassium Level 3.6, Chloride Level 105, Carbon Dioxide Level 24, Anion Gap 9, Blood Urea Nitrogen 4L, Creatinine 0.54L, Estimat Glomerular Filtration Rate > 60, BUN/Creatinine Ratio 7, Glucose Level 104, Calcium Level 7.9L, Corrected Calcium 9.3, Phosphorus Level 4.5, Magnesium Level 1.9, Total Bilirubin 0.4, Aspartate Amino Transf (AST/SGOT) 57H, Alanine Aminotransferase (ALT/SGPT) 31, Alkaline Phosphatase 97, Total Protein 5.8L, Albumin 2.3L Microbiology 04/11/19 Catheter Tip Culture - Preliminary, Resulted No growth 04/06/19 Gram Stain - Final, Complete 04/06/19 Sputum Culture - Final, Complete Lactobacillus rhamnosus See Comments 04/02/19 Gram Stain - Final, Complete 04/02/19 Anaerobic Culture - Final, Complete Bacteroides thetaiotaomicron See Comments 04/02/19 Surgical Culture - Final, Complete Lactobacillus rhamnosus Enterococcus faecalis See Comments 04/02/19 Urine Culture - Final, Complete NO GROWTH Assessment/Plan Assessment/Plan Assessment/Plan Assessment: -s/p Consuelo's procedure -s/p colostomy revision Plan: continue IS use, diuretics and increasing activity. Clinical Quality Measures DVT/VTE Risk/Contraindication: Risk Factor Score Per Nursin RFS Level Per Nursing on Admit: 4+=Very High KADEEM ARRIAGA DO 04/13/19 1205: Subjective Time Seen by a Provider: 11:47 Subjective/Events-last exam Pt seen and examined, seems worried about the RLQ pain. Feels like she can't eat much. Objective Exam General Appearance: WD/WN, Anxious Respiratory: Lungs Clear, No Accessory Muscle Use Cardiovascular: Regular Rate, Rhythm Gastrointestinal: soft, distended (minimally), tenderness (worse in RLQ), other (colostomy pink with good function) Extremity: Pedal Edema (minimal), Swelling (bilateral hands, improving) Assessment/Plan Assessment/Plan Assessment/Plan Increase IS use and ambulation, encourage PO Supervisory-Addendum Brief Verification & Attestation Participated in pt care: history, MDM, physical Personally performed: exam, history, MDM Care discussed with: Medical Student Procedures: n/a Verification and Attestation of Medical Student E/M Service A medical student performed and documented this service in my presence. I reviewed and verified all information documented by the medical student and made modifications to such information, when appropriate. I personally performed the physical exam and medical decision making. Kadeem Arriaga, Apr 13, 2019,12:05 POLI LARIOS,MED STUDENT Apr 13, 2019 07:51 KADEEM ARRIAGA DO Apr 13, 2019 12:05
--- NOTE | 2019-04-13 08:16 | Diagnostic Imaging Report ---
INDICATION: Dyspnea. Comparison with 04/12/2019. FINDINGS: Opacification of the right lung base is again noted with increasing right pleural effusion. Left lung remains well-aerated and clear. Heart is not enlarged. No pulmonary edema. Right PICC line unchanged. IMPRESSION: 1. Increasing right basilar pleural effusion since previous exam. Dictated by: Dictated on workstation # [id number]
[2019-04-13] MEDS: PANTOPRAZOLE 40 MG (PROTONIX) VIAL IV SCH (08:25)
[2019-04-13] MEDS: NICOTINE PATCH REMOVAL TP SCH (08:25)
[2019-04-13] MEDS: ANIDULAFUNGIN INJECTION 100 MG in NS (IVPB) 100 ML IV SCH (08:25)
[2019-04-13] MEDS: FLUoxetine HCL 20 MG (PROzac) CAP PO SCH (08:25)
[2019-04-13] MEDS: NICOTINE 21 MG (NICODERM) PATCH TD SCH (08:26)
[2019-04-13] MEDS: KCL 20 MEQ TAB (K-DUR) PO SCH (08:26)
[2019-04-13] MEDS: ENOXAPARIN 40 MG/0.4 ML (LOVENOX) SYR SC SCH (08:26)
[2019-04-13] MEDS: FUROSEMIDE 40 MG/4 ML INJ (LASIX) IVP SCH (08:26)
[2019-04-13 08:30] VITALS: BP 132/87
[2019-04-13] MEDS ORDERED: KCL 20 MEQ TAB (K-DUR) PO ONE (09:00)
--- NOTE | 2019-04-13 09:40 | NUR ---
This nurse called report to Jenniffer NOLAN. Jenniffer stated that she is ok with patient coming to room now. Patient taken to room 428 by this nurse via wheel chair, nurse tech notified upon arrival. This nurse assisted patient to chair, wheels are locked, call light and phone are in reach
--- NOTE | 2019-04-13 10:15 | NUR ---
PT ICU TRANSFER TO ROOM 428. PT UP IN CHAIR, DENIES ANY PAIN AT THIS TIME. PT WAS ORIENTED TO ROOM. CALL LIGHT WITHIN REACH. REPORTS NEEDS ARE MET AT THIS TIME.
--- NOTE | 2019-04-13 10:15 | Occupational Ther Daily Note ---
OT Current Status-Daily Note Subjective No pain reported. However, pt. attempting to drink Ensure. Has full breakfast tray in front of her. States that she doesn't want to eat it because it does hurt her stomach when she does. Appearance Pt. up in chair. Alert and oriented. Mental Status/Objective Patient Orientation: Person, Place, Time, Situation Attachments: IV ADL-Treatment Therapy Code Descriptions/Definitions Functional [place] Measure: 0=Not Assessed/NA 4=Minimal Assistance 1=Total Assistance 5=Supervision or Setup 2=Maximal Assistance 6=Modified [place] 3=Moderate Assistance 7=Complete IndependenceSCALE: Activities may be completed with or without assistive devices. 3-Rwfnpyiilo-ayaecvq completes the activity by him/herself with no assistance from a helper. 5-Set-up or Clean-up Assistance-helper sets up or cleans up; patient completes activity. [place] assists only prior to or following the activity. 4-Supervision or Touching Assistance-helper provides verbal cues and/or touching/steadying and/or contact guard assistance as patient completes activity. Assistance may be provided throughout the activity or intermittently. 3-Partial/Moderate Assistance-helper does LESS THAN HALF the effort. [place] lifts, holds or supports trunk or limbs, but provides less than half the effort. 2-Substantial/Maximal Assistance-helper does MORE THAN HALF the effort. [place] lifts or holds trunk or limbs and provides more than half the effort. 4-Pucbuacqb-mmjlix does ALL the effort. Patient does none of the effort to complete the activity. Or, the assistance of 2 or more helpers is required for the patient to complete the activity. If activity was not attempted, code reason: 7-Patient Refused. 9-Not Applicable-not attempted and the patient did not perform the activity before the current illness, exacerbation or injury. 10-Not Attempted due to Environmental Limitations-(lack of equipment, weather restraints, etc.). 88-Not Attempted due to Medical Conditions or Safety Concerns. Pt. will be transferring to medical floor today. Pt. declines ADLs at this time in ICU, as she wants to shower later upon transfer. States that she has been taking self to BSC, and walking around room with walker. Tolerates well. Agrees to complete UE exercises. Tolerated 3 exercises x 10 reps each with yellow theraband in all planes for increased UE strength and endurance. Pt. states that this requires much effort, but is able to do it. Pt. reports that her food tastes too salty, and overall she is having difficulty with her appetite. OT and pt. talk about what sounds good, and pt. states that a sandwich from [employer] does. OT will obtain one on soft bread to see if this is easier to eat. All needs met up in chair. Education OT Patient Education: Correct positioning, Exercise program, Progress toward Goal/Update tx plan, Purpose of tx/functional activities, Reviewed precautions, Rehab process, Transfer techniques Teaching Recipient: Patient Teaching Methods: Demonstration, Discussion Response to Teaching: Verbalize Understanding, Return Demonstration OT Short Term Goals Short Term Goals Time Frame: Apr 20, 2019 Eatin (met) Oral hygiene: 3 Toileting hygiene: 2 Shower/bathe self: 2 (met) Upper body dressin (met) Lower body dressin Putting on/taking off footwear: 2 OT [facility] Goals Research Laboratory Specialist Goals Time Frame: May 04, 2019 Eating (QC): 5 Oral Hygiene (QC): 5 Toileting Hygiene (QC): 4 Shower/Bathe Self (QC): 4 Upper Body Dressing (QC): 5 Lower Body Dressing (QC): 4 On/Off Footwear (QC): 4 Additional Goals: 1-Demonstrate ADL Tasks, 2-Verbalize Understanding, 3- ImproveStrength/Darius 1=Demonstrate adherence to instructed precautions during ADL tasks. 2=Patient will verbalize/demonstrate understanding of assistive devices/modifications for ADL. 3=Patient will improve strength/tolerance for activity to enable patient to perform ADL's. OT Education/Plan Problem List/Assessment Assessment: Decreased Activ Tolerance, Impaired I ADL's, Impaired Self-Care Skills Discharge Recommendations Plan/Recommendations: Continue POC Therapy Discharge Recommendati: Post Acute OT Treatment Plan/Plan of Care Treatment,Training & Education: Yes Patient would benefit from OT for education, treatment and training to promote independence in ADL's, mobility, safety and/or upper extremity function for ADL's. Plan of Care: ADL Retraining, Functional Mobility, UE Funct Exercise/Act Treatment Duration: May 04, 2019 Frequency: 5 times per week Estimated Hrs Per Day: .5 hour per day Agreement: Yes Rehab Potential: Fair Time/GCodes Start Time: 09:20 Stop Time: 09:40 Total Time Billed (hr/min): 20 Billed Treatment Time 1, Ex RAJAN MARCELINO OT Apr 13, 2019 10:15
[2019-04-13 10:40] VITALS: BP 112/72
--- NOTE | 2019-04-13 11:09 | NUR ---
Pt has appt. with social security disability the 19 of April at 11:30. Pt states she hasn't been able to work for medical reasons since June 2018. 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 Will follow to assist with continued care plans.
--- NOTE | 2019-04-13 11:49 | Physical Therapy Daily Note ---
PT Daily Note-Current Subjective Patient is agreeable to therapy and reports no pain at this time. Patient states she is very tired today because she did not sleep well last night. Patient reports she has been doing BLE exercises several times throughout the day IND of therapy. Appearance Patient is in recliner with bedside table and call light within reach. Mental Status Patient Orientation: Person, Place, Time, Situation Transfers SCALE: Activities may be completed with or without assistive devices. 9-Bvqoqismpk-nsqbecv completes the activity by him/herself with no assistance from a helper. 5-Set-up or Clean-up Assistance-helper sets up or cleans up; patient completes activity. [place] assists only prior to or following the activity. 4-Supervision or Touching Assistance-helper provides verbal cues and/or touching/steadying and/or contact guard assistance as patient completes activi ty. Assistance may be provided throughout the activity or intermittently. 3-Partial/Moderate Assistance-helper does LESS THAN HALF the effort. [place] lifts, holds or supports trunk or limbs, but provides less than half the effort. 2-Substantial/Maximal Assistance-helper does MORE THAN HALF the effort. [place] lifts or holds trunk or limbs and provides more than half the effort. 5-Clcqsrynx-sfekjn does ALL the effort. Patient does none of the effort to complete the activity. Or, the assistance of 2 or more helpers is required for the patient to complete the activity. If activity was not attempted, code reason: 7-Patient Refused. 9-Not Applicable-not attempted and the patient did not perform the activity before the current illness, exacerbation or injury. 10-Not Attempted due to Environmental Limitations-(lack of equipment, weather restraints, etc.). 88-Not Attempted due to Medical Conditions or Safety Concerns. Sit to Stand (QC): 6 Chair/Aui-ak-Dymlk Xfer(QC): 6 Toilet Transfer (QC): 6 Patient toilets IND. Weight Bearing Right Lower Extremity: Right Weight Bearing/Tolerated Left Lower Extremity: Left Weight Bearing/Tolerated Gait Training Does the Patient Walk?: Yes Distance: 120' Walk 10 feet (QC): 4 Walk 50 ft with 2 Turns(QC): 4 Gait Persons Needed: 1 Gait Assistive Device: FWW CGA for safety. Wheelchair Training Does the Pt Use a Wheelchair?: No Treatments Ambulation, transfers. Assessment Current Status: Good Progress Patient fatigues quickly during ambulation today. Once fatigued patient started to shuffle her feet slightly. Patient ceased therapy due to fatigue. PT Museum Security Chief Goals Museum Security Chief Goals PT Museum Security Chief Goals Time Frame: Apr 22, 2019 Roll Left & Right (QC): 5 Sit to Lying (QC): 5 Lying-Sitting on Side/Bed(QC): 5 Sit to Stand (QC): 5 Chair/Xdm-hh-Rioyw Xfer(QC): 5 Does the Patient Walk: Yes Walk 10 feet (QC): 3 Walk 50ft with 2 Turns (QC): 3 Walk 150 ft (QC): 3 PT Plan Problem List Problem List: Activity Tolerance, Functional Strength, Safety, Balance, Gait, Transfer, Bed Mobility, ROM Treatment/Plan Treatment Plan: Continue Plan of Care Treatment Plan: Bed Mobility, Education, Functional Activity Darius, Functional Strength, Gait, Safety, Therapeutic Exercise, Transfers Treatment Duration: Apr 22, 2019 Frequency: 6 times per week Estimated Hrs Per Day: .25 hour per day Patient and/or Family Agrees t: Yes Safety Risks/Education Patient Education: Gait Training, Transfer Techniques, Safety Issues Teaching Recipient: Patient Teaching Methods: Discussion Response to Teaching: Reinforcement Needed Time/GCodes Time In: 1106 Time Out: 1116 Total Billed Treatment Time: 10 Total Billed Treatment 1 visit FA (10 minutes) GALLITO WALL PT Apr 13, 2019 11:49
[2019-04-13 12:00] VITALS: BP 127/74
--- NOTE | 2019-04-13 15:58 | Progress Note ---
Subjective Subjective/Events-last exam Patient feeling better this AM. She is eating some food but states that she just has a low appetite. Has been up walking with walker. Pain is still present but tolerable. Review of Systems General: No Chills; Fatigue Pulmonary: No Dyspnea; Cough Cardiovascular: No: Chest Pain, Palpitations, Edema Gastrointestinal: Nausea, Abdominal Pain Neurological: Weakness, Incoordination Objective Exam Last Set of Vital Signs Vital Signs Date Time Temp Pulse Resp B/P (MAP) Pulse Ox O2 Delivery O2 Flow Rate FiO2 04/13/19 15:36 98 Room Air 04/13/19 12:00 36.0 82 18 127/74 (91) 04/13/19 11:19 0.00 04/08/19 09:54 30 Capillary Refill : Less Than 3 SecondsLess Than 3 Seconds I&O Intake and Output 04/13/19 00:00 Intake Total 1750 ml Output Total 4000 ml Balance -2250 ml Intake Oral 1200 ml IV Total 550 ml Output Urine Total 4000 ml General: Alert, Oriented X3, Cooperative, No Acute Distress HEENT: Mucous Memb Moist/[place] Lungs: Clear to Auscultation, Normal Air Movement Heart: Regular Rate, No Murmurs Abdomen: Normal Bowel Sounds, Soft, Other (mild incisional pain, no gaurding or rebound present) Extremities: No Edema, No Tenderness/Swelling Neuro: Normal Speech, Sensation Intact, Cranial Nerves 3-12 NL Psych/Mental Status: Mental Status NL, Mood NL Results/Procedures Lab Laboratory Tests 04/13/19 03:15: White Blood Count 10.9, Red Blood Count 2.75L, Hemoglobin 7.9L, Hematocrit 25L, Mean Corpuscular Volume 90, Mean Corpuscular Hemoglobin 29, Mean Corpuscular Hemoglobin Concent 32, Red Cell Distribution Width 14.2, Platelet Count 561H, Mean Platelet Volume 9.4, Neutrophils (%) (Auto) 79H, Lymphocytes (%) (Auto) 10L , Monocytes (%) (Auto) 10, Eosinophils (%) (Auto) 1, Basophils (%) (Auto) 0, Neutrophils # (Auto) 8.5H, Lymphocytes # (Auto) 1.1, Monocytes # (Auto) 1.1H, Eosinophils # (Auto) 0.1, Basophils # (Auto) 0.0, Sodium Level 138, Potassium Level 3.6, Chloride Level 105, Carbon Dioxide Level 24, Anion Gap 9, Blood Urea Nitrogen 4L, Creatinine 0.54L, Estimat Glomerular Filtration Rate > 60, BUN/Creatinine Ratio 7, Glucose Level 104, Calcium Level 7.9L, Corrected Calcium 9.3, Phosphorus Level 4.5, Magnesium Level 1.9, Iron Level <10L, Total Iron Binding Capacity See Est TIBCH, Unsaturated Iron Binding Capacity 117, Transferrin % Saturation See Est %SatH, Total Bilirubin 0.4, Aspartate Amino Transf (AST/SGOT) 57H, Alanine Aminotransferase (ALT/SGPT) 31, Alkaline Phosphatase 97, Total Protein 5.8L, Albumin 2.3L Microbiology 04/11/19 Catheter Tip Culture - Preliminary, Resulted Staphylococcus hominis 04/06/19 Gram Stain - Final, Complete 04/06/19 Sputum Culture - Final, Complete Lactobacillus rhamnosus See Comments 04/02/19 Gram Stain - Final, Complete 04/02/19 Anaerobic Culture - Final, Complete Bacteroides thetaiotaomicron See Comments 04/02/19 Surgical Culture - Final, Complete Lactobacillus rhamnosus Enterococcus faecalis See Comments 04/02/19 Urine Culture - Final, Complete NO GROWTH Assessment/Plan Assessment/Plan (1) Bowel perforation Status: Acute Assessment & Plan: 04/11: S/p Ex Lap 04/12: On Meropneum and Eraxis 04/13: Pain improving, encouraged OOB (2) Respiratory failure Status: Resolved (3) Postoperative anemia Status: Acute Assessment & Plan: 04/12: Iron studies pending, consider IV iron replacement (4) Hypokalemia Status: Resolved (5) Colostomy in place Status: Acute (6) S/P exploratory laparotomy Status: Acute (7) Peritonitis (8) Bilateral pneumonia Status: Acute Assessment & Plan: 04/13: Dr Glass consulted and following patient Qualifiers: Qualified Codes: J18.9 - Pneumonia, unspecified organism (9) Bilateral pleural effusion Status: Acute Assessment & Plan: 04/13: Lasix per Dr Glass (10) Iron deficiency anemia Status: Acute Assessment & Plan: 04/13: Start Venofer Qualifiers: Qualified Codes: D50.8 - Other iron deficiency anemias Clinical Quality Measures DVT/VTE Risk/Contraindication: Risk Factor Score Per Nursin RFS Level Per Nursing on Admit: 4+=Very High LAKESHA CHACKO MD Apr 13, 2019 15:58
[2019-04-13 16:29] VITALS: BP 117/79
[2019-04-13] MEDS: IRON SUCROSE 200 MG/10 ML (VENOFER) VIAL IV SCH (18:12)
[2019-04-13 20:00] VITALS: BP 123/77
[2019-04-14] VITALS (7 sets, daily range): BP systolic 117–133; BP diastolic 72–84
[2019-04-14] MEDS: RT-ALBUTEROL/IPRATROPIUM 3 ML (DUONEB) VIAL INH SCH ×5 (02:29→23:05)
[2019-04-14] MEDS: MEROPENEM 500 MG in WATER (STERILE) FOR INJECTION 10 ML IV SCH (02:31)
[2019-04-14] MEDS: KCL 20 MEQ TAB (K-DUR) PO SCH (05:29)
[2019-04-14] MEDS: IBUPROFEN 600 MG (MOTRIN) TAB PO SCH ×4 (05:29→23:59)
--- NOTE | 2019-04-14 07:42 | Progress Note - Surgery ---
POLI LARIOS,MED STUDENT 04/14/19 0742: Subjective Date Seen by a Provider: Apr 14, 2019 Time Seen by a Provider: 07:12 Subjective/Events-last exam Patient seen and examined this morning. She is sleeping comfortably as I enter the room. She states she slept much better last night, and being out of the ICU helped. She also states her stomach pain is better than yesterday, and she ate well last night. Review of Systems General: No Chills, No Night Sweats HEENT: No Head Aches Pulmonary: No Dyspnea, No Cough Cardiovascular: Edema; No: Chest Pain, Palpitations Gastrointestinal: Abdominal Pain (mild); No: Nausea, Vomiting Objective Exam Vital Signs Date Time Temp Pulse Resp B/P (MAP) Pulse Ox O2 Delivery O2 Flow Rate FiO2 04/14/19 07:21 92 Room Air 04/14/19 04:00 36.2 87 18 127/78 (94) 95 Room Air 04/14/19 02:28 92 Room Air 04/14/19 00:00 36.3 89 20 125/77 (93) 95 Room Air 04/13/19 23:44 94 Room Air 04/13/19 20:00 36.4 90 18 123/77 (92) 96 Room Air 04/13/19 20:00 Room Air 04/13/19 19:41 95 Room Air 04/13/19 16:29 36.3 90 20 117/79 (92) 98 Room Air 04/13/19 15:36 98 Room Air 04/13/19 12:00 36.0 82 18 127/74 (91) 97 Room Air 04/13/19 11:19 96 Room Air 0.00 04/13/19 10:40 36.0 92 18 112/72 (85) 97 Room Air 04/13/19 10:35 97 Room Air 04/13/19 09:00 97 Room Air 04/13/19 08:30 132/87 (102) I & O 04/14/19 07:00 Intake Total 1700 ml Output Total 1400 ml Balance 300 ml Capillary Refill : Less Than 3 SecondsLess Than 3 Seconds General Appearance: No Apparent Distress, WD/WN HEENT: PERRL/EOMI, Moist Mucous Membranes, Other (poor dentition) Neck: Non Tender; No Lymphadenopathy (L), No Lymphadenopathy (R) Respiratory: Lungs Clear, No Accessory Muscle Use, No Respiratory Distress, Decreased Breath Sounds (bases) Cardiovascular: Regular Rate, Rhythm, No Murmur Peripheral Pulses: 2+ Dorsalis Pedis (R), 2+ Left Dors-Pedis (L), 2+ Radial Pulses (R), 2+ Radial Pulses (L) Gastrointestinal: soft, distended (minimally), tenderness (worse in RLQ), other (colostomy pink with good function) Extremity: Pedal Edema (minimal), Swelling (bilateral hands, improving) Neurologic/Psychiatric: Alert, Normal Mood/Affect Skin: Normal Color, Warm/Dry, Other (abdominal incisions without drainage or erythema) Results Lab Microbiology 04/11/19 Catheter Tip Culture - Preliminary, Resulted Staphylococcus hominis 04/06/19 Gram Stain - Final, Complete 04/06/19 Sputum Culture - Final, Complete Lactobacillus rhamnosus See Comments 04/02/19 Gram Stain - Final, Complete 04/02/19 Anaerobic Culture - Final, Complete Bacteroides thetaiotaomicron See Comments 04/02/19 Surgical Culture - Final, Complete Lactobacillus rhamnosus Enterococcus faecalis See Comments 04/02/19 Urine Culture - Final, Complete NO GROWTH Assessment/Plan Assessment/Plan Assessment/Plan Assessment: -s/p Consuelo's procedure -s/p colostomy revision Plan: Continue with current care. Patient reassured that if she has any concerns she can let us know. Clinical Quality Measures DVT/VTE Risk/Contraindication: Risk Factor Score Per Nursin RFS Level Per Nursing on Admit: 4+=Very High ARON ARRIAGA DO 04/14/19 1125: Subjective Time Seen by a Provider: 11:14 Subjective/Events-last exam Pt seen and examined, states pain is controlled with oral meds. Still not eating enough, is drinking some ensure shakes. Objective Exam General Appearance: No Apparent Distress Respiratory: Lungs Clear, No Accessory Muscle Use, Decreased Breath Sounds (at bases, ?? better than yesterday) Gastrointestinal: soft, tenderness (better than yesterday), other (colostomy pink with good function) Assessment/Plan Assessment/Plan Assessment/Plan Increase diet especially protein, continue IS use and will try and get pt home tomorrow. Supervisory-Addendum Brief Verification & Attestation Participated in pt care: history, MDM, physical Personally performed: exam, history, MDM Care discussed with: Medical Student Procedures: n/a Verification and Attestation of Medical Student E/M Service A medical student performed and documented this service in my presence. I reviewed and verified all information documented by the medical student and made modifications to such information, when appropriate. I personally performed the physical exam and medical decision making. Aron Arriaga, Apr 14, 2019,11:24 POLI LARIOS,AJITH STUDENT Apr 14, 2019 07:42 ARON ARRIAGA DO Apr 14, 2019 11:25
[2019-04-14] MEDS: FLUoxetine HCL 20 MG (PROzac) CAP PO SCH (08:41)
[2019-04-14] MEDS: FUROSEMIDE 40 MG/4 ML INJ (LASIX) IVP SCH (08:41)
[2019-04-14] MEDS: ENOXAPARIN 40 MG/0.4 ML (LOVENOX) SYR SC SCH (08:42)
[2019-04-14] MEDS: NICOTINE 21 MG (NICODERM) PATCH TD SCH (08:42)
[2019-04-14] MEDS: PANTOPRAZOLE 40 MG (PROTONIX) TAB PO SCH (08:42)
[2019-04-14] MEDS: NICOTINE PATCH REMOVAL TP SCH (08:43)
[2019-04-14] MEDS: ANIDULAFUNGIN INJECTION 100 MG in NS (IVPB) 100 ML IV SCH (08:43)
--- NOTE | 2019-04-14 09:30 | NUR ---
[facility] Received notification of denial for admission from patient's insurance provider. SW and Dr. Batres notified. Awaiting Dr. Batres's decision in regards to [id number]. Will continue to follow.
[2019-04-14] MEDS ORDERED: SPIRONOLACTONE 25 MG (ALDACTONE) TAB PO NR (09:45)
--- NOTE | 2019-04-14 09:47 | Pulmonary Progress Note ---
Subjective Time Seen by a Provider: 09:45 Sepsis Event Evaluation Height, Weight, BMI Height: '" Weight: lbs. oz. kg; 31.84 BMI Method: Exam Exam Vital Signs Date Time Temp Pulse Resp B/P (MAP) Pulse Ox O2 Delivery O2 Flow Rate FiO2 04/14/19 08:00 35.9 91 18 117/77 (90) 94 Room Air 04/14/19 07:21 92 Room Air 04/14/19 04:00 36.2 87 18 127/78 (94) 95 Room Air 04/14/19 02:28 92 Room Air 04/14/19 00:00 36.3 89 20 125/77 (93) 95 Room Air 04/13/19 23:44 94 Room Air 04/13/19 20:00 36.4 90 18 123/77 (92) 96 Room Air 04/13/19 20:00 Room Air 04/13/19 19:41 95 Room Air 04/13/19 16:29 36.3 90 20 117/79 (92) 98 Room Air 04/13/19 15:36 98 Room Air 04/13/19 12:00 36.0 82 18 127/74 (91) 97 Room Air 04/13/19 11:19 96 Room Air 0.00 04/13/19 10:40 36.0 92 18 112/72 (85) 97 Room Air 04/13/19 10:35 97 Room Air I & O 04/14/19 07:00 Intake Total 2520 ml Output Total 2950 ml Balance -430 ml Height & Weight Height: '" Weight: lbs. oz. kg; 31.84 BMI Method: General Appearance: No Apparent Distress, WD/WN HEENT: PERRL/EOMI, Moist Mucous Membranes, Other (poor dentition) Neck: Non Tender; No Lymphadenopathy (L), No Lymphadenopathy (R) Respiratory: Lungs Clear, No Accessory Muscle Use, No Respiratory Distress, Decreased Breath Sounds (bases) Cardiovascular: Regular Rate, Rhythm, No Murmur Capillary Refill: Less Than 3 Seconds Peripheral Pulses: 2+ Dorsalis Pedis (R), 2+ Left Dors-Pedis (L), 2+ Radial Pulses (R), 2+ Radial Pulses (L) Gastrointestinal: soft, distended (minimally), tenderness (worse in RLQ), other (colostomy pink with good function) Extremity: Pedal Edema (minimal), Swelling (bilateral hands, improving) Neurologic/Psychiatric: Alert, Normal Mood/Affect Skin: Normal Color, Warm/Dry, Other (abdominal incisions without drainage or erythema) Results Lab Laboratory Tests 04/13/19 03:15 Assessment/Plan Assessment/Plan S/p colostomy revision 04/05/19 Bilateral peumonia -Leukocytosis - improving - CT of chest abd/pelvis reviewed Merrem, and Eraxis Bilateral Right > left pleural effusions -Pt does not want thoracentesis -Continue Lasix Atelectasis -IS -Increase activity Hypokalemia -Monitor Severe sepsis with Sigmoid Perforation s/p resection with colostomy Pelvic mass s/p resection/ bilateral oophorectomy 03/29/19 Hx of endometriosis Hx of methamphetamine and marijuana TOY SAEZ DO Apr 14, 2019 09:47
--- NOTE | 2019-04-14 10:01 | Physical Therapy Daily Note ---
PT Daily Note-Current Subjective Patient agreeable to therapy and reports doing her exercises IND in her room. Patient states she is feeling better and has been eating more food. Patient reports no pain at this time. Appearance Patient in recliner with feet up, call light and bedside table within reach. Mental Status Patient Orientation: Person, Place, Time, Situation Attachments: IV Transfers SCALE: Activities may be completed with or without assistive devices. 7-Mdrttjzsit-jzeqtme completes the activity by him/herself with no assistance from a helper. 5-Set-up or Clean-up Assistance-helper sets up or cleans up; patient completes activity. [place] assists only prior to or following the activity. 4-Supervision or Touching Assistance-helper provides verbal cues and/or touching/steadying and/or contact guard assistance as patient completes activity. Assistance may be provided throughout the activity or intermittently. 3-Partial/Moderate Assistance-helper does LESS THAN HALF the effort. Criders lifts, holds or supports trunk or limbs, but provides less than half the effort. 2-Substantial/Maximal Assistance-helper does MORE THAN HALF the effort. Criders lifts or holds trunk or limbs and provides more than half the effort. 7-Zxwewqkgd-xovola does ALL the effort. Patient does none of the effort to complete the activity. Or, the assistance of 2 or more helpers is required for the patient to complete the activity. If activity was not attempted, code reason: 7-Patient Refused. 9-Not Applicable-not attempted and the patient did not perform the activity before the current illness, exacerbation or injury. 10-Not Attempted due to Environmental Limitations-(lack of equipment, weather restraints, etc.). 88-Not Attempted due to Medical Conditions or Safety Concerns. Roll Left & Right (QC): 6 Sit to Lying (QC): 6 Lying to Sitting/Side of Bed(Q: 6 Sit to Stand (QC): 4 Chair/Vkf-ur-Otspd Xfer(QC): 4 Toilet Transfer (QC): 4 CGA for safety. Weight Bearing Right Lower Extremity: Right Weight Bearing/Tolerated Left Lower Extremity: Left Weight Bearing/Tolerated Gait Training Does the Patient Walk?: Yes Distance: 130' Walk 10 feet (QC): 4 Walk 50 ft with 2 Turns(QC): 4 Gait Persons Needed: 1 Gait Assistive Device: FWW CGA for safety. Wheelchair Training Does the Pt Use a Wheelchair?: No Treatments Ambulation, transfers. Assessment Current Status: Good Progress Patient appears to be feeling better today. Patient has no LOB during ambulation and reports less dizziness when she looks down compared to looking up. PT Cuff Setter Lockstitch Goals Skilled Nursing Goals PT Cuff Setter Lockstitch Goals Time Frame: Apr 22, 2019 Roll Left & Right (QC): 5 Sit to Lying (QC): 5 Lying-Sitting on Side/Bed(QC): 5 Sit to Stand (QC): 5 Chair/Urk-wn-Kcxtf Xfer(QC): 5 Does the Patient Walk: Yes Walk 10 feet (QC): 3 Walk 50ft with 2 Turns (QC): 3 Walk 150 ft (QC): 3 PT Plan Problem List Problem List: Activity Tolerance, Functional Strength, Safety, Balance, Gait, Transfer, Bed Mobility Treatment/Plan Treatment Plan: Continue Plan of Care Treatment Plan: Bed Mobility, Education, Functional Activity Darius, Functional Strength, Gait, Safety, Therapeutic Exercise, Transfers Treatment Duration: Apr 22, 2019 Frequency: 6 times per week Estimated Hrs Per Day: .25 hour per day Patient and/or Family Agrees t: Yes Safety Risks/Education Patient Education: Gait Training, Transfer Techniques Teaching Recipient: Patient Teaching Methods: Discussion Response to Teaching: Reinforcement Needed Time/GCodes Time In: 919 Time Out: 934 Total Billed Treatment Time: 15 Total Billed Treatment 1 visit FA (15 minutes) VICKEY SUMMERS PT Apr 14, 2019 10:01
--- NOTE | 2019-04-14 10:14 | Pulmonary Progress Note ---
Subjective Time Seen by a Provider: 10:13 Sepsis Event Evaluation Height, Weight, BMI Height: '" Weight: lbs. oz. kg; 31.84 BMI Method: Exam Exam Vital Signs Date Time Temp Pulse Resp B/P (MAP) Pulse Ox O2 Delivery O2 Flow Rate FiO2 04/14/19 10:11 94 Room Air 0.00 04/14/19 08:00 35.9 91 18 117/77 (90) 94 Room Air 04/14/19 07:21 92 Room Air 04/14/19 04:00 36.2 87 18 127/78 (94) 95 Room Air 04/14/19 02:28 92 Room Air 04/14/19 00:00 36.3 89 20 125/77 (93) 95 Room Air 04/13/19 23:44 94 Room Air 04/13/19 20:00 36.4 90 18 123/77 (92) 96 Room Air 04/13/19 20:00 Room Air 04/13/19 19:41 95 Room Air 04/13/19 16:29 36.3 90 20 117/79 (92) 98 Room Air 04/13/19 15:36 98 Room Air 04/13/19 12:00 36.0 82 18 127/74 (91) 97 Room Air 04/13/19 11:19 96 Room Air 0.00 04/13/19 10:40 36.0 92 18 112/72 (85) 97 Room Air 04/13/19 10:35 97 Room Air I & O 04/14/19 07:00 Intake Total 2520 ml Output Total 2950 ml Balance -430 ml Height & Weight Height: '" Weight: lbs. oz. kg; 31.84 BMI Method: General Appearance: No Apparent Distress, WD/WN HEENT: PERRL/EOMI, Moist Mucous Membranes, Other (poor dentition) Neck: Non Tender; No Lymphadenopathy (L), No Lymphadenopathy (R) Respiratory: Lungs Clear, No Accessory Muscle Use, No Respiratory Distress, Decreased Breath Sounds (bases) Cardiovascular: Regular Rate, Rhythm, No Murmur Capillary Refill: Less Than 3 Seconds Peripheral Pulses: 2+ Dorsalis Pedis (R), 2+ Left Dors-Pedis (L), 2+ Radial Pulses (R), 2+ Radial Pulses (L) Gastrointestinal: soft, distended (minimally), tenderness (worse in RLQ), other (colostomy pink with good function) Extremity: Pedal Edema (minimal), Swelling (bilateral hands, improving) Neurologic/Psychiatric: Alert, Normal Mood/Affect Skin: Normal Color, Warm/Dry, Other (abdominal incisions without drainage or erythema) Results Lab Laboratory Tests 04/13/19 03:15 Assessment/Plan Assessment/Plan S/p colostomy revision 04/05/19 Bilateral peumonia -Leukocytosis - improving - CT of chest abd/pelvis reviewed Merrem, and d/c Eraxis Bilateral Right > left pleural effusions -Pt does not want thoracentesis -Continue Lasix Atelectasis -IS -Increase activity Hypokalemia -Monitor Severe sepsis with Sigmoid Perforation s/p resection with colostomy Pelvic mass s/p resection/ bilateral oophorectomy 03/29/19 Hx of endometriosis Hx of methamphetamine and marijuana TOY SAEZ DO Apr 14, 2019 10:14
--- NOTE | 2019-04-14 11:20 | Occupational Ther Daily Note ---
OT Current Status-Daily Note Subjective No pain reported. Appearance Pt. up in chair. Agreeable to shower. Mental Status/Objective Patient Orientation: Person, Place, Time, Situation ADL-Treatment Therapy Code Descriptions/Definitions Functional [place] Measure: 0=Not Assessed/NA 4=Minimal Assistance 1=Total Assistance 5=Supervision or Setup 2=Maximal Assistance 6=Modified [place] 3=Moderate Assistance 7=Complete IndependenceSCALE: Activities may be completed with or without assistive devices. 7-Fwhtztegip-hixipgh completes the activity by him/herself with no assistance from a helper. 5-Set-up or Clean-up Assistance-helper sets up or cleans up; patient completes activity. [place] assists only prior to or following the activity. 4-Supervision or Touching Assistance-helper provides verbal cues and/or touching/steadying and/or contact guard assistance as patient completes activity. Assistance may be provided throughout the activity or intermittently. 3-Partial/Moderate Assistance-helper does LESS THAN HALF the effort. [place] lifts, holds or supports trunk or limbs, but provides less than half the effort. 2-Substantial/Maximal Assistance-helper does MORE THAN HALF the effort. [place] lifts or holds trunk or limbs and provides more than half the effort. 8-Miewzagsp-omnadk does ALL the effort. Patient does none of the effort to complete the activity. Or, the assistance of 2 or more helpers is required for the patient to complete the activity. If activity was not attempted, code reason: 7-Patient Refused. 9-Not Applicable-not attempted and the patient did not perform the activity before the current illness, exacerbation or injury. 10-Not Attempted due to Environmental Limitations-(lack of equipment, weather restraints, etc.). 88-Not Attempted due to Medical Conditions or Safety Concerns. Eating (QC): 6 Shower/Bathe Self (QC): 3 (Min assist in stance to thoroughly wash rear radha area.) On/Off Footwear: 2 (Pt. has difficulty in shower doffing/donning slipper socks.) Toileting Hygiene (QC): 4 (SBA) Toilet Transfer (QC): 4 (SBA) Other Treatment Pt. reports that the shower fatigues her greatly. Ambulated to reclining chair in room after shower. Pt. able to brush her hair. OT applied warm blankets and pt. with call light and table. All needs met. Education OT Patient Education: Correct positioning, Modified ADL techniques, Progress toward Goal/Update tx plan, Purpose of tx/functional activities, Reviewed precautions, Rehab process, Transfer techniques Teaching Recipient: Patient Teaching Methods: Demonstration, Discussion Response to Teaching: Verbalize Understanding, Return Demonstration OT Short Term Goals Short Term Goals Time Frame: Apr 20, 2019 Eatin (met) Oral hygiene: 3 Toileting hygiene: 2 Shower/bathe self: 2 (met) Upper body dressin (met) Lower body dressin Putting on/taking off footwear: 2 OT Product Safety Manager Goals Product Safety Manager Goals Time Frame: May 04, 2019 Eating (QC): 5 Oral Hygiene (QC): 5 Toileting Hygiene (QC): 4 Shower/Bathe Self (QC): 4 Upper Body Dressing (QC): 5 Lower Body Dressing (QC): 4 On/Off Footwear (QC): 4 Additional Goals: 1-Demonstrate ADL Tasks, 2-Verbalize Understanding, 3- ImproveStrength/Darius 1=Demonstrate adherence to instructed precautions during ADL tasks. 2=Patient will verbalize/demonstrate understanding of assistive devices/modifications for ADL. 3=Patient will improve strength/tolerance for activity to enable patient to perform ADL's. OT Education/Plan Problem List/Assessment Assessment: Decreased Activ Tolerance, Decreased UE Strength, Impaired I ADL's, Impaired Self-Care Skills Discharge Recommendations Plan/Recommendations: Continue POC Therapy Discharge Recommendati: Post Acute OT Treatment Plan/Plan of Care Treatment,Training & Education: Yes Patient would benefit from OT for education, treatment and training to promote independence in ADL's, mobility, safety and/or upper extremity function for ADL's. Plan of Care: ADL Retraining, Functional Mobility, UE Funct Exercise/Act Treatment Duration: May 04, 2019 Frequency: 5 times per week Estimated Hrs Per Day: .5 hour per day Agreement: Yes Rehab Potential: Good Time/GCodes Start Time: 10:30 Stop Time: 11:10 Total Time Billed (hr/min): 40 Billed Treatment Time 1, ADL x 3 RAJAN MARCELINO OT Apr 14, 2019 11:20
--- NOTE | 2019-04-14 12:00 | Progress Note ---
Subjective Subjective/Events-last exam Doing better this AM. States that her anxiety is better since coming out of the ICU. Tolerating PO diet. Good output from ostomy. Ambulating with walker. Review of Systems Pulmonary: Dyspnea Cardiovascular: Lt Headedness (last night); No: Chest Pain, Palpitations Gastrointestinal: Abdominal Pain; No: Nausea, Vomiting Genitourinary: No Dysuria, No Frequency, No Incontinence Neurological: Weakness, Incoordination Objective Exam Last Set of Vital Signs Vital Signs Date Time Temp Pulse Resp B/P (MAP) Pulse Ox O2 Delivery O2 Flow Rate FiO2 04/14/19 11:23 95 Room Air 04/14/19 10:11 0.00 04/14/19 08:00 35.9 91 18 117/77 (90) 04/08/19 09:54 30 Capillary Refill : Less Than 3 SecondsLess Than 3 Seconds I&O Intake and Output 04/14/19 00:00 Intake Total 1970 ml Output Total 1900 ml Balance 70 ml Intake Oral 1940 ml IV Total 30 ml Output Urine Total 1900 ml # Voids 5 # Bowel Movements 2 General: Alert, Oriented X3, Cooperative, No Acute Distress Lungs: Clear to Auscultation, Normal Air Movement Heart: Regular Rate, No Murmurs Abdomen: Normal Bowel Sounds, Soft, Other (incisional ttp) Neuro: Normal Speech, Sensation Intact, Cranial Nerves 3-12 NL Results/Procedures Lab Microbiology 04/11/19 Catheter Tip Culture - Final, Complete Staphylococcus hominis 04/06/19 Gram Stain - Final, Complete 04/06/19 Sputum Culture - Final, Complete Lactobacillus rhamnosus See Comments 04/02/19 Gram Stain - Final, Complete 04/02/19 Anaerobic Culture - Final, Complete Bacteroides thetaiotaomicron See Comments 04/02/19 Surgical Culture - Final, Complete Lactobacillus rhamnosus Enterococcus faecalis See Comments 04/02/19 Urine Culture - Final, Complete NO GROWTH Assessment/Plan Assessment/Plan (1) Bowel perforation Status: Acute Assessment & Plan: 04/11: S/p Ex Lap 04/12: On Meropneum and Eraxis 04/13: Pain improving, encouraged OOB 04/14: Improving since leaving ICU, plan for d.c home tomorrow with (2) Respiratory failure Status: Resolved (3) Postoperative anemia Status: Acute Assessment & Plan: 04/12: Iron studies pending, consider IV iron replacement 04/14: Venofer given yesterday and plan for dose tomorrow prior to d/c (4) Hypokalemia Status: Resolved (5) Colostomy in place Status: Acute Assessment & Plan: 04/14: Wound care to do teaching today (6) S/P exploratory laparotomy Status: Acute (7) Peritonitis (8) Bilateral pneumonia Status: Acute Assessment & Plan: 04/13: Dr Glass consulted and following patient Qualifiers: Qualified Codes: J18.9 - Pneumonia, unspecified organism (9) Bilateral pleural effusion Status: Acute Assessment & Plan: 04/13: Lasix per Dr Glass (10) Iron deficiency anemia Status: Acute Assessment & Plan: 04/13: Start Venofer Qualifiers: Qualified Codes: D50.8 - Other iron deficiency anemias Clinical Quality Measures DVT/VTE Risk/Contraindication: Risk Factor Score Per Nursin RFS Level Per Nursing on Admit: 4+=Very High ALKESHA CHACKO MD Apr 14, 2019 12:00
[2019-04-14 12:10] LABS: BASOPHILS % (AUTO) 0 % (0-10); EOSINOPHILS # (AUTO) 0.1 10^3/uL (0.0-0.3); EOSINOPHILS % (AUTO) 1 % (0-10); HEMATOCRIT 30 % (35-52); LYMPHOCYTES # (AUTO) 1.3 X 10^3 (1.0-4.0); LYMPHOCYTES % (AUTO) 10 % (12-44); MEAN CORPUSCULAR HEMOGLOBIN 29 PG (25-34); MEAN CORPUSCULAR HGB CONC 33 G/DL (32-36); MEAN CORPUSCULAR VOLUME 90 FL (80-99); MEAN PLATELET VOLUME 9.5 FL (7.4-10.4); MONOCYTES # (AUTO) 1.3 X 10^3 (0.0-1.0); MONOCYTES % (AUTO) 11 % (0-12); NEUTROPHILS # (AUTO) 9.8 X 10^3 (1.8-7.8); NEUTROPHILS % (AUTO) 78 % (42-75); PLATELET COUNT 726 10^3/uL (130-400); RED CELL DISTRIBUTION WIDTH 14.8 % (10.0-14.5); WHITE BLOOD COUNT 12.5 10^3/uL (4.3-11.0)
[2019-04-14 12:13] LABS: HEMOGLOBIN 9.6 G/DL (11.5-16.0)
[2019-04-14 12:30] LABS: ALANINE AMINOTRANSFERASE 44 U/L (0-55); ALKALINE PHOSPHATASE 118 U/L (40-136); BILIRUBIN,TOTAL 0.5 MG/DL (0.1-1.0); BUN/CREATININE RATIO 11; CALCIUM 9.3 MG/DL (8.5-10.1); CARBON DIOXIDE 25 MMOL/L (21-32); CHLORIDE 103 MMOL/L (98-107); CREATININE SERUM 0.64 MG/DL (0.60-1.30); GFR ESTIMATED > 60; GLUCOSE 95 MG/DL (70-105); MAGNESIUM 2.1 MG/DL (1.6-2.4); PHOSPHORUS 4.1 MG/DL (2.3-4.7); POTASSIUM 4.2 MMOL/L (3.6-5.0); SODIUM 139 MMOL/L (135-145); TOTAL PROTEIN 7.7 GM/DL (6.4-8.2)
--- NOTE | 2019-04-14 13:08 | NUR ---
"RD ASSESSMENT PMHx: s/p colostomy resection; hx of methamphetamine/marijuana use PT INTERACTION: Pt was awake and pleasant during nutrition follow-up. Pt states eating better since last assessment. Note avg PO intake of 36% x4d, per chart review. Pt states no issues with n/v/c/d since last assessment. Pt states no issues with chewing/swallowing food since last assessment. Note last BM was 04/13 and pt not currently on bowel regimen per chart review. ABNORMAL NUTRITION-RELATED LAB VALUES LOW: BUN 4; cr 0.54; Ca 7.9; Pro 5.8; alb 2.3 HIGH: AST 57 Est. kcal needs: 9838-1734 kcal | 15-20 kcal/kg Est. Pro needs: 84-101 g Pro | 1.0-1.2 g Pro/kg PES STATEMENT: Inadequate oral intake (NI-2.1) related to loss of appetite as evidenced by pt interview | avg PO intake 36% x4d INTERVENTION: Note current diet order of DYS3 Advanced diet. Would recommend switching to Regular diet, as pt has no current issues with chewing/swallowing food. Recommend switching from Ensure Clear (vary) with meals TID to Ensure Enlive with meals TID, for increased kcal intake. Ensure Enlive provides 350 kcal and 13 g Pro per serving. Will continue to follow and reassess as pt needs and status change. MONITOR/EVALUATE: PO Intake; Plan of Care; Hydration Status; Weight Status; Lab Values Megan Padron, MS, RD, LD"
--- NOTE | 2019-04-14 15:38 | NUR ---
Met with pt to discuss continued care options as learned that her insurance denied approval of Acute Rehab stay. Discuss options of short-term residential care or home with family with Home Health care. Pt states she continues to feel dizzy and light-headed and almost fell in her room today so would like to remain here at least till Thursday. She would like the opportunity to talk to her family about possible options of care. She apparently lives alone with her 11 year old autistic son in [place]. She states that she has 6 steps to get into her home and is unsure she can manage steps even with a Front wheel walker. When discussing possible short-term residential placement she has no idea without first talking with her sister and grandmother. She states it's been difficult walking any distance with therapy as due to her prescribed Lasix once she gets up she continually has to urinate in effort to lessen her built up fluid. She also states that she is"just starting to eat regular food" and a consult with Joe NOLAN Colostomy care is pending. will follow to assist with continued care plans.
--- NOTE | 2019-04-14 15:45 | NUR ---
Spoke with pt reference new colostomy. Pt reports that she has worked as a [employer] in the past and is some what familiar with colostomy. Reviewed colostomy teaching with pt and faxed application to [facility]. Pt verbalized understanding ostomy care and had no further questions.
--- NOTE | 2019-04-14 23:16 | NUR ---
patient regused bipap. Addendum: 04/14/19 at 2317 by VICKEY ROTH RT Amended: Links added.
[2019-04-15] MEDS: RT-ALBUTEROL/IPRATROPIUM 3 ML (DUONEB) VIAL INH SCH ×4 (01:31→10:15)
[2019-04-15 04:14] VITALS: BP 133/82
[2019-04-15] MEDS: IBUPROFEN 600 MG (MOTRIN) TAB PO SCH ×2 (05:20→12:11)
[2019-04-15] MEDS: KCL 20 MEQ TAB (K-DUR) PO SCH (05:20)
--- NOTE | 2019-04-15 05:43 | Pulmonary Progress Note ---
Subjective Time Seen by a Provider: 05:41 Sepsis Event Evaluation Height, Weight, BMI Height: '" Weight: lbs. oz. kg; 31.84 BMI Method: Exam Exam Vital Signs Date Time Temp Pulse Resp B/P (MAP) Pulse Ox O2 Delivery O2 Flow Rate FiO2 04/15/19 04:14 36.5 92 18 133/82 (99) 95 Room Air 04/15/19 02:58 92 Room Air 04/14/19 23:59 36.7 87 18 133/84 (100) 95 Room Air 04/14/19 23:05 93 Room Air 04/14/19 20:00 36.6 95 20 128/74 (92) 97 Room Air 04/14/19 20:00 Room Air 04/14/19 16:00 36.4 92 20 128/72 (90) 96 Room Air 04/14/19 12:00 36.0 84 18 118/83 (95) 93 Room Air 04/14/19 11:23 95 Room Air 04/14/19 10:11 94 Room Air 0.00 04/14/19 09:00 94 Room Air 0.00 04/14/19 08:00 35.9 91 18 117/77 (90) 94 Room Air 04/14/19 07:21 92 Room Air I & O 04/15/19 07:00 Intake Total 2410 ml Output Total 4775 ml Balance -2365 ml Height & Weight Height: '" Weight: lbs. oz. kg; 31.84 BMI Method: General Appearance: No Apparent Distress HEENT: PERRL/EOMI, Moist Mucous Membranes, Other (poor dentition) Neck: Non Tender; No Lymphadenopathy (L), No Lymphadenopathy (R) Respiratory: Lungs Clear, No Accessory Muscle Use, Decreased Breath Sounds (at bases, ?? better than yesterday) Cardiovascular: Regular Rate, Rhythm, No Murmur Capillary Refill: Less Than 3 Seconds Peripheral Pulses: 2+ Dorsalis Pedis (R), 2+ Left Dors-Pedis (L), 2+ Radial Pulses (R), 2+ Radial Pulses (L) Gastrointestinal: soft, tenderness (better than yesterday), other (colostomy pink with good function) Extremity: Pedal Edema (minimal), Swelling (bilateral hands, improving) Neurologic/Psychiatric: Alert, Normal Mood/Affect Skin: Normal Color, Warm/Dry, Other (abdominal incisions without drainage or erythema) Results Lab Laboratory Tests 04/14/19 12:03 Assessment/Plan Assessment/Plan S/p colostomy revision 04/05/19 Bilateral peumonia Merrem - was d/c'd yesterday -Continue daily labs and monitor Bilateral Right > left pleural effusions -Pt does not want thoracentesis -Continue Lasix Atelectasis -IS -Increase activity Hypokalemia -Monitor Severe sepsis with Sigmoid Perforation s/p resection with colostomy Pelvic mass s/p resection/ bilateral oophorectomy 03/29/19 Hx of endometriosis Hx of methamphetamine and marijuana TOY SAEZ DO Apr 15, 2019 05:43
[2019-04-15 05:53] LABS: BASOPHILS % (AUTO) 0 % (0-10); EOSINOPHILS # (AUTO) 0.1 10^3/uL (0.0-0.3); EOSINOPHILS % (AUTO) 1 % (0-10); HEMATOCRIT 26 % (35-52); HEMOGLOBIN 8.2 G/DL (11.5-16.0); LYMPHOCYTES # (AUTO) 1.2 X 10^3 (1.0-4.0); LYMPHOCYTES % (AUTO) 12 % (12-44); MEAN CORPUSCULAR HEMOGLOBIN 29 PG (25-34); MEAN CORPUSCULAR HGB CONC 32 G/DL (32-36); MEAN CORPUSCULAR VOLUME 90 FL (80-99); MEAN PLATELET VOLUME 9.4 FL (7.4-10.4); MONOCYTES # (AUTO) 1.1 X 10^3 (0.0-1.0); MONOCYTES % (AUTO) 11 % (0-12); NEUTROPHILS # (AUTO) 7.5 X 10^3 (1.8-7.8); NEUTROPHILS % (AUTO) 75 % (42-75); PLATELET COUNT 630 10^3/uL (130-400); RED CELL DISTRIBUTION WIDTH 14.4 % (10.0-14.5)
[2019-04-15 06:13] LABS: ALANINE AMINOTRANSFERASE 48 U/L (0-55); ALBUMIN 2.5 GM/DL (3.2-4.5); ALKALINE PHOSPHATASE 106 U/L (40-136); BILIRUBIN,TOTAL 0.4 MG/DL (0.1-1.0); BUN/CREATININE RATIO 16; CALCIUM 8.5 MG/DL (8.5-10.1); CARBON DIOXIDE 22 MMOL/L (21-32); CHLORIDE 104 MMOL/L (98-107); CREATININE SERUM 0.55 MG/DL (0.60-1.30); GFR ESTIMATED > 60; GLUCOSE 93 MG/DL (70-105); MAGNESIUM 1.9 MG/DL (1.6-2.4); PHOSPHORUS 4.8 MG/DL (2.3-4.7); POTASSIUM 4.1 MMOL/L (3.6-5.0); SODIUM 137 MMOL/L (135-145); TOTAL PROTEIN 6.5 GM/DL (6.4-8.2)
[2019-04-15 08:00] VITALS: BP 136/84
[2019-04-15] MEDS: FLUoxetine HCL 20 MG (PROzac) CAP PO SCH (08:07)
[2019-04-15] MEDS: IRON SUCROSE 200 MG/10 ML (VENOFER) VIAL IV SCH (08:08)
[2019-04-15] MEDS: NICOTINE 21 MG (NICODERM) PATCH TD SCH (08:08)
[2019-04-15] MEDS: FUROSEMIDE 40 MG/4 ML INJ (LASIX) IVP SCH (08:08)
[2019-04-15] MEDS: PANTOPRAZOLE 40 MG (PROTONIX) TAB PO SCH (08:08)
[2019-04-15] MEDS: NICOTINE PATCH REMOVAL TP SCH (08:08)
[2019-04-15] MEDS: ENOXAPARIN 40 MG/0.4 ML (LOVENOX) SYR SC SCH (08:09)
[2019-04-15] MEDS ORDERED: SPIRONOLACTONE 25 MG (ALDACTONE) TAB PO SCH (09:00)
--- NOTE | 2019-04-15 09:24 | Physical Therapy Daily Note ---
PT Daily Note-Current Subjective Patient is agreeable to therapy at this time. Patient reports no pain at this time. Patient states she is feeling better today. Appearance Patient in recliner with bedside table and call light within reach. Mental Status Patient Orientation: Person, Place, Time, Situation Transfers SCALE: Activities may be completed with or without assistive devices. 7-Hhyzegfepo-thozqde completes the activity by him/herself with no assistance from a helper. 5-Set-up or Clean-up Assistance-helper sets up or cleans up; patient completes activity. [place] assists only prior to or following the activity. 4-Supervision or Touching Assistance-helper provides verbal cues and/or touching/steadying and/or contact guard assistance as patient completes activity. Assistance may be provided throughout the activity or intermittently. 3-Partial/Moderate Assistance-helper does LESS THAN HALF the effort. [place] lifts, holds or supports trunk or limbs, but provides less than half the effort. 2-Substantial/Maximal Assistance-helper does MORE THAN HALF the effort. [place] lifts or holds trunk or limbs and provides more than half the effort. 8-Qljghpipw-kbaflf does ALL the effort. Patient does none of the effort to complete the activity. Or, the assistance of 2 or more helpers is required for the patient to complete the activity. If activity was not attempted, code reason: 7-Patient Refused. 9-Not Applicable-not attempted and the patient did not perform the activity before the current illness, exacerbation or injury. 10-Not Attempted due to Environmental Limitations-(lack of equipment, weather restraints, etc.). 88-Not Attempted due to Medical Conditions or Safety Concerns. Roll Left & Right (QC): 6 Sit to Lying (QC): 6 Lying to Sitting/Side of Bed(Q: 6 Sit to Stand (QC): 6 Chair/Kkv-nm-Bmkfl Xfer(QC): 6 Toilet Transfer (QC): 6 Weight Bearing Right Lower Extremity: Right Weight Bearing/Tolerated Left Lower Extremity: Left Weight Bearing/Tolerated Gait Training Does the Patient Walk?: Yes Distance: 400' Walk 10 feet (QC): 6 Walk 50 ft with 2 Turns(QC): 6 Walk 150 ft (QC): 6 Gait Assistive Device: FWW Patient is stable during ambulation. Wheelchair Training Does the Pt Use a Wheelchair?: No Treatments Ambulation. Transfer. Assessment Current Status: Excellent Progress Patient is steady during ambulation and has a smooth gait cycle. Her ambulation shows great progress from initial evaluation. PT instructed patient to ambulate PRN in hallway. RN notified. PT Educational Therapist Goals Educational Therapist Goals PT Educational Therapist Goals Time Frame: Apr 22, 2019 Roll Left & Right (QC): 5 Sit to Lying (QC): 5 Lying-Sitting on Side/Bed(QC): 5 Sit to Stand (QC): 5 Chair/Tat-wg-Xhszg Xfer(QC): 5 Does the Patient Walk: Yes Walk 10 feet (QC): 3 Walk 50ft with 2 Turns (QC): 3 Walk 150 ft (QC): 3 PT Plan Problem List Problem List: Activity Tolerance, Functional Strength, Balance, Gait Treatment/Plan Treatment Plan: Continue Plan of Care Treatment Plan: Bed Mobility, Education, Functional Activity Darius, Functional Strength, Gait, Safety, Therapeutic Exercise, Transfers Treatment Duration: Apr 22, 2019 Frequency: 6 times per week Estimated Hrs Per Day: .25 hour per day Patient and/or Family Agrees t: Yes Safety Risks/Education Patient Education: Gait Training, Transfer Techniques Teaching Recipient: Patient Teaching Methods: Discussion Response to Teaching: Reinforcement Needed Time/GCodes Time In: 810 Time Out: 825 Total Billed Treatment Time: 15 Total Billed Treatment 1 visit FA (15 minutes) VICKEY SUMMERS PT Apr 15, 2019 09:24
--- NOTE | 2019-04-15 09:27 | Occupational Ther Daily Note ---
OT Current Status-Daily Note Subjective Pt seen in recliner chair post-PT session. Pt states she is "tired" but not experiencing pain at the moment. Pt agreeable for toileting, denies further needs. Mental Status/Objective Patient Orientation: Normal For Age ADL-Treatment Therapy Code Descriptions/Definitions Functional [place] Measure: 0=Not Assessed/NA 4=Minimal Assistance 1=Total Assistance 5=Supervision or Setup 2=Maximal Assistance 6=Modified [place] 3=Moderate Assistance 7=Complete IndependenceSCALE: Activities may be completed with or without assistive devices. 7-Nsespmkgtr-hescbwl completes the activity by him/herself with no assistance from a helper. 5-Set-up or Clean-up Assistance-helper sets up or cleans up; patient completes activity. [place] assists only prior to or following the activity. 4-Supervision or Touching Assistance-helper provides verbal cues and/or touching/steadying and/or contact guard assistance as patient completes activity. Assistance may be provided throughout the activity or intermittently. 3-Partial/Moderate Assistance-helper does LESS THAN HALF the effort. [place] lifts, holds or supports trunk or limbs, but provides less than half the effort. 2-Substantial/Maximal Assistance-helper does MORE THAN HALF the effort. [place] lifts or holds trunk or limbs and provides more than half the effort. 1-Lvodierwc-elydtr does ALL the effort. Patient does none of the effort to complete the activity. Or, the assistance of 2 or more helpers is required for the patient to complete the activity. If activity was not attempted, code reason: 7-Patient Refused. 9-Not Applicable-not attempted and the patient did not perform the activity before the current illness, exacerbation or injury. 10-Not Attempted due to Environmental Limitations-(lack of equipment, weather restraints, etc.). 88-Not Attempted due to Medical Conditions or Safety Concerns. Toileting Hygiene (QC): 6 Toilet Transfer (QC): 4 (SUP with FWW.) Other Treatment Pt denies showering needs as she showered in shower yesterday. Pt states it wore her out, but states she was able to complete with min A with hair/ feet/ back. Pt educated on theraband exercises to assist with shoulder flexion/ scaption strength for successful hair washing. Pt states needs for urination, sit to stand SUP, completes toileting transfer SUP, hygiene IND. Pt returns to recliner, all needs met, call light in reach. Education OT Patient Education: Correct positioning, Exercise program, Home exercise program, Modified ADL techniques, Progress toward Goal/Update tx plan Teaching Recipient: Patient Teaching Methods: Demonstration, Discussion Response to Teaching: Verbalize Understanding, Return Demonstration OT Short Term Goals Short Term Goals Time Frame: Apr 20, 2019 Eatin (met) Oral hygiene: 3 Toileting hygiene: 2 (met) Shower/bathe self: 2 (met) Upper body dressin (met) Lower body dressin Putting on/taking off footwear: 2 OT Custodial Goals Button Machine Operator Goals Time Frame: May 04, 2019 Eating (QC): 5 Oral Hygiene (QC): 5 Toileting Hygiene (QC): 4 Shower/Bathe Self (QC): 4 Upper Body Dressing (QC): 5 Lower Body Dressing (QC): 4 On/Off Footwear (QC): 4 Additional Goals: 1-Demonstrate ADL Tasks, 2-Verbalize Understanding, 3- ImproveStrength/Darius 1=Demonstrate adherence to instructed precautions during ADL tasks. 2=Patient will verbalize/demonstrate understanding of assistive devices/modifications for ADL. 3=Patient will improve strength/tolerance for activity to enable patient to perform ADL's. OT Education/Plan Problem List/Assessment Assessment: Decreased Activ Tolerance, Decreased UE Strength, Impaired I ADL's, Impaired Self-Care Skills Discharge Recommendations Plan/Recommendations: Continue POC Treatment Plan/Plan of Care Treatment,Training & Education: Yes Patient would benefit from OT for education, treatment and training to promote independence in ADL's, mobility, safety and/or upper extremity function for ADL's. Plan of Care: ADL Retraining, Functional Mobility, UE Funct Exercise/Act Treatment Duration: May 04, 2019 Frequency: 5 times per week Estimated Hrs Per Day: .5 hour per day Agreement: Yes Rehab Potential: Good Time/GCodes Start Time: 08:39 Stop Time: 08:47 Total Time Billed (hr/min): 8 Billed Treatment Time 1, ADL (8) NAVNEET OSHEA OTR Apr 15, 2019 09:27
--- NOTE | 2019-04-15 10:58 | Progress Note - Surgery ---
Subjective Time Seen by a Provider: 10:49 Subjective/Events-last exam Pt seen and examined, states she feels pretty good today. She is concerned about walking at home and was wondering about a walker. Review of Systems General: No Chills, No Night Sweats Pulmonary: No Dyspnea, No Cough Cardiovascular: No: Chest Pain, Palpitations Gastrointestinal: No: Nausea, Vomiting unable to obtain, pt sedated on vent Objective Exam Vital Signs Date Time Temp Pulse Resp B/P (MAP) Pulse Ox O2 Delivery O2 Flow Rate FiO2 04/15/19 10:15 95 Room Air 04/15/19 09:00 96 Room Air 04/15/19 08:00 35.8 98 18 136/84 (101) 96 Room Air 04/15/19 04:14 36.5 92 18 133/82 (99) 95 Room Air 04/15/19 02:58 92 Room Air 04/14/19 23:59 36.7 87 18 133/84 (100) 95 Room Air 04/14/19 23:05 93 Room Air 04/14/19 20:00 36.6 95 20 128/74 (92) 97 Room Air 04/14/19 20:00 Room Air 04/14/19 16:00 36.4 92 20 128/72 (90) 96 Room Air 04/14/19 12:00 36.0 84 18 118/83 (95) 93 Room Air 04/14/19 11:23 95 Room Air I & O 04/15/19 07:00 Intake Total 2710 ml Output Total 5650 ml Balance -2940 ml Capillary Refill : Less Than 3 SecondsLess Than 3 Seconds General Appearance: No Apparent Distress HEENT: PERRL/EOMI, Moist Mucous Membranes, Other (poor dentition) Respiratory: Lungs Clear, No Accessory Muscle Use Cardiovascular: Regular Rate, Rhythm, No Murmur Peripheral Pulses: 2+ Dorsalis Pedis (R), 2+ Left Dors-Pedis (L), 2+ Radial Pulses (R), 2+ Radial Pulses (L) Gastrointestinal: soft, tenderness (minimal along midline incision), other (colostomy pink with good function) Extremity: No Calf Tenderness, Pedal Edema (minimal), Swelling (bilateral hands, improving) Skin: Other (abdominal incisions without drainage or erythema) Results Lab Laboratory Tests 04/14/19 12:03: White Blood Count 12.5H, Red Blood Count 3.29L, Hemoglobin 9.6#L, Hematocrit 30L , Mean Corpuscular Volume 90, Mean Corpuscular Hemoglobin 29, Mean Corpuscular Hemoglobin Concent 33, Red Cell Distribution Width 14.8H, Platelet Count 726H, Mean Platelet Volume 9.5, Neutrophils (%) (Auto) 78H, Lymphocytes (%) (Auto) 10L , Monocytes (%) (Auto) 11, Eosinophils (%) (Auto) 1, Basophils (%) (Auto) 0, Neutrophils # (Auto) 9.8H, Lymphocytes # (Auto) 1.3, Monocytes # (Auto) 1.3H, Eosinophils # (Auto) 0.1, Basophils # (Auto) 0.0, Sodium Level 139, Potassium Level 4.2, Chloride Level 103, Carbon Dioxide Level 25, Anion Gap 11, Blood Urea Nitrogen 7, Creatinine 0.64, Estimat Glomerular Filtration Rate > 60, BUN/Creatinine Ratio 11, Glucose Level 95, Calcium Level 9.3, Corrected Calcium 10.1, Phosphorus Level 4.1, Magnesium Level 2.1, Total Bilirubin 0.5, Aspartate Amino Transf (AST/SGOT) 55H, Alanine Aminotransferase (ALT/SGPT) 44, Alkaline Phosphatase 118, B-Type Natriuretic Peptide 65.1, Total Protein 7.7, Albumin 3.0L 04/15/19 05:30: White Blood Count 10.0, Red Blood Count 2.84L, Hemoglobin 8.2L, Hematocrit 26L, Mean Corpuscular Volume 90, Mean Corpuscular Hemoglobin 29, Mean Corpuscular Hemoglobin Concent 32, Red Cell Distribution Width 14.4, Platelet Count 630H, Mean Platelet Volume 9.4, Neutrophils (%) (Auto) 75, Lymphocytes (%) (Auto) 12, Monocytes (%) (Auto) 11, Eosinophils (%) (Auto) 1, Basophils (%) (Auto) 0, Neutrophils # (Auto) 7.5, Lymphocytes # (Auto) 1.2, Monocytes # (Auto) 1.1H, Eosinophils # (Auto) 0.1, Basophils # (Auto) 0.0, Sodium Level 137, Potassium Level 4.1, Chloride Level 104, Carbon Dioxide Level 22, Anion Gap 11, Blood Urea Nitrogen 9, Creatinine 0.55L, Estimat Glomerular Filtration Rate > 60, BUN/Creatinine Ratio 16, Glucose Level 93, Calcium Level 8.5, Corrected Calcium 9.7, Phosphorus Level 4.8H, Magnesium Level 1.9, Total Bilirubin 0.4, Aspartate Amino Transf (AST/SGOT) 59H, Alanine Aminotransferase (ALT/SGPT) 48, Alkaline Phosphatase 106, Total Protein 6.5, Albumin 2.5L Microbiology 04/11/19 Catheter Tip Culture - Final, Complete Staphylococcus hominis 04/06/19 Gram Stain - Final, Complete 04/06/19 Sputum Culture - Final, Complete Lactobacillus rhamnosus See Comments 04/02/19 Gram Stain - Final, Complete 04/02/19 Anaerobic Culture - Final, Complete Bacteroides thetaiotaomicron See Comments 04/02/19 Surgical Culture - Final, Complete Lactobacillus rhamnosus Enterococcus faecalis See Comments 04/02/19 Urine Culture - Final, Complete NO GROWTH Assessment/Plan Assessment/Plan Assessment/Plan Plan to D/C IV and D/C home. Will order walker. Clinical Quality Measures DVT/VTE Risk/Contraindication: Risk Factor Score Per Nursin RFS Level Per Nursing on Admit: 4+=Very High ARON BARKER DO Apr 15, 2019 10:57
[2019-04-15] MEDS ORDERED: HYDR-34 PO ×2 (11:00)
--- NOTE | 2019-04-15 11:03 | Discharge Inst-Surgical ---
Discharge Inst-Surgical Depart Medication/Instructions New, Converted or Re-Newed RX: RX Given to Pt/Family Patient Instructions Follow up Appt: Make appointment for 1 week. [phone] Instructions: No lifting greater than 20 pounds. No strenuous activity. May shower in 24 hours, no tub bath or soaking. Use incentive spirometer at home as directed. No Smoking Skin/Wound Care: May remove bandages in am. You need to leave the sandi until you see me in the office. Symptoms to Report: Appetite Changes, Extremity Discoloration, Numbness/Tingling, Swelling Increased, Bleeding Excessive, Eyesight Changes, Pain Increased, Urine Color Change, Constipation(Persistent), Fever over 101 degree F, Pain/Pressure in chest, Urinating Difficulty, Cough Up/Vomit Blood, Heart Beat Irreg/Pounding, Pain/Pressure in jaw, Cramps in feet or legs, Lightheadedness, Pain/Pressure in shoulder, Diarrhea(Persistent), Memory Changes Suddenly, Questions/Concerns, Weight gain consecutive days, Dizziness/Fainting, Nausea/Vomiting, Shortness of Breath, Weight gain over 2 pounds If questions or concerns contact your physician Or seek help at emergency department. Activity Walking Assistive Device: Walker Activity Instructions: Avoid Stress to Incision Driving Instructions: No Driving/Refer to Dr. Goncalves Discharge Diet: No Restrictions Diet After 24 Hours: Clear Liquid if Nauseous If Any Problems/Questions/Issu: Contact Your Physician, Go to Emergency Room Skin/Wound Care Infection Signs and Symptoms: Increased Redness, Foul Odor of Wound, Increased Drainage, Skin Itchy or Has a Rash, Increased Swelling, Temperature Above 101 F Bathing Instructions: Shower Stitches/[place]ah[place]/Dermabond Dis: Care of ARON Weller DO Apr 15, 2019 11:02
--- NOTE | 2019-04-15 11:43 | Discharge Summary ---
Discharge Summary Reconcile Patient Problems Problems Reviewed?: Yes Instructions for Patient [facility], Assessment/Instructions Bowel Perforation s/p Ex Lap Respiratory Failure: Resolved Post Op Anemia Iron Def Anemia Peritonitis Bilateral PNA Bilateral Pleural Effusion Physician to follow Patient: Long Discharge Diet for Home: Soft Diet Hospital Course Date of Admission: Apr 02, 2019 at 01:23 Admission Diagnosis : See Below Family Physician/Provider: Haley Alves MD Date of Discharge: 04/15/19 Discharge Diagnosis: - Bowel Perforation - s/p Ex Lap - Respiratory Failure - Post Op Anemia - Iron Deficiency Anemia - Bilateral PNA - Bilateral Pleural Effusions Hospital Course: 38 yo F that presented to ER with increasing abdominal pain several days after having robotic hysterectomy. Patient was found to have air in her abdomen and was taken for surgery by Dr Arriaga. Patient required intubation several days after surgery and then was able to be extubated. She then was found to have bilateral PNA and pleural effusions that were managed by Dr Glass. Once she was transferred out of the ICU patient was seen by wound care to begin learning how to care for her new colostomy. She will be D/c home with [facility] and will have close f.u with Dr Alves and Dr Arriaga. Labs and Pending Lab Test: Laboratory Tests 04/14/19 12:03: White Blood Count 12.5H, Red Blood Count 3.29L, Hemoglobin 9.6#L, Hematocrit 30L , Mean Corpuscular Volume 90, Mean Corpuscular Hemoglobin 29, Mean Corpuscular Hemoglobin Concent 33, Red Cell Distribution Width 14.8H, Platelet Count 726H, Mean Platelet Volume 9.5, Neutrophils (%) (Auto) 78H, Lymphocytes (%) (Auto) 10L , Monocytes (%) (Auto) 11, Eosinophils (%) (Auto) 1, Basophils (%) (Auto) 0, Neutrophils # (Auto) 9.8H, Lymphocytes # (Auto) 1.3, Monocytes # (Auto) 1.3H, Eosinophils # (Auto) 0.1, Basophils # (Auto) 0.0, Sodium Level 139, Potassium Level 4.2, Chloride Level 103, Carbon Dioxide Level 25, Anion Gap 11, Blood Urea Nitrogen 7, Creatinine 0.64, Estimat Glomerular Filtration Rate > 60, BUN/Creatinine Ratio 11, Glucose Level 95, Calcium Level 9.3, Corrected Calcium 10.1, Phosphorus Level 4.1, Magnesium Level 2.1, Total Bilirubin 0.5, Aspartate Amino Transf (AST/SGOT) 55H, Alanine Aminotransferase (ALT/SGPT) 44, Alkaline Phosphatase 118, B-Type Natriuretic Peptide 65.1, Total Protein 7.7, Albumin 3.0L 04/15/19 05:30: White Blood Count 10.0, Red Blood Count 2.84L, Hemoglobin 8.2L, Hematocrit 26L, Mean Corpuscular Volume 90, Mean Corpuscular Hemoglobin 29, Mean Corpuscular Hemoglobin Concent 32, Red Cell Distribution Width 14.4, Platelet Count 630H, Mean Platelet Volume 9.4, Neutrophils (%) (Auto) 75, Lymphocytes (%) (Auto) 12, Monocytes (%) (Auto) 11, Eosinophils (%) (Auto) 1, Basophils (%) (Auto) 0, Neutrophils # (Auto) 7.5, Lymphocytes # (Auto) 1.2, Monocytes # (Auto) 1.1H, Eosinophils # (Auto) 0.1, Basophils # (Auto) 0.0, Sodium Level 137, Potassium Level 4.1, Chloride Level 104, Carbon Dioxide Level 22, Anion Gap 11, Blood Urea Nitrogen 9, Creatinine 0.55L, Estimat Glomerular Filtration Rate > 60, BUN/C reatinine Ratio 16, Glucose Level 93, Calcium Level 8.5, Corrected Calcium 9.7, Phosphorus Level 4.8H, Magnesium Level 1.9, Total Bilirubin 0.4, Aspartate Amino Transf (AST/SGOT) 59H, Alanine Aminotransferase (ALT/SGPT) 48, Alkaline Phosphatase 106, Total Protein 6.5, Albumin 2.5L Microbiology 04/11/19 Catheter Tip Culture - Final, Complete Staphylococcus hominis 04/06/19 Gram Stain - Final, Complete 04/06/19 Sputum Culture - Final, Complete Lactobacillus rhamnosus See Comments 04/02/19 Gram Stain - Final, Complete 04/02/19 Anaerobic Culture - Final, Complete Bacteroides thetaiotaomicron See Comments 04/02/19 Surgical Culture - Final, Complete Lactobacillus rhamnosus Enterococcus faecalis See Comments 04/02/19 Urine Culture - Final, Complete NO GROWTH Home Meds Active Lortab 7.5 Mg Tablet (Acetaminophen/Hydrocodone Bitart) 1 Ea Tablet 1 Ea PO Q6H PRN Docusate Sodium 100 Mg Capsule 100 Mg PO BID PRN Simethicone 80 Mg Tab.chew 40 Mg PO TID PRN Ibu (Ibuprofen) 600 Mg Tablet 600 Mg PO Q6H PRN Patient Allergies: Coded Allergies: Penicillins (Verified Allergy, Severe, childhood reaction-unsure of reaction, 03/18/19) amoxicillin (Verified Allergy, Severe, BREATHING ISSUES, 02/09/19) New Medications: Furosemide (Lasix) 20 Mg Tablet 20 MG PO DAILY, #30 TAB Spironolactone (Spironolactone) 25 Mg Tablet 25 MG PO DAILY, #30 TAB Changed Medications: Hydrocodone Bit/Acetaminophen (Lortab 7.5 Mg Tablet) 1 Ea Tablet 1 EA PO Q6H PRN for Pain-See Instructions, #30 TAB 0 Refills (Changed from: 2 EA; 50; Refills: ) Continued Medications: Docusate Sodium (Docusate Sodium) 100 Mg Capsule 100 MG PO BID PRN for CONSTIPATION-1ST LINE, #50 CAP Ibuprofen (Ibu) 600 Mg Tablet 600 MG PO Q6H PRN for PAIN-MODERATE (5-7), #80 TAB Simethicone (Simethicone) 80 Mg Tab.chew 40 MG PO TID PRN for INDIGESTION 2ND LINE, #80 TAB Home Health Need/Face to Face Date of Face to Face: Apr 15, 2019 Clinical Findings: Generalized weakness and fatigue, Shortness of breath, Wound infection, Other-list in note (New Colostomy) I have seen Pt [id number]: Yes Discharged To: Home Diagnosis/Conditions: See Above Patient is Homebound due to: Muscle weakness, Shortness of breath/distress Homebound Status Due to the above stated illness, injury or surgical procedure (medical condition or diagnosis) and associated clinical findings, the patient is homebound because of his/her inability to leave home except with aid of a supportive device and/or person AND leaving the home requires a considerable and taxing effort or is medically contraindicated. Pt req the following assistanc: Aid of another person Home Health Nursing Orders Home Health Services Order: Nursing Services, Physical Therapy-Evaluate & Treat, Wound Care-Eval/Treat - New Colostomy teaching Home Health Infusion Therapy Line Start Date: Apr 11, 2019 Therapy Orders Therapy Orders: PT to assess for OT Therapy Specific Orders: Gait training, Increase strength/endurance Certify Stmt I certify that this patient is under my care and that I, a nurse practitioner or a physician; a lead assistant manager working with me, had a face to face encounter that - meets the physician face to face encounter requirements with this patient as dated. Discharge Physical Exam General: Alert, Oriented X3, Cooperative, No Acute Distress HEENT: Mucous Memb Moist/Cypress Lungs: Clear to Auscultation, Normal Air Movement Heart: Regular Rate, No Murmurs Abdomen: Normal Bowel Sounds, Soft Extremities: Other (1+ edema bilateral LE) Skin: Other (Colostomy present in LLQ, good output) Neuro: Normal Speech, Sensation Intact, Cranial Nerves 3-12 NL LAKESHA CHACKO MD Apr 15, 2019 11:41
[2019-04-15] MEDS ORDERED: SPIR25TA5 PO ×2 (11:45)
[2019-04-15] MEDS ORDERED: FURO-125 PO ×2 (11:45)
[2019-04-15 12:00] VITALS: BP 109/77
--- NOTE | 2019-04-15 12:00 | NUR ---
NURSE ASSISTED PATIENT WITH CHANGING OF COLOSTOMY, VERBALIZED UNDERSTANDING, STOMA PINK, LIQUID BROWN STOOL, ABD INCISION OPEN TO AIR, NILTON INTACT, PATIENT HAS FOUR BLISTERED AREA ON ABD FROM TAPE
--- NOTE | 2019-04-15 14:00 | NUR ---
PICC LINE REMOVED, ENA WELL SITE WITHOUT REDNESS OR SWELLING
[2019-04-15 16:14] VITALS: BP 109/77
--- NOTE | 2019-04-15 16:20 | NUR ---
Arrangements completed for pt discharge home. She will be returning to her home in [place] that she and her son share with her grandmother and brother and [id number]. She will be receiving [facility] with first visit scheduled for Thursday.Pt also was referred to [facility] for a front wheel walker which was delivered. Pt had plenty of colostomy supplies and discussed future shipment arrangements with Joe NOLAN Ostomy Nurse.Pt seemed pleased to be returning home and her [id number] was willing to assist her in the home .
--- NOTE | 2019-04-18 10:21 | Physician Query Clarification ---
PQ-Link Infection to Dev/Proc Admission/Discharge Admission Date: Apr 02, 2019 at 01:23 Discharge Date: Apr 15, 2019 at 14:40 The medical record reflects the following clinical scenario: History/Risk Factors: Postoperative Day #6 from Robotic Surgery where she had a Bilateral Salpingo- oophorectomy, Abdomen distention. Clinical Findings: Sepsis , RR- 38, elevated lactic acidosis, tachycardia Treatment: IV antibiotics Question: Can you specify if the Sepsis is due to/associated with robotic bilateral salpingo-oophorectomy? Please document a response in Progress Note or Discharge Summary. 1. Yes - Sepsis is due to/associated with robotic bilateral salpingo- oophorectomy. 2. No - Sepsis is not due to/associated with robotic bilateral salpingo-oophorectomy. 3. Other, with explanation of the clinical findings. 4. Clinically undetermined, no explanation for the clinical findings. PHYSICIAN RESPONSE Specify if infection: 1 Explanation of clincal finding Bowel Perforation during surgery Please remember a lack of response to the above will prompt a phone page by CDI/Coding staff. In responding to this query, please exercise your independent professional judgment. The purpose of this communication is to more accurately reflect the complexity of your patients condition. The fact that a question is asked does not imply that any particular answer is desired or expected. Thank you for your timely response to this clarification. Requestors name: Lino THIS PHYSICIAN QUERY FORM IS A PERMANENT PART OF THE MEDICAL RECORD TAMMY PARKER Apr 18, 2019 10:21 LAKESHA CHACKO MD Apr 30, 2019 08:25
--- NOTE | 2019-04-28 13:47 | NUR ---
Cindy was discharged from our hospital to her home in [place] on April 15. She lives with her 11 year old Special Needs son, her grandmother, brother and [id number]. Her caregiver has been her sister-in law and [facility] have been very helpful receiving Nursing and Physical therapy services.Will follow and assist in continued care needs. Addendum: 04/28/19 at 1354 by PETER CARRION Charting completed on wrong period of hospitalization. Dictation was to be on April
[2019-05-02] MEDS ORDERED: CEFD300C3 PO ×2 (11:50)
== END 2019-04-15 14:40 | disposition home health service (06) | DRG 856 ==
LOC: UNDOADMIN 01:23 → LDRP 01:23 → ICU 05:39 → 4TH 04-13 10:15 → UNDODISIN 04-15 14:40
PROVIDERS: ADMIT Obstetrics & Gynecology; ATTEND Obstetrics & Gynecology
PROC: 0D1N0Z4 Bypass Sigmoid Colon to Cutaneous, Open Approach (ICD-10-PCS; 2019-04-02)
PROC: 0WJG4ZZ Inspection of Peritoneal Cavity, Percutaneous Endoscopic Approach (ICD-10-PCS; 2019-04-02)
PROC: 0BH17EZ Insertion of Endotracheal Airway into Trachea, Via Natural or Artificial Opening (ICD-10-PCS; 2019-04-02)
PROC: 5A1945Z Respiratory Ventilation, 24-96 Consecutive Hours (ICD-10-PCS; 2019-04-02)
PROC: 0DBN0ZZ Excision of Sigmoid Colon, Open Approach (ICD-10-PCS; principal; 2019-04-02 13:44)
PROC: 0DBN0ZZ Excision of Sigmoid Colon, Open Approach (ICD-10-PCS; 2019-04-06)
DX: T81.44XA Sepsis following a procedure, initial encounter (principal); A41.81 Sepsis due to Enterococcus; R65.21 Severe sepsis with septic shock; K63.1 Perforation of intestine (nontraumatic); K65.9 Peritonitis, unspecified; J96.00 Acute respiratory failure, unspecified whether with hypoxia or hypercapnia; J18.9 Pneumonia, unspecified organism; J98.11 Atelectasis; I47.1 Supraventricular tachycardia; Z53.31 Laparoscopic surgical procedure converted to open procedure; F17.210 Nicotine dependence, cigarettes, uncomplicated; F12.90 Cannabis use, unspecified, uncomplicated; E83.42 Hypomagnesemia; E87.6 Hypokalemia; E83.39 Other disorders of phosphorus metabolism; Z90.710 Acquired absence of both cervix and uterus; Z90.89 Acquired absence of other organs; Z79.1 Long term (current) use of non-steroidal anti-inflammatories (NSAID)
CPT/HCPCS: 36415; 36569; 36600; 71045; 71260; 71275; 74019; 74177; 76937; 80053; 80202; 80306; 81000; 82728; 82805; 82962; 83540; 83605; 83735; 83880; 84100; 84478; 84484; 85007; 85025; 85027; 87040; 87070; 87075; 87076; 87077; 87081; 87088; 87186; 87205; 87449; 87899; 88304; 88307; 93005; 94002; 94003; 94640; 94660; 94760; 94799

== ENCOUNTER 2019-04-27 15:54 | Inpatient (IN) | payer MEDICAID ==
[~2019-04-27] VITALS: Ht 154.9 cm; Wt 73.0 kg
[~2019-04-27 15:54] MED LIST changes: +FURO-125 PO; +SPIR25TA5 PO
[2019-04-27 18:39] VITALS: BP 109/72
[2019-04-27] MEDS: cefTRIAXone FOR IV USE 1,000 MG in WATER (STERILE) FOR INJECTION 10 ML IV SCH (19:27)
[2019-04-27 19:58] LABS: BASOPHILS % (AUTO) 0 % (0-10); EOSINOPHILS # (AUTO) 0.1 10^3/uL (0.0-0.3); EOSINOPHILS % (AUTO) 1 % (0-10); HEMATOCRIT 25 % (35-52); HEMOGLOBIN 7.6 G/DL (11.5-16.0); LYMPHOCYTES # (AUTO) 1.5 X 10^3 (1.0-4.0); LYMPHOCYTES % (AUTO) 12 % (12-44); MEAN CORPUSCULAR HEMOGLOBIN 27 PG (25-34); MEAN CORPUSCULAR HGB CONC 31 G/DL (32-36); MEAN CORPUSCULAR VOLUME 88 FL (80-99); MEAN PLATELET VOLUME 9.1 FL (7.4-10.4); MONOCYTES # (AUTO) 1.1 X 10^3 (0.0-1.0); MONOCYTES % (AUTO) 9 % (0-12); NEUTROPHILS # (AUTO) 9.9 X 10^3 (1.8-7.8); NEUTROPHILS % (AUTO) 78 % (42-75); PLATELET COUNT 633 10^3/uL (130-400); RED CELL DISTRIBUTION WIDTH 14.9 % (10.0-14.5); WHITE BLOOD COUNT 12.7 10^3/uL (4.3-11.0)
[2019-04-27 20:00] VITALS: BP 107/68
[2019-04-27 20:37] LABS: ALANINE AMINOTRANSFERASE 59 U/L (0-55); ALBUMIN 2.8 GM/DL (3.2-4.5); ALKALINE PHOSPHATASE 170 U/L (40-136); BILIRUBIN,TOTAL 0.3 MG/DL (0.1-1.0); BUN/CREATININE RATIO 11; CALCIUM 8.7 MG/DL (8.5-10.1); CARBON DIOXIDE 21 MMOL/L (21-32); CHLORIDE 104 MMOL/L (98-107); CREATININE SERUM 0.62 MG/DL (0.60-1.30); GFR ESTIMATED > 60; GLUCOSE 97 MG/DL (70-105); POTASSIUM 4.4 MMOL/L (3.6-5.0); SODIUM 136 MMOL/L (135-145); TOTAL PROTEIN 7.6 GM/DL (6.4-8.2)
[2019-04-28] VITALS: BP 114/67
[2019-04-28] MEDS: NS IV 1000 ML 1,000 ML IV SCH ×7 (00:21→18:07)
--- NOTE | 2019-04-28 00:40 | NUR ---
ATTEMPT TO CALL DR CLARKE AT THIS TIME. WILL TRY AGAIN LATER.
--- NOTE | 2019-04-28 01:25 | NUR ---
PT DECREASED URINE OUTPUT. PT REPORTS ONLY SOME DRIBBLING SINCE SHE ARRIVED. BLADDER SCAN SHOWED 106ML OF URINE. PT COLOSTOMY BAG CONTENTS ARE WATERY, AND ACCORDING TO PT IT IS MORE WATERY THAN USUAL, ALSO SOLDERER BARREL RIBS IN COLOR. PT REPORTS HAVING A HEADACHE, AND SOME PAIN ON LEFT SIDE OF BODY WHEN COUGHING OR YAWNING. DR CLARKE NOTIFIED REGARDING ALL ABOVE. NEW ORDERS RECEIVED FOR IBUPROFEN AND INCREASED IV FLUID RATE TO 250ML/HR FOR 2 BAGS.
[2019-04-28] MEDS ORDERED: IBUPROFEN 600 MG (MOTRIN) TAB PO ONE (01:27)
[2019-04-28] MEDS: IBUPROFEN 600 MG (MOTRIN) TAB PO PRN ×2 (01:36→12:44)
[2019-04-28] MEDS ORDERED: NS IV 1000 ML 1,000 ML ONE (01:51)
[2019-04-28 04:00] VITALS: BP 103/67
[2019-04-28 07:08] LABS: BASOPHILS % (AUTO) 0 % (0-10); EOSINOPHILS # (AUTO) 0.2 10^3/uL (0.0-0.3); EOSINOPHILS % (AUTO) 2 % (0-10); HEMATOCRIT 25 % (35-52); HEMOGLOBIN 7.7 G/DL (11.5-16.0); LYMPHOCYTES # (AUTO) 1.8 X 10^3 (1.0-4.0); LYMPHOCYTES % (AUTO) 18 % (12-44); MEAN CORPUSCULAR HEMOGLOBIN 27 PG (25-34); MEAN CORPUSCULAR HGB CONC 30 G/DL (32-36); MEAN CORPUSCULAR VOLUME 90 FL (80-99); MEAN PLATELET VOLUME 8.6 FL (7.4-10.4); MONOCYTES # (AUTO) 1.2 X 10^3 (0.0-1.0); MONOCYTES % (AUTO) 12 % (0-12); NEUTROPHILS % (AUTO) 69 % (42-75); PLATELET COUNT 608 10^3/uL (130-400); RED CELL DISTRIBUTION WIDTH 14.9 % (10.0-14.5); WHITE BLOOD COUNT 10.1 10^3/uL (4.3-11.0)
[2019-04-28 07:25] LABS: ALANINE AMINOTRANSFERASE 50 U/L (0-55); ALBUMIN 2.6 GM/DL (3.2-4.5); ALKALINE PHOSPHATASE 148 U/L (40-136); BILIRUBIN,TOTAL 0.2 MG/DL (0.1-1.0); BUN/CREATININE RATIO 14; CALCIUM 8.4 MG/DL (8.5-10.1); CARBON DIOXIDE 19 MMOL/L (21-32); CHLORIDE 109 MMOL/L (98-107); CREATININE SERUM 0.58 MG/DL (0.60-1.30); GFR ESTIMATED > 60; GLUCOSE 85 MG/DL (70-105); POTASSIUM 4.2 MMOL/L (3.6-5.0); SODIUM 136 MMOL/L (135-145)
[2019-04-28 08:00] VITALS: BP 105/71
--- NOTE | 2019-04-28 08:56 | Diagnostic Imaging Report ---
INDICATION: Fever, pleural effusion. TECHNIQUE: Two view chest 8:32 AM CORRELATION STUDY: 04/13/2019 FINDINGS: Small moderate right pleural effusion along with consolidation at the right lung base persist but overall is improved. Left lung relatively clear at follow-up with calcified granuloma at the lung base. Small left pleural effusion. Heart size and mediastinum and vasculature overall within normal limits. Mild advanced degenerative changes thoracic spine. A previously noted right-sided central line has been removed. IMPRESSION: 1. Small to moderate right pleural effusion with associated consolidation right lung base as well as trace left pleural effusion persisting but overall perhaps slightly improved. Dictated by: Dictated on workstation # [id number]
[2019-04-28] MEDS ORDERED: SPIR25TA PO ×2 (09:36)
[2019-04-28] MEDS ORDERED: HYDR-3816 PO ×2 (09:36)
[2019-04-28] MEDS ORDERED: FAMO20TA5 PO ×2 (09:36)
[2019-04-28] MEDS ORDERED: FURO-125 PO ×2 (09:38)
[2019-04-28] MEDS ORDERED: DOCU-244 PO ×2 (09:38)
[2019-04-28] MEDS ORDERED: IBUP-1773 PO ×2 (09:40)
[2019-04-28] MEDS ORDERED: CETI10TA20 PO ×2 (09:40)
[2019-04-28] MEDS ORDERED: ACET325T38 PO ×2 (09:42)
[2019-04-28] MEDS ORDERED: FOLI-88 PO ×2 (09:42)
--- NOTE | 2019-04-28 10:22 | NUR ---
SPOKE WITH THE PT WELL GOING THRU THE EXT MED HISTORY TO COMPLETE THE MED REC. PT WAS ABLE TO TELL ME ALL HER MEDS AND HOW/WHEN SHE TAKES EACH. BACTRIM IS LISTED ON THE EXT MED HISTORY AND THE PT SAID SHE HAD HER LAST DOSE ON Thursday04-25-2019 AND DID TAKE ALL THE THERAPY. OTC MEDS: TYLENOL ZYRTEC [employer]
--- NOTE | 2019-04-28 10:36 | History & Physical ---
POLI LARIOS,MED STUDENT 04/28/19 1036: HPI History of Present Illness: Cindy Lockett is here for sepsis and UTI. She states that she started becoming incontinent to urine, and having decreased urine output last Thursday (04/20/2019). Then on Thursday night (04/26/2019) she began vomiting and developed a fever and weakness. She was seen in [place] and transferred here. She was recently discharged from this hospital after sustaining a perforated bowel and subsequent colon resection. She had also been on Lasix for bilateral pleural effusions until last week, but stopped taking this due to low blood pressure. She denies any abdominal pain, but admits to fever, chills, weight loss, shortness of breath, cough, nausea and vomiting. She also notes that the output from her ostomy has been liquid the past few days. Source: patient Exam Limitations: no limitations Date seen by provider: Apr 28, 2019 Time Seen by Provider: 07:30 Attending Physician Jaquan Alves MD PCP Jaquan Alves MD Consult Date of Admission Apr 27, 2019 at 15:54 Home Medications Home Medications Reviewed patient Home Medication Reconciliation performed by pharmacy medication reconciliations electrical instrumentation technician and/or nursing. Patients Allergies have been reviewed. Allergies Coded Allergies: Penicillins (Verified Allergy, Severe, childhood reaction-unsure of reaction, 03/18/19) amoxicillin (Verified Allergy, Severe, BREATHING ISSUES, 02/09/19) KQH-Sqsfcc-Fijpaw Hx Patient Social History Alcohol Use: Rarely Uses Recreational Drug Use: No Smoking Status: Former Smoker Type Used: Cigarettes 2nd Hand Smoke Exposure: Yes Recent Foreign Travel: No Contact w/other who traveled: No Recent Hopitalizations: Yes Recent Infectious Disease Expo: No Physical Abuse Screen: No Sexual Abuse: No Past Medical History PMH: 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 Acid reflux Anxiety Depression Pleural effusions Surgical Hx: Colon resection with ostomy Hysterectomy LEEP Tonsillectomy Family Medical History Significant Family History: Diabetes, Hypertension, Other Conditions/Hx Review of Systems ([facility]) Constitutional: chills, diaphoresis, fever, weakness, weight loss (20 pounds in last month) EENTM: ear pain, nose congestion; No blurred vision, No double vision Respiratory: cough, short of breath Cardiovascular: No chest pain, No edema Gastrointestinal: No abdominal pain; nausea, vomiting, other (watery output from ostomy) Genitourinary: decreased output; No dysuria; incontinence Musculoskeletal: muscle weakness Skin: No rash; other (healed midline abdominal incision, no erythema or tenderness) Psychiatric/Neurological: Anxiety, Depressed, Headache; Denies Numbness, Denies Tingling; Weakness Physical Exam-([facility]) Physical Exam Vital Signs VS - Last 72 Hours, by Label 04/27/19 04/27/19 04/27/19 04/27/19 18:36 18:39 20:00 20:15 Temp 38.0 37.3 Pulse 106 107 Resp 20 18 B/P (MAP) 109/72 107/68 (81) Pulse Ox 92 93 O2 Delivery Room Air Room Air Room Air Room Air 04/27/19 04/28/19 04/28/19 04/28/19 22:44 00:00 01:00 04:00 Temp 36.6 36.0 Pulse 100 98 85 86 Resp 16 16 B/P (MAP) 114/67 (83) 103/67 (79) Pulse Ox 93 95 O2 Delivery Room Air Room Air 04/28/19 07:00 Pulse 85 Capillary Refill : Less Than 3 Seconds General Appearance: no apparent distress Eyes: Bilateral Eye PERRL, Bilateral Eye EOMI HEENT: No scleral icterus (R), No scleral icterus (L), No pharyngeal erythema Neck: non-tender; No lymphadenopathy (R), No lymphadenopathy (L) Respiratory: lungs clear, no accessory muscle use, decreased breath sounds (bases), other Cardiovascular: regular rate, rhythm, no edema, no murmur Peripheral Pulses: 2+ Dorsalis Pedis (R), 2+ Left Dors-Pedis (L), 2+ Radial Pulses (R), 2+ Radial Pulses (L) Gastrointestinal: normal bowel sounds, non tender, soft, other (ostomy with straw-colored output) Extremities: non-tender, no pedal edema, normal capillary refill Neurologic/Psychiatric: film technician II-XII nml as tested, no motor/sensory deficits, alert, oriented x 3 Skin: normal color, diaphoresis, ecchymosis (lower abdomen) Assessment/Plan Assessment/Plan Assessment & Plan UTI with Sepsis: currently on Ceftriaxone Possible enterovesical fistula: will consult surgery Clinical Quality Measures DVT/VTE Risk/Contraindication: Risk Factor Score Per Nursin RFS Level Per Nursing on Admit: 4+=Very High JAQUAN ALVES MD 04/28/19 1308: Home Medications Allergies Coded Allergies: Penicillins (Verified Allergy, Severe, childhood reaction-unsure of reaction, 03/18/19) amoxicillin (Verified Allergy, Severe, BREATHING ISSUES, 02/09/19) Physical Exam-([facility]) Physical Exam General Appearance: WD/WN, no apparent distress Respiratory: no accessory muscle use, decreased breath sounds (bases) Cardiovascular: regular rate, rhythm, no edema, no murmur Gastrointestinal: normal bowel sounds, non tender, soft, other (ostomy with straw-colored liquid output) Extremities: no pedal edema Neurologic/Psychiatric: alert, oriented x 3 Skin: normal color, ecchymosis (lower abdomen) Assessment/Plan Assessment/Plan Admission Status: Inpatient Order (span 2 midnights) Reason for Inpatient Admission: Sepsis with underlying comorbidities Assessment & Plan Sepsis suspected to be secondary to UTI- initial labs done at [place], started on ceftriaxone, subjectively much better today. Had poor UOP last night and bladder scan showed only 100 cc, IV rate increased for several hours without improvement. Ostomy output is entirely fluid and yellow, concerning for possible urine, Surgery consulted, appreciate recommendations. Supervisory-Addendum Brief Verification & Attestation Participated in pt care: history, MDM, physical Personally performed: exam, history, MDM Care discussed with: Medical Student Procedures: n/a I personally have seen and evaluated the patient, repeated history and performed my own physical exam as documented. I agree with student documentation except as mine differs. POLI LARIOS,MED STUDENT Apr 28, 2019 10:36 JAQUAN ALVES MD Apr 28, 2019 13:08
[2019-04-28 12:00] VITALS: BP 104/73
[2019-04-28] MEDS ORDERED: HYDROcodone/APAP 7.5 MG/325 MG (LORTAB, LORCET PLUS) TABLET PO PRN (13:00)
--- NOTE | 2019-04-28 13:54 | NUR ---
Cindy was discharged from this hospital on April 15. She lives with her 11 year old Special Needs son, her grandmother, and brother, and [id number] in a large home in [place]. She was receiving [facility] and states their Nursing And Physical Therapy services were very helpful. Her [id number] is her primary caregiver. Will assist with any continued care needs.
[2019-04-28] MEDS ORDERED: ONDANSETRON 4 MG/2 ML (SDV) Z0FRAN ONE (14:10)
[2019-04-28] MEDS: ONDANSETRON 4 MG/2 ML (SDV) Z0FRAN IVP PRN (14:16)
--- NOTE | 2019-04-28 14:21 | NUR ---
RD ASSESSMENT PMHx: s/p colostomy resection; hx of meth/marijuana use PT INTERACTION: Pt was awake and pleasant during consult for MST score. Pt states current appetite is "so-so" and has been that way for the past two weeks. Note PO intake of 25% x1meal, per chart review. Pt states following a regular diet at home and has no issues with chewing/swallowing food. Note pt has missing front teeth per visual exam. Pt states recent issues with n/v, occurring for the past few days. Pt states some recent issues with colostomy. 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 Pt states recent 20# wt loss x1mon. Note recent 6# wt loss x1mon, per chart review. Given pt's wt hx and PO intake, pt does not meet criteria for malnutrition per ASPEN guidelines. ABNORMAL NUTRITION-RELATED LAB VALUES LOW: cr 0.58; Ca 8.4; alb 2.6 HIGH: Cl 109; alkphos 148 Est. kcal needs: 2471-3476 kcal | 15-20 kcal/kg Est. Pro needs: 58-73 g Pro | 0.8-1.0 g Pro/kg PES STATEMENT: Inadequate oral intake (NI-2.1) related to loss of appetite | nausea | vomiting as evidenced by pt interview | PO intake of 25% x1meal INTERVENTION: Continue with current diet order of Regular diet. Add Ensure Enlive (Eric/Van) to meals TID, for increased kcal intake. Provides 350 kcal and 13 g Pro per serving. Will continue to follow and reassess as pt needs and status change. MONITOR/EVALUATE: PO Intake; Plan of Care; Hydration Status; Weight Status; Lab Values Megan Padron, MS, RD, LD
--- NOTE | 2019-04-28 15:30 | NUR ---
Pastoral Care Visit.
[2019-04-28 16:00] VITALS: BP 98/67
[2019-04-28] MEDS: FAMOTIDINE 20 MG (PEPCID) TABLET PO SCH ×2 (18:02→20:54)
[2019-04-28] MEDS: cefTRIAXone FOR IV USE 1,000 MG in WATER (STERILE) FOR INJECTION 10 ML IV SCH (18:03)
[2019-04-28] MEDS: ENOXAPARIN 40 MG/0.4 ML (LOVENOX) SYR SQ SCH (18:03)
[2019-04-28 20:00] VITALS: BP 104/65
[2019-04-28] MEDS ORDERED: FAMOTIDINE 20 MG (PEPCID) TABLET PO SCH (21:00)
--- NOTE | 2019-04-28 21:00 | NUR ---
PT HAD TAKEN PEPCID BEFORE SUPPER. SO EVENING DOSE WAS GIVEN, PT REQUESTING AM DOSE BREAKFAST
[2019-04-29] VITALS: BP 109/71
[2019-04-29] MEDS: NS IV 1000 ML 1,000 ML IV SCH ×2 (01:05→08:21)
[2019-04-29 04:00] VITALS: BP 125/64
[2019-04-29 06:55] LABS: BASOPHILS % (AUTO) 0 % (0-10); EOSINOPHILS # (AUTO) 0.1 10^3/uL (0.0-0.3); EOSINOPHILS % (AUTO) 1 % (0-10); HEMATOCRIT 24 % (35-52); HEMOGLOBIN 7.2 G/DL (11.5-16.0); LYMPHOCYTES # (AUTO) 1.4 X 10^3 (1.0-4.0); LYMPHOCYTES % (AUTO) 16 % (12-44); MEAN CORPUSCULAR HEMOGLOBIN 27 PG (25-34); MEAN CORPUSCULAR HGB CONC 31 G/DL (32-36); MEAN CORPUSCULAR VOLUME 89 FL (80-99); MEAN PLATELET VOLUME 8.7 FL (7.4-10.4); MONOCYTES # (AUTO) 0.8 X 10^3 (0.0-1.0); MONOCYTES % (AUTO) 9 % (0-12); NEUTROPHILS # (AUTO) 6.7 X 10^3 (1.8-7.8); NEUTROPHILS % (AUTO) 74 % (42-75); PLATELET COUNT 580 10^3/uL (130-400); RED CELL DISTRIBUTION WIDTH 14.7 % (10.0-14.5); WHITE BLOOD COUNT 9.1 10^3/uL (4.3-11.0)
[2019-04-29] MEDS: FAMOTIDINE 20 MG (PEPCID) TABLET PO SCH ×2 (06:59→20:28)
[2019-04-29 07:12] LABS: ALANINE AMINOTRANSFERASE 38 U/L (0-55); ALBUMIN 2.4 GM/DL (3.2-4.5); ALKALINE PHOSPHATASE 121 U/L (40-136); BILIRUBIN,TOTAL 0.2 MG/DL (0.1-1.0); BUN/CREATININE RATIO 9; CALCIUM 8.1 MG/DL (8.5-10.1); CARBON DIOXIDE 18 MMOL/L (21-32); CHLORIDE 111 MMOL/L (98-107); CREATININE SERUM 0.53 MG/DL (0.60-1.30); GFR ESTIMATED > 60; GLUCOSE 96 MG/DL (70-105); POTASSIUM 4.1 MMOL/L (3.6-5.0); SODIUM 136 MMOL/L (135-145); TOTAL PROTEIN 6.3 GM/DL (6.4-8.2)
--- NOTE | 2019-04-29 07:52 | Pulmonary Consultation ---
History of Present Illness History of Present Illness Date Seen by Provider: Apr 29, 2019 Time Seen by Provider: 07:47 Date of Admission History of Present Illness 38yo with recent hospitalization s/p multiple surgeries after perforated bowel presented to [place] ED and then transferred here secondary to progressive weankness, SOB, fever, chills, and vomiting. She has been on Lasix secondary to pulmonary congestion and bilateral R> L pleural effusions. Currently denies abdominal pain. She has a ostomy with liquid out put. Allergies and Home Medications Allergies Coded Allergies: Penicillins (Verified Allergy, Severe, childhood reaction-unsure of reaction, 03/18/19) amoxicillin (Verified Allergy, Severe, BREATHING ISSUES, 02/09/19) Home Medications Acetaminophen 325 Mg Tablet, 650 MG PO Q6H PRN for PAIN-MILD (1-4), (Reported) Cefdinir 300 Mg Capsule, 300 MG PO BID Prescribed by: MATEUSZ YUSUF on 05/02/19 1150 Cetirizine HCl 10 Mg Tablet, 10 MG PO DAILY, (Reported) Docusate Sodium 100 Mg Capsule, 100 MG PO BID PRN for CONSTIPATION-1ST LINE, (Reported) Famotidine 20 Mg Tablet, 20 MG PO BID, (Reported) Folic Acid/Multivit-Min/Lutein 1 Each Tab.chew, 2 EACH PO DAILY, (Reported) Hydrocodone/Acetaminophen 1 Each Tablet, 1 TAB PO Q6H PRN for PAIN-MODERATE (5- 7), (Reported) Ibuprofen 600 Mg Tablet, 600 MG PO Q6H PRN for PAIN-MILD (1-4), (Reported) Spironolactone 25 Mg Tablet, 25 MG PO DAILY, (Reported) Past Njnuwef-Zzbhve-Rpqjun Hx Patient Social History Alcohol Use: Rarely Uses Number of Drinks Today: 0 Alcohol Beverage of Choice: Beer Recreational Drug Use: No Smoking Status: Former Smoker Type Used: Cigarettes 2nd Hand Smoke Exposure: Yes Recent Foreign Travel: No Contact w/Someone Who Travel: No Recent Infectious Disease Expo: No Recent Hopitalizations: Yes Seasonal Allergies Seasonal Allergies: No Past Medical History Surgeries: Yes (DXLS x3, LEEP, oral sx) Section, Hysterectomy, Oophorectomy, Tonsillectomy Respiratory: Yes (Resp failure ) Pneumonia Currently Using CPAP: No Currently Using BIPAP: No Cardiac: No Neurological: No : No Female 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 Disorders: 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 Sexually Transmitted Disease: No HIV/AIDS: No Genitourinary: Yes (Current UTI) Gastrointestinal: Yes (Bowel resection/Colostomy) Musculoskeletal: Yes Chronic Back Pain Endocrine: No Are Your Blood Sugars Over 250: No HEENT: Yes (READING GLASSES) Loss of Vision: Denies Hearing Impairment: Denies Cancer: No Psychosocial: Yes Sleep Difficulties, Anxiety, PTSD, Depression Integumentary: No Blood Disorders: No Adverse Reaction/Blood Tranf: No Family Medical History Diabetes, Hypertension, Other Conditions/Hx Review of Systems Time Seen by Provider: 08:01 Constitutional: Fever, Chills, Sweats, Weakness, Malaise, Other Eyes: No: Pain, Vision change, Conjunctivae inflammation, Eyelid inflammation, Other, Redness ENT: Nose congestion; No: Ear pain, Ear discharge, Nose pain, Nose discharge, Mouth pain, Mouth swelling, Throat pain, Throat swelling, Other Respiratory: Cough, Shortness of breath, SOB with excertion Cardiovascular: Paroxysmal Noc. Dyspnea Sepsis Event Evaluation Height, Weight, BMI Height: '" Weight: lbs. oz. kg; 30.42 BMI Method: Exam Exam Vital Signs Date Time Temp Pulse Resp B/P (MAP) Pulse Ox O2 Delivery O2 Flow Rate FiO2 04/29/19 04:00 36.6 102 18 125/64 (84) 94 Room Air 04/29/19 01:00 100 04/29/19 00:00 36.6 102 18 109/71 (84) 93 Room Air 04/28/19 20:00 36.4 99 18 104/65 (78) 96 Room Air 04/28/19 20:00 Room Air 04/28/19 19:00 100 04/28/19 16:00 36.2 98 20 98/67 (77) 95 Room Air 04/28/19 15:51 100 04/28/19 12:00 36.2 96 20 104/73 (83) 96 Room Air 04/28/19 08:00 Room Air 04/28/19 08:00 36.2 89 20 105/71 (82) 98 Room Air I & O 04/29/19 07:00 Intake Total 1057 ml Output Total 900 ml Balance 157 ml Height & Weight Height: '" Weight: lbs. oz. kg; 30.42 BMI Method: General Appearance: Anxious, Mild Distress HEENT: PERRL/EOMI, Normal ENT Inspection, Pharynx Normal Neck: Full Range of Motion, Non Tender, Supple Respiratory: Chest Non Tender, No Accessory Muscle Use, No Respiratory Distress, Crackles Cardiovascular: Regular Rate, Rhythm Capillary Refill: Less Than 3 Seconds Peripheral Pulses: 2+ Dorsalis Pedis (R), 2+ Left Dors-Pedis (L), 2+ Radial Pulses (R), 2+ Radial Pulses (L) Gastrointestinal: normal bowel sounds, non tender, soft, other (ostomy with straw-colored liquid output) Extremity: Normal Capillary Refill, Normal Inspection, No Pedal Edema Neurologic/Psychiatric: Alert Skin: Normal Color, Warm/Dry Results Lab Laboratory Tests 04/27/19 19:50 04/28/19 07:01 04/29/19 06:40 Assessment/Plan Assessment/Plan SOB with bilateral pleural effusions -PT was offered thoracentesis at last hospitalization however she declined. -Check US of abd to r/o ascites -Check MRSA and influenza swab -Duoneb UTI with sepsis -Continue rocephin -Mcqueen cultures pending Sinus tachycardia Bowel perforation s/p resection ostomy during last hospitalizations -Surgery is consulted --Cdiff pending Anemia -Monitor Pelvic mass s/p resection/ bilateral oophorectomy 03/29/19 Hx of endometriosis Hx of methamphetamine and marijuana TOY SAEZ DO Apr 29, 2019 07:52
[2019-04-29 08:00] VITALS: BP 123/66
[2019-04-29] MEDS: LORATADINE (CLARITIN) 10 MG TAB PO SCH (08:21)
--- NOTE | 2019-04-29 08:50 | NUR ---
NASAL SWAB MRSA AND INF A & B OBTAINED AND TO LAB.
--- NOTE | 2019-04-29 09:20 | Progress Note - Surgery ---
[facility] 04/29/19 0920: Subjective Date Seen by a Provider: Apr 29, 2019 Time Seen by a Provider: 08:15 Subjective/Events-last exam Patient is sitting in recliner. Output from colostomy bag has a thicker, sludgy consistency and is a darker yellow color today. Patient is tolerating full diet and denies nausea and vomiting. Patient cant ambulate without assistance at this time. She states she is experiencing urinary incontinence. She is experiencing SOB on exertion. She denies any chest pain. Cdiff is negative and stool cultures are pending. Review of Systems General: No Night Sweats; Appetite HEENT: No Visual Changes, No Dysphasia Pulmonary: Dyspnea (on exertion); No Cough Cardiovascular: No: Chest Pain, Palpitations Gastrointestinal: No: Nausea, Vomiting, Abdominal Pain Genitourinary: Incontinence; No Hematuria Musculoskeletal: No: back pain, leg pain Neurological: No: Change in speech, Confusion Focused Exam Lactate Level 04/27/19 19:50: Lactic Acid Level 0.65 Objective Exam Vital Signs Date Time Temp Pulse Resp B/P (MAP) Pulse Ox O2 Delivery O2 Flow Rate FiO2 04/29/19 06:50 104 04/29/19 04:00 36.6 102 18 125/64 (84) 94 Room Air 04/29/19 01:00 100 04/29/19 00:00 36.6 102 18 109/71 (84) 93 Room Air 04/28/19 20:00 36.4 99 18 104/65 (78) 96 Room Air 04/28/19 20:00 Room Air 04/28/19 19:00 100 04/28/19 16:00 36.2 98 20 98/67 (77) 95 Room Air 04/28/19 15:51 100 04/28/19 12:00 36.2 96 20 104/73 (83) 96 Room Air I & O 04/29/19 07:00 Intake Total 1157 ml Output Total 1400 ml Balance -243 ml Capillary Refill : Less Than 3 Seconds General Appearance: No Apparent Distress, WD/WN HEENT: PERRL/EOMI, Pharynx Normal; No Scleral Icterus (L), No Scleral Icterus (R) Neck: Non Tender, Supple Respiratory: Lungs Clear, Normal Breath Sounds, No Accessory Muscle Use Cardiovascular: No Edema, No Murmur Peripheral Pulses: 2+ Radial Pulses (R), 2+ Radial Pulses (L) Gastrointestinal: non tender, soft, other (ostomy sludgy mustard-colored output) Extremity: Non Tender, No Calf Tenderness, No Pedal Edema Neurologic/Psychiatric: Alert, Normal Mood/Affect Skin: Normal Color, Warm/Dry Lymphatic: No Adenopathy (neck, auricular, supraclavicular) Results Lab Laboratory Tests 04/28/19 11:15: Body Fluid Creatinine 0.28 04/28/19 14:48: B-Type Natriuretic Peptide < 10.0 04/29/19 06:40: White Blood Count 9.1, Red Blood Count 2.64L, Hemoglobin 7.2L, Hematocrit 24L, Mean Corpuscular Volume 89, Mean Corpuscular Hemoglobin 27, Mean Corpuscular Hemoglobin Concent 31L, Red Cell Distribution Width 14.7H, Platelet Count 580H, Mean Platelet Volume 8.7, Neutrophils (%) (Auto) 74, Lymphocytes (%) (Auto) 16, Monocytes (%) (Auto) 9, Eosinophils (%) (Auto) 1, Basophils (%) (Auto) 0, Neutrophils # (Auto) 6.7, Lymphocytes # (Auto) 1.4, Monocytes # (Auto) 0.8, Eosinophils # (Auto) 0.1, Basophils # (Auto) 0.0, Sodium Level 136, Potassium Level 4.1, Chloride Level 111H, Carbon Dioxide Level 18L, Anion Gap 7, Blood Urea Nitrogen 5L, Creatinine 0.53L, Estimat Glomerular Filtration Rate > 60, BUN/Creatinine Ratio 9, Glucose Level 96, Calcium Level 8.1L, Corrected Calcium 9.4, Total Bilirubin 0.2, Aspartate Amino Transf (AST/SGOT) 23, Alanine Aminotransferase (ALT/SGPT) 38, Alkaline Phosphatase 121, Total Protein 6.3L, Albumin 2.4L 04/29/19 08:32: Stool Occult Blood Immunoassay POSITIVEH Microbiology 04/28/19 C. difficile GDH Antigen & Toxins - Final, Resulted 04/28/19 Stool Culture, Resulted Pending Assessment/Plan Assessment/Plan Assessment/Plan s/p removal of endometrioma s/p hartmanns and revision liquid output from ostomy - improving, moving towards more solid. shortness of breath anemia incontinence Patient tolerating regular diet. Observe output from ostomy to ensure proper bowel functioning. output was tested and it was not urine. Clinical Quality Measures DVT/VTE Risk/Contraindication: Risk Factor Score Per Nursin RFS Level Per Nursing on Admit: 4+=Very High KADEEM ARRIAGA DO 04/29/19 1753: Subjective Time Seen by a Provider: 12:14 Subjective/Events-last exam Pt seen and examined, states minimal abdominal pain, feels more tired today. Objective Exam Gastrointestinal: soft, other (ostomy sludgy mustard-colored output, pink and viable) Assessment/Plan Assessment/Plan Assessment/Plan Pt encouraged to increase ambulation, IS use and chew gum. Await stool cultures. Supervisory-Addendum Brief Verification & Attestation Participated in pt care: history, MDM, physical Personally performed: history, MDM Care discussed with: Medical Student Procedures: n/a Verification and Attestation of Medical Student E/M Service A medical student performed and documented this service in my presence. I reviewed and verified all information documented by the medical student and made modifications to such information, when appropriate. I personally performed the physical exam and medical decision making. Kadeem Arriaga, Apr 29, 2019,17:51 [facility] Apr 29, 2019 09:20 KADEEM ARRIAGA DO Apr 29, 2019 17:53
--- NOTE | 2019-04-29 11:57 | Diagnostic Imaging Report ---
PROCEDURE: US Abdomen, limited. TECHNIQUE: Multiple realtime grayscale images were obtained over the abdomen in various projections. INDICATION: Abdominal distention. FINDINGS: All four quadrants of the abdomen were evaluated. No free fluid is detected. IMPRESSION: No evidence of ascites. Dictated by: Dictated on workstation # [id number]
[2019-04-29 12:00] VITALS: BP 118/76
--- NOTE | 2019-04-29 12:18 | Progress Note ---
POLI LARIOS,MED STUDENT 04/29/19 1218: Subjective Subjective/Events-last exam Patient seen and examined this morning. She states she has been having good urine output through the night, and is feeling the urge to void, but is unable to control it. She still reports shortness of breath, especially with exertion. Review of Systems General: Fatigue Pulmonary: Dyspnea; No Cough Cardiovascular: No: Chest Pain, Palpitations, Edema Gastrointestinal: Abdominal Pain; No: Nausea, Vomiting Genitourinary: Incontinence, Other (Urgency ) Focused Exam Lactate Level 04/27/19 19:50: Lactic Acid Level 0.65 Objective Exam Last Set of Vital Signs Vital Signs Date Time Temp Pulse Resp B/P (MAP) Pulse Ox O2 Delivery O2 Flow Rate FiO2 04/29/19 08:00 36.9 98 20 123/66 (85) 95 Room Air Capillary Refill : Less Than 3 Seconds I&O Intake and Output 04/29/19 00:00 Intake Total 1207 ml Output Total 1650 ml Balance -443 ml Intake Oral 1207 ml Output Urine Total 200 ml Stool Total 1450 ml # Voids 6 General: Alert, Oriented X3, No Acute Distress HEENT: EOMI, Mucous Memb Moist/[place] Lungs: Clear to Auscultation, Other (decreased breath sounds at bases) Heart: No Murmurs, Other (tachycardia) Abdomen: Normal Bowel Sounds, Soft, No Tenderness, Other (mustard-colored output from ostomy, thicker than yesterday) Extremities: No Edema Results/Procedures Lab Laboratory Tests 04/28/19 14:48: B-Type Natriuretic Peptide < 10.0 04/29/19 06:40: White Blood Count 9.1, Red Blood Count 2.64L, Hemoglobin 7.2L, Hematocrit 24L, Mean Corpuscular Volume 89, Mean Corpuscular Hemoglobin 27, Mean Corpuscular Hem oglobin Concent 31L, Red Cell Distribution Width 14.7H, Platelet Count 580H, Mean Platelet Volume 8.7, Neutrophils (%) (Auto) 74, Lymphocytes (%) (Auto) 16, Monocytes (%) (Auto) 9, Eosinophils (%) (Auto) 1, Basophils (%) (Auto) 0, Neutrophils # (Auto) 6.7, Lymphocytes # (Auto) 1.4, Monocytes # (Auto) 0.8, Eosinophils # (Auto) 0.1, Basophils # (Auto) 0.0, Sodium Level 136, Potassium Level 4.1, Chloride Level 111H, Carbon Dioxide Level 18L, Anion Gap 7, Blood Urea Nitrogen 5L, Creatinine 0.53L, Estimat Glomerular Filtration Rate > 60, BUN/Creatinine Ratio 9, Glucose Level 96, Calcium Level 8.1L, Corrected Calcium 9.4, Total Bilirubin 0.2, Aspartate Amino Transf (AST/SGOT) 23, Alanine Aminotransferase (ALT/SGPT) 38, Alkaline Phosphatase 121, Total Protein 6.3L, Albumin 2.4L 04/29/19 08:32: Stool Occult Blood Immunoassay POSITIVEH Microbiology 04/29/19 Influenza Types A,B Antigen (HUSSAIN) - Final, Complete 04/28/19 C. difficile GDH Antigen & Toxins - Final, Resulted 04/28/19 Stool Culture - Preliminary, Resulted Assessment/Plan Assessment/Plan Assessment & Plan UTI with Sepsis: currently on Ceftriaxone, urine output has improved Bilateral pleural effusions: patient may need thoracentesis, can restart low dose of lasix and monitor patients blood pressure. Pulmonology recommendations appreciated Anemia: continue to monitor, transfuse if Hgb drops below 7, defer to surgery since stool occult was positive. Clinical Quality Measures DVT/VTE Risk/Contraindication: Risk Factor Score Per Nursin RFS Level Per Nursing on Admit: 4+=Very High JAQUAN CLARKE MD 04/29/19 1305: Assessment/Plan Assessment/Plan Assessment & Plan Will contact [facility] to check on cultures. Ostomy output negative for C diff, cultures pending. Urination improving, still having incontinence but improving. Supervisory-Addendum Brief Verification & Attestation Participated in pt care: history, MDM, physical Personally performed: exam, history, MDM Care discussed with: Medical Student Procedures: n/a I personally have seen and evaluated the patient and performed the history and physical exam and formulated the plan. I agree with the medical student's documentation. POLI LARIOS,MED STUDENT Apr 29, 2019 12:18 JAQUAN CLARKE MD Apr 29, 2019 13:05
[2019-04-29] MEDS: IBUPROFEN 600 MG (MOTRIN) TAB PO PRN (13:25)
[2019-04-29] MEDS: ONDANSETRON 4 MG/2 ML (SDV) Z0FRAN IVP PRN (13:25)
[2019-04-29 16:00] VITALS: BP 98/61
[2019-04-29] MEDS: ENOXAPARIN 40 MG/0.4 ML (LOVENOX) SYR SQ SCH (18:37)
[2019-04-29] MEDS: cefTRIAXone FOR IV USE 1,000 MG in WATER (STERILE) FOR INJECTION 10 ML IV SCH (18:37)
[2019-04-29 20:00] VITALS: BP 108/66
[2019-04-30] VITALS: BP 117/58
[2019-04-30 04:00] VITALS: BP 126/65
[2019-04-30 06:10] LABS: BASOPHILS % (AUTO) 0 % (0-10); EOSINOPHILS # (AUTO) 0.2 10^3/uL (0.0-0.3); EOSINOPHILS % (AUTO) 2 % (0-10); HEMATOCRIT 26 % (35-52); HEMOGLOBIN 7.9 G/DL (11.5-16.0); LYMPHOCYTES # (AUTO) 1.7 X 10^3 (1.0-4.0); LYMPHOCYTES % (AUTO) 17 % (12-44); MEAN CORPUSCULAR HEMOGLOBIN 27 PG (25-34); MEAN CORPUSCULAR HGB CONC 30 G/DL (32-36); MEAN CORPUSCULAR VOLUME 88 FL (80-99); MEAN PLATELET VOLUME 8.7 FL (7.4-10.4); MONOCYTES # (AUTO) 0.7 X 10^3 (0.0-1.0); MONOCYTES % (AUTO) 7 % (0-12); NEUTROPHILS # (AUTO) 7.3 X 10^3 (1.8-7.8); NEUTROPHILS % (AUTO) 74 % (42-75); PLATELET COUNT 658 10^3/uL (130-400); RED CELL DISTRIBUTION WIDTH 14.9 % (10.0-14.5); WHITE BLOOD COUNT 9.9 10^3/uL (4.3-11.0)
[2019-04-30 06:37] LABS: BUN/CREATININE RATIO 9; CARBON DIOXIDE 22 MMOL/L (21-32); CHLORIDE 107 MMOL/L (98-107); CREATININE SERUM 0.55 MG/DL (0.60-1.30); POTASSIUM 4.2 MMOL/L (3.6-5.0); SODIUM 139 MMOL/L (135-145)
[2019-04-30 06:38] LABS: ALANINE AMINOTRANSFERASE 42 U/L (0-55); ALBUMIN 2.7 GM/DL (3.2-4.5); ALKALINE PHOSPHATASE 123 U/L (40-136); BILIRUBIN,TOTAL 0.2 MG/DL (0.1-1.0); CALCIUM 8.8 MG/DL (8.5-10.1); GFR ESTIMATED > 60; GLUCOSE 95 MG/DL (70-105); TOTAL PROTEIN 7.2 GM/DL (6.4-8.2)
[2019-04-30 08:00] VITALS: BP 116/58
--- NOTE | 2019-04-30 09:04 | Progress Note - Surgery ---
[facility] 04/30/19 0904: Subjective Date Seen by a Provider: Apr 30, 2019 Time Seen by a Provider: 08:45 Subjective/Events-last exam Output from ostomy is more brown and solid in nature. Patient reports she is feeling better. She is ambulating more. Incontinence has improved. Tolerating regular diet with some nausea but no vomiting. Dyspnea on exertion still present, but improving. New complaint today is b/l back pain diffusely over mid- lower back. Review of Systems General: Fatigue, Appetite (reports poor appetite but improving) HEENT: Head Aches (reports R sided posterior headache); No Visual Changes, No Eye Pain, No Ear Pain Pulmonary: Dyspnea (improving); No Cough Cardiovascular: No: Chest Pain, Palpitations, Edema Gastrointestinal: Nausea, Abdominal Pain (mild tenderness diffuse); No: Vomiting Genitourinary: No Dysuria, No Frequency Musculoskeletal: back pain (diffuse mid-lower back); No: leg pain Neurological: Weakness (reports some mild weakness); No: Numbness, Incoord ination Focused Exam Lactate Level 04/27/19 19:50: Lactic Acid Level 0.65 Objective Exam Vital Signs Date Time Temp Pulse Resp B/P (MAP) Pulse Ox O2 Delivery O2 Flow Rate FiO2 04/30/19 04:00 37.9 101 18 126/65 (85) 94 Room Air 04/30/19 00:00 36.8 99 18 117/58 (77) 96 Room Air 04/29/19 20:00 37.1 95 18 108/66 (80) 97 Room Air 04/29/19 20:00 98 Room Air 04/29/19 16:00 36.4 83 18 98/61 (73) 98 Room Air 04/29/19 12:00 37.1 93 20 118/76 (90) 98 Room Air I & O 04/30/19 07:00 Intake Total 3800 ml Output Total 1625 ml Balance 2175 ml Capillary Refill : Less Than 3 SecondsLess Than 3 Seconds General Appearance: No Apparent Distress, WD/WN HEENT: PERRL/EOMI, Pharynx Normal; No Scleral Icterus (L), No Scleral Icterus (R) Neck: Non Tender, Supple Respiratory: Lungs Clear, Normal Breath Sounds, No Accessory Muscle Use Cardiovascular: Regular Rate, Rhythm, No Edema, No Murmur Peripheral Pulses: 2+ Radial Pulses (R), 2+ Radial Pulses (L) Gastrointestinal: normal bowel sounds, soft, tenderness (mild diffusely ), other (ostomy output is more brown andsolid in nature) Extremity: Non Tender, No Calf Tenderness, No Pedal Edema Neurologic/Psychiatric: Alert, Normal Mood/Affect Skin: Normal Color, Warm/Dry Lymphatic: No Adenopathy (neck, auricular, supraclavicular, popliteal) Results Lab Laboratory Tests 04/30/19 05:49: White Blood Count 9.9, Red Blood Count 2.95L, Hemoglobin 7.9L, Hematocrit 26L, Mean Corpuscular Volume 88, Mean Corpuscular Hemoglobin 27, Mean Corpuscular Hemoglobin Concent 30L, Red Cell Distribution Width 14.9H, Platelet Count 658H, Mean Platelet Volume 8.7, Neutrophils (%) (Auto) 74, Lymphocytes (%) (Auto) 17, Monocytes (%) (Auto) 7, Eosinophils (%) (Auto) 2, Basophils (%) (Auto) 0, Neutrophils # (Auto) 7.3, Lymphocytes # (Auto) 1.7, Monocytes # (Auto) 0.7, Eosinophils # (Auto) 0.2, Basophils # (Auto) 0.0, Sodium Level 139, Potassium Level 4.2, Chloride Level 107, Carbon Dioxide Level 22, Anion Gap 10, Blood Urea Nitrogen 5L, Creatinine 0.55L, Estimat Glomerular Filtration Rate > 60, BUN/Creatinine Ratio 9, Glucose Level 95, Calcium Level 8.8, Corrected Calcium 9.8, Total Bilirubin 0.2, Aspartate Amino Transf (AST/SGOT) 26, Alanine Aminotransferase (ALT/SGPT) 42, Alkaline Phosphatase 123, Total Protein 7.2, Albumin 2.7L Microbiology 04/29/19 Influenza Types A,B Antigen (HUSSAIN) - Final, Complete 04/28/19 C. difficile GDH Antigen & Toxins - Final, Resulted 04/28/19 Stool Culture - Preliminary, Resulted Assessment/Plan Assessment/Plan Assessment/Plan Ostomy output is more solid/brown in nature. Ambulation - patient is walking more Await stool cultures No other surgical intervention at this time Clinical Quality Measures DVT/VTE Risk/Contraindication: Risk Factor Score Per Nursin RFS Level Per Nursing on Admit: 4+=Very High KADEEM ARRIAGA DO 04/30/19 1333: Subjective Time Seen by a Provider: 13:04 Subjective/Events-last exam Pt seen and examined, no new complaints and thinks she is doing better. Assessment/Plan Assessment/Plan Assessment/Plan Will sign off and see pt, in 2 weeks at my clinic Supervisory-Addendum Brief Verification & Attestation Participated in pt care: history, MDM, physical Personally performed: exam, history, MDM Care discussed with: Medical Student Procedures: n/a Verification and Attestation of Medical Student E/M Service A medical student performed and documented this service in my presence. I reviewed and verified all information documented by the medical student and made modifications to such information, when appropriate. I personally performed the physical exam and medical decision making. Kadeem Arriaga, Apr 30, 2019,13:30 [facility] Apr 30, 2019 09:04 KADEEM ARRIAGA DO Apr 30, 2019 13:33
--- NOTE | 2019-04-30 09:46 | Pulmonary Progress Note ---
Subjective Time Seen by a Provider: 09:44 Sepsis Event Evaluation Height, Weight, BMI Height: '" Weight: lbs. oz. kg; 30.42 BMI Method: Focused Exam Lactate Level 04/27/19 19:50: Lactic Acid Level 0.65 Exam Exam Vital Signs Date Time Temp Pulse Resp B/P (MAP) Pulse Ox O2 Delivery O2 Flow Rate FiO2 04/30/19 08:00 37.5 106 16 116/58 (77) 93 Room Air 04/30/19 04:00 37.9 101 18 126/65 (85) 94 Room Air 04/30/19 00:00 36.8 99 18 117/58 (77) 96 Room Air 04/29/19 20:00 37.1 95 18 108/66 (80) 97 Room Air 04/29/19 20:00 98 Room Air 04/29/19 16:00 36.4 83 18 98/61 (73) 98 Room Air 04/29/19 12:00 37.1 93 20 118/76 (90) 98 Room Air I & O 04/30/19 07:00 Intake Total 3800 ml Output Total 1625 ml Balance 2175 ml Height & Weight Height: '" Weight: lbs. oz. kg; 30.42 BMI Method: General Appearance: No Apparent Distress, WD/WN HEENT: PERRL/EOMI, Pharynx Normal; No Scleral Icterus (L), No Scleral Icterus (R) Neck: Non Tender, Supple Respiratory: Lungs Clear, Normal Breath Sounds, No Accessory Muscle Use Cardiovascular: Regular Rate, Rhythm, No Edema, No Murmur Capillary Refill: Less Than 3 Seconds Peripheral Pulses: 2+ Radial Pulses (R), 2+ Radial Pulses (L) Gastrointestinal: normal bowel sounds, soft, tenderness (mild diffusely ), other (ostomy output is more brown andsolid in nature) Extremity: Non Tender, No Calf Tenderness, No Pedal Edema Neurologic/Psychiatric: Alert, Normal Mood/Affect Skin: Normal Color, Warm/Dry Lymphatic: No Adenopathy (neck, auricular, supraclavicular, popliteal) Results Lab Laboratory Tests 04/29/19 06:40 04/30/19 05:49 Assessment/Plan Assessment/Plan SOB with small improving bilateral pleural effusions -PT was offered thoracentesis at last hospitalization however she declined. -Check MRSA and influenza swab -Duoneb - UTI with sepsis -Continue rocephin -Mcqueen cultures pending Sinus tachycardia Bowel perforation s/p resection ostomy during last hospitalizations -Surgery is consulted --Cdiff pending Anemia -Monitor Pelvic mass s/p resection/ bilateral oophorectomy 03/29/19 Hx of endometriosis Hx of methamphetamine and marijuana TOY SAEZ DO Apr 30, 2019 09:46
[2019-04-30] MEDS: LORATADINE (CLARITIN) 10 MG TAB PO SCH (10:15)
[2019-04-30] MEDS: FAMOTIDINE 20 MG (PEPCID) TABLET PO SCH ×2 (10:16→17:44)
[2019-04-30] MEDS ORDERED: FAMOTIDINE 20 MG (PEPCID) TABLET PO SCH (11:00)
[2019-04-30 12:00] VITALS: BP 101/65
[2019-04-30] MEDS: IBUPROFEN 600 MG (MOTRIN) TAB PO PRN ×2 (12:27→20:29)
--- NOTE | 2019-04-30 13:06 | Progress Note - Hospitalist ---
Subjective HPI/CC On Admission Date Seen by Provider: Apr 30, 2019 Time Seen by Provider: 11:30 Subjective/Events-last exam Patient doing well Ambulating in the halls a lot Output from colostomy good Less dyspneic No pain reported Reviewed prior notes Review of Systems General: Fatigue Pulmonary: Dyspnea Focused Exam Lactate Level 04/27/19 19:50: Lactic Acid Level 0.65 Objective Exam Vital Signs Vital Signs Date Time Temp Pulse Resp B/P (MAP) Pulse Ox O2 Delivery O2 Flow Rate FiO2 04/30/19 12:00 37.2 105 16 101/65 (77) 97 Room Air Capillary Refill : Less Than 3 SecondsLess Than 3 Seconds General Appearance: No Apparent Distress, WD/WN, Chronically ill Respiratory: No Accessory Muscle Use, No Respiratory Distress, Decreased Breath Sounds Cardiovascular: Regular Rate, Rhythm Neurologic/Psychiatric: Alert, Oriented x3, No Motor/Sensory Deficits, Normal Mood/Affect Results/Procedures Lab Laboratory Tests 04/30/19 05:49 Patient resulted labs reviewed. Assessment/Plan Assessment and Plan Assess & Plan/Chief Complaint Assessment: SOB with small improving bilateral pleural effusions UTI with sepsis Sinus tachycardia Bowel perforation s/p resection ostomy during last hospitalizations Anemia Pelvic mass s/p resection/ bilateral oophorectomy 03/29/19 Hx of endometriosis Hx of methamphetamine and marijuana Plan: Check CXR tomorrow Ambulate Monitor closely Diagnosis/Problems Diagnosis/Problems (1) Sepsis (2) UTI (urinary tract infection) (3) Colostomy in place (4) Bilateral pleural effusion Status: Acute (5) Abdominal pain Status: Acute Clinical Quality Measures DVT/VTE Risk/Contraindication: Risk Factor Score Per Nursin RFS Level Per Nursing on Admit: 4+=Very High MATEUSZ YUSUF DO Apr 30, 2019 13:06
[2019-04-30 16:00] VITALS: BP 122/60
[2019-04-30] MEDS: cefTRIAXone FOR IV USE 1,000 MG in WATER (STERILE) FOR INJECTION 10 ML IV SCH (18:26)
[2019-04-30] MEDS: ENOXAPARIN 40 MG/0.4 ML (LOVENOX) SYR SQ SCH (18:26)
[2019-04-30] MEDS: ONDANSETRON 4 MG/2 ML (SDV) Z0FRAN IVP PRN (20:28)
[2019-05-01] VITALS: BP 103/59
[2019-05-01] MEDS: FAMOTIDINE 20 MG (PEPCID) TABLET PO SCH ×2 (05:26→16:39)
[2019-05-01 05:39] LABS: BASOPHILS % (AUTO) 0 % (0-10); EOSINOPHILS # (AUTO) 0.1 10^3/uL (0.0-0.3); EOSINOPHILS % (AUTO) 2 % (0-10); HEMATOCRIT 24 % (35-52); HEMOGLOBIN 7.3 G/DL (11.5-16.0); LYMPHOCYTES # (AUTO) 1.8 X 10^3 (1.0-4.0); LYMPHOCYTES % (AUTO) 19 % (12-44); MEAN CORPUSCULAR HEMOGLOBIN 27 PG (25-34); MEAN CORPUSCULAR HGB CONC 31 G/DL (32-36); MEAN CORPUSCULAR VOLUME 89 FL (80-99); MEAN PLATELET VOLUME 8.7 FL (7.4-10.4); MONOCYTES # (AUTO) 0.9 X 10^3 (0.0-1.0); MONOCYTES % (AUTO) 9 % (0-12); NEUTROPHILS # (AUTO) 6.8 X 10^3 (1.8-7.8); NEUTROPHILS % (AUTO) 71 % (42-75); PLATELET COUNT 572 10^3/uL (130-400); RED CELL DISTRIBUTION WIDTH 14.7 % (10.0-14.5); WHITE BLOOD COUNT 9.6 10^3/uL (4.3-11.0)
[2019-05-01 05:55] LABS: ALANINE AMINOTRANSFERASE 33 U/L (0-55); ALBUMIN 2.5 GM/DL (3.2-4.5); ALKALINE PHOSPHATASE 97 U/L (40-136); BILIRUBIN,TOTAL 0.2 MG/DL (0.1-1.0); BUN/CREATININE RATIO 13; CALCIUM 8.4 MG/DL (8.5-10.1); CARBON DIOXIDE 25 MMOL/L (21-32); CHLORIDE 107 MMOL/L (98-107); CREATININE SERUM 0.54 MG/DL (0.60-1.30); GFR ESTIMATED > 60; GLUCOSE 96 MG/DL (70-105); SODIUM 141 MMOL/L (135-145); TOTAL PROTEIN 6.5 GM/DL (6.4-8.2)
--- NOTE | 2019-05-01 07:30 | Diagnostic Imaging Report ---
INDICATION: Pleural effusion. Comparison is made with prior examination from 04/28/2019. FINDINGS: Heart size is normal. There is right base infiltrate and left pleural effusion. There is no pneumothorax. Mediastinum is unremarkable. IMPRESSION: Right base infiltrate and right pleural effusion Dictated by: Dictated on workstation # [id number]
[2019-05-01 07:59] VITALS: BP 107/71
[2019-05-01] MEDS: LORATADINE (CLARITIN) 10 MG TAB PO SCH (08:13)
[2019-05-01] MEDS: IBUPROFEN 600 MG (MOTRIN) TAB PO PRN ×3 (08:13→20:18)
[2019-05-01] MEDS: ONDANSETRON 4 MG/2 ML (SDV) Z0FRAN IVP PRN (10:08)
[2019-05-01] MEDS: ACETAMINOPHEN 325 MG TABLET PO PRN ×3 (11:14→22:40)
[2019-05-01] MEDS ORDERED: DOCUSATE SODIUM 100 MG (COLACE) CAP PO ONE (11:30)
[2019-05-01] MEDS ORDERED: polyethylene glycoL POWDER 17 GM (MIRALAX) PACK PO ONE (11:30)
--- NOTE | 2019-05-01 13:19 | Progress Note - Hospitalist ---
Subjective HPI/CC On Admission Date Seen by Provider: May 01, 2019 Time Seen by Provider: 11:00 Subjective/Events-last exam Patient overdid it walking yesterday Patient a bit fatigued No new pain issues Incontinence is a new issue since 3 days before this admit Needs stool softener NO falls CXR today no changes to pleural effusions Review of Systems General: Fatigue Gastrointestinal: Constipation Objective Exam Vital Signs Vital Signs Date Time Temp Pulse Resp B/P (MAP) Pulse Ox O2 Delivery O2 Flow Rate FiO2 05/01/19 16:40 36.4 92 16 102/58 (73) 95 Room Air Capillary Refill : Less Than 3 SecondsLess Than 3 Seconds General Appearance: No Apparent Distress, WD/WN, Chronically ill Respiratory: Chest Non Tender, Lungs Clear, No Accessory Muscle Use, No Respiratory Distress, Decreased Breath Sounds (RLL) Cardiovascular: Regular Rate, Rhythm, No Edema, No Gallop, No JVD, No Murmur, Normal Peripheral Pulses Results/Procedures Lab Laboratory Tests 05/01/19 05:26 Patient resulted labs reviewed. Assessment/Plan Assessment and Plan Assess & Plan/Chief Complaint Assessment: SOB with small improving bilateral pleural effusions UTI with sepsis Sinus tachycardia Bowel perforation s/p resection ostomy during last hospitalizations Anemia Pelvic mass s/p resection/ bilateral oophorectomy 03/29/19 Hx of endometriosis Hx of methamphetamine and marijuana Plan: Checked CXR Ambulate Monitor closely Diagnosis/Problems Diagnosis/Problems (1) Sepsis (2) UTI (urinary tract infection) (3) Colostomy in place (4) Bilateral pleural effusion Status: Acute (5) Abdominal pain Status: Acute Clinical Quality Measures DVT/VTE Risk/Contraindication: Risk Factor Score Per Nursin RFS Level Per Nursing on Admit: 4+=Very High MATEUSZ YUSUF DO May 01, 2019 13:19
[2019-05-01 16:40] VITALS: BP 102/58
[2019-05-01] MEDS: cefTRIAXone FOR IV USE 1,000 MG in WATER (STERILE) FOR INJECTION 10 ML IV SCH (16:54)
[2019-05-01] MEDS: ENOXAPARIN 40 MG/0.4 ML (LOVENOX) SYR SQ SCH (17:46)
--- NOTE | 2019-05-01 18:25 | NUR ---
UA AND CULTURE OF URINE FROM LABETTE FROM 04/27/19 IN PATIENT CHART
[2019-05-01] MEDS: DOCUSATE SODIUM 100 MG (COLACE) CAP PO SCH (20:18)
[2019-05-01] MEDS ORDERED: polyethylene glycoL POWDER 17 GM (MIRALAX) PACK PO SCH (21:00)
[2019-05-02] VITALS: BP 94/65
[2019-05-02] MEDS: FAMOTIDINE 20 MG (PEPCID) TABLET PO SCH (05:15)
[2019-05-02] MEDS: IBUPROFEN 600 MG (MOTRIN) TAB PO PRN ×2 (05:15→12:22)
[2019-05-02 06:43] LABS: BASOPHILS % (AUTO) 0 % (0-10); EOSINOPHILS # (AUTO) 0.2 10^3/uL (0.0-0.3); EOSINOPHILS % (AUTO) 2 % (0-10); HEMATOCRIT 28 % (35-52); HEMOGLOBIN 8.5 G/DL (11.5-16.0); LYMPHOCYTES # (AUTO) 1.7 X 10^3 (1.0-4.0); LYMPHOCYTES % (AUTO) 15 % (12-44); MEAN CORPUSCULAR HEMOGLOBIN 27 PG (25-34); MEAN CORPUSCULAR HGB CONC 30 G/DL (32-36); MEAN CORPUSCULAR VOLUME 88 FL (80-99); MEAN PLATELET VOLUME 8.7 FL (7.4-10.4); MONOCYTES # (AUTO) 0.8 X 10^3 (0.0-1.0); MONOCYTES % (AUTO) 7 % (0-12); NEUTROPHILS # (AUTO) 8.2 X 10^3 (1.8-7.8); NEUTROPHILS % (AUTO) 76 % (42-75); PLATELET COUNT 622 10^3/uL (130-400); RED CELL DISTRIBUTION WIDTH 15.1 % (10.0-14.5); WHITE BLOOD COUNT 10.9 10^3/uL (4.3-11.0)
[2019-05-02 07:02] LABS: ALANINE AMINOTRANSFERASE 32 U/L (0-55); ALKALINE PHOSPHATASE 112 U/L (40-136); BILIRUBIN,TOTAL 0.2 MG/DL (0.1-1.0); BUN/CREATININE RATIO 15; CALCIUM 9.3 MG/DL (8.5-10.1); CARBON DIOXIDE 26 MMOL/L (21-32); CHLORIDE 102 MMOL/L (98-107); CREATININE SERUM 0.61 MG/DL (0.60-1.30); GFR ESTIMATED > 60; GLUCOSE 88 MG/DL (70-105); POTASSIUM 4.6 MMOL/L (3.6-5.0); SODIUM 139 MMOL/L (135-145); TOTAL PROTEIN 7.9 GM/DL (6.4-8.2)
[2019-05-02 08:00] VITALS: BP 115/61
[2019-05-02] MEDS: DOCUSATE SODIUM 100 MG (COLACE) CAP PO SCH (10:13)
[2019-05-02] MEDS: ACETAMINOPHEN 325 MG TABLET PO PRN (10:14)
[2019-05-02] MEDS: LORATADINE (CLARITIN) 10 MG TAB PO SCH (10:14)
[2019-05-02] MEDS ORDERED: CEFD300C3 PO ×2 (11:50)
--- NOTE | 2019-05-02 11:51 | Discharge Summary ---
Discharge Summary Hospital Course Was the Problem List Reviewed?: Yes Problems/Dx: (1) Sepsis (2) UTI (urinary tract infection) (3) Colostomy in place (4) Bilateral pleural effusion Status: Acute (5) Abdominal pain Status: Acute Hospital Course Date of Admission: Apr 27, 2019 at 15:54 Admission Diagnosis : Family Physician/Provider: Haley Alves MD Date of Discharge: 05/02/19 Discharge Diagnosis: Sepsis, UTI Hospital Course: Hospital Course: Pt had an uneventful six day hospital course after she was admitted from [facility] found to have sepsis from UTI, Klebsiella was followed up on final urine culture and Rocephin was maintained and he will complete four more days of antibiotics for full coverage. Pleural effusions remain declined thoracentesis and she was able to walk around and return back to her prior level of functioning and was ready for DC home. Labs and Pending Lab Test: Laboratory Tests 05/02/19 06:25: White Blood Count 10.9, Red Blood Count 3.17L, Hemoglobin 8.5L, Hematocrit 28L, Mean Corpuscular Volume 88, Mean Corpuscular Hemoglobin 27, Mean Corpuscular Hemoglobin Concent 30L, Red Cell Distribution Width 15.1H, Platelet Count 622H, Mean Platelet Volume 8.7, Neutrophils (%) (Auto) 76H, Lymphocytes (%) (Auto) 15, Monocytes (%) (Auto) 7, Eosinophils (%) (Auto) 2, Basophils (%) (Auto) 0, Neutrophils # (Auto) 8.2H, Lymphocytes # (Auto) 1.7, Monocytes # (Auto) 0.8, Eosinophils # (Auto) 0.2, Basophils # (Auto) 0.0, Sodium Level 139, Potassium Level 4.6, Chloride Level 102, Carbon Dioxide Level 26, Anion Gap 11, Blood Urea Nitrogen 9, Creatinine 0.61, Estimat Glomerular Filtration Rate > 60, BUN/Creatinine Ratio 15, Glucose Level 88, Calcium Level 9.3, Corrected Calcium 10.1, Total Bilirubin 0.2, Aspartate Amino Transf (AST/SGOT) 20, Alanine Aminotransferase (ALT/SGPT) 32, Alkaline Phosphatase 112, Total Protein 7.9, Albumin 3.0L Microbiology 04/29/19 MRSA Screen - Final, Complete MRSA not isolated 04/28/19 C. difficile GDH Antigen & Toxins - Final, Complete 04/28/19 Stool Culture - Final, Complete Home Meds Active Reported Multi-Vitamin Gummies (Folic Acid/Multivit-Min/Lutein) 1 Each Tab.chew 2 Each PO DAILY Tylenol (Acetaminophen) 325 Mg Tablet 650 Mg PO Q6H PRN Zyrtec (Cetirizine HCl) 10 Mg Tablet 10 Mg PO DAILY Ibuprofen 600 Mg Tablet 600 Mg PO Q6H PRN Dok (Docusate Sodium) 100 Mg Capsule 100 Mg PO BID PRN Lasix (Furosemide) 20 Mg Tablet 20 Mg PO DAILY Aldactone (Spironolactone) 25 Mg Tablet 25 Mg PO DAILY Famotidine 20 Mg Tablet 20 Mg PO BID Hydrocodone-Acetamin 7.5-325 (Hydrocodone/Acetaminophen) 1 Each Tablet 1 Tab PO Q6H PRN Assessment/Pt Instructions [facility] this week Discharge Planning: <30 minutes discharge planning Discharge Instructions Discharge Diet: No Restrictions Pneumonia Vaccine Order Indica: Yes Discharge Physical Examination Vital Signs Vital Signs Date Time Temp Pulse Resp B/P (MAP) Pulse Ox O2 Delivery O2 Flow Rate FiO2 05/02/19 08:00 36.7 109 20 115/61 (79) 97 Room Air General Appearance: No Apparent Distress, WD/WN, Chronically ill Respiratory: Lungs Clear Cardiovascular: Regular Rate, Rhythm Allergies: Coded Allergies: Penicillins (Verified Allergy, Severe, childhood reaction-unsure of react ion, 03/18/19) amoxicillin (Verified Allergy, Severe, BREATHING ISSUES, 02/09/19) Discharge Summary Date of Admission Apr 27, 2019 at 15:54 Date of Discharge Discharge Date: May 02, 2019 Discharge Diagnosis Assessment: SOB with small improving bilateral pleural effusions UTI with sepsis Sinus tachycardia Bowel perforation s/p resection ostomy during last hospitalizations Anemia Pelvic mass s/p resection/ bilateral oophorectomy 03/29/19 Hx of endometriosis Hx of methamphetamine and marijuana Plan: Checked CXR Ambulate Monitor closely (1) Sepsis (2) UTI (urinary tract infection) (3) Colostomy in place (4) Bilateral pleural effusion Status: Acute (5) Abdominal pain Status: Acute Clinical Quality Measures DVT/VTE Risk/Contraindication: Risk Factor Score Per Nursin RFS Level Per Nursing on Admit: 4+=Very High MATEUSZ YUSUF DO May 02, 2019 11:50
[2019-05-02] MEDS: cefTRIAXone FOR IV USE 1,000 MG in WATER (STERILE) FOR INJECTION 10 ML IV SCH (12:04)
[2019-05-02 13:00] VITALS: BP 115/61
--- NOTE | 2019-05-02 13:00 | NUR ---
BRENNA CAUSEY demonstrates understanding of discharge instructions and accurately returns instructions upon questioning. Copy of Post-Discharge Instructions given to PT. BRENNA CAUSEY is able to manage continuing needs after discharge. Patients belongings returned to PT. Patient discharged from [facility] on 05/02/18 at 1300. BRENNA CAUSEY left floor via AMB, accompanied by STAFF AND AUTO WITH [facility].
--- NOTE | 2019-05-02 15:48 | NUR ---
Cindy was discharged home and did contact [facility] for resumption of Home Health Services.Pt stated she did benefit from Home Health care nurses and physical therapy and would like them to continue as still feels anxious and concerned about her continued urinary incontinence. Faxed medical records to [facility] for their continued follow-up,
== END 2019-05-02 13:00 | disposition home health service (06) | DRG 872 ==
LOC: 4TH 15:54
PROVIDERS: ADMIT Family Medicine; ATTEND Internal Medicine
DX: A41.9 Sepsis, unspecified organism (principal); N39.0 Urinary tract infection, site not specified; N32.1 Vesicointestinal fistula; J90 Pleural effusion, not elsewhere classified; K21.9 Gastro-esophageal reflux disease without esophagitis; F41.9 Anxiety disorder, unspecified; F32.9 Major depressive disorder, single episode, unspecified; R63.4 Abnormal weight loss; M54.9 Dorsalgia, unspecified; G89.29 Other chronic pain; D64.9 Anemia, unspecified; Z90.710 Acquired absence of both cervix and uterus; Z79.1 Long term (current) use of non-steroidal anti-inflammatories (NSAID); Z90.722 Acquired absence of ovaries, bilateral; Z93.3 Colostomy status; Z90.49 Acquired absence of other specified parts of digestive tract; Z87.891 Personal history of nicotine dependence
CPT/HCPCS: 36415; 71046; 76705; 80053; 82274; 82570; 83605; 83880; 85025; 87015; 87045; 87046; 87081; 87324; 87449; 87804; 87899

== ENCOUNTER → 2019-06-06 | Outpatient (CLI) | payer MEDICAID ==
[~2019-06-06] MED LIST changes: +ACET325T38 PO; +CEFD300C3 PO; +CETI10TA21 PO; +DCS100C PO; +FAMO20TA5 PO; +FOLI-88 PO; +IBUP-1773 PO; +SPIR25TA PO
--- NOTE | 2019-06-06 12:07 | Diagnostic Imaging Report ---
HISTORY: Pleural effusion. TECHNIQUE: Two views of the chest. COMPARISON: 05/01/2019. FINDINGS: There is a small right pleural effusion, improved since the prior exam. No new consolidation is seen. No pneumothorax is seen. The cardiac silhouette is normal in size. IMPRESSION: 1. Small right pleural effusion, improved since the prior study. Dictated by: Dictated on workstation # [id number]
== END ==
LOC: RAD 09:51
PROVIDERS: ATTEND Nurse Practitioner Family
DX: R91.8 Other nonspecific abnormal finding of lung field (principal); J91.8 Pleural effusion in other conditions classified elsewhere; R06.00 Dyspnea, unspecified; Z72.0 Tobacco use
CPT/HCPCS: 71046

== ENCOUNTER → 2019-08-18 | Outpatient (CLI) | payer MEDICAID ==
[~2019-08-18] MED LIST changes: +RT-ALBUTEROL SULF 2.5 MG/3 ML PRE-MIX VIAL INH ONE
--- NOTE | 2019-08-18 10:00 | Diagnostic Imaging Report ---
INDICATION: Dyspnea. TECHNIQUE: Two view chest 9:56 AM CORRELATION STUDY: 06/06/2019 FINDINGS: The heart size, mediastinal configuration and pulmonary vasculature are within normal limits. Lung ch are relatively clear. No significant infiltrate or evidence of effusion at follow-up. Mild degenerative changes thoracic spine. Mild endplate lipping. IMPRESSION: 1. Negative for acute abnormality of the chest. Dictated by: Dictated on workstation # [id number]
== END ==
LOC: RT 09:41
PROVIDERS: ATTEND Nurse Practitioner Family
DX: J91.8 Pleural effusion in other conditions classified elsewhere (principal); R91.8 Other nonspecific abnormal finding of lung field; Z72.0 Tobacco use
CPT/HCPCS: 71046; 94060; 94726; 94729

== ENCOUNTER 2019-09-28 05:47 | Outpatient (RCR) | payer MEDICAID ==
[~2019-09-28] VITALS: Ht 154.9 cm; Wt 72.7 kg
[~2019-09-28 05:47] MED LIST changes: -RT-ALBUTEROL SULF 2.5 MG/3 ML PRE-MIX VIAL INH ONE
[2019-09-28] MEDS ORDERED: FLUT1AER IH (15:50)
[2019-09-28] MEDS ORDERED: GINK60TA7 PO (15:50)
[2019-09-28] MEDS ORDERED: RT-ALBUINH IH (15:50)
[2019-09-28] MEDS ORDERED: MULT-985 PO (15:50)
[2019-09-28] MEDS ORDERED: BUPR-42 PO (15:50)
[2019-09-29] MEDS ORDERED: RT-ALBUINH INH (11:13)
== END 2019-09-28 16:00 | disposition home or self-care (01) ==
LOC: PREOP 05:47
PROVIDERS: ATTEND Surgery
DX: Z01.818 Encounter for other preprocedural examination (principal)

== ENCOUNTER 2019-10-05 06:15 | Inpatient (IN) | payer MEDICAID ==
[2019-10-05] VITALS (11 sets, daily range): BP systolic 108–136; BP diastolic 77–94
[~2019-10-05] VITALS: Ht 149 cm; Wt 72.7 kg
[~2019-10-05 06:15] MED LIST changes: +BUPR-42 PO; +FLUT1AER IH; +GINK60TA7 PO; +MULT-985 PO; +RT-ALBUINH IH; +RT-ALBUINH INH
--- OUTSIDE RECORDS SUMMARY | 2019-10-05 06:32 | XMS REPORT | Continuity of Care Document ---
Author Organization Unknown Address Unknown Phone Unavailable Allergies Active Description Code Type Severity Reaction Onset Reported/Identified Relationship to Patient Clinical Status Yes CEPHALOSPORIN [id number] CLASS N/A N/A Yes PENICILLINS (CLASS) [id number] CLAS S N/A RASH Yes No Allergy Information Available [id number] Drug Allergy Unknown N/A 019 Yes amoxicillin [id number] Drug Aller gy Unknown N/A 02/07/2019 Yes Penicillins [id number] Drug Aller gy Unknown N/A 02/07/2019 Yes amoxicillin [id number] Drug Aller gy Severe BREATHING ISSUE 02/09/2019 Yes Penicillins [id number] Drug Aller gy Severe BREATHING ISSUE 02/09/2019 Yes Penicillins [id number] Drug Aller gy Severe childhood react 03/18/2019 Medications There is no data. 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 Melina Hooker 01/13/2018 F F41.1 Gene ralized anxiety disorder Melina Hooker 01/10/2019 DELMAR SEE DO Ot N80.1 ENDOMETRIOSIS OF OVARY 01/10/2019 DELMAR SEE DO Ot N80.4 ENDOMETRIOSIS OF RECTOVAGINAL SEPTUM AND 01/10/2019 DELMAR SEE DO Ot N80.8 OTHER ENDOMETRIOSIS 01/10/2019 DELMAR SEE DO Ot N93.9 ABNORMAL UTERINE AND VAGINAL BLEEDING, U 01/10/2019 DELMAR SEE DO Ot R19.09 OTHER INTRA-ABDOMINAL AND PELVIC SWELLIN 02/07/2019 DELMAR SEE DO Ot N80.1 ENDOMETRIOSIS OF OVARY 02/07/2019 DELMAR SEE DO Ot N80.4 ENDOMETRIOSIS OF RECTOVAGINAL SEPTUM AND 02/07/2019 DELMAR SEE DO Ot N80.8 OTHER ENDOMETRIOSIS 02/07/2019 DELMAR SEE DO Ot N93.9 ABNORMAL UTERINE AND VAGINAL BLEEDING, U 02/07/2019 DELMAR SEE DO Ot R19.09 OTHER INTRA-ABDOMINAL AND PELVIC SWELLIN 02/07/2019 IFEOMA, PERLA MANAGER FLEET Ot R10.31 RIGHT LOWER QUADRANT PAIN 02/07/2019 IFEOMA, PERLA MANAGER FLEET Ot R10.9 UNSPECIFIED ABDOMINAL PAIN 02/07/2019 IFEOMA, PERLA MANAGER FLEET Ot Z88.0 ALLERGY STATUS TO PENICILLIN 02/08/2019 ARON BARKER DO Ot Z01.8 18 ENCOUNTER FOR OTHER PREPROCEDURAL EXAMIN 02/09/2019 IFEOMA, PERLA MANAGER FLEET Ot R10.31 RIGHT LOWER QUADRANT PAIN 02/09/2019 IFEOMA, PERLA MANAGER FLEET Ot R10.9 UNSPECIFIED ABDOMINAL PAIN 02/09/2019 IFEOMA, PERLA MANAGER FLEET Ot Z88.0 ALLERGY STATUS TO PENICILLIN 02/09/2019 ARON BARKER DO Ot Z01.8 18 ENCOUNTER FOR OTHER PREPROCEDURAL EXAMIN 02/09/2019 ARON BARKER DO Ot Z01.8 18 ENCOUNTER FOR OTHER PREPROCEDURAL EXAMIN 02/14/2019 DELMAR SEE DO Ot N80.1 ENDOMETRIOSIS OF OVARY 02/14/2019 DELMAR SEE DO Ot N80.4 ENDOMETRIOSIS OF RECTOVAGINAL SEPTUM AND 02/14/2019 DELMAR SEE DO Ot N80.8 OTHER ENDOMETRIOSIS 02/14/2019 DELMAR SEE DO Ot N93.9 ABNORMAL UTERINE AND VAGINAL BLEEDING, U 02/14/2019 DELMAR SEE DO Ot R19.09 OTHER INTRA-ABDOMINAL AND PELVIC SWELLIN 02/14/2019 ARON BARKER DO Ot F17.2 10 NICOTINE DEPENDENCE, CIGARETTES, UNCOMPL 02/14/2019 ARON BARKER DO Ot K62.8 9 OTHER SPECIFIED DISEASES OF ANUS AND REC 02/14/2019 ARON BARKER DO Ot K63.5 POLYP OF COLON 02/14/2019 ARON BARKER DO Ot K63.8 9 OTHER SPECIFIED DISEASES OF INTESTINE 02/14/2019 ARON BARKER DO Ot K64.8 OTHER HEMORRHOIDS 02/14/2019 ARON BARKER DO Ot N80.1 ENDOMETRIOSIS OF OVARY 02/14/2019 ARON BARKER DO Ot Z82.4 9 FAMILY HX OF ISCHEM HEART DIS AND OTH DI 02/14/2019 ARON BARKER DO Ot Z83.3 FAMILY HISTORY OF DIABETES MELLITUS 02/14/2019 KAYYONY ARON MATHEW Ot Z88.0 ALLERGY STATUS TO PENICILLIN 02/14/2019 ARON BARKER DO Ot Z88.1 ALLERGY STATUS TO OTHER ANTIBIOTIC AGENT 02/14/2019 KAYYONY ARON MATHEW Ot Z90.7 10 ACQUIRED ABSENCE OF BOTH CERVIX AND UTER 02/14/2019 KAYYONY ARON MATHEW Ot Z90.8 9 ACQUIRED ABSENCE OF OTHER ORGANS 03/21/2019 DELMAR SEE DO Ot N80.9 ENDOMETRIOSIS, UNSPECIFIED 03/21/2019 DELMAR SEE DO Ot Z01.812 ENCOUNTER FOR PREPROCEDURAL LABORATORY E 03/21/2019 DELMAR SEE DO, Ot Z11.2 ENCOUNTER FOR SCREENING FOR OTHER BACTER 03/28/2019 DELMAR SEE DO Ot E66.9 OBESITY, UNSPECIFIED 03/28/2019 [facility]MAR SEE DO Ot F17.210 NICOTINE DEPENDENCE, CIGARETTES, UNCOMPL 03/28/2019 DELMAR SEE DO Ot G62.9 POLYNEUROPATHY, UNSPECIFIED 03/28/2019 BRENTECH DELMAR MATHEW Ot N73.6 FEMALE PELVIC PERITONEAL ADHESIONS (POST 03/28/2019 DELMAR SEE DO Ot N80.4 ENDOMETRIOSIS OF RECTOVAGINAL SEPTUM AND 03/28/2019 DELMAR SEE DO Ot N83.209 UNSPECIFIED OVARIAN CYST, UNSPECIFIED SI 03/28/2019 DELMAR SEE DO Ot N89.8 OTHER SPECIFIED NONINFLAMMATORY DISORDER 03/28/2019 DELMAR SEE DO Ot R19.00 INTRA-ABD AND PELVIC SWELLING, MASS AND 03/28/2019 [facility] DELMAR MATHEW Ot Z68.31 BODY MASS INDEX (BMI) 31.0-31.9, ADULT 03/28/2019 DELMAR SEE DO Ot Z79.899 OTHER FILTER TENDER JELLY (CURRENT) DRUG THERAPY 03/28/2019 DELMAR SEE DO Ot Z82.49 FAMILY HX OF ISCHEM HEART DIS AND OTH DI 03/28/2019 DELMAR SEE DO Ot Z83.3 FAMILY HISTORY OF DIABETES MELLITUS 03/28/2019 DELMAR SEE DO Ot Z83.6 FAMILY HISTORY OF OTHER DISEASES OF THE 03/28/2019 DELMAR SEE DO Ot Z88.1 ALLERGY STATUS TO OTHER ANTIBIOTIC AGENT 03/28/2019 [facility] Chin Ot Z88.2 ALLERGY STATUS TO SULFONAMIDES STATUS 03/28/2019 [facility] DO, DELMAR Chin Ot Z90.710 ACQUIRED ABSENCE OF BOTH CERVIX AND UTER 03/28/2019 [facility], [facility] Chin Ot Z90.89 ACQUIRED ABSENCE OF OTHER ORGANS 04/01/2019 [facility] DODELMAR Ot E66.9 OBESITY, UNSPECIFIED 04/01/2019 [facility] DODELMAR Ot F17.210 NICOTINE DEPENDENCE, CIGARETTES, UNCOMPL 04/01/2019 [facility], DELMAR Chin Ot G62.9 POLYNEUROPATHY, UNSPECIFIED 04/01/2019 [facility] DO, DELMAR Chin Ot N73.6 FEMALE PELVIC PERITONEAL ADHESIONS (POST 04/01/2019 [facility] DO, DELMAR Chin Ot N80.4 ENDOMETRIOSIS OF RECTOVAGINAL SEPTUM AND 04/01/2019 [facility] DODELMAR Ot N83.209 UNSPECIFIED OVARIAN CYST, UNSPECIFIED SI 04/01/2019 [facility] DODELMAR Ot N89.8 OTHER SPECIFIED NONINFLAMMATORY DISORDER 04/01/2019 [facility] DODELMAR Ot R19.00 INTRA-ABD AND PELVIC SWELLING, MASS AND 04/01/2019 [facility] DODELMAR Ot Z68.31 BODY MASS INDEX (BMI) 31.0-31.9, ADULT 04/01/2019 [facility] DO, DELMAR Chin Ot Z79.899 OTHER FILTER TENDER JELLY (CURRENT) DRUG THERAPY 04/01/2019 [facility] DODELMAR Ot Z82.49 FAMILY HX OF ISCHEM HEART DIS AND OTH DI 04/01/2019 [facility] DODELMAR Ot Z83.3 FAMILY HISTORY OF DIABETES MELLITUS 04/01/2019 [facility] DODELMAR Ot Z83.6 FAMILY HISTORY OF OTHER DISEASES OF THE 04/01/2019 [facility] DO, DELMAR Chin Ot Z88.1 ALLERGY STATUS TO OTHER ANTIBIOTIC AGENT 04/01/2019 [facility] DO, DELMAR Chin Ot Z88.2 ALLERGY STATUS TO SULFONAMIDES STATUS 04/01/2019 [facility] DO, DELMAR Chin Ot Z90.710 ACQUIRED ABSENCE OF BOTH CERVIX AND UTER 04/01/2019 [facility] DODELMAR Ot Z90.89 ACQUIRED ABSENCE OF OTHER ORGANS 04/06/2019 [facility] DODELMAR Ot A41.81 SEPSIS DUE TO ENTEROCOCCUS 04/06/2019 [facility] DO, DELMAR Chin Ot E83.39 OTHER DISORDERS OF PHOSPHORUS METABOLISM 04/06/2019 [facility] DO, DELMAR Chin Ot E83.42 HYPOMAGNESEMIA 04/06/2019 [facility] DO, DELMAR Chin Ot E87.6 HYPOKALEMIA 04/06/2019 [facility] DO, DELMAR Chin Ot F12.90 CANNABIS USE, UNSPECIFIED, UNCOMPLICATED 04/06/2019 [facility] DO, DELMAR Chin Ot F17.210 NICOTINE DEPENDENCE, CIGARETTES, UNCOMPL 04/06/2019 [facility] DO, DELMAR Chin Ot I47.1 SUPRAVENTRICULAR TACHYCARDIA 04/06/2019 [facility] DO, DELMAR Chin Ot J96.00 ACUTE RESPIRATORY FAILURE, UNSP W HYPOXI 04/06/2019 [facility] DO, DELMAR Chin Ot J98.11 ATELECTASIS 04/06/2019 [facility] DO, DELMAR Chin Ot K63.1 PERFORATION OF INTESTINE (NONTRAUMATIC) 04/06/2019 [facility] DO, DELMAR Chin Ot K65.9 PERITONITIS, UNSPECIFIED 04/06/2019 [facility] DO, DELMAR Chin Ot R65.21 SEVERE SEPSIS WITH SEPTIC SHOCK 04/06/2019 [facility] DO, DELMAR Chin Ot T81.44XA SEPSIS FOLLOWING A PROCEDURE, INITIAL EN 04/06/2019 [facility] DO, DELMAR Chin Ot Z53.31 LAPAROSCOPIC SURGICAL PROCEDURE CONVERTE 04/06/2019 [facility] DO, DELMAR Chin Ot Z90.710 ACQUIRED ABSENCE OF BOTH CERVIX AND UTER 04/06/2019 [facility] DO, DELMAR Chin Ot Z90.89 ACQUIRED ABSENCE OF OTHER ORGANS 04/07/2019 [facility] DO, DELMAR Chin Ot A41.81 SEPSIS DUE TO ENTEROCOCCUS 04/07/2019 [facility] DO, DELMAR Chin Ot E83.39 OTHER DISORDERS OF PHOSPHORUS METABOLISM 04/07/2019 [facility] DO, DELMAR Chin Ot E83.42 HYPOMAGNESEMIA 04/07/2019 [facility] DO, DELMAR Chin Ot E87.6 HYPOKALEMIA 04/07/2019 [facility] DO, DELMAR Chin Ot F12.90 CANNABIS USE, UNSPECIFIED, UNCOMPLICATED 04/07/2019 [facility] DO, DELMAR Chin Ot F17.210 NICOTINE DEPENDENCE, CIGARETTES, UNCOMPL 04/07/2019 [facility] DO, DELMAR Chin Ot I47.1 SUPRAVENTRICULAR TACHYCARDIA 04/07/2019 [facility] DO, DELMAR Chin Ot J96.00 ACUTE RESPIRATORY FAILURE, UNSP W HYPOXI 04/07/2019 [facility] DO, DELMAR Chin Ot J98.11 ATELECTASIS 04/07/2019 [facility] DO, DELMAR Chin Ot K63.1 PERFORATION OF INTESTINE (NONTRAUMATIC) 04/07/2019 [facility] DO, DELMAR Chin Ot K65.9 PERITONITIS, UNSPECIFIED 04/07/2019 [facility] DO, DELMAR Chin Ot R65.21 SEVERE SEPSIS WITH SEPTIC SHOCK 04/07/2019 [facility] DO, DELMAR Chin Ot T81.44XA SEPSIS FOLLOWING A PROCEDURE, INITIAL EN 04/07/2019 [facility] DO, DELMAR Chin Ot Z53.31 LAPAROSCOPIC SURGICAL PROCEDURE CONVERTE 04/07/2019 [facility] DO, DELMAR Chin Ot Z90.710 ACQUIRED ABSENCE OF BOTH CERVIX AND UTER 04/07/2019 [facility] DO, DELMAR Chin Ot Z90.89 ACQUIRED ABSENCE OF OTHER ORGANS 04/08/2019 [facility] DO, DELMAR Chin Ot A41.81 SEPSIS DUE TO ENTEROCOCCUS 04/08/2019 [facility] DO, DELMAR Chin Ot E83.39 OTHER DISORDERS OF PHOSPHORUS METABOLISM 04/08/2019 [facility] DO, DELMAR Chin Ot E83.42 HYPOMAGNESEMIA 04/08/2019 [facility] DO, DELMAR Chin Ot E87.6 HYPOKALEMIA 04/08/2019 [facility] DO, DELMAR Chin Ot F12.90 CANNABIS USE, UNSPECIFIED, UNCOMPLICATED 04/08/2019 [facility] DO, DELMAR Chin Ot F17.210 NICOTINE DEPENDENCE, CIGARETTES, UNCOMPL 04/08/2019 [facility] DO, DELMAR Chin Ot I47.1 SUPRAVENTRICULAR TACHYCARDIA 04/08/2019 [facility] DO, DELMAR Chin Ot J96.00 ACUTE RESPIRATORY FAILURE, UNSP W HYPOXI 04/08/2019 [facility] DODELMAR Ot J98.11 ATELECTASIS 04/08/2019 [facility] DO, DELMAR Chin Ot K63.1 PERFORATION OF INTESTINE (NONTRAUMATIC) 04/08/2019 [facility] DO, DELMAR Chin Ot K65.9 PERITONITIS, UNSPECIFIED 04/08/2019 [facility] DO, DELMAR Chin Ot R65.21 SEVERE SEPSIS WITH SEPTIC SHOCK 04/08/2019 [facility] DO, DELMAR Chin Ot T81.44XA SEPSIS FOLLOWING A PROCEDURE, INITIAL EN 04/08/2019 [facility] DO, DELMAR Chin Ot Z53.31 LAPAROSCOPIC SURGICAL PROCEDURE CONVERTE 04/08/2019 [facility] DO, DELMAR Chin Ot Z90.710 ACQUIRED ABSENCE OF BOTH CERVIX AND UTER 04/08/2019 [facility] DO, DELMAR Chin Ot Z90.89 ACQUIRED ABSENCE OF OTHER ORGANS 04/09/2019 [facility] DO, DELMAR Chin Ot A41.81 SEPSIS DUE TO ENTEROCOCCUS 04/09/2019 [facility] DO, DELMAR Chin Ot E83.39 OTHER DISORDERS OF PHOSPHORUS METABOLISM 04/09/2019 [facility] DO, DELMAR Chin Ot E83.42 HYPOMAGNESEMIA 04/09/2019 [facility] DO, DELMAR Chin Ot E87.6 HYPOKALEMIA 04/09/2019 [facility] DO, DELMAR Chin Ot F12.90 CANNABIS USE, UNSPECIFIED, UNCOMPLICATED 04/09/2019 [facility] DO, DELMAR Chin Ot F17.210 NICOTINE DEPENDENCE, CIGARETTES, UNCOMPL 04/09/2019 [facility] DO, DELMAR Chin Ot I47.1 SUPRAVENTRICULAR TACHYCARDIA 04/09/2019 [facility] DO, DELMAR Chin Ot J96.00 ACUTE RESPIRATORY FAILURE, UNSP W HYPOXI 04/09/2019 [facility] DO, DELMAR Chin Ot J98.11 ATELECTASIS 04/09/2019 [facility] DO, DELMAR Chin Ot K63.1 PERFORATION OF INTESTINE (NONTRAUMATIC) 04/09/2019 [facility] DO, DELMAR Chin Ot K65.9 PERITONITIS, UNSPECIFIED 04/09/2019 [facility] DO, DELMAR Chin Ot R65.21 SEVERE SEPSIS WITH SEPTIC SHOCK 04/09/2019 [facility] DO, DELMAR Chin Ot T81.44XA SEPSIS FOLLOWING A PROCEDURE, INITIAL EN 04/09/2019 [facility] DO, DELMAR Chin Ot Z53.31 LAPAROSCOPIC SURGICAL PROCEDURE CONVERTE 04/09/2019 [facility] DO, DELMAR Chin Ot Z90.710 ACQUIRED ABSENCE OF BOTH CERVIX AND UTER 04/09/2019 [facility] DO, DELMAR Chin Ot Z90.89 ACQUIRED ABSENCE OF OTHER ORGANS 04/10/2019 [facility] DO, DELMAR Chin Ot A41.81 SEPSIS DUE TO ENTEROCOCCUS 04/10/2019 [facility] DO, DELMAR Chin Ot E83.39 OTHER DISORDERS OF PHOSPHORUS METABOLISM 04/10/2019 [facility] DO, DELMAR Chin Ot E83.42 HYPOMAGNESEMIA 04/10/2019 [facility] DO, DELMAR Chin Ot E87.6 HYPOKALEMIA 04/10/2019 [facility] DO, DELMAR Chin Ot F12.90 CANNABIS USE, UNSPECIFIED, UNCOMPLICATED 04/10/2019 [facility] DO, DELMAR Chin Ot F17.210 NICOTINE DEPENDENCE, CIGARETTES, UNCOMPL 04/10/2019 [facility] DO, DELMAR Chin Ot I47.1 SUPRAVENTRICULAR TACHYCARDIA 04/10/2019 [facility] DO, DELMAR Chin Ot J96.00 ACUTE RESPIRATORY FAILURE, UNSP W HYPOXI 04/10/2019 [facility] DO, DELMAR Chin Ot J98.11 ATELECTASIS 04/10/2019 [facility] DO, DELMAR Chin Ot K63.1 PERFORATION OF INTESTINE (NONTRAUMATIC) 04/10/2019 [facility] DO, DELMAR Chin Ot K65.9 PERITONITIS, UNSPECIFIED 04/10/2019 [facility] DO, DELAMR Chin Ot R65.21 SEVERE SEPSIS WITH SEPTIC SHOCK 04/10/2019 [facility] DO, DELMAR Chin Ot T81.44XA SEPSIS FOLLOWING A PROCEDURE, INITIAL EN 04/10/2019 [facility] DO, DELMAR Chin Ot Z53.31 LAPAROSCOPIC SURGICAL PROCEDURE CONVERTE 04/10/2019 [facility] DO, DELMAR Chin Ot Z90.710 ACQUIRED ABSENCE OF BOTH CERVIX AND UTER 04/10/2019 [facility] DO, DELMAR Chin Ot Z90.89 ACQUIRED ABSENCE OF OTHER ORGANS 04/11/2019 [facility] DO, DELMAR Chin Ot A41.81 SEPSIS DUE TO ENTEROCOCCUS 04/11/2019 [facility] DO, DELMAR Chin Ot E83.39 OTHER DISORDERS OF PHOSPHORUS METABOLISM 04/11/2019 [facility] DO, DELMAR Chin Ot E83.42 HYPOMAGNESEMIA 04/11/2019 [facility] DO, DELMAR Chin Ot E87.6 HYPOKALEMIA 04/11/2019 [facility] DO, DELMAR Chin Ot F12.90 CANNABIS USE, UNSPECIFIED, UNCOMPLICATED 04/11/2019 [facility] DO, DELMAR Chin Ot F17.210 NICOTINE DEPENDENCE, CIGARETTES, UNCOMPL 04/11/2019 [facility] DO, DELMAR Chin Ot I47.1 SUPRAVENTRICULAR TACHYCARDIA 04/11/2019 [facility] DO, DLEMAR Chin Ot J96.00 ACUTE RESPIRATORY FAILURE, UNSP W HYPOXI 04/11/2019 [facility] DO, DELMAR Chin Ot J98.11 ATELECTASIS 04/11/2019 [facility] DO, DELMAR Chin Ot K63.1 PERFORATION OF INTESTINE (NONTRAUMATIC) 04/11/2019 [facility] DO, DELMAR Chin Ot K65.9 PERITONITIS, UNSPECIFIED 04/11/2019 [facility] DO, DELMAR Chin Ot R65.21 SEVERE SEPSIS WITH SEPTIC SHOCK 04/11/2019 [facility] DO, DELMAR Chin Ot T81.44XA SEPSIS FOLLOWING A PROCEDURE, INITIAL EN 04/11/2019 [facility] DO, DELMAR Chin Ot Z53.31 LAPAROSCOPIC SURGICAL PROCEDURE CONVERTE 04/11/2019 [facility] DO, DELMAR Chin Ot Z90.710 ACQUIRED ABSENCE OF BOTH CERVIX AND UTER 04/11/2019 [facility] DO, DELMAR Chin Ot Z90.89 ACQUIRED ABSENCE OF OTHER ORGANS 04/11/2019 [facility] DO, DELMAR Chin Ot A41.81 SEPSIS DUE TO ENTEROCOCCUS 04/11/2019 [facility] DO, DELMAR Chin Ot E83.39 OTHER DISORDERS OF PHOSPHORUS METABOLISM 04/11/2019 [facility] DO, DELMAR Chin Ot E83.42 HYPOMAGNESEMIA 04/11/2019 [facility] DO, DELMAR Chin Ot E87.6 HYPOKALEMIA 04/11/2019 [facility] DO, DELMAR Chin Ot F12.90 CANNABIS USE, UNSPECIFIED, UNCOMPLICATED 04/11/2019 [facility] DO, DELMAR Chin Ot F17.210 NICOTINE DEPENDENCE, CIGARETTES, UNCOMPL 04/11/2019 [facility] DO, DELMAR Chin Ot I47.1 SUPRAVENTRICULAR TACHYCARDIA 04/11/2019 [facility] DO, DELMAR Chin Ot J96.00 ACUTE RESPIRATORY FAILURE, UNSP W HYPOXI 04/11/2019 [facility] DO, DELMAR Chin Ot J98.11 ATELECTASIS 04/11/2019 [facility] DO, DELMAR Chin Ot K63.1 PERFORATION OF INTESTINE (NONTRAUMATIC) 04/11/2019 [facility] DO, DELMAR Chin Ot K65.9 PERITONITIS, UNSPECIFIED 04/11/2019 [facility] DO, DELMAR Chin Ot R65.21 SEVERE SEPSIS WITH SEPTIC SHOCK 04/11/2019 [facility] DO, DELMAR Chin Ot T81.44XA SEPSIS FOLLOWING A PROCEDURE, INITIAL EN 04/11/2019 [facility] DO, DELMAR Chin Ot Z53.31 LAPAROSCOPIC SURGICAL PROCEDURE CONVERTE 04/11/2019 [facility] DO, DELMAR Chin Ot Z90.710 ACQUIRED ABSENCE OF BOTH CERVIX AND UTER 04/11/2019 [facility] DO, DELMAR Chin Ot Z90.89 ACQUIRED ABSENCE OF OTHER ORGANS 04/12/2019 [facility] DO, DELMAR Chin Ot A41.81 SEPSIS DUE TO ENTEROCOCCUS 04/12/2019 [facility] DO, DELMAR Chin Ot E83.39 OTHER DISORDERS OF PHOSPHORUS METABOLISM 04/12/2019 [facility] DO, DELMAR Chin Ot E83.42 HYPOMAGNESEMIA 04/12/2019 [facility] DO, DELMAR Chin Ot E87.6 HYPOKALEMIA 04/12/2019 [facility] DO, DELMAR Chin Ot F12.90 CANNABIS USE, UNSPECIFIED, UNCOMPLICATED 04/12/2019 [facility] DO, DELMAR Chin Ot F17.210 NICOTINE DEPENDENCE, CIGARETTES, UNCOMPL 04/12/2019 [facility] DO, DELMAR Chin Ot I47.1 SUPRAVENTRICULAR TACHYCARDIA 04/12/2019 [facility] DO, DELMAR Chin Ot J96.00 ACUTE RESPIRATORY FAILURE, UNSP W HYPOXI 04/12/2019 [facility] DO, DELMAR Chin Ot J98.11 ATELECTASIS 04/12/2019 [facility] DO, DELMAR Chin Ot K63.1 PERFORATION OF INTESTINE (NONTRAUMATIC) 04/12/2019 [facility] DO, DELMAR Chin Ot K65.9 PERITONITIS, UNSPECIFIED 04/12/2019 [facility] DO, DELMAR Chin Ot R65.21 SEVERE SEPSIS WITH SEPTIC SHOCK 04/12/2019 [facility] DO, DELMAR Chin Ot T81.44XA SEPSIS FOLLOWING A PROCEDURE, INITIAL EN 04/12/2019 [facility] DO, DELMAR Chin Ot Z53.31 LAPAROSCOPIC SURGICAL PROCEDURE CONVERTE 04/12/2019 [facility] DO, DELMAR Chin Ot Z90.710 ACQUIRED ABSENCE OF BOTH CERVIX AND UTER 04/12/2019 [facility] DO, DELMAR Chin Ot Z90.89 ACQUIRED ABSENCE OF OTHER ORGANS 04/13/2019 [facility] DO, DELMAR Chin Ot A41.81 SEPSIS DUE TO ENTEROCOCCUS 04/13/2019 [facility] DO, DELMAR Chin Ot E83.39 OTHER DISORDERS OF PHOSPHORUS METABOLISM 04/13/2019 [facility] DO, DELMAR Chin Ot E83.42 HYPOMAGNESEMIA 04/13/2019 [facility] DO, DELMAR Chin Ot E87.6 HYPOKALEMIA 04/13/2019 [facility] DO, DELMAR Chin Ot F12.90 CANNABIS USE, UNSPECIFIED, UNCOMPLICATED 04/13/2019 [facility] DO, DELMAR Chin Ot F17.210 NICOTINE DEPENDENCE, CIGARETTES, UNCOMPL 04/13/2019 [facility] DO, DELMAR Chin Ot I47.1 SUPRAVENTRICULAR TACHYCARDIA 04/13/2019 [facility] DO, DELMAR Chin Ot J96.00 ACUTE RESPIRATORY FAILURE, UNSP W HYPOXI 04/13/2019 [facility] DO, DELMAR Chin Ot J98.11 ATELECTASIS 04/13/2019 [facility] DO, DELMAR Chin Ot K63.1 PERFORATION OF INTESTINE (NONTRAUMATIC) 04/13/2019 [facility] DO, DELMAR Chin Ot K65.9 PERITONITIS, UNSPECIFIED 04/13/2019 [facility] DO, DELMAR Chni Ot R65.21 SEVERE SEPSIS WITH SEPTIC SHOCK 04/13/2019 [facility] DO, DELMAR Chin Ot T81.44XA SEPSIS FOLLOWING A PROCEDURE, INITIAL EN 04/13/2019 [facility] DO, DELMAR Chin Ot Z53.31 LAPAROSCOPIC SURGICAL PROCEDURE CONVERTE 04/13/2019 [facility] DO, DELMAR Chin Ot Z90.710 ACQUIRED ABSENCE OF BOTH CERVIX AND UTER 04/13/2019 [facility] DO, DELMAR Chin Ot Z90.89 ACQUIRED ABSENCE OF OTHER ORGANS 04/13/2019 [facility] DO, DELMAR Chin Ot A41.81 SEPSIS DUE TO ENTEROCOCCUS 04/13/2019 [facility] DO, DELMAR Chin Ot E83.39 OTHER DISORDERS OF PHOSPHORUS METABOLISM 04/13/2019 [facility] DO, DELMAR Chin Ot E83.42 HYPOMAGNESEMIA 04/13/2019 [facility] DO, DELMAR Chin Ot E87.6 HYPOKALEMIA 04/13/2019 [facility] DO, DELMAR Chin Ot F12.90 CANNABIS USE, UNSPECIFIED, UNCOMPLICATED 04/13/2019 [facility] DO, DELMAR Chin Ot F17.210 NICOTINE DEPENDENCE, CIGARETTES, UNCOMPL 04/13/2019 [facility] DO, DELMAR Chin Ot I47.1 SUPRAVENTRICULAR TACHYCARDIA 04/13/2019 [facility] DO, DELMAR Chin Ot J96.00 ACUTE RESPIRATORY FAILURE, UNSP W HYPOXI 04/13/2019 [facility] DO, DELMAR Chin Ot J98.11 ATELECTASIS 04/13/2019 [facility] DO, DELMAR Chin Ot K63.1 PERFORATION OF INTESTINE (NONTRAUMATIC) 04/13/2019 [facility] DODELMAR Ot K65.9 PERITONITIS, UNSPECIFIED 04/13/2019 [facility] DO, DELMAR Chin Ot R65.21 SEVERE SEPSIS WITH SEPTIC SHOCK 04/13/2019 [facility] DO, DELMAR Chin Ot T81.44XA SEPSIS FOLLOWING A PROCEDURE, INITIAL EN 04/13/2019 [facility] DO, DELMAR Chin Ot Z53.31 LAPAROSCOPIC SURGICAL PROCEDURE CONVERTE 04/13/2019 [facility] DO, DELMAR Chin Ot Z90.710 ACQUIRED ABSENCE OF BOTH CERVIX AND UTER 04/13/2019 [facility] DO, DELMAR Chin Ot Z90.89 ACQUIRED ABSENCE OF OTHER ORGANS 04/14/2019 [facility] DO, DELMAR Chin Ot A41.81 SEPSIS DUE TO ENTEROCOCCUS 04/14/2019 [facility] DO, DELMAR Chin Ot E83.39 OTHER DISORDERS OF PHOSPHORUS METABOLISM 04/14/2019 [facility] DO, DELMAR Chin Ot E83.42 HYPOMAGNESEMIA 04/14/2019 [facility] DO, DELMAR Chin Ot E87.6 HYPOKALEMIA 04/14/2019 [facility] DO, DELMAR Chin Ot F12.90 CANNABIS USE, UNSPECIFIED, UNCOMPLICATED 04/14/2019 [facility] DO, DELMAR Chin Ot F17.210 NICOTINE DEPENDENCE, CIGARETTES, UNCOMPL 04/14/2019 [facility] DO, DELMAR Chin Ot I47.1 SUPRAVENTRICULAR TACHYCARDIA 04/14/2019 [facility] DO, DELMAR Chin Ot J96.00 ACUTE RESPIRATORY FAILURE, UNSP W HYPOXI 04/14/2019 [facility] DO, DELMAR Chin Ot J98.11 ATELECTASIS 04/14/2019 [facility] DO, DELMAR Chin Ot K63.1 PERFORATION OF INTESTINE (NONTRAUMATIC) 04/14/2019 [facility] DO, DELMAR Chin Ot K65.9 PERITONITIS, UNSPECIFIED 04/14/2019 [facility] DO, DELMAR Chin Ot R65.21 SEVERE SEPSIS WITH SEPTIC SHOCK 04/14/2019 [facility] DO, DELMAR Chin Ot T81.44XA SEPSIS FOLLOWING A PROCEDURE, INITIAL EN 04/14/2019 [facility] DO, DELMAR Chin Ot Z53.31 LAPAROSCOPIC SURGICAL PROCEDURE CONVERTE 04/14/2019 [facility] DO, DELMAR Chin Ot Z90.710 ACQUIRED ABSENCE OF BOTH CERVIX AND UTER 04/14/2019 [facility] DO, DELMAR Chin Ot Z90.89 ACQUIRED ABSENCE OF OTHER ORGANS 04/15/2019 [facility] DO, DELMAR Chin Ot A41.81 SEPSIS DUE TO ENTEROCOCCUS 04/15/2019 [facility] DO, DELMAR Chin Ot E83.39 OTHER DISORDERS OF PHOSPHORUS METABOLISM 04/15/2019 [facility] DO, DELMAR Chin Ot E83.42 HYPOMAGNESEMIA 04/15/2019 [facility] DO, DELMAR Chin Ot E87.6 HYPOKALEMIA 04/15/2019 [facility]CH DO, DELMAR Chin Ot F12.90 CANNABIS USE, UNSPECIFIED, UNCOMPLICATED 04/15/2019 FENECH DO, DELMAR Chin Ot F17.210 NICOTINE DEPENDENCE, CIGARETTES, UNCOMPL 04/15/2019 FENECH DO, DELMAR Chin Ot I47.1 SUPRAVENTRICULAR TACHYCARDIA 04/15/2019 FENECH DO, DELMAR Chin Ot J96.00 ACUTE RESPIRATORY FAILURE, UNSP W HYPOXI 04/15/2019 FENECH DO, DELMAR Chin Ot J98.11 ATELECTASIS 04/15/2019 FENECH DO, DELMAR Chin Ot K63.1 PERFORATION OF INTESTINE (NONTRAUMATIC) 04/15/2019 FENECH DO, DELMAR Chin Ot K65.9 PERITONITIS, UNSPECIFIED 04/15/2019 FENECH DO, DELMAR Chin Ot R65.21 SEVERE SEPSIS WITH SEPTIC SHOCK 04/15/2019 FENECH DO, DELMAR Chin Ot T81.44XA SEPSIS FOLLOWING A PROCEDURE, INITIAL EN 04/15/2019 FENECH DO, DELMAR Chin Ot Z53.31 LAPAROSCOPIC SURGICAL PROCEDURE CONVERTE 04/15/2019 FENECH DO, EDLMAR Chin Ot Z90.710 ACQUIRED ABSENCE OF BOTH CERVIX AND UTER 04/15/2019 FENECH DO, DELMAR Chin Ot Z90.89 ACQUIRED ABSENCE OF OTHER ORGANS 04/15/2019 FENECH DO, DELMAR Chin Ot A41.81 SEPSIS DUE TO ENTEROCOCCUS 04/15/2019 FENECH DO, DELMAR Chin Ot E83.39 OTHER DISORDERS OF PHOSPHORUS METABOLISM 04/15/2019 FENECH DO, DELMAR Chin Ot E83.42 HYPOMAGNESEMIA 04/15/2019 FENECH DO, DELMAR Chin Ot E87.6 HYPOKALEMIA 04/15/2019 FENECH DO, DELMAR Chin Ot F12.90 CANNABIS USE, UNSPECIFIED, UNCOMPLICATED 04/15/2019 FENECH DO, DELMAR Chin Ot F17.210 NICOTINE DEPENDENCE, CIGARETTES, UNCOMPL 04/15/2019 FENECH DO, DELMAR Chin Ot I47.1 SUPRAVENTRICULAR TACHYCARDIA 04/15/2019 FENECH DO, DELMAR Chin Ot J18.9 PNEUMONIA, UNSPECIFIED ORGANISM 04/15/2019 FENECH DO, DELMAR Chin Ot J96.00 ACUTE RESPIRATORY FAILURE, UNSP W HYPOXI 04/15/2019 FENECH DO, DELMAR Chin Ot J98.11 ATELECTASIS 04/15/2019 FENECH DO, DELMAR Chin Ot K63.1 PERFORATION OF INTESTINE (NONTRAUMATIC) 04/15/2019 FENECH DO, DELMAR Chin Ot K65.9 PERITONITIS, UNSPECIFIED 04/15/2019 FENECH DO, DELMAR Chin Ot R65.21 SEVERE SEPSIS WITH SEPTIC SHOCK 04/15/2019 FENECH DO, DELMAR Chin Ot T81.44XA SEPSIS FOLLOWING A PROCEDURE, INITIAL EN 04/15/2019 FENECH DO, DELMAR Chin Ot Z53.31 LAPAROSCOPIC SURGICAL PROCEDURE CONVERTE 04/15/2019 FENECH DO, DELMAR Chin Ot Z79.1 SKILLED NURSING (CURRENT) USE OF NON-STEROIDAL 04/15/2019 FENECH DO, DELMAR Chin Ot Z90.710 ACQUIRED ABSENCE OF BOTH CERVIX AND UTER 04/15/2019 FENECH DO, DELMAR Chin Ot Z90.89 ACQUIRED ABSENCE OF OTHER ORGANS 04/25/2019 FENECH DO, DELMAR Chin Ot A41.81 SEPSIS DUE TO ENTEROCOCCUS 04/25/2019 FENECH DO, DELMAR Chin Ot E83.39 OTHER DISORDERS OF PHOSPHORUS METABOLISM 04/25/2019 FENECH DO, DELMAR Chin Ot E83.42 HYPOMAGNESEMIA 04/25/2019 FENECH DO, DELMAR Chin Ot E87.6 HYPOKALEMIA 04/25/2019 FENECH DO, DELMAR Chin Ot F12.90 CANNABIS USE, UNSPECIFIED, UNCOMPLICATED 04/25/2019 FENECH DO, DELMAR Chin Ot F17.210 NICOTINE DEPENDENCE, CIGARETTES, UNCOMPL 04/25/2019 FENECH DO, DELMAR Chin Ot I47.1 SUPRAVENTRICULAR TACHYCARDIA 04/25/2019 FENECH DO, DELMAR Chin Ot J18.9 PNEUMONIA, UNSPECIFIED ORGANISM 04/25/2019 FENECH DO, DELMAR Chin Ot J96.00 ACUTE RESPIRATORY FAILURE, UNSP W HYPOXI 04/25/2019 FENECH DO, DELMAR Chin Ot J98.11 ATELECTASIS 04/25/2019 FENECH DO, DELMAR Chin Ot K63.1 PERFORATION OF INTESTINE (NONTRAUMATIC) 04/25/2019 FENECH DO, DELMAR Chin Ot K65.9 PERITONITIS, UNSPECIFIED 04/25/2019 FENECH DO, DELMAR Chin Ot R65.21 SEVERE SEPSIS WITH SEPTIC SHOCK 04/25/2019 [facility], DELMAR Chin Ot T81.44XA SEPSIS FOLLOWING A PROCEDURE, INITIAL EN 04/25/2019 FENECH DO, DELMAR Chin Ot Z53.31 LAPAROSCOPIC SURGICAL PROCEDURE CONVERTE 04/25/2019 FENECH DO, DELMAR Chin Ot Z79.1 FILTER TENDER JELLY (CURRENT) USE OF NON-STEROIDAL 04/25/2019 FENECH DO, DELMAR Chin Ot Z90.710 ACQUIRED ABSENCE OF BOTH CERVIX AND UTER 04/25/2019 FENECH DO, DELMAR Chin Ot Z90.89 ACQUIRED ABSENCE OF OTHER ORGANS 04/25/2019 FENECH DO, DELMAR Chin Ot A41.81 SEPSIS DUE TO ENTEROCOCCUS 04/25/2019 FENECH DO, DELMAR Chin Ot E83.39 OTHER DISORDERS OF PHOSPHORUS METABOLISM 04/25/2019 FENECH DO, DELMAR Chin Ot E83.42 HYPOMAGNESEMIA 04/25/2019 FENECH DO, DELMAR Chin Ot E87.6 HYPOKALEMIA 04/25/2019 FENECH DO, DELMAR Chin Ot F12.90 CANNABIS USE, UNSPECIFIED, UNCOMPLICATED 04/25/2019 FENECH DO, DELMAR Chin Ot F17.210 NICOTINE DEPENDENCE, CIGARETTES, UNCOMPL 04/25/2019 FENECH DO, DELMAR Chin Ot I47.1 SUPRAVENTRICULAR TACHYCARDIA 04/25/2019 FENECH DODELMAR Ot J18.9 PNEUMONIA, UNSPECIFIED ORGANISM 04/25/2019 FENECH DO, DELMAR Chin Ot J96.00 ACUTE RESPIRATORY FAILURE, UNSP W HYPOXI 04/25/2019 FENECH DODELMAR Ot J98.11 ATELECTASIS 04/25/2019 FENECH DO, DELMAR Chin Ot K63.1 PERFORATION OF INTESTINE (NONTRAUMATIC) 04/25/2019 FENECH DODELMAR Ot K65.9 PERITONITIS, UNSPECIFIED 04/25/2019 FENECH DO, DELMAR Chin Ot R65.21 SEVERE SEPSIS WITH SEPTIC SHOCK 04/25/2019 BRENTECH DO, DELMAR Chin Ot T81.44XA SEPSIS FOLLOWING A PROCEDURE, INITIAL EN 04/25/2019 FENECH DODELMAR Ot Z53.31 LAPAROSCOPIC SURGICAL PROCEDURE CONVERTE 04/25/2019 FENECH DO, DELMAR Chin Ot Z79.1 SKILLED NURSING (CURRENT) USE OF NON-STEROIDAL 04/25/2019 FENECH DO, DELMAR Chin Ot Z90.710 ACQUIRED ABSENCE OF BOTH CERVIX AND UTER 04/25/2019 FENECH DODELMAR Ot Z90.89 ACQUIRED ABSENCE OF OTHER ORGANS 04/25/2019 FENECH DO, DELMAR Chin Ot A41.81 SEPSIS DUE TO ENTEROCOCCUS 04/25/2019 FENECH DO, DELMAR Chin Ot E83.39 OTHER DISORDERS OF PHOSPHORUS METABOLISM 04/25/2019 FENECH DODELMAR Ot E83.42 HYPOMAGNESEMIA 04/25/2019 FENECH DODELMAR Ot E87.6 HYPOKALEMIA 04/25/2019 FENECH DO, DELMAR Chin Ot F12.90 CANNABIS USE, UNSPECIFIED, UNCOMPLICATED 04/25/2019 FENECH DO, DELMAR Chin Ot F17.210 NICOTINE DEPENDENCE, CIGARETTES, UNCOMPL 04/25/2019 FENECH DO, DELMAR Chin Ot I47.1 SUPRAVENTRICULAR TACHYCARDIA 04/25/2019 FENECH DO, DELMAR Chin Ot J18.9 PNEUMONIA, UNSPECIFIED ORGANISM 04/25/2019 FENECH DO, DELMAR Chin Ot J96.00 ACUTE RESPIRATORY FAILURE, UNSP W HYPOXI 04/25/2019 FENECH DO, DELMAR Chin Ot J98.11 ATELECTASIS 04/25/2019 FENECH DO, DELMAR Chin Ot K63.1 PERFORATION OF INTESTINE (NONTRAUMATIC) 04/25/2019 FENECH DODELMAR Ot K65.9 PERITONITIS, UNSPECIFIED 04/25/2019 FENECH DO, DELMAR Chin Ot R65.21 SEVERE SEPSIS WITH SEPTIC SHOCK 04/25/2019 FENECH DO, DELMAR Chin Ot T81.44XA SEPSIS FOLLOWING A PROCEDURE, INITIAL EN 04/25/2019 FENECH DO, DELMAR Chin Ot Z53.31 LAPAROSCOPIC SURGICAL PROCEDURE CONVERTE 04/25/2019 FENECH DO, DELMAR Chin Ot Z79.1 SKILLED NURSING (CURRENT) USE OF NON-STEROIDAL 04/25/2019 FENECH DO, DELMAR Chin Ot Z90.710 ACQUIRED ABSENCE OF BOTH CERVIX AND UTER 04/25/2019 FENECH DO, DELMAR Chin Ot Z90.89 ACQUIRED ABSENCE OF OTHER ORGANS 04/25/2019 FENECH DO, DELMAR Chin Ot A41.81 SEPSIS DUE TO ENTEROCOCCUS 04/25/2019 FENECH DO, DELMAR Chin Ot E83.39 OTHER DISORDERS OF PHOSPHORUS METABOLISM 04/25/2019 FENECH DO, DELMAR Chin Ot E83.42 HYPOMAGNESEMIA 04/25/2019 FENECH DO, DELMAR Chin Ot E87.6 HYPOKALEMIA 04/25/2019 FENECH DO, DELMAR Chin Ot F12.90 CANNABIS USE, UNSPECIFIED, UNCOMPLICATED 04/25/2019 FENECH DODELMAR Ot F17.210 NICOTINE DEPENDENCE, CIGARETTES, UNCOMPL 04/25/2019 FENECH DO, DELMAR Chin Ot I47.1 SUPRAVENTRICULAR TACHYCARDIA 04/25/2019 FENECH DODELMAR Ot J18.9 PNEUMONIA, UNSPECIFIED ORGANISM 04/25/2019 FENECH DODELMAR Ot J96.00 ACUTE RESPIRATORY FAILURE, UNSP W HYPOXI 04/25/2019 FENECH DO, DELMAR Chin Ot J98.11 ATELECTASIS 04/25/2019 FENECH DO, DELMAR Chin Ot K63.1 PERFORATION OF INTESTINE (NONTRAUMATIC) 04/25/2019 FENECH DODELMAR Ot K65.9 PERITONITIS, UNSPECIFIED 04/25/2019 FENECH DO, DELMAR Chin Ot R65.21 SEVERE SEPSIS WITH SEPTIC SHOCK 04/25/2019 FENECH DO, DELMAR Chin Ot T81.44XA SEPSIS FOLLOWING A PROCEDURE, INITIAL EN 04/25/2019 FENECH DO, DELMAR Chin Ot Z53.31 LAPAROSCOPIC SURGICAL PROCEDURE CONVERTE 04/25/2019 FENECH DODELMAR Ot Z79.1 SKILLED NURSING (CURRENT) USE OF NON-STEROIDAL 04/25/2019 BRENTECH DODELMAR Ot Z90.710 ACQUIRED ABSENCE OF BOTH CERVIX AND UTER 04/25/2019 BRENTECH DODELMAR Ot Z90.89 ACQUIRED ABSENCE OF OTHER ORGANS 04/28/2019 YUSUF DO, MATEUSZ Ot A41.9 SEPSIS, UNSPECIFIED ORGANISM 04/28/2019 YUSUF DO, MATEUSZ Ot F32.9 MAJOR DEPRESSIVE DISORDER, SINGLE EPISOD 04/28/2019 YUSUF DO, MATEUSZ Ot F41.9 ANXIETY DISORDER, UNSPECIFIED 04/28/2019 YUSUF DO, MATEUSZ Ot K21.9 GASTRO-ESOPHAGEAL REFLUX DISEASE WITHOUT 04/28/2019 YUSUF DO, MATEUSZ Ot N32.1 VESICOINTESTINAL FISTULA 04/28/2019 YUSUF DO, MATEUSZ Ot N39.0 URINARY TRACT INFECTION, SITE NOT SPECIF 04/28/2019 YUSUF DO, MATEUSZ Ot R63.4 ABNORMAL WEIGHT LOSS 04/28/2019 YUSUF DO, MATEUSZ Ot Z87.89 1 PERSONAL HISTORY OF NICOTINE DEPENDENCE 04/28/2019 YUSUF DO, MATEUSZ Ot Z90.49 ACQUIRED ABSENCE OF OTHER SPECIFIED PART 04/28/2019 YUSUF DO, MATEUSZ Ot Z93.3 COLOSTOMY STATUS 04/28/2019 YUSUF DO, MATEUSZ Ot A41.9 SEPSIS, UNSPECIFIED ORGANISM 04/28/2019 YUSUF DO, MTAEUSZ Ot F32.9 MAJOR DEPRESSIVE DISORDER, SINGLE EPISOD 04/28/2019 YUSUF DO, MATEUSZ Ot F41.9 ANXIETY DISORDER, UNSPECIFIED 04/28/2019 YUSUF DO, MATEUSZ Ot K21.9 GASTRO-ESOPHAGEAL REFLUX DISEASE WITHOUT 04/28/2019 YUSUF DO, MATEUSZ Ot N32.1 VESICOINTESTINAL FISTULA 04/28/2019 YUSUF DO, MATEUSZ Ot N39.0 URINARY TRACT INFECTION, SITE NOT SPECIF 04/28/2019 YUSUF DO, MATEUSZ Ot R63.4 ABNORMAL WEIGHT LOSS 04/28/2019 YUSUF DO, MATEUSZ Ot Z87.89 1 PERSONAL HISTORY OF NICOTINE DEPENDENCE 04/28/2019 YUSUF DO, MATEUSZ Ot Z90.49 ACQUIRED ABSENCE OF OTHER SPECIFIED PART 04/28/2019 YUSUF DO, MATEUSZ Ot Z93.3 COLOSTOMY STATUS 04/28/2019 YUSUF DO, MATEUSZ Ot A41.9 SEPSIS, UNSPECIFIED ORGANISM 04/28/2019 YUSUF DO, MATEUSZ Ot F32.9 MAJOR DEPRESSIVE DISORDER, SINGLE EPISOD 04/28/2019 YUSUF DO, MATEUSZ Ot F41.9 ANXIETY DISORDER, UNSPECIFIED 04/28/2019 YUSUF DO, MATEUSZ Ot K21.9 GASTRO-ESOPHAGEAL REFLUX DISEASE WITHOUT 04/28/2019 YUSUF DO, MATEUSZ Ot N32.1 VESICOINTESTINAL FISTULA 04/28/2019 YUSUF DO, MATEUSZ Ot N39.0 URINARY TRACT INFECTION, SITE NOT SPECIF 04/28/2019 YUSUF DO, MATEUSZ Ot R63.4 ABNORMAL WEIGHT LOSS 04/28/2019 YUSUF DO, MATEUSZ Ot Z87.89 1 PERSONAL HISTORY OF NICOTINE DEPENDENCE 04/28/2019 YUSUF DO, MATEUSZ Ot Z90.49 ACQUIRED ABSENCE OF OTHER SPECIFIED PART 04/28/2019 YUSUF DO, MATEUSZ Ot Z93.3 COLOSTOMY STATUS 04/30/2019 YUSUF DO, MATEUSZ Ot A41.9 SEPSIS, UNSPECIFIED ORGANISM 04/30/2019 YUSUF DO, MATEUSZ Ot F32.9 MAJOR DEPRESSIVE DISORDER, SINGLE EPISOD 04/30/2019 YUSUF DO, MATEUSZ Ot F41.9 ANXIETY DISORDER, UNSPECIFIED 04/30/2019 YUSUF DO, MATEUSZ Ot K21.9 GASTRO-ESOPHAGEAL REFLUX DISEASE WITHOUT 04/30/2019 YUSUF DO, MATEUSZ Ot N32.1 VESICOINTESTINAL FISTULA 04/30/2019 YUSUF DO, MATEUSZ Ot N39.0 URINARY TRACT INFECTION, SITE NOT SPECIF 04/30/2019 YUSUF DO, MATEUSZ Ot R63.4 ABNORMAL WEIGHT LOSS 04/30/2019 YUSUF DO, MATEUSZ Ot Z87.89 1 PERSONAL HISTORY OF NICOTINE DEPENDENCE 04/30/2019 YUSUF DO, MATEUSZ Ot Z90.49 ACQUIRED ABSENCE OF OTHER SPECIFIED PART 04/30/2019 YUSUF DO, MATEUSZ Ot Z93.3 COLOSTOMY STATUS 05/02/2019 YUSUF DO, MATEUSZ Ot A41.9 SEPSIS, UNSPECIFIED ORGANISM 05/02/2019 YUSUF DO, MATEUSZ Ot D64.9 ANEMIA, UNSPECIFIED 05/02/2019 YUSUF DO, MATEUSZ Ot F32.9 MAJOR DEPRESSIVE DISORDER, SINGLE EPISOD 05/02/2019 YUSUF DO, MATEUSZ Ot F41.9 ANXIETY DISORDER, UNSPECIFIED 05/02/2019 YUSUF DO, MATEUSZ Ot G89.29 OTHER CHRONIC PAIN 05/02/2019 YUSUF DO, MATEUSZ Ot J90 PLEURAL EFFUSION, NOT ELSEWHERE CLASSIFI 05/02/2019 YUSUF DO, MATEUSZ Ot K21.9 GASTRO-ESOPHAGEAL REFLUX DISEASE WITHOUT 05/02/2019 YUSUF DO, MATEUSZ Ot M54.9 DORSALGIA, UNSPECIFIED 05/02/2019 YUSUF DO, MATEUSZ Ot N32.1 VESICOINTESTINAL FISTULA 05/02/2019 YUSUF DO, MATEUSZ Ot N39.0 URINARY TRACT INFECTION, SITE NOT SPECIF 05/02/2019 YUSUF DO, MATEUSZ Ot R63.4 ABNORMAL WEIGHT LOSS 05/02/2019 YUSUF DO, MATEUSZ Ot Z79.1 SKILLED NURSING (CURRENT) USE OF NON-STEROIDAL 05/02/2019 YSUUF DO, MATEUSZ Ot Z87.89 1 PERSONAL HISTORY OF NICOTINE DEPENDENCE 05/02/2019 YUSUF DO, MATEUSZ Ot Z90.49 ACQUIRED ABSENCE OF OTHER SPECIFIED PART 05/02/2019 YUSUF DO, MATEUSZ Ot Z90.71 0 ACQUIRED ABSENCE OF BOTH CERVIX AND UTER 05/02/2019 YUSUF DO, MATEUSZ Ot Z90.72 2 ACQUIRED ABSENCE OF OVARIES, BILATERAL 05/02/2019 YUSUF DO, MATEUSZ Ot Z93.3 COLOSTOMY STATUS 05/05/[address] for follow- up examination after completed treatment for conditions other than malignant neoplasm 06/07/2019 Ot J91.8 PLEU RAL EFFUSION IN OTHER CONDITIONS CLA 06/07/2019 Ot R06.00 DYS PNEA, UNSPECIFIED 06/07/2019 Ot R91.8 OTHE R NONSPECIFIC ABNORMAL FINDING OF MARIELA 06/07/2019 Ot Z72.0 TOBA SWEATBAND SEPARATOR USE 08/20/2019 JESSE MONTOYA APRN Ot J91.8 PLEURAL EFFUSION IN OTHER CONDITIONS CLA 08/20/2019 JESSE MONTOYA APRN Ot R91.8 OTHER NONSPECIFIC ABNORMAL FINDING OF MARIELA 08/20/2019 JESSE MONTOYA APRN Ot Z72.0 TOBACCO USE Procedures Code Description Performed By Per formed On [id number] IN SERTION OF ENDOTRACHEAL AIRWAY INTO TR 04/02/2019 [id number] BY PASS SIGMOID COLON TO CUTANEOUS, OPEN 04/02/2019 [id number] EX CISION OF SIGMOID COLON, OPEN APPROACH 04/02/2019 [id number] IN SPECTION OF PERITONEAL CAVITY, PERC EN 04/02/2019 [id number] RE SPIRATORY VENTILATION, 24- 96 CONSECUTI 04/02/2019 [id number] EX CISION OF SIGMOID COLON, OPEN APPROACH 04/06/2019 Results Test Result Range TSH - 11/09/18 10:55 TSH 1.31 mIU/L NRG CULTURE, GENITAL - 12/10/18 12:13 CULTURE, GENITAL SEE NOTE NRG SUREPATH PAP AND HPV mRNA E6/E7 - 12:13 CLINICAL INFORMATION: NRG LMP: NRG PREV. PAP: NRG PREV. BX: NRG SOURCE: Cervix NRG STATEMENT OF ADEQUACY: NRG INTERPRETATION/RESULT: NRG CLIENT EXECUTIVE: NRG HPV mRNA E6/E7, SUREPATH VIAL Not Detected NOT DETECTED COMMENT NRG GC/CHLAMYDIA (SWAB OR URINE)-RAPID - 12:13 CHLAMYDIA TRACHOMATIS RNA, TMA NOT DETECTED NOT DETECTED NEISSERIA GONORRHOEAE RNA, TMA NOT DETECTED NOT DETECTED COMMENT NRG Complete urinalysis with reflex to cultu re - 02/07/19 12:18 Urine color determination YELLOW NRG Urine clarity determination CLEAR NR G Urine pH measurement by test strip 6.5 5-9 Specific gravity of urine by test strip <= 1.016-1.022 Urine protein assay by test strip, semi-quantitative NEGATIVE NEGATIVE Urine glucose detection by automated test strip NE GATIVE NEGATIVE Erythrocytes detection in urine sediment by light micr oscopy TRACE-L NEGATIVE Urine ketones detection by automated test strip NE GATIVE NEGATIVE Urine nitrite detection by test strip NEGATIVE NEGATIVE Urine total bilirubin detection by test strip NEGA TIVE NEGATIVE Urine urobilinogen measurement by automated test strip (mass/volume) 0.2 mg/dL < = 1.0 Urine leukocyte esterase detection by dipstick NEG ATIVE NEGATIVE Automated urine sediment erythrocyte cou nt by microscopy (number/high power field) NONE NRG Automated urine sediment leukocyte count by microscopy (number/high power field) NONE NRG Bacteria detection in urine sediment by light microsco py NEGATIVE NRG Squamous epithelial cells detection in u rine sediment by light microscopy RARE NRG Crystals detection in urine sediment by light microsco py NONE NRG Casts detection in urine sediment by light microscopy NONE NRG Mucus detection in urine sediment by light microscopy NEGATIVE NRG Complete urinalysis with reflex to culture NO NRG Complete blood count (CBC) with automate d white blood cell (WBC) differential - 02/07/19 12:57 Blood leukocytes automated count (number/volume) 8.8 10*3/uL 4.3-11.0 Blood erythrocytes automated count (number/volume) 5.51 10*6/uL 4.35-5.85 Venous blood hemoglobin measurement (mass/volume) 16.5 g/dL 11.5-16.0 Blood hematocrit (volume fraction) 47 % 35-52 Automated erythrocyte mean corpuscular volume 86 [ foz_us] 80-99 Automated erythrocyte mean corpuscular h emoglobin (mass per erythrocyte) 30 pg 25-34 Automated erythrocyte mean corpuscular h emoglobin concentration measurement (mass/volume) 35 g/dL 32-36 Automated erythrocyte distribution width ratio 13. 3 % 10.0- 14.5 Automated blood platelet count (count/volume) 310 10*3/uL 130-400 Automated blood platelet mean volume measurement 9.6 [foz_us] 7.4-10.4 Automated blood neutrophils/100 leukocytes 56 % 42-75 Automated blood lymphocytes/100 leukocytes 34 % 12-44 Blood monocytes/100 leukocytes 8 % 0-12 Automated blood eosinophils/100 leukocytes 2 % 0-10 Automated blood basophils/100 leukocytes 1 % 0-10 Blood neutrophils automated count (number/volume) 5.0 10*3 1.8-7.8 Blood lymphocytes automated count (number/volume) 3.0 10*3 1.0-4.0 Blood monocytes automated count (number/volume) 0. 7 10*3 0.0-1.0 Automated eosinophil count 0.2 10*3/uL 0 .0-0.3 Automated blood basophil count (count/volume) 0.0 10*3/uL 0.0-0.1 Comprehensive metabolic panel - 02/07/19 12:57 Serum or plasma sodium measurement (moles/volume) 143 mmol/L 135-145 Serum or plasma potassium measurement (moles/volume) 3.9 mmol/L 3.6-5.0 Serum or plasma chloride measurement (moles/volume) 107 mmol/L 98-107 Carbon dioxide 27 mmol/L 21-32 Serum or plasma anion gap determination (moles/volume) 9 mmol/L 5-14 Serum or plasma urea nitrogen measurement (mass/volume ) 8 mg/dL 7-18 Serum or plasma creatinine measurement (mass/volume) 0.71 mg/dL 0.60-1.30 Serum or plasma urea nitrogen/creatinine mass ratio 11 NRG Serum or plasma creatinine measurement w ith calculation of estimated glomerular filtration rate > NRG Serum or plasma glucose measurement (mass/volume) 59 mg/dL 70-105 Serum or plasma calcium measurement (mass/volume) 9.6 mg/dL 8.5-10.1 Serum or plasma total bilirubin measurement (mass/volu me) 0.3 mg/dL 0.1-1.0 Serum or plasma alkaline phosphatase yoly surement (enzymatic activity/volume) 60 U/L 40-136 Serum or plasma aspartate aminotransfera se measurement (enzymatic activity/volume) 22 U/L 5-34 Serum or plasma alanine aminotransferase measurement (enzymatic activity/volume) 33 U/L 0-55 Serum or plasma protein measurement (mass/volume) 7.6 g/dL 6.4-8.2 Serum or plasma albumin measurement (mass/volume) 4.7 g/dL 3.2-4.5 Capillary blood glucose measurement by g lucometer (mass/volume) - 02/07/19 13:57 Capillary blood glucose measurement by glucometer (mas s/volume) 119 mg/dL 70-110 Methicillin resistant Staphylococcus aur eus (MRSA) screening culture - 03/18/19 10:10 Methicillin resistant Staphylococcus aureus (MRSA) scr eening culture NEG NRG Complete blood count (CBC) with automate d white blood cell (WBC) differential - 03/18/19 10:15 Blood leukocytes automated count (number/volume) 6.5 10*3/uL 4.3-11.0 Blood erythrocytes automated count (number/volume) 5.17 10*6/uL 4.35-5.85 Venous blood hemoglobin measurement (mass/volume) 15.3 g/dL 11.5-16.0 Blood hematocrit (volume fraction) 45 % 35-52 Automated erythrocyte mean corpuscular volume 87 [ foz_us] 80-99 Automated erythrocyte mean corpuscular h emoglobin (mass per erythrocyte) 30 pg 25-34 Automated erythrocyte mean corpuscular h emoglobin concentration measurement (mass/volume) 34 g/dL 32-36 Automated erythrocyte distribution width ratio 13. 7 % 10.0- 14.5 Automated blood platelet count (count/volume) 256 10*3/uL 130-400 Automated blood platelet mean volume measurement 10.0 [foz_us] 7.4-10.4 Automated blood neutrophils/100 leukocytes 61 % 42-75 Automated blood lymphocytes/100 leukocytes 30 % 12-44 Blood monocytes/100 leukocytes 7 % 0-12 Automated blood eosinophils/100 leukocytes 1 % 0-10 Automated blood basophils/100 leukocytes 1 % 0-10 Blood neutrophils automated count (number/volume) 3.9 10*3 1.8-7.8 Blood lymphocytes automated count (number/volume) 2.0 10*3 1.0-4.0 Blood monocytes automated count (number/volume) 0. 5 10*3 0.0-1.0 Automated eosinophil count 0.1 10*3/uL 0 .0-0.3 Automated blood basophil count (count/volume) 0.0 10*3/uL 0.0-0.1 Blood type T Indirect antibody screen [facility] - 03/18/19 10:15 WRISTBAND NUMBER TNP NRG ABO+Rh group AP NRG Blood group antibody screen NEGATIVE NR G Capillary blood glucose measurement by g lucometer (mass/volume) - 03/28/19 06:23 Capillary blood glucose measurement by glucometer (mas s/volume) 92 mg/dL 70-110 Blood type T Indirect antibody screen [facility] - 03/28/19 06:25 WRISTBAND NUMBER [id number] NRG ABO+Rh group AP NRG Blood group antibody screen NEGATIVE NR G Arterial blood gas measurement - 0 05:52 Blood pCO2 51 mm[Hg] 35-45 Blood pO2 89 mm[Hg] 79-93 Arterial blood bicarbonate measurement (moles/volume) 22 mmol/L 23-27 Arterial blood base excess by calculation -4.3 mmo l/L -2.5-2.5 Arterial blood oxygen saturation measurement 98 % 94-100 * Inhaled oxygen flow rate 3L NRG Arterial blood pH measurement with patient temperature correction 7.25 7.37-7.43 Arterial blood carbon dioxide, total measurement (mole s/volume) 23.8 mmol/L 21.0-31.0 Body site RIGHT RADIAL NRG Assessment of wrist artery patency prior to arterial p uncture YES-POS NRG Setting of ventilation mode NO NR G Measurement of body temperature 35.4 NRG Urine drug screening test - 04/02/19 06: 08 Urine phencyclidine detection by screening method NEGATIVE NEGATIVE Urine benzodiazepines detection by screening method POSITIVE NEGATIVE Urine cocaine detection NEGATIVE NEGATI VE Urine amphetamines detection by screening method N EGATIVE NEGATIVE Urine methamphetamine detection by screening method NEGATIVE NEGATIVE Urine cannabinoids detection by screening method N EGATIVE NEGATIVE Urine opiates detection by screening method POSITI VE NEGATIVE Urine barbiturates detection NEGATIVE N EGATIVE Screening urine tricyclic antidepressants detection NEGATIVE NEGATIVE Urine methadone detection by screening method NEGA TIVE NEGATIVE Urine oxycodone detection NEGATIVE NEGA TIVE Urine propoxyphene detection NEGATIVE N EGATIVE Urine Legionella pneumophila antigen ass ay - 04/02/19 06:08 Urine Legionella pneumophila antigen assay Negativ e NRG Streptococcus pneumoniae antigen detecti on - 04/02/19 06:08 Streptococcus pneumoniae antigen detection Negativ e NRG Automated blood complete blood count (he mogram) panel - 04/02/19 06:21 Blood leukocytes automated count (number/volume) 2.9 10*3/uL 4.3-11.0 Blood erythrocytes automated count (number/volume) 4.79 10*6/uL 4.35-5.85 Venous blood hemoglobin measurement (mass/volume) 14.1 g/dL 11.5-16.0 Blood hematocrit (volume fraction) 44 % 35-52 Automated erythrocyte mean corpuscular volume 91 [ foz_us] 80-99 Automated erythrocyte mean corpuscular h emoglobin (mass per erythrocyte) 29 pg 25-34 Automated erythrocyte mean corpuscular h emoglobin concentration measurement (mass/volume) 32 g/dL 32-36 Automated erythrocyte distribution width ratio 13. 7 % 10.0- 14.5 Automated blood platelet count (count/volume) 126 10*3/uL 130-400 Automated blood platelet mean volume measurement 9.8 [foz_us] 7.4-10.4 Blood lactic acid measurement (moles/vol ume) - 04/02/19 06:21 Blood lactic acid measurement (moles/volume) 3.36 mmol/L 0.50-2.00 Comprehensive metabolic panel - 04/02/19 06:21 Serum or plasma sodium measurement (moles/volume) 142 mmol/L 135-145 Serum or plasma potassium measurement (moles/volume) 4.3 mmol/L 3.6-5.0 Serum or plasma chloride measurement (moles/volume) 114 mmol/L 98-107 Carbon dioxide 16 mmol/L 21-32 Serum or plasma anion gap determination (moles/volume) 12 mmol/L 5-14 Serum or plasma urea nitrogen measurement (mass/volume ) 7 mg/dL 7-18 Serum or plasma creatinine measurement (mass/volume) 0.73 mg/dL 0.60-1.30 Serum or plasma urea nitrogen/creatinine mass ratio 10 NRG Serum or plasma creatinine measurement w ith calculation of estimated glomerular filtration rate > NRG Serum or plasma glucose measurement (mass/volume) 127 mg/dL 70-105 Serum or plasma calcium measurement (mass/volume) 7.7 mg/dL 8.5-10.1 Serum or plasma total bilirubin measurement (mass/volu me) 0.4 mg/dL 0.1-1.0 Serum or plasma alkaline phosphatase yoly surement (enzymatic activity/volume) 37 U/L 40-136 Serum or plasma aspartate aminotransfera se measurement (enzymatic activity/volume) 6 U/L 5-34 Serum or plasma alanine aminotransferase measurement (enzymatic activity/volume) 8 U/L 0-55 Serum or plasma protein measurement (mass/volume) 5.0 g/dL 6.4-8.2 Serum or plasma albumin measurement (mass/volume) 3.1 g/dL 3.2-4.5 CALCIUM CORRECTED 8.4 mg/dL 8.5-10.1 Serum or plasma phosphate measurement (m ass/volume) - 04/02/19 06:21 Serum or plasma phosphate measurement (mass/volume) 3.9 mg/dL 2.3-4.7 Magnesium - 04/02/19 06:21 Magnesium 1.6 mg/dL 1.6-2.4 Serum or plasma troponin i.cardiac measu rement (mass/volume) - 04/02/19 06:21 Serum or plasma troponin i.cardiac measurement (mass/v olume) < ng/mL <0.028 Serum or plasma lithium measurement (mol es/volume) - 04/02/19 06:21 BNP PT 28.5 pg/mL <100.0 Serum or plasma triglyceride measurement (mass/volume) - 04/02/19 06:21 Serum or plasma triglyceride measurement (mass/volume) 85 mg/dL <150 Bacterial blood culture - 04/02/19 06:21 Bacterial blood culture NG NRG Bacterial blood culture - 04/02/19 06:31 Bacterial blood culture NG NRG Bacterial blood culture - 04/02/19 06:37 Bacterial blood culture NG NRG Methicillin resistant Staphylococcus aur eus (MRSA) screening culture - 04/02/19 06:47 Methicillin resistant Staphylococcus aureus (MRSA) scr eening culture NEG NRG Serum or plasma lactate measurement (mol es/volume) - 04/02/19 08:32 Serum or plasma lactate measurement (moles/volume) 3.35 mmol/L 0.50-2.00 Arterial blood gas measurement - 0 08:53 Blood pCO2 53 mm[Hg] 35-45 Blood pO2 79 mm[Hg] 79-93 Arterial blood bicarbonate measurement (moles/volume) 22 mmol/L 23-27 Arterial blood base excess by calculation -4.6 mmo l/L -2.5-2.5 Arterial blood oxygen saturation measurement 95 % 94-100 * Inhaled oxygen flow rate 5 L NRG Arterial blood pH measurement with patient temperature correction 7.23 7.37-7.43 Arterial blood carbon dioxide, total measurement (mole s/volume) 23.6 mmol/L 21.0-31.0 Body site RT RAD NRG Assessment of wrist artery patency prior to arterial p uncture YES-POS NRG Setting of ventilation mode NO NR G Measurement of body temperature 36.2 NRG Sputum Gram stain - 04/02/19 09:18 Sputum Gram stain Mixed Bacterial Radha NRG Bacterial sputum culture - 04/02/19 09:1 8 QUANTITY OF GROWTH . NRG Bacterial sputum culture USUAL RESP NRG Complete urinalysis with reflex to cultu re - 04/02/19 10:50 Urine color determination DARK YELLOW N RG Urine clarity determination SL CLOUDY N RG Urine pH measurement by test strip 6.5 5-9 Specific gravity of urine by test strip 1.015 1.016-1.022 Urine protein assay by test strip, semi-quantitative TRACE NEGATIVE Urine glucose detection by automated test strip NE GATIVE NEGATIVE Erythrocytes detection in urine sediment by light micr oscopy NEGATIVE NEGATIVE Urine ketones detection by automated test strip NE GATIVE NEGATIVE Urine nitrite detection by test strip NEGATIVE NEGATIVE Urine total bilirubin detection by test strip NEGA TIVE NEGATIVE Urine urobilinogen measurement by automated test strip (mass/volume) 0.2 mg/dL < = 1.0 Urine leukocyte esterase detection by dipstick NEG ATIVE NEGATIVE Automated urine sediment erythrocyte cou nt by microscopy (number/high power field) RARE NRG Automated urine sediment leukocyte count by microscopy (number/high power field) NONE NRG Bacteria detection in urine sediment by light microsco py TRACE NRG Crystals detection in urine sediment by light microsco py NONE NRG Casts detection in urine sediment by light microscopy NONE NRG Mucus detection in urine sediment by light microscopy NEGATIVE NRG Complete urinalysis with reflex to culture NO NRG Bacterial urine culture - 04/02/19 10:50 Bacterial urine culture NG NRG Serum or plasma troponin i.cardiac measu rement (mass/volume) - 04/02/19 12:05 Serum or plasma troponin i.cardiac measurement (mass/v olume) < ng/mL <0.028 Capillary blood glucose measurement by g lucometer (mass/volume) - 04/02/19 12:23 Capillary blood glucose measurement by glucometer (mas s/volume) 116 mg/dL 70-110 Bacteria identification in isolate by an aerobe culture - 04/02/19 13:50 FREE TEXT EXTERNAL BETA LACTAMASE POSITIVE NRG QUANTITY OF GROWTH . NRG Bacteria identification in isolate by anaerobe culture SEE COMMEN NRG Gram stain microscopy - 04/02/19 13:50 Gram stain microscopy Many Gram negative bacilli NRG Bacteria identification in wound by cult ure - 04/02/19 13:50 Bacteria identification in wound by culture SEE CO MMEN NRG FREE TEXT EXTERNAL SUSCEPTIBILITY REPORTED 04/05/19 12:05 NRG QUANTITY OF GROWTH . NRG FREE TEXT ENTRY 2 PRELIM RAPID ID TEST AT [facility] 04/03 8:00 NRG FREE TEXT ENTRY 3 RML CONFIRMED ID 04/04/19 16:05 NRG Dirithromycin susceptibility test by dis k diffusion - 04/02/19 13:50 Vancomycin susceptibility test by minimum inhibitory c oncentration 2 NRG Ampicillin susceptibility test by minimum inhibitory c oncentration 1 NRG Linezolid susceptibility test by minimum inhibitory co ncentration <= NRG Daptomycin susc HUSSAIN 2 NRG Capillary blood glucose measurement by g lucometer (mass/volume) - 04/02/19 18:07 Capillary blood glucose measurement by glucometer (mas s/volume) 119 mg/dL 70-110 Serum or plasma troponin i.cardiac measu rement (mass/volume) - 04/02/19 18:25 Serum or plasma troponin i.cardiac measurement (mass/v olume) < ng/mL <0.028 Capillary blood glucose measurement by g lucometer (mass/volume) - 04/03/19 00:14 Capillary blood glucose measurement by glucometer (mas s/volume) 123 mg/dL 70-110 Complete blood count (CBC) with automate d white blood cell (WBC) differential - 04/03/19 03:45 Blood leukocytes automated count (number/volume) 15.5 10*3/uL 4.3-11.0 Blood erythrocytes automated count (number/volume) 4.31 10*6/uL 4.35-5.85 Venous blood hemoglobin measurement (mass/volume) 12.8 g/dL 11.5-16.0 Blood hematocrit (volume fraction) 39 % 35-52 Automated erythrocyte mean corpuscular volume 90 [ foz_us] 80-99 Automated erythrocyte mean corpuscular h emoglobin (mass per erythrocyte) 30 pg 25-34 Automated erythrocyte mean corpuscular h emoglobin concentration measurement (mass/volume) 33 g/dL 32-36 Automated erythrocyte distribution width ratio 14. 1 % 10.0- 14.5 Automated blood platelet count (count/volume) 284 10*3/uL 130-400 Automated blood platelet mean volume measurement 9.6 [foz_us] 7.4-10.4 Automated blood neutrophils/100 leukocytes 92 % 42-75 Automated blood lymphocytes/100 leukocytes 4 % 12-44 Blood monocytes/100 leukocytes 4 % 0-12 Automated blood eosinophils/100 leukocytes 1 % 0-10 Automated blood basophils/100 leukocytes 0 % 0-10 Blood neutrophils automated count (number/volume) 14.1 10*3 1.8-7.8 Blood lymphocytes automated count (number/volume) 0.5 10*3 1.0-4.0 Blood monocytes automated count (number/volume) 0. 7 10*3 0.0-1.0 Automated eosinophil count 0.1 10*3/uL 0 .0-0.3 Automated blood basophil count (count/volume) 0.0 10*3/uL 0.0-0.1 Comprehensive metabolic panel - 04/03/19 03:45 Serum or plasma sodium measurement (moles/volume) 140 mmol/L 135-145 Serum or plasma potassium measurement (moles/volume) 4.1 mmol/L 3.6-5.0 Serum or plasma chloride measurement (moles/volume) 112 mmol/L 98-107 Carbon dioxide 16 mmol/L 21-32 Serum or plasma anion gap determination (moles/volume) 12 mmol/L 5-14 Serum or plasma urea nitrogen measurement (mass/volume ) 11 mg/dL 7-18 Serum or plasma creatinine measurement (mass/volume) 0.78 mg/dL 0.60-1.30 Serum or plasma urea nitrogen/creatinine mass ratio 14 NRG Serum or plasma creatinine measurement w ith calculation of estimated glomerular filtration rate > NRG Serum or plasma glucose measurement (mass/volume) 197 mg/dL 70-105 Serum or plasma calcium measurement (mass/volume) 7.7 mg/dL 8.5-10.1 Serum or plasma total bilirubin measurement (mass/volu me) 0.3 mg/dL 0.1-1.0 Serum or plasma alkaline phosphatase yoly surement (enzymatic activity/volume) 28 U/L 40-136 Serum or plasma aspartate aminotransfera se measurement (enzymatic activity/volume) 14 U/L 5-34 Serum or plasma alanine aminotransferase measurement (enzymatic activity/volume) 10 U/L 0-55 Serum or plasma protein measurement (mass/volume) 4.3 g/dL 6.4-8.2 Serum or plasma albumin measurement (mass/volume) 2.2 g/dL 3.2-4.5 CALCIUM CORRECTED 9.1 mg/dL 8.5-10.1 Serum or plasma phosphate measurement (m ass/volume) - 04/03/19 03:45 Serum or plasma phosphate measurement (mass/volume) 3.0 mg/dL 2.3-4.7 Magnesium - 04/03/19 03:45 Magnesium 1.5 mg/dL 1.6-2.4 Manual absolute plasma cell count - 03/23 05/12 03:45 Blood monocytes/100 leukocytes 10 % NRG Manual blood segmented neutrophils/100 leukocytes 38 % NRG Blood band neutrophils/100 leukocytes 49 % NRG Manual blood lymphocytes/100 leukocytes 3 % NRG Blood erythrocyte morphology finding identification NORMAL NRG Arterial blood gas measurement - 0 04:10 Blood pCO2 39 mm[Hg] 35-45 Blood pO2 47 mm[Hg] 79-93 Arterial blood bicarbonate measurement (moles/volume) 17 mmol/L 23-27 Arterial blood base excess by calculation -8.4 mmo l/L -2.5-2.5 Arterial blood oxygen saturation measurement 79 % 94-100 * Inhaled oxygen flow rate 30% NRG Arterial blood pH measurement with patient temperature correction 7.26 7.37-7.43 Arterial blood carbon dioxide, total measurement (mole s/volume) 18.7 mmol/L 21.0-31.0 Body site LEFT BRACHIAL NRG Assessment of wrist artery patency prior to arterial p uncture NA NRG Setting of ventilation mode YES NR G Measurement of body temperature 36.0 NRG Blood lactic acid measurement (moles/vol ume) - 04/03/19 06:15 Blood lactic acid measurement (moles/volume) 5.38 mmol/L 0.50-2.00 Serum or plasma lactate measurement (mol es/volume) - 04/03/19 08:15 Serum or plasma lactate measurement (moles/volume) 5.95 mmol/L 0.50-2.00 Capillary blood glucose measurement by g lucometer (mass/volume) - 04/03/19 11:20 Capillary blood glucose measurement by glucometer (mas s/volume) 232 mg/dL 70-110 Capillary blood glucose measurement by g lucometer (mass/volume) - 04/03/19 17:23 Capillary blood glucose measurement by glucometer (mas s/volume) 117 mg/dL 70-110 Capillary blood glucose measurement by g lucometer (mass/volume) - 04/03/19 22:51 Capillary blood glucose measurement by glucometer (mas s/volume) 83 mg/dL 70-110 Complete blood count (CBC) with automate d white blood cell (WBC) differential - 04/04/19 03:00 Blood leukocytes automated count (number/volume) 12.1 10*3/uL 4.3-11.0 Blood erythrocytes automated count (number/volume) 3.23 10*6/uL 4.35-5.85 Venous blood hemoglobin measurement (mass/volume) 9.5 g/dL 11.5-16.0 Blood hematocrit (volume fraction) 28 % 35-52 Automated erythrocyte mean corpuscular volume 88 [ foz_us] 80-99 Automated erythrocyte mean corpuscular h emoglobin (mass per erythrocyte) 29 pg 25-34 Automated erythrocyte mean corpuscular h emoglobin concentration measurement (mass/volume) 34 g/dL 32-36 Automated erythrocyte distribution width ratio 13. 6 % 10.0- 14.5 Automated blood platelet count (count/volume) 230 10*3/uL 130-400 Automated blood platelet mean volume measurement 9.7 [foz_us] 7.4-10.4 Automated blood neutrophils/100 leukocytes 92 % 42-75 Automated blood lymphocytes/100 leukocytes 5 % 12-44 Blood monocytes/100 leukocytes 3 % 0-12 Automated blood eosinophils/100 leukocytes 0 % 0-10 Automated blood basophils/100 leukocytes 0 % 0-10 Blood neutrophils automated count (number/volume) 11.1 10*3 1.8-7.8 Blood lymphocytes automated count (number/volume) 0.6 10*3 1.0-4.0 Blood monocytes automated count (number/volume) 0. 4 10*3 0.0-1.0 Automated eosinophil count 0.0 10*3/uL 0 .0-0.3 Automated blood basophil count (count/volume) 0.0 10*3/uL 0.0-0.1 Comprehensive metabolic panel - 04/04/19 03:00 Serum or plasma sodium measurement (moles/volume) 141 mmol/L 135-145 Serum or plasma potassium measurement (moles/volume) 3.0 mmol/L 3.6-5.0 Serum or plasma chloride measurement (moles/volume) 110 mmol/L 98-107 Carbon dioxide 22 mmol/L 21-32 Serum or plasma anion gap determination (moles/volume) 9 mmol/L 5-14 Serum or plasma urea nitrogen measurement (mass/volume ) 11 mg/dL 7-18 Serum or plasma creatinine measurement (mass/volume) 0.64 mg/dL 0.60-1.30 Serum or plasma urea nitrogen/creatinine mass ratio 17 NRG Serum or plasma creatinine measurement w ith calculation of estimated glomerular filtration rate > NRG Serum or plasma glucose measurement (mass/volume) 99 mg/dL 70-105 Serum or plasma calcium measurement (mass/volume) 7.4 mg/dL 8.5-10.1 Serum or plasma total bilirubin measurement (mass/volu me) 0.3 mg/dL 0.1-1.0 Serum or plasma alkaline phosphatase yoly surement (enzymatic activity/volume) 37 U/L 40-136 Serum or plasma aspartate aminotransfera se measurement (enzymatic activity/volume) 10 U/L 5-34 Serum or plasma alanine aminotransferase measurement (enzymatic activity/volume) 7 U/L 0-55 Serum or plasma protein measurement (mass/volume) 4.0 g/dL 6.4-8.2 Serum or plasma albumin measurement (mass/volume) 1.9 g/dL 3.2-4.5 CALCIUM CORRECTED 9.1 mg/dL 8.5-10.1 Serum or plasma phosphate measurement (m ass/volume) - 04/04/19 03:00 Serum or plasma phosphate measurement (mass/volume) 1.7 mg/dL 2.3-4.7 Magnesium - 04/04/19 03:00 Magnesium 2.2 mg/dL 1.6-2.4 Serum or plasma triglyceride measurement (mass/volume) - 04/04/19 03:00 Serum or plasma triglyceride measurement (mass/volume) 263 mg/dL <150 Arterial blood gas measurement - 0 04:00 Blood pCO2 31 mm[Hg] 35-45 Blood pO2 68 mm[Hg] 79-93 Arterial blood bicarbonate measurement (moles/volume) 26 mmol/L 23-27 Arterial blood base excess by calculation 2.8 mmol /L -2.5-2.5 Arterial blood oxygen saturation measurement 96 % 94-100 * Inhaled oxygen flow rate 35% NRG Arterial blood pH measurement with patient temperature correction 7.53 7.37-7.43 Arterial blood carbon dioxide, total measurement (mole s/volume) 26.4 mmol/L 21.0-31.0 Body site RIGHT RADIAL NRG Assessment of wrist artery patency prior to arterial p uncture YES-POS NRG Setting of ventilation mode YES NR G Measurement of body temperature 37.2 NRG Arterial blood gas measurement - 0 07:44 Blood pCO2 34 mm[Hg] 35-45 Blood pO2 59 mm[Hg] 79-93 Arterial blood bicarbonate measurement (moles/volume) 27 mmol/L 23-27 Arterial blood base excess by calculation 3.4 mmol /L -2.5-2.5 Arterial blood oxygen saturation measurement 93 % 94-100 * Inhaled oxygen flow rate 35% NRG Arterial blood pH measurement with patient temperature correction 7.51 7.37-7.43 Arterial blood carbon dioxide, total measurement (mole s/volume) 27.6 mmol/L 21.0-31.0 Body site RR NRG Assessment of wrist artery patency prior to arterial p uncture YES-POS NRG Setting of ventilation mode YES NR G Measurement of body temperature 36.8 NRG Capillary blood glucose measurement by g lucometer (mass/volume) - 04/04/19 11:16 Capillary blood glucose measurement by glucometer (mas s/volume) 89 mg/dL 70-110 Capillary blood glucose measurement by g lucometer (mass/volume) - 04/04/19 17:50 Capillary blood glucose measurement by glucometer (mas s/volume) 77 mg/dL 70-110 Capillary blood glucose measurement by g lucometer (mass/volume) - 04/04/19 22:54 Capillary blood glucose measurement by glucometer (mas s/volume) 78 mg/dL 70-110 Complete blood count (CBC) with automate d white blood cell (WBC) differential - 04/05/19 03:30 Blood leukocytes automated count (number/volume) 22.2 10*3/uL 4.3-11.0 Blood erythrocytes automated count (number/volume) 3.76 10*6/uL 4.35-5.85 Venous blood hemoglobin measurement (mass/volume) 11.0 g/dL 11.5-16.0 Blood hematocrit (volume fraction) 34 % 35-52 Automated erythrocyte mean corpuscular volume 91 [ foz_us] 80-99 Automated erythrocyte mean corpuscular h emoglobin (mass per erythrocyte) 29 pg 25-34 Automated erythrocyte mean corpuscular h emoglobin concentration measurement (mass/volume) 32 g/dL 32-36 Automated erythrocyte distribution width ratio 14. 5 % 10.0- 14.5 Automated blood platelet count (count/volume) 269 10*3/uL 130-400 Automated blood platelet mean volume measurement 9.3 [foz_us] 7.4-10.4 Automated blood neutrophils/100 leukocytes 94 % 42-75 Automated blood lymphocytes/100 leukocytes 3 % 12-44 Blood monocytes/100 leukocytes 3 % 0-12 Automated blood eosinophils/100 leukocytes 1 % 0-10 Automated blood basophils/100 leukocytes 0 % 0-10 Blood neutrophils automated count (number/volume) 20.9 10*3 1.8-7.8 Blood lymphocytes automated count (number/volume) 0.6 10*3 1.0-4.0 Blood monocytes automated count (number/volume) 0. 6 10*3 0.0-1.0 Automated eosinophil count 0.1 10*3/uL 0 .0-0.3 Automated blood basophil count (count/volume) 0.0 10*3/uL 0.0-0.1 Comprehensive metabolic panel - 04/05/19 03:30 Serum or plasma sodium measurement (moles/volume) 142 mmol/L 135-145 Serum or plasma potassium measurement (moles/volume) 4.3 mmol/L 3.6-5.0 Serum or plasma chloride measurement (moles/volume) 109 mmol/L 98-107 Carbon dioxide 23 mmol/L 21-32 Serum or plasma anion gap determination (moles/volume) 10 mmol/L 5-14 Serum or plasma urea nitrogen measurement (mass/volume ) 13 mg/dL 7-18 Serum or plasma creatinine measurement (mass/volume) 0.53 mg/dL 0.60-1.30 Serum or plasma urea nitrogen/creatinine mass ratio 25 NRG Serum or plasma creatinine measurement w ith calculation of estimated glomerular filtration rate > NRG Serum or plasma glucose measurement (mass/volume) 66 mg/dL 70-105 Serum or plasma calcium measurement (mass/volume) 7.9 mg/dL 8.5-10.1 Serum or plasma total bilirubin measurement (mass/volu me) 0.3 mg/dL 0.1-1.0 Serum or plasma alkaline phosphatase yoly surement (enzymatic activity/volume) 59 U/L 40-136 Serum or plasma aspartate aminotransfera se measurement (enzymatic activity/volume) 20 U/L 5-34 Serum or plasma alanine aminotransferase measurement (enzymatic activity/volume) 9 U/L 0-55 Serum or plasma protein measurement (mass/volume) 4.7 g/dL 6.4-8.2 Serum or plasma albumin measurement (mass/volume) 2.3 g/dL 3.2-4.5 CALCIUM CORRECTED 9.3 mg/dL 8.5-10.1 Serum or plasma phosphate measurement (m ass/volume) - 04/05/19 03:30 Serum or plasma phosphate measurement (mass/volume) 3.8 mg/dL 2.3-4.7 Magnesium - 04/05/19 03:30 Magnesium 1.9 mg/dL 1.6-2.4 Serum or plasma lithium measurement (mol es/volume) - 04/05/19 03:30 BNP PT 71.0 pg/mL <100.0 Arterial blood gas measurement - 0 04:15 Blood pCO2 59 mm[Hg] 35-45 Blood pO2 72 mm[Hg] 79-93 Arterial blood bicarbonate measurement (moles/volume) 29 mmol/L 23-27 Arterial blood base excess by calculation 3.2 mmol /L -2.5-2.5 Arterial blood oxygen saturation measurement 93 % 94-100 * Inhaled oxygen flow rate 65% NRG Arterial blood pH measurement with patient temperature correction 7.35 7.37-7.43 Arterial blood carbon dioxide, total measurement (mole s/volume) 30.7 mmol/L 21.0-31.0 Body site RIGHT RADIAL NRG Assessment of wrist artery patency prior to arterial p uncture YES-POS NRG Setting of ventilation mode NO NR G Measurement of body temperature 37.0 NRG Blood lactic acid measurement (moles/vol ume) - 04/05/19 05:30 Blood lactic acid measurement (moles/volume) 0.71 mmol/L 0.50-2.00 Bacterial blood culture - 04/05/19 05:30 Bacterial blood culture NG NRG Bacterial blood culture - 04/05/19 05:40 Bacterial blood culture NG NRG Capillary blood glucose measurement by g lucometer (mass/volume) - 04/05/19 05:45 Capillary blood glucose measurement by glucometer (mas s/volume) 67 mg/dL 70-110 Bacterial blood culture - 04/05/19 05:50 Bacterial blood culture NG NRG Complete urinalysis with reflex to cultu re - 04/05/19 06:10 Urine color determination YELLOW NRG Urine clarity determination CLEAR NR G Urine pH measurement by test strip 5.5 5-9 Specific gravity of urine by test strip 1.010 1.016-1.022 Urine protein assay by test strip, semi-quantitative NEGATIVE NEGATIVE Urine glucose detection by automated test strip NE GATIVE NEGATIVE Erythrocytes detection in urine sediment by light micr oscopy TRACE-I NEGATIVE Urine ketones detection by automated test strip NE GATIVE NEGATIVE Urine nitrite detection by test strip NEGATIVE NEGATIVE Urine total bilirubin detection by test strip NEGA TIVE NEGATIVE Urine urobilinogen measurement by automated test strip (mass/volume) 0.2 mg/dL < = 1.0 Urine leukocyte esterase detection by dipstick NEG ATIVE NEGATIVE Automated urine sediment erythrocyte cou nt by microscopy (number/high power field) [HPF] NRG Automated urine sediment leukocyte count by microscopy (number/high power field) RARE NRG Bacteria detection in urine sediment by light microsco py NEGATIVE NRG Squamous epithelial cells detection in u rine sediment by light microscopy NONE NRG Crystals detection in urine sediment by light microsco py NONE NRG Casts detection in urine sediment by light microscopy NONE NRG Mucus detection in urine sediment by light microscopy NEGATIVE NRG Complete urinalysis with reflex to culture NO NRG Capillary blood glucose measurement by g lucometer (mass/volume) - 04/05/19 06:31 Capillary blood glucose measurement by glucometer (mas s/volume) 91 mg/dL 70-110 Vancomycin trough - 04/05/19 09:08 Vancomycin trough 11.4 ug/mL 10.0-20.0 Capillary blood glucose measurement by g lucometer (mass/volume) - 04/05/19 11:28 Capillary blood glucose measurement by glucometer (mas s/volume) 93 mg/dL 70-110 Capillary blood glucose measurement by g lucometer (mass/volume) - 04/05/19 17:26 Capillary blood glucose measurement by glucometer (mas s/volume) 75 mg/dL 70-110 Complete blood count (CBC) with automate d white blood cell (WBC) differential - 04/06/19 03:30 Blood leukocytes automated count (number/volume) 17.7 10*3/uL 4.3-11.0 Blood erythrocytes automated count (number/volume) 3.44 10*6/uL 4.35-5.85 Venous blood hemoglobin measurement (mass/volume) 10.1 g/dL 11.5-16.0 Blood hematocrit (volume fraction) 32 % 35-52 Automated erythrocyte mean corpuscular volume 94 [ foz_us] 80-99 Automated erythrocyte mean corpuscular h emoglobin (mass per erythrocyte) 29 pg 25-34 Automated erythrocyte mean corpuscular h emoglobin concentration measurement (mass/volume) 31 g/dL 32-36 Automated erythrocyte distribution width ratio 14. 4 % 10.0- 14.5 Automated blood platelet count (count/volume) 256 10*3/uL 130-400 Automated blood platelet mean volume measurement 9.4 [foz_us] 7.4-10.4 Automated blood neutrophils/100 leukocytes 90 % 42-75 Automated blood lymphocytes/100 leukocytes 5 % 12-44 Blood monocytes/100 leukocytes 5 % 0-12 Automated blood eosinophils/100 leukocytes 1 % 0-10 Automated blood basophils/100 leukocytes 0 % 0-10 Blood neutrophils automated count (number/volume) 15.9 10*3 1.8-7.8 Blood lymphocytes automated count (number/volume) 0.8 10*3 1.0-4.0 Blood monocytes automated count (number/volume) 0. 9 10*3 0.0-1.0 Automated eosinophil count 0.1 10*3/uL 0 .0-0.3 Automated blood basophil count (count/volume) 0.0 10*3/uL 0.0-0.1 Comprehensive metabolic panel - 04/06/19 03:30 Serum or plasma sodium measurement (moles/volume) 144 mmol/L 135-145 Serum or plasma potassium measurement (moles/volume) 4.8 mmol/L 3.6-5.0 Serum or plasma chloride measurement (moles/volume) 105 mmol/L 98-107 Carbon dioxide 28 mmol/L 21-32 Serum or plasma anion gap determination (moles/volume) 11 mmol/L 5-14 Serum or plasma urea nitrogen measurement (mass/volume ) 12 mg/dL 7-18 Serum or plasma creatinine measurement (mass/volume) 0.56 mg/dL 0.60-1.30 Serum or plasma urea nitrogen/creatinine mass ratio 21 NRG Serum or plasma creatinine measurement w ith calculation of estimated glomerular filtration rate > NRG Serum or plasma glucose measurement (mass/volume) 78 mg/dL 70-105 Serum or plasma calcium measurement (mass/volume) 8.4 mg/dL 8.5-10.1 Serum or plasma total bilirubin measurement (mass/volu me) 0.4 mg/dL 0.1-1.0 Serum or plasma alkaline phosphatase yoly surement (enzymatic activity/volume) 83 U/L 40-136 Serum or plasma aspartate aminotransfera se measurement (enzymatic activity/volume) 20 U/L 5-34 Serum or plasma alanine aminotransferase measurement (enzymatic activity/volume) 8 U/L 0-55 Serum or plasma protein measurement (mass/volume) 4.9 g/dL 6.4-8.2 Serum or plasma albumin measurement (mass/volume) 2.3 g/dL 3.2-4.5 CALCIUM CORRECTED 9.8 mg/dL 8.5-10.1 Serum or plasma phosphate measurement (m ass/volume) - 04/06/19 03:30 Serum or plasma phosphate measurement (mass/volume) 4.0 mg/dL 2.3-4.7 Magnesium - 04/06/19 03:30 Magnesium 1.9 mg/dL 1.6-2.4 Serum or plasma triglyceride measurement (mass/volume) - 04/06/19 03:30 Serum or plasma triglyceride measurement (mass/volume) 244 mg/dL <150 Vancomycin trough - 04/06/19 10:14 Vancomycin trough 9.0 ug/mL 10.0-20.0 Capillary blood glucose measurement by g lucometer (mass/volume) - 04/06/19 17:55 Capillary blood glucose measurement by glucometer (mas s/volume) 85 mg/dL 70-110 Sputum Gram stain - 04/06/19 20:50 Sputum Gram stain Mixed Bacterial Radha NRG Bacterial sputum culture - 04/06/19 20:5 0 QUANTITY OF GROWTH . NRG Bacterial sputum culture SEE COMMEN NRG Arterial blood gas measurement - 0 22:40 Blood pCO2 52 mm[Hg] 35-45 Blood pO2 48 mm[Hg] 79-93 Arterial blood bicarbonate measurement (moles/volume) 33 mmol/L 23-27 Arterial blood base excess by calculation 8.6 mmol /L -2.5-2.5 Arterial blood oxygen saturation measurement 84 % 94-100 * Inhaled oxygen flow rate 35% NRG Arterial blood pH measurement with patient temperature correction 7.42 7.37-7.43 Arterial blood carbon dioxide, total measurement (mole s/volume) 35.0 mmol/L 21.0-31.0 Body site R BRACH NRG Assessment of wrist artery patency prior to arterial p uncture YES-POS NRG Setting of ventilation mode YES NR G Measurement of body temperature 36.3 NRG Capillary blood glucose measurement by g lucometer (mass/volume) - 04/07/19 00:08 Capillary blood glucose measurement by glucometer (mas s/volume) 141 mg/dL 70-110 Complete blood count (CBC) with automate d white blood cell (WBC) differential - 04/07/19 02:55 Blood leukocytes automated count (number/volume) 9.2 10*3/uL 4.3-11.0 Blood erythrocytes automated count (number/volume) 3.08 10*6/uL 4.35-5.85 Venous blood hemoglobin measurement (mass/volume) 8.9 g/dL 11.5-16.0 Blood hematocrit (volume fraction) 29 % 35-52 Automated erythrocyte mean corpuscular volume 93 [ foz_us] 80-99 Automated erythrocyte mean corpuscular h emoglobin (mass per erythrocyte) 29 pg 25-34 Automated erythrocyte mean corpuscular h emoglobin concentration measurement (mass/volume) 31 g/dL 32-36 Automated erythrocyte distribution width ratio 14. 4 % 10.0- 14.5 Automated blood platelet count (count/volume) 232 10*3/uL 130-400 Automated blood platelet mean volume measurement 9.4 [foz_us] 7.4-10.4 Automated blood neutrophils/100 leukocytes 92 % 42-75 Automated blood lymphocytes/100 leukocytes 5 % 12-44 Blood monocytes/100 leukocytes 3 % 0-12 Automated blood eosinophils/100 leukocytes 0 % 0-10 Automated blood basophils/100 leukocytes 0 % 0-10 Blood neutrophils automated count (number/volume) 8.5 10*3 1.8-7.8 Blood lymphocytes automated count (number/volume) 0.5 10*3 1.0-4.0 Blood monocytes automated count (number/volume) 0. 2 10*3 0.0-1.0 Automated eosinophil count 0.0 10*3/uL 0 .0-0.3 Automated blood basophil count (count/volume) 0.0 10*3/uL 0.0-0.1 Arterial blood gas measurement - 0 02:55 Blood pCO2 55 mm[Hg] 35-45 Blood pO2 65 mm[Hg] 79-93 Arterial blood bicarbonate measurement (moles/volume) 33 mmol/L 23-27 Arterial blood base excess by calculation 8.0 mmol /L -2.5-2.5 Arterial blood oxygen saturation measurement 91 % 94-100 * Inhaled oxygen flow rate 50% NRG Arterial blood pH measurement with patient temperature correction 7.40 7.37-7.43 Arterial blood carbon dioxide, total measurement (mole s/volume) 34.7 mmol/L 21.0-31.0 Body site R BRACH NRG Assessment of wrist artery patency prior to arterial p uncture YES-POS NRG Setting of ventilation mode YES NR G Measurement of body temperature 36.8 NRG Comprehensive metabolic panel - 04/07/19 02:55 Serum or plasma sodium measurement (moles/volume) 141 mmol/L 135-145 Serum or plasma potassium measurement (moles/volume) 4.7 mmol/L 3.6-5.0 Serum or plasma chloride measurement (moles/volume) 101 mmol/L 98-107 Carbon dioxide 29 mmol/L 21-32 Serum or plasma anion gap determination (moles/volume) 11 mmol/L 5-14 Serum or plasma urea nitrogen measurement (mass/volume ) 11 mg/dL 7-18 Serum or plasma creatinine measurement (mass/volume) 0.49 mg/dL 0.60-1.30 Serum or plasma urea nitrogen/creatinine mass ratio 22 NRG Serum or plasma creatinine measurement w ith calculation of estimated glomerular filtration rate > NRG Serum or plasma glucose measurement (mass/volume) 122 mg/dL 70-105 Serum or plasma calcium measurement (mass/volume) 8.0 mg/dL 8.5-10.1 Serum or plasma total bilirubin measurement (mass/volu me) 0.3 mg/dL 0.1-1.0 Serum or plasma alkaline phosphatase yoly surement (enzymatic activity/volume) 70 U/L 40-136 Serum or plasma aspartate aminotransfera se measurement (enzymatic activity/volume) 19 U/L 5-34 Serum or plasma alanine aminotransferase measurement (enzymatic activity/volume) 10 U/L 0-55 Serum or plasma protein measurement (mass/volume) 4.7 g/dL 6.4-8.2 Serum or plasma albumin measurement (mass/volume) 2.2 g/dL 3.2-4.5 CALCIUM CORRECTED 9.4 mg/dL 8.5-10.1 Serum or plasma phosphate measurement (m ass/volume) - 04/07/19 02:55 Serum or plasma phosphate measurement (mass/volume) 4.0 mg/dL 2.3-4.7 Magnesium - 04/07/19 02:55 Magnesium 1.8 mg/dL 1.6-2.4 Serum or plasma lithium measurement (mol es/volume) - 04/07/19 02:55 BNP PT 33.4 pg/mL <100.0 Capillary blood glucose measurement by g lucometer (mass/volume) - 04/07/19 11:46 Capillary blood glucose measurement by glucometer (mas s/volume) 112 mg/dL 70-110 Arterial blood gas measurement - 0 12:10 Blood pCO2 46 mm[Hg] 35-45 Blood pO2 66 mm[Hg] 79-93 Arterial blood bicarbonate measurement (moles/volume) 34 mmol/L 23-27 Arterial blood base excess by calculation 10.2 mmo l/L -2.5-2.5 Arterial blood oxygen saturation measurement 93 % 94-100 * Inhaled oxygen flow rate 40% NRG Arterial blood pH measurement with patient temperature correction 7.49 7.37-7.43 Arterial blood carbon dioxide, total measurement (mole s/volume) 35.5 mmol/L 21.0-31.0 Body site RIGHT RADIAL NRG Assessment of wrist artery patency prior to arterial p uncture POSITIVE NRG Setting of ventilation mode YES NR G Measurement of body temperature 37.5 NRG Capillary blood glucose measurement by g lucometer (mass/volume) - 04/07/19 18:01 Capillary blood glucose measurement by glucometer (mas s/volume) 153 mg/dL 70-110 Complete blood count (CBC) with automate d white blood cell (WBC) differential - 04/08/19 03:20 Blood leukocytes automated count (number/volume) 10.6 10*3/uL 4.3-11.0 Blood erythrocytes automated count (number/volume) 2.95 10*6/uL 4.35-5.85 Venous blood hemoglobin measurement (mass/volume) 8.6 g/dL 11.5-16.0 Blood hematocrit (volume fraction) 27 % 35-52 Automated erythrocyte mean corpuscular volume 92 [ foz_us] 80-99 Automated erythrocyte mean corpuscular h emoglobin (mass per erythrocyte) 29 pg 25-34 Automated erythrocyte mean corpuscular h emoglobin concentration measurement (mass/volume) 32 g/dL 32-36 Automated erythrocyte distribution width ratio 14. 2 % 10.0- 14.5 Automated blood platelet count (count/volume) 281 10*3/uL 130-400 Automated blood platelet mean volume measurement 9.5 [foz_us] 7.4-10.4 Automated blood neutrophils/100 leukocytes 78 % 42-75 Automated blood lymphocytes/100 leukocytes 13 % 12-44 Blood monocytes/100 leukocytes 8 % 0-12 Automated blood eosinophils/100 leukocytes 0 % 0-10 Automated blood basophils/100 leukocytes 0 % 0-10 Blood neutrophils automated count (number/volume) 8.3 10*3 1.8-7.8 Blood lymphocytes automated count (number/volume) 1.4 10*3 1.0-4.0 Blood monocytes automated count (number/volume) 0. 9 10*3 0.0-1.0 Automated eosinophil count 0.0 10*3/uL 0 .0-0.3 Automated blood basophil count (count/volume) 0.0 10*3/uL 0.0-0.1 Comprehensive metabolic panel - 04/08/19 03:20 Serum or plasma sodium measurement (moles/volume) 139 mmol/L 135-145 Serum or plasma potassium measurement (moles/volume) 3.9 mmol/L 3.6-5.0 Serum or plasma chloride measurement (moles/volume) 100 mmol/L 98-107 Carbon dioxide 32 mmol/L 21-32 Serum or plasma anion gap determination (moles/volume) 7 mmol/L 5-14 Serum or plasma urea nitrogen measurement (mass/volume ) 14 mg/dL 7-18 Serum or plasma creatinine measurement (mass/volume) 0.50 mg/dL 0.60-1.30 Serum or plasma urea nitrogen/creatinine mass ratio 28 NRG Serum or plasma creatinine measurement w ith calculation of estimated glomerular filtration rate > NRG Serum or plasma glucose measurement (mass/volume) 104 mg/dL 70-105 Serum or plasma calcium measurement (mass/volume) 8.0 mg/dL 8.5-10.1 Serum or plasma total bilirubin measurement (mass/volu me) 0.3 mg/dL 0.1-1.0 Serum or plasma alkaline phosphatase yoly surement (enzymatic activity/volume) 64 U/L 40-136 Serum or plasma aspartate aminotransfera se measurement (enzymatic activity/volume) 18 U/L 5-34 Serum or plasma alanine aminotransferase measurement (enzymatic activity/volume) 8 U/L 0-55 Serum or plasma protein measurement (mass/volume) 4.9 g/dL 6.4-8.2 Serum or plasma albumin measurement (mass/volume) 2.3 g/dL 3.2-4.5 CALCIUM CORRECTED 9.4 mg/dL 8.5-10.1 Serum or plasma phosphate measurement (m ass/volume) - 04/08/19 03:20 Serum or plasma phosphate measurement (mass/volume) 3.4 mg/dL 2.3-4.7 Magnesium - 04/08/19 03:20 Magnesium 1.9 mg/dL 1.6-2.4 Serum or plasma triglyceride measurement (mass/volume) - 04/08/19 03:20 Serum or plasma triglyceride measurement (mass/volume) 189 mg/dL <150 Vancomycin trough - 04/08/19 09:01 Vancomycin trough 24.3 ug/mL 10.0-20.0 Vancomycin trough - 04/08/19 17:10 Vancomycin trough 12.4 ug/mL 10.0-20.0 Complete blood count (CBC) with automate d white blood cell (WBC) differential - 04/09/19 03:30 Blood leukocytes automated count (number/volume) 16.2 10*3/uL 4.3-11.0 Blood erythrocytes automated count (number/volume) 3.91 10*6/uL 4.35-5.85 Venous blood hemoglobin measurement (mass/volume) 11.4 g/dL 11.5-16.0 Blood hematocrit (volume fraction) 35 % 35-52 Automated erythrocyte mean corpuscular volume 90 [ foz_us] 80-99 Automated erythrocyte mean corpuscular h emoglobin (mass per erythrocyte) 29 pg 25-34 Automated erythrocyte mean corpuscular h emoglobin concentration measurement (mass/volume) 33 g/dL 32-36 Automated erythrocyte distribution width ratio 14. 3 % 10.0- 14.5 Automated blood platelet count (count/volume) 379 10*3/uL 130-400 Automated blood platelet mean volume measurement 9.4 [foz_us] 7.4-10.4 Automated blood neutrophils/100 leukocytes 86 % 42-75 Automated blood lymphocytes/100 leukocytes 8 % 12-44 Blood monocytes/100 leukocytes 5 % 0-12 Automated blood eosinophils/100 leukocytes 0 % 0-10 Automated blood basophils/100 leukocytes 0 % 0-10 Blood neutrophils automated count (number/volume) 13.9 10*3 1.8-7.8 Blood lymphocytes automated count (number/volume) 1.3 10*3 1.0-4.0 Blood monocytes automated count (number/volume) 0. 8 10*3 0.0-1.0 Automated eosinophil count 0.1 10*3/uL 0 .0-0.3 Automated blood basophil count (count/volume) 0.1 10*3/uL 0.0-0.1 Comprehensive metabolic panel - 04/09/19 03:30 Serum or plasma sodium measurement (moles/volume) 138 mmol/L 135-145 Serum or plasma potassium measurement (moles/volume) 3.8 mmol/L 3.6-5.0 Serum or plasma chloride measurement (moles/volume) 101 mmol/L 98-107 Carbon dioxide 26 mmol/L 21-32 Serum or plasma anion gap determination (moles/volume) 11 mmol/L 5-14 Serum or plasma urea nitrogen measurement (mass/volume ) 11 mg/dL 7-18 Serum or plasma creatinine measurement (mass/volume) 0.50 mg/dL 0.60-1.30 Serum or plasma urea nitrogen/creatinine mass ratio 22 NRG Serum or plasma creatinine measurement w ith calculation of estimated glomerular filtration rate > NRG Serum or plasma glucose measurement (mass/volume) 92 mg/dL 70-105 Serum or plasma calcium measurement (mass/volume) 8.0 mg/dL 8.5-10.1 Serum or plasma total bilirubin measurement (mass/volu me) 0.8 mg/dL 0.1-1.0 Serum or plasma alkaline phosphatase yoly surement (enzymatic activity/volume) 66 U/L 40-136 Serum or plasma aspartate aminotransfera se measurement (enzymatic activity/volume) 20 U/L 5-34 Serum or plasma alanine aminotransferase measurement (enzymatic activity/volume) 10 U/L 0-55 Serum or plasma protein measurement (mass/volume) 5.1 g/dL 6.4-8.2 Serum or plasma albumin measurement (mass/volume) 2.4 g/dL 3.2-4.5 CALCIUM CORRECTED 9.3 mg/dL 8.5-10.1 Serum or plasma phosphate measurement (m ass/volume) - 04/09/19 03:30 Serum or plasma phosphate measurement (mass/volume) 3.3 mg/dL 2.3-4.7 Magnesium - 04/09/19 03:30 Magnesium 1.6 mg/dL 1.6-2.4 Manual absolute plasma cell count - 03/23 11/09 03:30 Blood monocytes/100 leukocytes 5 % NRG Manual blood segmented neutrophils/100 leukocytes 87 % NRG Manual blood lymphocytes/100 leukocytes 8 % NRG Complete blood count (CBC) with automate d white blood cell (WBC) differential - 04/10/19 05:45 Blood leukocytes automated count (number/volume) 22.4 10*3/uL 4.3-11.0 Blood erythrocytes automated count (number/volume) 3.42 10*6/uL 4.35-5.85 Venous blood hemoglobin measurement (mass/volume) 10.0 g/dL 11.5-16.0 Blood hematocrit (volume fraction) 30 % 35-52 Automated erythrocyte mean corpuscular volume 89 [ foz_us] 80-99 Automated erythrocyte mean corpuscular h emoglobin (mass per erythrocyte) 29 pg 25-34 Automated erythrocyte mean corpuscular h emoglobin concentration measurement (mass/volume) 33 g/dL 32-36 Automated erythrocyte distribution width ratio 14. 3 % 10.0- 14.5 Automated blood platelet count (count/volume) 418 10*3/uL 130-400 Automated blood platelet mean volume measurement 9.7 [foz_us] 7.4-10.4 Automated blood neutrophils/100 leukocytes 90 % 42-75 Automated blood lymphocytes/100 leukocytes 5 % 12-44 Blood monocytes/100 leukocytes 5 % 0-12 Automated blood eosinophils/100 leukocytes 0 % 0-10 Automated blood basophils/100 leukocytes 0 % 0-10 Blood neutrophils automated count (number/volume) 20.2 10*3 1.8-7.8 Blood lymphocytes automated count (number/volume) 1.1 10*3 1.0-4.0 Blood monocytes automated count (number/volume) 1. 0 10*3 0.0-1.0 Automated eosinophil count 0.1 10*3/uL 0 .0-0.3 Automated blood basophil count (count/volume) 0.0 10*3/uL 0.0-0.1 Comprehensive metabolic panel - 04/10/19 05:45 Serum or plasma sodium measurement (moles/volume) 138 mmol/L 135-145 Serum or plasma potassium measurement (moles/volume) 3.3 mmol/L 3.6-5.0 Serum or plasma chloride measurement (moles/volume) 102 mmol/L 98-107 Carbon dioxide 26 mmol/L 21-32 Serum or plasma anion gap determination (moles/volume) 10 mmol/L 5-14 Serum or plasma urea nitrogen measurement (mass/volume ) 8 mg/dL 7-18 Serum or plasma creatinine measurement (mass/volume) 0.51 mg/dL 0.60-1.30 Serum or plasma urea nitrogen/creatinine mass ratio 16 NRG Serum or plasma creatinine measurement w ith calculation of estimated glomerular filtration rate > NRG Serum or plasma glucose measurement (mass/volume) 106 mg/dL 70-105 Serum or plasma calcium measurement (mass/volume) 7.6 mg/dL 8.5-10.1 Serum or plasma total bilirubin measurement (mass/volu me) 0.6 mg/dL 0.1-1.0 Serum or plasma alkaline phosphatase yoly surement (enzymatic activity/volume) 72 U/L 40-136 Serum or plasma aspartate aminotransfera se measurement (enzymatic activity/volume) 14 U/L 5-34 Serum or plasma alanine aminotransferase measurement (enzymatic activity/volume) < U/L 0-55 Serum or plasma protein measurement (mass/volume) 5.0 g/dL 6.4-8.2 Serum or plasma albumin measurement (mass/volume) 2.1 g/dL 3.2-4.5 CALCIUM CORRECTED 9.1 mg/dL 8.5-10.1 Serum or plasma phosphate measurement (m ass/volume) - 04/10/19 05:45 Serum or plasma phosphate measurement (mass/volume) 3.8 mg/dL 2.3-4.7 Magnesium - 04/10/19 05:45 Magnesium 1.8 mg/dL 1.6-2.4 Serum or plasma triglyceride measurement (mass/volume) - 04/10/19 05:45 Serum or plasma triglyceride measurement (mass/volume) 183 mg/dL <150 Vancomycin trough - 04/10/19 05:45 Vancomycin trough 15.5 ug/mL 10.0-20.0 Vancomycin trough - 04/10/19 17:48 Vancomycin trough 15.7 ug/mL 10.0-20.0 Complete blood count (CBC) with automate d white blood cell (WBC) differential - 04/11/19 03:20 Blood leukocytes automated count (number/volume) 15.9 10*3/uL 4.3-11.0 Blood erythrocytes automated count (number/volume) 2.98 10*6/uL 4.35-5.85 Venous blood hemoglobin measurement (mass/volume) 8.8 g/dL 11.5-16.0 Blood hematocrit (volume fraction) 27 % 35-52 Automated erythrocyte mean corpuscular volume 90 [ foz_us] 80-99 Automated erythrocyte mean corpuscular h emoglobin (mass per erythrocyte) 30 pg 25-34 Automated erythrocyte mean corpuscular h emoglobin concentration measurement (mass/volume) 33 g/dL 32-36 Automated erythrocyte distribution width ratio 14. 2 % 10.0- 14.5 Automated blood platelet count (count/volume) 441 10*3/uL 130-400 Automated blood platelet mean volume measurement 9.8 [foz_us] 7.4-10.4 Automated blood neutrophils/100 leukocytes 86 % 42-75 Automated blood lymphocytes/100 leukocytes 7 % 12-44 Blood monocytes/100 leukocytes 6 % 0-12 Automated blood eosinophils/100 leukocytes 1 % 0-10 Automated blood basophils/100 leukocytes 0 % 0-10 Blood neutrophils automated count (number/volume) 13.7 10*3 1.8-7.8 Blood lymphocytes automated count (number/volume) 1.1 10*3 1.0-4.0 Blood monocytes automated count (number/volume) 1. 0 10*3 0.0-1.0 Automated eosinophil count 0.1 10*3/uL 0 .0-0.3 Automated blood basophil count (count/volume) 0.0 10*3/uL 0.0-0.1 Comprehensive metabolic panel - 04/11/19 03:20 Serum or plasma sodium measurement (moles/volume) 139 mmol/L 135-145 Serum or plasma potassium measurement (moles/volume) 3.1 mmol/L 3.6-5.0 Serum or plasma chloride measurement (moles/volume) 104 mmol/L 98-107 Carbon dioxide 25 mmol/L 21-32 Serum or plasma anion gap determination (moles/volume) 10 mmol/L 5-14 Serum or plasma urea nitrogen measurement (mass/volume ) 5 mg/dL 7-18 Serum or plasma creatinine measurement (mass/volume) 0.50 mg/dL 0.60-1.30 Serum or plasma urea nitrogen/creatinine mass ratio 10 NRG Serum or plasma creatinine measurement w ith calculation of estimated glomerular filtration rate > NRG Serum or plasma glucose measurement (mass/volume) 107 mg/dL 70-105 Serum or plasma calcium measurement (mass/volume) 7.6 mg/dL 8.5-10.1 Serum or plasma total bilirubin measurement (mass/volu me) 0.4 mg/dL 0.1-1.0 Serum or plasma alkaline phosphatase yoly surement (enzymatic activity/volume) 74 U/L 40-136 Serum or plasma aspartate aminotransfera se measurement (enzymatic activity/volume) 19 U/L 5-34 Serum or plasma alanine aminotransferase measurement (enzymatic activity/volume) 10 U/L 0-55 Serum or plasma protein measurement (mass/volume) 5.1 g/dL 6.4-8.2 Serum or plasma albumin measurement (mass/volume) 2.1 g/dL 3.2-4.5 CALCIUM CORRECTED 9.1 mg/dL 8.5-10.1 Serum or plasma phosphate measurement (m ass/volume) - 04/11/19 03:20 Serum or plasma phosphate measurement (mass/volume) 3.6 mg/dL 2.3-4.7 Magnesium - 04/11/19 03:20 Magnesium 1.8 mg/dL 1.6-2.4 Serum or plasma lithium measurement (mol es/volume) - 04/11/19 03:20 BNP PT 24.7 pg/mL <100.0 Bacterial catheter tip culture - 0 13:12 QUANTITY OF GROWTH . NRG FTX;REPORTABLE 1 COLONY OF STAPHYLOCOCCUS HOMINIS NRG FREE TEXT ENTRY 2 (<15 COLONIES TYPICALLY NOT ENMA CATIVE NRG FREE TEXT ENTRY 3 OF SKIN SITE INFECTION) NRG Bacterial catheter tip culture [id number] NR Complete blood count (CBC) with automate d white blood cell (WBC) differential - 04/12/19 03:21 Blood leukocytes automated count (number/volume) 13.2 10*3/uL 4.3-11.0 Blood erythrocytes automated count (number/volume) 2.72 10*6/uL 4.35-5.85 Venous blood hemoglobin measurement (mass/volume) 7.9 g/dL 11.5-16.0 Blood hematocrit (volume fraction) 24 % 35-52 Automated erythrocyte mean corpuscular volume 89 [ foz_us] 80-99 Automated erythrocyte mean corpuscular h emoglobin (mass per erythrocyte) 29 pg 25-34 Automated erythrocyte mean corpuscular h emoglobin concentration measurement (mass/volume) 33 g/dL 32-36 Automated erythrocyte distribution width ratio 14. 2 % 10.0- 14.5 Automated blood platelet count (count/volume) 498 10*3/uL 130-400 Automated blood platelet mean volume measurement 9.5 [foz_us] 7.4-10.4 Automated blood neutrophils/100 leukocytes 82 % 42-75 Automated blood lymphocytes/100 leukocytes 8 % 12-44 Blood monocytes/100 leukocytes 9 % 0-12 Automated blood eosinophils/100 leukocytes 1 % 0-10 Automated blood basophils/100 leukocytes 0 % 0-10 Blood neutrophils automated count (number/volume) 10.8 10*3 1.8-7.8 Blood lymphocytes automated count (number/volume) 1.1 10*3 1.0-4.0 Blood monocytes automated count (number/volume) 1. 1 10*3 0.0-1.0 Automated eosinophil count 0.1 10*3/uL 0 .0-0.3 Automated blood basophil count (count/volume) 0.0 10*3/uL 0.0-0.1 Comprehensive metabolic panel - 04/12/19 03:21 Serum or plasma sodium measurement (moles/volume) 139 mmol/L 135-145 Serum or plasma potassium measurement (moles/volume) 3.2 mmol/L 3.6-5.0 Serum or plasma chloride measurement (moles/volume) 106 mmol/L 98-107 Carbon dioxide 24 mmol/L 21-32 Serum or plasma anion gap determination (moles/volume) 9 mmol/L 5-14 Serum or plasma urea nitrogen measurement (mass/volume ) 5 mg/dL 7-18 Serum or plasma creatinine measurement (mass/volume) 0.48 mg/dL 0.60-1.30 Serum or plasma urea nitrogen/creatinine mass ratio 10 NRG Serum or plasma creatinine measurement w ith calculation of estimated glomerular filtration rate > NRG Serum or plasma glucose measurement (mass/volume) 99 mg/dL 70-105 Serum or plasma calcium measurement (mass/volume) 7.6 mg/dL 8.5-10.1 Serum or plasma total bilirubin measurement (mass/volu me) 0.4 mg/dL 0.1-1.0 Serum or plasma alkaline phosphatase yoly surement (enzymatic activity/volume) 86 U/L 40-136 Serum or plasma aspartate aminotransfera se measurement (enzymatic activity/volume) 31 U/L 5-34 Serum or plasma alanine aminotransferase measurement (enzymatic activity/volume) 14 U/L 0-55 Serum or plasma protein measurement (mass/volume) 5.1 g/dL 6.4-8.2 Serum or plasma albumin measurement (mass/volume) 2.0 g/dL 3.2-4.5 CALCIUM CORRECTED 9.2 mg/dL 8.5-10.1 Serum or plasma phosphate measurement (m ass/volume) - 04/12/19 03:21 Serum or plasma phosphate measurement (mass/volume) 3.4 mg/dL 2.3-4.7 Magnesium - 04/12/19 03:21 Magnesium 2.0 mg/dL 1.6-2.4 Serum or plasma triglyceride measurement (mass/volume) - 04/12/19 03:21 Serum or plasma triglyceride measurement (mass/volume) 184 mg/dL <150 Complete blood count (CBC) with automate d white blood cell (WBC) differential - 04/13/19 03:15 Blood leukocytes automated count (number/volume) 10.9 10*3/uL 4.3-11.0 Blood erythrocytes automated count (number/volume) 2.75 10*6/uL 4.35-5.85 Venous blood hemoglobin measurement (mass/volume) 7.9 g/dL 11.5-16.0 Blood hematocrit (volume fraction) 25 % 35-52 Automated erythrocyte mean corpuscular volume 90 [ foz_us] 80-99 Automated erythrocyte mean corpuscular h emoglobin (mass per erythrocyte) 29 pg 25-34 Automated erythrocyte mean corpuscular h emoglobin concentration measurement (mass/volume) 32 g/dL 32-36 Automated erythrocyte distribution width ratio 14. 2 % 10.0- 14.5 Automated blood platelet count (count/volume) 561 10*3/uL 130-400 Automated blood platelet mean volume measurement 9.4 [foz_us] 7.4-10.4 Automated blood neutrophils/100 leukocytes 79 % 42-75 Automated blood lymphocytes/100 leukocytes 10 % 12-44 Blood monocytes/100 leukocytes 10 % 0-12 Automated blood eosinophils/100 leukocytes 1 % 0-10 Automated blood basophils/100 leukocytes 0 % 0-10 Blood neutrophils automated count (number/volume) 8.5 10*3 1.8-7.8 Blood lymphocytes automated count (number/volume) 1.1 10*3 1.0-4.0 Blood monocytes automated count (number/volume) 1. 1 10*3 0.0-1.0 Automated eosinophil count 0.1 10*3/uL 0 .0-0.3 Automated blood basophil count (count/volume) 0.0 10*3/uL 0.0-0.1 Comprehensive metabolic panel - 04/13/19 03:15 Serum or plasma sodium measurement (moles/volume) 138 mmol/L 135-145 Serum or plasma potassium measurement (moles/volume) 3.6 mmol/L 3.6-5.0 Serum or plasma chloride measurement (moles/volume) 105 mmol/L 98-107 Carbon dioxide 24 mmol/L 21-32 Serum or plasma anion gap determination (moles/volume) 9 mmol/L 5-14 Serum or plasma urea nitrogen measurement (mass/volume ) 4 mg/dL 7-18 Serum or plasma creatinine measurement (mass/volume) 0.54 mg/dL 0.60-1.30 Serum or plasma urea nitrogen/creatinine mass ratio 7 NRG Serum or plasma creatinine measurement w ith calculation of estimated glomerular filtration rate > NRG Serum or plasma glucose measurement (mass/volume) 104 mg/dL 70-105 Serum or plasma calcium measurement (mass/volume) 7.9 mg/dL 8.5-10.1 Serum or plasma total bilirubin measurement (mass/volu me) 0.4 mg/dL 0.1-1.0 Serum or plasma alkaline phosphatase yoly surement (enzymatic activity/volume) 97 U/L 40-136 Serum or plasma aspartate aminotransfera se measurement (enzymatic activity/volume) 57 U/L 5-34 Serum or plasma alanine aminotransferase measurement (enzymatic activity/volume) 31 U/L 0-55 Serum or plasma protein measurement (mass/volume) 5.8 g/dL 6.4-8.2 Serum or plasma albumin measurement (mass/volume) 2.3 g/dL 3.2-4.5 CALCIUM CORRECTED 9.3 mg/dL 8.5-10.1 Serum or plasma phosphate measurement (m ass/volume) - 04/13/19 03:15 Serum or plasma phosphate measurement (mass/volume) 4.5 mg/dL 2.3-4.7 Magnesium - 04/13/19 03:15 Magnesium 1.9 mg/dL 1.6-2.4 Serum iron and total iron binding capaci ty panel - 04/13/19 03:15 TIBC See Est TIBC 280-380 UIBC 117 % 55-450 Serum or plasma iron measurement (mass/volume) < % 35-180 Total iron binding capacity and transferrin saturation measurement See Est %Sat 15-50 Serum or plasma ferritin measurement (mass/volume) 1795.9 % 20.0-177.0 EST TIBC - 04/13/19 03:15 EST TIBC 127 % 280-380 EST %SATURATION - 04/13/19 03:15 EST %SATURATION 8 % 15-50 Complete blood count (CBC) with automate d white blood cell (WBC) differential - 04/14/19 12:03 Blood leukocytes automated count (number/volume) 12.5 10*3/uL 4.3-11.0 Blood erythrocytes automated count (number/volume) 3.29 10*6/uL 4.35-5.85 Venous blood hemoglobin measurement (mass/volume) 9.6 g/dL 11.5-16.0 Blood hematocrit (volume fraction) 30 % 35-52 Automated erythrocyte mean corpuscular volume 90 [ foz_us] 80-99 Automated erythrocyte mean corpuscular h emoglobin (mass per erythrocyte) 29 pg 25-34 Automated erythrocyte mean corpuscular h emoglobin concentration measurement (mass/volume) 33 g/dL 32-36 Automated erythrocyte distribution width ratio 14. 8 % 10.0- 14.5 Automated blood platelet count (count/volume) 726 10*3/uL 130-400 Automated blood platelet mean volume measurement 9.5 [foz_us] 7.4-10.4 Automated blood neutrophils/100 leukocytes 78 % 42-75 Automated blood lymphocytes/100 leukocytes 10 % 12-44 Blood monocytes/100 leukocytes 11 % 0-12 Automated blood eosinophils/100 leukocytes 1 % 0-10 Automated blood basophils/100 leukocytes 0 % 0-10 Blood neutrophils automated count (number/volume) 9.8 10*3 1.8-7.8 Blood lymphocytes automated count (number/volume) 1.3 10*3 1.0-4.0 Blood monocytes automated count (number/volume) 1. 3 10*3 0.0-1.0 Automated eosinophil count 0.1 10*3/uL 0 .0-0.3 Automated blood basophil count (count/volume) 0.0 10*3/uL 0.0-0.1 Comprehensive metabolic panel - 04/14/19 12:03 Serum or plasma sodium measurement (moles/volume) 139 mmol/L 135-145 Serum or plasma potassium measurement (moles/volume) 4.2 mmol/L 3.6-5.0 Serum or plasma chloride measurement (moles/volume) 103 mmol/L 98-107 Carbon dioxide 25 mmol/L 21-32 Serum or plasma anion gap determination (moles/volume) 11 mmol/L 5-14 Serum or plasma urea nitrogen measurement (mass/volume ) 7 mg/dL 7-18 Serum or plasma creatinine measurement (mass/volume) 0.64 mg/dL 0.60-1.30 Serum or plasma urea nitrogen/creatinine mass ratio 11 NRG Serum or plasma creatinine measurement w ith calculation of estimated glomerular filtration rate > NRG Serum or plasma glucose measurement (mass/volume) 95 mg/dL 70-105 Serum or plasma calcium measurement (mass/volume) 9.3 mg/dL 8.5-10.1 Serum or plasma total bilirubin measurement (mass/volu me) 0.5 mg/dL 0.1-1.0 Serum or plasma alkaline phosphatase yoly surement (enzymatic activity/volume) 118 U/L 40-136 Serum or plasma aspartate aminotransfera se measurement (enzymatic activity/volume) 55 U/L 5-34 Serum or plasma alanine aminotransferase measurement (enzymatic activity/volume) 44 U/L 0-55 Serum or plasma protein measurement (mass/volume) 7.7 g/dL 6.4-8.2 Serum or plasma albumin measurement (mass/volume) 3.0 g/dL 3.2-4.5 CALCIUM CORRECTED 10.1 mg/dL 8.5-10.1 Serum or plasma phosphate measurement (m ass/volume) - 04/14/19 12:03 Serum or plasma phosphate measurement (mass/volume) 4.1 mg/dL 2.3-4.7 Magnesium - 04/14/19 12:03 Magnesium 2.1 mg/dL 1.6-2.4 Serum or plasma lithium measurement (mol es/volume) - 04/14/19 12:03 BNP PT 65.1 pg/mL <100.0 Complete blood count (CBC) with automate d white blood cell (WBC) differential - 04/15/19 05:30 Blood leukocytes automated count (number/volume) 10.0 10*3/uL 4.3-11.0 Blood erythrocytes automated count (number/volume) 2.84 10*6/uL 4.35-5.85 Venous blood hemoglobin measurement (mass/volume) 8.2 g/dL 11.5-16.0 Blood hematocrit (volume fraction) 26 % 35-52 Automated erythrocyte mean corpuscular volume 90 [ foz_us] 80-99 Automated erythrocyte mean corpuscular h emoglobin (mass per erythrocyte) 29 pg 25-34 Automated erythrocyte mean corpuscular h emoglobin concentration measurement (mass/volume) 32 g/dL 32-36 Automated erythrocyte distribution width ratio 14. 4 % 10.0- 14.5 Automated blood platelet count (count/volume) 630 10*3/uL 130-400 Automated blood platelet mean volume measurement 9.4 [foz_us] 7.4-10.4 Automated blood neutrophils/100 leukocytes 75 % 42-75 Automated blood lymphocytes/100 leukocytes 12 % 12-44 Blood monocytes/100 leukocytes 11 % 0-12 Automated blood eosinophils/100 leukocytes 1 % 0-10 Automated blood basophils/100 leukocytes 0 % 0-10 Blood neutrophils automated count (number/volume) 7.5 10*3 1.8-7.8 Blood lymphocytes automated count (number/volume) 1.2 10*3 1.0-4.0 Blood monocytes automated count (number/volume) 1. 1 10*3 0.0-1.0 Automated eosinophil count 0.1 10*3/uL 0 .0-0.3 Automated blood basophil count (count/volume) 0.0 10*3/uL 0.0-0.1 Comprehensive metabolic panel - 04/15/19 05:30 Serum or plasma sodium measurement (moles/volume) 137 mmol/L 135-145 Serum or plasma potassium measurement (moles/volume) 4.1 mmol/L 3.6-5.0 Serum or plasma chloride measurement (moles/volume) 104 mmol/L 98-107 Carbon dioxide 22 mmol/L 21-32 Serum or plasma anion gap determination (moles/volume) 11 mmol/L 5-14 Serum or plasma urea nitrogen measurement (mass/volume ) 9 mg/dL 7-18 Serum or plasma creatinine measurement (mass/volume) 0.55 mg/dL 0.60-1.30 Serum or plasma urea nitrogen/creatinine mass ratio 16 NRG Serum or plasma creatinine measurement w ith calculation of estimated glomerular filtration rate > NRG Serum or plasma glucose measurement (mass/volume) 93 mg/dL 70-105 Serum or plasma calcium measurement (mass/volume) 8.5 mg/dL 8.5-10.1 Serum or plasma total bilirubin measurement (mass/volu me) 0.4 mg/dL 0.1-1.0 Serum or plasma alkaline phosphatase yoly surement (enzymatic activity/volume) 106 U/L 40-136 Serum or plasma aspartate aminotransfera se measurement (enzymatic activity/volume) 59 U/L 5-34 Serum or plasma alanine aminotransferase measurement (enzymatic activity/volume) 48 U/L 0-55 Serum or plasma protein measurement (mass/volume) 6.5 g/dL 6.4-8.2 Serum or plasma albumin measurement (mass/volume) 2.5 g/dL 3.2-4.5 CALCIUM CORRECTED 9.7 mg/dL 8.5-10.1 Serum or plasma phosphate measurement (m ass/volume) - 04/15/19 05:30 Serum or plasma phosphate measurement (mass/volume) 4.8 mg/dL 2.3-4.7 Magnesium - 04/15/19 05:30 Magnesium 1.9 mg/dL 1.6-2.4 Complete blood count (CBC) with automate d white blood cell (WBC) differential - 04/27/19 19:50 Blood leukocytes automated count (number/volume) 12.7 10*3/uL 4.3-11.0 Blood erythrocytes automated count (number/volume) 2.82 10*6/uL 4.35-5.85 Venous blood hemoglobin measurement (mass/volume) 7.6 g/dL 11.5-16.0 Blood hematocrit (volume fraction) 25 % 35-52 Automated erythrocyte mean corpuscular volume 88 [ foz_us] 80-99 Automated erythrocyte mean corpuscular h emoglobin (mass per erythrocyte) 27 pg 25-34 Automated erythrocyte mean corpuscular h emoglobin concentration measurement (mass/volume) 31 g/dL 32-36 Automated erythrocyte distribution width ratio 14. 9 % 10.0- 14.5 Automated blood platelet count (count/volume) 633 10*3/uL 130-400 Automated blood platelet mean volume measurement 9.1 [foz_us] 7.4-10.4 Automated blood neutrophils/100 leukocytes 78 % 42-75 Automated blood lymphocytes/100 leukocytes 12 % 12-44 Blood monocytes/100 leukocytes 9 % 0-12 Automated blood eosinophils/100 leukocytes 1 % 0-10 Automated blood basophils/100 leukocytes 0 % 0-10 Blood neutrophils automated count (number/volume) 9.9 10*3 1.8-7.8 Blood lymphocytes automated count (number/volume) 1.5 10*3 1.0-4.0 Blood monocytes automated count (number/volume) 1. 1 10*3 0.0-1.0 Automated eosinophil count 0.1 10*3/uL 0 .0-0.3 Automated blood basophil count (count/volume) 0.0 10*3/uL 0.0-0.1 Blood lactic acid measurement (moles/vol ume) - 04/27/19 19:50 Blood lactic acid measurement (moles/volume) 0.65 mmol/L 0.50-2.00 Comprehensive metabolic panel - 04/27/19 19:50 Serum or plasma sodium measurement (moles/volume) 136 mmol/L 135-145 Serum or plasma potassium measurement (moles/volume) 4.4 mmol/L 3.6-5.0 Serum or plasma chloride measurement (moles/volume) 104 mmol/L 98-107 Carbon dioxide 21 mmol/L 21-32 Serum or plasma anion gap determination (moles/volume) 11 mmol/L 5-14 Serum or plasma urea nitrogen measurement (mass/volume ) 7 mg/dL 7-18 Serum or plasma creatinine measurement (mass/volume) 0.62 mg/dL 0.60-1.30 Serum or plasma urea nitrogen/creatinine mass ratio 11 NRG Serum or plasma creatinine measurement w ith calculation of estimated glomerular filtration rate > NRG Serum or plasma glucose measurement (mass/volume) 97 mg/dL 70-105 Serum or plasma calcium measurement (mass/volume) 8.7 mg/dL 8.5-10.1 Serum or plasma total bilirubin measurement (mass/volu me) 0.3 mg/dL 0.1-1.0 Serum or plasma alkaline phosphatase yoly surement (enzymatic activity/volume) 170 U/L 40-136 Serum or plasma aspartate aminotransfera se measurement (enzymatic activity/volume) 34 U/L 5-34 Serum or plasma alanine aminotransferase measurement (enzymatic activity/volume) 59 U/L 0-55 Serum or plasma protein measurement (mass/volume) 7.6 g/dL 6.4-8.2 Serum or plasma albumin measurement (mass/volume) 2.8 g/dL 3.2-4.5 CALCIUM CORRECTED 9.7 mg/dL 8.5-10.1 Complete blood count (CBC) with automate d white blood cell (WBC) differential - 04/28/19 07:01 Blood leukocytes automated count (number/volume) 10.1 10*3/uL 4.3-11.0 Blood erythrocytes automated count (number/volume) 2.82 10*6/uL 4.35-5.85 Venous blood hemoglobin measurement (mass/volume) 7.7 g/dL 11.5-16.0 Blood hematocrit (volume fraction) 25 % 35-52 Automated erythrocyte mean corpuscular volume 90 [ foz_us] 80-99 Automated erythrocyte mean corpuscular h emoglobin (mass per erythrocyte) 27 pg 25-34 Automated erythrocyte mean corpuscular h emoglobin concentration measurement (mass/volume) 30 g/dL 32-36 Automated erythrocyte distribution width ratio 14. 9 % 10.0- 14.5 Automated blood platelet count (count/volume) 608 10*3/uL 130-400 Automated blood platelet mean volume measurement 8.6 [foz_us] 7.4-10.4 Automated blood neutrophils/100 leukocytes 69 % 42-75 Automated blood lymphocytes/100 leukocytes 18 % 12-44 Blood monocytes/100 leukocytes 12 % 0-12 Automated blood eosinophils/100 leukocytes 2 % 0-10 Automated blood basophils/100 leukocytes 0 % 0-10 Blood neutrophils automated count (number/volume) 7.0 10*3 1.8-7.8 Blood lymphocytes automated count (number/volume) 1.8 10*3 1.0-4.0 Blood monocytes automated count (number/volume) 1. 2 10*3 0.0-1.0 Automated eosinophil count 0.2 10*3/uL 0 .0-0.3 Automated blood basophil count (count/volume) 0.0 10*3/uL 0.0-0.1 Comprehensive metabolic panel - 04/28/19 07:01 Serum or plasma sodium measurement (moles/volume) 136 mmol/L 135-145 Serum or plasma potassium measurement (moles/volume) 4.2 mmol/L 3.6-5.0 Serum or plasma chloride measurement (moles/volume) 109 mmol/L 98-107 Carbon dioxide 19 mmol/L 21-32 Serum or plasma anion gap determination (moles/volume) 8 mmol/L 5-14 Serum or plasma urea nitrogen measurement (mass/volume ) 8 mg/dL 7-18 Serum or plasma creatinine measurement (mass/volume) 0.58 mg/dL 0.60-1.30 Serum or plasma urea nitrogen/creatinine mass ratio 14 NRG Serum or plasma creatinine measurement w ith calculation of estimated glomerular filtration rate > NRG Serum or plasma glucose measurement (mass/volume) 85 mg/dL 70-105 Serum or plasma calcium measurement (mass/volume) 8.4 mg/dL 8.5-10.1 Serum or plasma total bilirubin measurement (mass/volu me) 0.2 mg/dL 0.1-1.0 Serum or plasma alkaline phosphatase yoly surement (enzymatic activity/volume) 148 U/L 40-136 Serum or plasma aspartate aminotransfera se measurement (enzymatic activity/volume) 27 U/L 5-34 Serum or plasma alanine aminotransferase measurement (enzymatic activity/volume) 50 U/L 0-55 Serum or plasma protein measurement (mass/volume) 7.0 g/dL 6.4-8.2 Serum or plasma albumin measurement (mass/volume) 2.6 g/dL 3.2-4.5 CALCIUM CORRECTED 9.5 mg/dL 8.5-10.1 Creatinine body fluid - 04/28/19 11:15 Creatinine body fluid 0.28 mg/dL NR Serum or plasma lithium measurement (mol es/volume) - 04/28/19 14:48 BNP PT < 10.0 <100.0 C DIFFICILE AG + TOXIN A/B. - 04/28/19 1 4:49 FREE TEXT ENTRY 2 SPECIMEN COLLECTED FROM OSTOMY [facility] RESULTS NEGATIVE FOR ANTIGEN AND TOXIN A/B [facility] Stool bacteria identification by culture - 04/28/19 14:49 Complete blood count (CBC) with automate d white blood cell (WBC) differential - 04/29/19 06:40 Blood leukocytes automated count (number/volume) 9.1 10*3/uL 4.3-11.0 Blood erythrocytes automated count (number/volume) 2.64 10*6/uL 4.35-5.85 Venous blood hemoglobin measurement (mass/volume) 7.2 g/dL 11.5-16.0 Blood hematocrit (volume fraction) 24 % 35-52 Automated erythrocyte mean corpuscular volume 89 [ foz_us] 80-99 Automated erythrocyte mean corpuscular h emoglobin (mass per erythrocyte) 27 pg 25-34 Automated erythrocyte mean corpuscular h emoglobin concentration measurement (mass/volume) 31 g/dL 32-36 Automated erythrocyte distribution width ratio 14. 7 % 10.0- 14.5 Automated blood platelet count (count/volume) 580 10*3/uL 130-400 Automated blood platelet mean volume measurement 8.7 [foz_us] 7.4-10.4 Automated blood neutrophils/100 leukocytes 74 % 42-75 Automated blood lymphocytes/100 leukocytes 16 % 12-44 Blood monocytes/100 leukocytes 9 % 0-12 Automated blood eosinophils/100 leukocytes 1 % 0-10 Automated blood basophils/100 leukocytes 0 % 0-10 Blood neutrophils automated count (number/volume) 6.7 10*3 1.8-7.8 Blood lymphocytes automated count (number/volume) 1.4 10*3 1.0-4.0 Blood monocytes automated count (number/volume) 0. 8 10*3 0.0-1.0 Automated eosinophil count 0.1 10*3/uL 0 .0-0.3 Automated blood basophil count (count/volume) 0.0 10*3/uL 0.0-0.1 Comprehensive metabolic panel - 04/29/19 06:40 Serum or plasma sodium measurement (moles/volume) 136 mmol/L 135-145 Serum or plasma potassium measurement (moles/volume) 4.1 mmol/L 3.6-5.0 Serum or plasma chloride measurement (moles/volume) 111 mmol/L 98-107 Carbon dioxide 18 mmol/L 21-32 Serum or plasma anion gap determination (moles/volume) 7 mmol/L 5-14 Serum or plasma urea nitrogen measurement (mass/volume ) 5 mg/dL 7-18 Serum or plasma creatinine measurement (mass/volume) 0.53 mg/dL 0.60-1.30 Serum or plasma urea nitrogen/creatinine mass ratio 9 NRG Serum or plasma creatinine measurement w ith calculation of estimated glomerular filtration rate > NRG Serum or plasma glucose measurement (mass/volume) 96 mg/dL 70-105 Serum or plasma calcium measurement (mass/volume) 8.1 mg/dL 8.5-10.1 Serum or plasma total bilirubin measurement (mass/volu me) 0.2 mg/dL 0.1-1.0 Serum or plasma alkaline phosphatase yoly surement (enzymatic activity/volume) 121 U/L 40-136 Serum or plasma aspartate aminotransfera se measurement (enzymatic activity/volume) 23 U/L 5-34 Serum or plasma alanine aminotransferase measurement (enzymatic activity/volume) 38 U/L 0-55 Serum or plasma protein measurement (mass/volume) 6.3 g/dL 6.4-8.2 Serum or plasma albumin measurement (mass/volume) 2.4 g/dL 3.2-4.5 CALCIUM CORRECTED 9.4 mg/dL 8.5-10.1 Influenza virus A and B antigen detectio n - 04/29/19 08:50 FLU RESULT NEGATIVE FOR INFLUENZA A AND B ANTIGENS BY IA NRG Methicillin resistant Staphylococcus aur eus (MRSA) screening culture - 04/29/19 08:53 Methicillin resistant Staphylococcus aureus (MRSA) scr eening culture NEG NRG Complete blood count (CBC) with automate d white blood cell (WBC) differential - 04/30/19 05:49 Blood leukocytes automated count (number/volume) 9.9 10*3/uL 4.3-11.0 Blood erythrocytes automated count (number/volume) 2.95 10*6/uL 4.35-5.85 Venous blood hemoglobin measurement (mass/volume) 7.9 g/dL 11.5-16.0 Blood hematocrit (volume fraction) 26 % 35-52 Automated erythrocyte mean corpuscular volume 88 [ foz_us] 80-99 Automated erythrocyte mean corpuscular h emoglobin (mass per erythrocyte) 27 pg 25-34 Automated erythrocyte mean corpuscular h emoglobin concentration measurement (mass/volume) 30 g/dL 32-36 Automated erythrocyte distribution width ratio 14. 9 % 10.0- 14.5 Automated blood platelet count (count/volume) 658 10*3/uL 130-400 Automated blood platelet mean volume measurement 8.7 [foz_us] 7.4-10.4 Automated blood neutrophils/100 leukocytes 74 % 42-75 Automated blood lymphocytes/100 leukocytes 17 % 12-44 Blood monocytes/100 leukocytes 7 % 0-12 Automated blood eosinophils/100 leukocytes 2 % 0-10 Automated blood basophils/100 leukocytes 0 % 0-10 Blood neutrophils automated count (number/volume) 7.3 10*3 1.8-7.8 Blood lymphocytes automated count (number/volume) 1.7 10*3 1.0-4.0 Blood monocytes automated count (number/volume) 0. 7 10*3 0.0-1.0 Automated eosinophil count 0.2 10*3/uL 0 .0-0.3 Automated blood basophil count (count/volume) 0.0 10*3/uL 0.0-0.1 Comprehensive metabolic panel - 04/30/19 05:49 Serum or plasma sodium measurement (moles/volume) 139 mmol/L 135-145 Serum or plasma potassium measurement (moles/volume) 4.2 mmol/L 3.6-5.0 Serum or plasma chloride measurement (moles/volume) 107 mmol/L 98-107 Carbon dioxide 22 mmol/L 21-32 Serum or plasma anion gap determination (moles/volume) 10 mmol/L 5-14 Serum or plasma urea nitrogen measurement (mass/volume ) 5 mg/dL 7-18 Serum or plasma creatinine measurement (mass/volume) 0.55 mg/dL 0.60-1.30 Serum or plasma urea nitrogen/creatinine mass ratio 9 NRG Serum or plasma creatinine measurement w ith calculation of estimated glomerular filtration rate > NRG Serum or plasma glucose measurement (mass/volume) 95 mg/dL 70-105 Serum or plasma calcium measurement (mass/volume) 8.8 mg/dL 8.5-10.1 Serum or plasma total bilirubin measurement (mass/volu me) 0.2 mg/dL 0.1-1.0 Serum or plasma alkaline phosphatase yoly surement (enzymatic activity/volume) 123 U/L 40-136 Serum or plasma aspartate aminotransfera se measurement (enzymatic activity/volume) 26 U/L 5-34 Serum or plasma alanine aminotransferase measurement (enzymatic activity/volume) 42 U/L 0-55 Serum or plasma protein measurement (mass/volume) 7.2 g/dL 6.4-8.2 Serum or plasma albumin measurement (mass/volume) 2.7 g/dL 3.2-4.5 CALCIUM CORRECTED 9.8 mg/dL 8.5-10.1 Complete blood count (CBC) with automate d white blood cell (WBC) differential - 05/01/19 05:26 Blood leukocytes automated count (number/volume) 9.6 10*3/uL 4.3-11.0 Blood erythrocytes automated count (number/volume) 2.68 10*6/uL 4.35-5.85 Venous blood hemoglobin measurement (mass/volume) 7.3 g/dL 11.5-16.0 Blood hematocrit (volume fraction) 24 % 35-52 Automated erythrocyte mean corpuscular volume 89 [ foz_us] 80-99 Automated erythrocyte mean corpuscular h emoglobin (mass per erythrocyte) 27 pg 25-34 Automated erythrocyte mean corpuscular h emoglobin concentration measurement (mass/volume) 31 g/dL 32-36 Automated erythrocyte distribution width ratio 14. 7 % 10.0- 14.5 Automated blood platelet count (count/volume) 572 10*3/uL 130-400 Automated blood platelet mean volume measurement 8.7 [foz_us] 7.4-10.4 Automated blood neutrophils/100 leukocytes 71 % 42-75 Automated blood lymphocytes/100 leukocytes 19 % 12-44 Blood monocytes/100 leukocytes 9 % 0-12 Automated blood eosinophils/100 leukocytes 2 % 0-10 Automated blood basophils/100 leukocytes 0 % 0-10 Blood neutrophils automated count (number/volume) 6.8 10*3 1.8-7.8 Blood lymphocytes automated count (number/volume) 1.8 10*3 1.0-4.0 Blood monocytes automated count (number/volume) 0. 9 10*3 0.0-1.0 Automated eosinophil count 0.1 10*3/uL 0 .0-0.3 Automated blood basophil count (count/volume) 0.0 10*3/uL 0.0-0.1 Comprehensive metabolic panel - 05/01/19 05:26 Serum or plasma sodium measurement (moles/volume) 141 mmol/L 135-145 Serum or plasma potassium measurement (moles/volume) 4.0 mmol/L 3.6-5.0 Serum or plasma chloride measurement (moles/volume) 107 mmol/L 98-107 Carbon dioxide 25 mmol/L 21-32 Serum or plasma anion gap determination (moles/volume) 9 mmol/L 5-14 Serum or plasma urea nitrogen measurement (mass/volume ) 7 mg/dL 7-18 Serum or plasma creatinine measurement (mass/volume) 0.54 mg/dL 0.60-1.30 Serum or plasma urea nitrogen/creatinine mass ratio 13 NRG Serum or plasma creatinine measurement w ith calculation of estimated glomerular filtration rate > NRG Serum or plasma glucose measurement (mass/volume) 96 mg/dL 70-105 Serum or plasma calcium measurement (mass/volume) 8.4 mg/dL 8.5-10.1 Serum or plasma total bilirubin measurement (mass/volu me) 0.2 mg/dL 0.1-1.0 Serum or plasma alkaline phosphatase yoly surement (enzymatic activity/volume) 97 U/L 40-136 Serum or plasma aspartate aminotransfera se measurement (enzymatic activity/volume) 21 U/L 5-34 Serum or plasma alanine aminotransferase measurement (enzymatic activity/volume) 33 U/L 0-55 Serum or plasma protein measurement (mass/volume) 6.5 g/dL 6.4-8.2 Serum or plasma albumin measurement (mass/volume) 2.5 g/dL 3.2-4.5 CALCIUM CORRECTED 9.6 mg/dL 8.5-10.1 Complete blood count (CBC) with automate d white blood cell (WBC) differential - 05/02/19 06:25 Blood leukocytes automated count (number/volume) 10.9 10*3/uL 4.3-11.0 Blood erythrocytes automated count (number/volume) 3.17 10*6/uL 4.35-5.85 Venous blood hemoglobin measurement (mass/volume) 8.5 g/dL 11.5-16.0 Blood hematocrit (volume fraction) 28 % 35-52 Automated erythrocyte mean corpuscular volume 88 [ foz_us] 80-99 Automated erythrocyte mean corpuscular h emoglobin (mass per erythrocyte) 27 pg 25-34 Automated erythrocyte mean corpuscular h emoglobin concentration measurement (mass/volume) 30 g/dL 32-36 Automated erythrocyte distribution width ratio 15. 1 % 10.0- 14.5 Automated blood platelet count (count/volume) 622 10*3/uL 130-400 Automated blood platelet mean volume measurement 8.7 [foz_us] 7.4-10.4 Automated blood neutrophils/100 leukocytes 76 % 42-75 Automated blood lymphocytes/100 leukocytes 15 % 12-44 Blood monocytes/100 leukocytes 7 % 0-12 Automated blood eosinophils/100 leukocytes 2 % 0-10 Automated blood basophils/100 leukocytes 0 % 0-10 Blood neutrophils automated count (number/volume) 8.2 10*3 1.8-7.8 Blood lymphocytes automated count (number/volume) 1.7 10*3 1.0-4.0 Blood monocytes automated count (number/volume) 0. 8 10*3 0.0-1.0 Automated eosinophil count 0.2 10*3/uL 0 .0-0.3 Automated blood basophil count (count/volume) 0.0 10*3/uL 0.0-0.1 Comprehensive metabolic panel - 05/02/19 06:25 Serum or plasma sodium measurement (moles/volume) 139 mmol/L 135-145 Serum or plasma potassium measurement (moles/volume) 4.6 mmol/L 3.6-5.0 Serum or plasma chloride measurement (moles/volume) 102 mmol/L 98-107 Carbon dioxide 26 mmol/L 21-32 Serum or plasma anion gap determination (moles/volume) 11 mmol/L 5-14 Serum or plasma urea nitrogen measurement (mass/volume ) 9 mg/dL 7-18 Serum or plasma creatinine measurement (mass/volume) 0.61 mg/dL 0.60-1.30 Serum or plasma urea nitrogen/creatinine mass ratio 15 NRG Serum or plasma creatinine measurement w ith calculation of estimated glomerular filtration rate > NRG Serum or plasma glucose measurement (mass/volume) 88 mg/dL 70-105 Serum or plasma calcium measurement (mass/volume) 9.3 mg/dL 8.5-10.1 Serum or plasma total bilirubin measurement (mass/volu me) 0.2 mg/dL 0.1-1.0 Serum or plasma alkaline phosphatase yoly surement (enzymatic activity/volume) 112 U/L 40-136 Serum or plasma aspartate aminotransfera se measurement (enzymatic activity/volume) 20 U/L 5-34 Serum or plasma alanine aminotransferase measurement (enzymatic activity/volume) 32 U/L 0-55 Serum or plasma protein measurement (mass/volume) 7.9 g/dL 6.4-8.2 Serum or plasma albumin measurement (mass/volume) 3.0 g/dL 3.2-4.5 CALCIUM CORRECTED 10.1 mg/dL 8.5-10.1 CULTURE, URINE - 07/19/19 14:26 CULTURE, URINE, ROUTINE SEE NOTE NRG Encounters ACCT No. Visit Date/Time Discharge Status Pt. Type Provider Facility Loc./Unit Complaint [id number] 01/06/2018 08:00:00 01/06/2018 23:5 9:59 CLS Outpatient [id number] 09/30/2019 17:11:37 Document Registration [id number] 06/08/2019 17:06:11 Document Registration [id number] 05/24/2019 14:42:11 Document Registration [id number] 05/11/2019 12:38:27 Document Registration [id number] 05/05/2019 12:17:43 Document Registration [id number] 04/29/2019 12:26:51 Document Registration [id number] 04/29/2019 12:02:00 Document Registration [id number] 04/27/2019 13:22:01 Document Registration [id number] 04/27/2019 13:16:14 Document Registration [id number] 04/27/2019 10:34:09 Document Registration [id number] 04/20/2019 17:03:40 Document Registration [id number] 04/05/2019 16:08:53 Document Registration [id number] 04/05/2019 16:05:39 Document Registration [id number] 04/01/2019 23:06:38 Document Registration [id number] 04/01/2019 20:34:28 Document Registration [id number] 04/01/2019 20:30:29 Document Registration [id number] 09/28/2019 05:47:00 16:00:00 DIS Outpatient ARON BARKER DO [facility] PREOP COLOSTOMY [id number] 08/18/2019 09:41:00 23:59:59 CLS Outpatient JESSE MONTOYA APRN [facility] RT DYSPNEA,PLEURAL EFFUSION,TOBACCO USER [id number] 04/27/2019 15:54:00 13:00:00 DIS Inpatient MATEUSZ YUSUF DO, [facility] 4TH SEPSIS [id number] 04/02/2019 01:23:00 14:40:00 DIS Outpatient DELMAR SEE DO [facility] 4TH POST OP PAIN [id number] 03/28/2019 06:05:00 17:03:00 DIS Outpatient DELMAR SEE DO [facility] SDC CHRONIC PELVIC PAIN,ENDOMETRIOSIS,PELVIC MASS [id number] 03/18/2019 09:53:00 10:20:00 DIS Outpatient DELMAR SEE DO [facility] PREOP CHRONIC PELVIC PAIN,ENDOMETRIOSIS,PELVIC MASS [id number] 02/14/2019 08:27:00 12:05:00 DIS Outpatient ARON BARKER DO [facility] ENDO ENDOMETRIOSIS [id number] 02/09/2019 13:48:00 13:54:00 DIS Outpatient MJ MATHEW ARON Marlo [facility] PREOP COLONOSCOPY [id number] 02/07/2019 11:59:00 14:25:00 DIS Emergency PERLA DIA [facility] ER N/V/D [id number] 01/06/2019 16:45:00 23:59:59 CLS Outpatient DELMAR SEE DO [facility] RAD PELVIC MASS [id number] 10/05/2019 06:15:[address] Inpatient ERICKA BARKER DOIC Marlo [facility] SURG COLOSTOMY [id number] 06/06/2019 09:51:00 Document Registration [id number] 05/17/2019 09:20:00 05/17/2019 23:59: 59 CLS Outpatient [facility] PARS ONS [id number] 07/19/2019 13:40:00 Document Registration [id number] 12/10/2018 10:20:00 Document Registration [id number] 11/09/2018 10:00:00 Document Registration [id number] 06/14/2019 16:38:02 06/14/2019 23:59: 59 CLS Outpatient Natanael Eubanks [id number] 05/19/2019 15:17:48 05/19/2019 23:59: 59 CLS Outpatient Natanael Eubanks [id number] 11/09/2014 11:00:55 11/09/2014 23:59: 59 CLS Outpatient Martin Huerta [id number] 04/20/2014 16:21:25 04/20/2014 23:59: 59 CLS Outpatient Martin Huerta [id number] 11/22/2013 10:24:46 11/22/2013 23:59: 59 CLS Outpatient Martin Huerta [id number] 10/31/2013 14:44:03 10/31/2013 23:59: 59 CLS Outpatient Jaspal Gibbons [id number] 08/24/2013 17:04:33 08/24/2013 23:59: 59 CLS Outpatient Martin Huerta [id number] 05/06/2013 16:06:33 05/06/2013 23:59: 59 CLS Outpatient Jaspal Gibbons [id number] 04/20/2013 16:22:43 04/20/2013 23:59: 59 CLS Outpatient Martin Huerta
[2019-10-05] MEDS ORDERED: ONDANSETRON 4 MG/2 ML (SDV) Z0FRAN ONE (06:45)
[2019-10-05] MEDS ORDERED: LIDOCAINE PF 2% 5 ML (XYLOCAINE) VIAL ONE (06:45)
[2019-10-05] MEDS ORDERED: ROCURONIUM 10 MG/ML 5 ML SYRINGE IV ONE (06:45)
[2019-10-05] MEDS ORDERED: proPOfol 200 MG/20 ML (DIPRIVAN) VIAL IV ONE (06:45)
[2019-10-05] MEDS ORDERED: LACTATED RINGERS 1,000 ML IV ONE (06:45)
[2019-10-05] MEDS ORDERED: MIDAZOLAM 2 MG/2 ML (VERSED) VIAL ONE (06:45)
[2019-10-05] MEDS ORDERED: fentaNYL INJECTION 100 MCG/2 ML AMP ONE (06:45)
[2019-10-05] MEDS ORDERED: GLYCOPYRROLATE 0.2 MG/ML (ROBINUL) 2 ML VIAL ONE (06:46)
[2019-10-05] MEDS ORDERED: DEXAMETHASONE 10 MG/ML (DECADRON) 1 ML VIAL ONE (06:46)
[2019-10-05] MEDS ORDERED: NEOSTIGMINE 3 MG/3 ML VIAL ONE (06:46)
[2019-10-05] MEDS ORDERED: SEVOFLURANE (ULTANE) 15 ML INHAL SOLN ONE ×8 (06:46→10:05)
[2019-10-05 07:09] LABS: BASOPHILS # (AUTO) 0.1 10^3/uL (0.0-0.1); BASOPHILS % (AUTO) 1 % (0-10); EOSINOPHILS # (AUTO) 0.1 10^3/uL (0.0-0.3); EOSINOPHILS % (AUTO) 1 % (0-10); HEMATOCRIT 49 % (35-52); HEMOGLOBIN 16.7 G/DL (11.5-16.0); LYMPHOCYTES # (AUTO) 2.7 X 10^3 (1.0-4.0); LYMPHOCYTES % (AUTO) 33 % (12-44); MEAN CORPUSCULAR HEMOGLOBIN 28 PG (25-34); MEAN CORPUSCULAR HGB CONC 34 G/DL (32-36); MEAN CORPUSCULAR VOLUME 83 FL (80-99); MEAN PLATELET VOLUME 10.2 FL (7.4-10.4); MONOCYTES # (AUTO) 0.7 X 10^3 (0.0-1.0); MONOCYTES % (AUTO) 8 % (0-12); NEUTROPHILS # (AUTO) 4.6 X 10^3 (1.8-7.8); NEUTROPHILS % (AUTO) 57 % (42-75); PLATELET COUNT 289 10^3/uL (130-400); RED CELL DISTRIBUTION WIDTH 14.7 % (10.0-14.5); WHITE BLOOD COUNT 8.2 10^3/uL (4.3-11.0)
[2019-10-05] MEDS ORDERED: CLINDAMYCIN 600 MG/50 ML IVPB 50 ML IV ONE (07:15)
[2019-10-05] MEDS ORDERED: BUP/EPI 0.5% 1:200,000 (SENSORCAINE) 30 ML VIAL ONE (07:21)
[2019-10-05] MEDS: LACTATED RINGERS 1,000 ML IV PRN ×2 (07:46→08:30)
[2019-10-05] MEDS ORDERED: fentaNYL INJECTION 250 MCG/5 ML AMP ONE (08:52)
--- NOTE | 2019-10-05 10:00 | Progress Note-Post Operative ---
Post-Operative Progess Note Surgeon (s)/Professor Of Historical Theology (s) Surgeon ARON BARKER DO Professor Of Historical Theology: Veronica Pre-Operative Diagnosis Colostomy status Post-Operative Diagnosis Same plus adhesions Procedure & Operative Findings Date of Procedure 10/05/19 Procedure Performed/Findings Laparoscopic Colostomy takedown with Colon resection and Primary anastomosis FERNANDA Anesthesia Type GET Estimated Blood Loss Estimated blood loss (mL): scant Specimens/Packing Specimens Removed portion of descending colon anastomotic rings ARON BARKER DO Oct 05, 2019 10:00
[2019-10-05] MEDS ORDERED: ONDANSETRON 4 MG/2 ML (SDV) Z0FRAN IVP PRN (10:30)
[2019-10-05] MEDS ORDERED: HYDROmorphone 2 MG/ML VIAL (DILAUDID) IV ONE (10:30)
[2019-10-05] MEDS ORDERED: MEPERIDINE (DEMEROL) INJ 50 MG/ML IVP ONE (10:30)
[2019-10-05] MEDS ORDERED: morphine INJ 10 MG/ML 1ML (SYR OR VIAL) IVP ONE (10:30)
[2019-10-05] MEDS ORDERED: PROMETHAZINE INJ 25 MG/ML (PHENERGAN) AMP IVP ONE (10:30)
[2019-10-05] MEDS: LACTATED RINGERS 1,000 ML IV SCH ×2 (11:40→12:26)
[2019-10-05] MEDS ORDERED: ACETAMINOPHEN 500 MG TAB (TYLENOL) ONE (11:54)
[2019-10-05] MEDS: ACETAMINOPHEN 500 MG TAB (TYLENOL) PO SCH ×2 (11:59→17:42)
[2019-10-05] MEDS: KETOROLAC 30 MG/ML VIAL IVP SCH ×3 (12:00→22:47)
[2019-10-06 00:02] VITALS: BP 104/72
[2019-10-06] MEDS: ACETAMINOPHEN 500 MG TAB (TYLENOL) PO SCH ×3 (02:18→17:50)
[2019-10-06] MEDS: LACTATED RINGERS 1,000 ML IV SCH (02:18)
[2019-10-06] MEDS: KETOROLAC 30 MG/ML VIAL IVP SCH ×4 (04:33→22:51)
[2019-10-06 04:36] VITALS: BP 104/72
--- NOTE | 2019-10-06 04:38 | OPERATIVE REPORT ---
DATE OF SERVICE: PREOPERATIVE DIAGNOSIS: Colostomy status. POSTOPERATIVE DIAGNOSIS: Colostomy status. PROCEDURES: 1. Laparoscopic colostomy reversal with primary anastomosis, partial Colectomy 2. Lysis of adhesions. SURGEON: Kadeem Arriaga DO FLATBED STITCHER: Theron Martin DO ANESTHESIA: General endotracheal tube. SPECIMEN: Portion of colon as well as a portion of the anastomotic rings. BLOOD LOSS: Less than 10 mL. FLUIDS: Per anesthesia. POSTOPERATIVE CONDITION: Stable. INDICATION FOR PROCEDURE: The patient is a 39-year-old female who had a colostomy and wanted to get this reversed. FINDINGS: The patient had a colostomy had this reversed without any difficulty. PROCEDURE NOTE: After informed consent was obtained, the patient was brought to the operating room, placed on the table in the lithotomy position. She was then sterilely prepped and draped in normal fashion. Local lidocaine was used to make an incision above the previous incision. I then used a #11 blade, carried down through the skin into the subcutaneous tissue, deepened down thru subcutaneous tissue with Bovie electrocautery down to the fascia. Fascia was incised with Bovie electrocautery, bluntly entered the abdomen, swept a finger around, placed 0 Vicryl [id number] suture and placed an 11 mm trocar port under direct visualization. Created pneumoperitoneum. There were lot of adhesions. Carefully placed 2 more 5mm ports in the normal fashion with Versastep, local lidocaine, stab incision with #11 all done under direct visualization. We had to start carefully taking these down. Once we were able to free up all the adhesions, then able to visualize the stoma from the inside, looked like it was going to be long enough. We were then able to identify the rectal stump. At this point, then went above and did elliptical incision to cut out the colostomy off the skin and cutting around the fat and then delivering the superior portion of intestine through the abdominal wall, then used a pursestring applicator to create a pursestring and then cut distal portion of the colon off, did by doing a partial colon resection, then placed a 29 ILS anvil into the proximal portion of the colon and tied it with a pursestring that had been placed. This was then pushed back into the abdomen and at this point, then closed the fascia of the ostomy opening with #1 double stranded PDS suture running from superior portion to inferior portion and tying to itself, then recreated pneumoperitoneum. I went down below (Dr. Martin) stayed above, I dilated the rectum up from 25 to 28 to 31 and then placed a 29 ILS stapling device into the rectum, carefully brought out the trocar through the distal portion of the rectum and then attached the anvil to the trocar and then tightened this down to the full tightness. It was in the green. I then clamped for 30 seconds and then fired and held for 20 seconds and then turned the anvil with three-quarter turn and it easily came out, checked the anastomotic rings; two good circular rings. At this point, then placed a sigmoidoscopy scope, I could see the anastomosis. Dr. Martin added saline into the pelvis and then I insufflated. There were no holes, no leak seen while checking the anastomosis. Anastomosis looked good. At this point, then let the air out and we then removed all ports under direct visualization, allowed pneumoperitoneum to escape and then closed with 0 Vicryl [id number] suture and then closing the skin with sandi. During the case, I placed 2 more ports, one in the right upper quadrant and one in the left lower quadrant. The small 5 mm incisions were closed with sandi and then closed the ostomy site with sandi. Area was cleaned and dried, dressing was placed. The patient tolerated the procedure. Sponge, instrument and needlecount correct at the end of the case. Dr. Martin assisted in this case helping to make incisions, close incisions, identify anatomy and hold anatomy out of the way. Job ID: [id number] DocumentID: [id number] Dictated Date: 10/05/2019 18:41:07 Automotive Sales Representative Date: 10/06/2019 04:37:42 Dictated By: DO ALEYDA GHOSH
[2019-10-06 06:24] LABS: HEMOGLOBIN 12.7 G/DL (11.5-16.0); RED CELL DISTRIBUTION WIDTH 13.7 % (10.0-14.5); WHITE BLOOD COUNT 13.1 10^3/uL (4.3-11.0)
--- NOTE | 2019-10-06 06:53 | Anesthesia-General Post-Op ---
General Patient Condition Mental Status/LOC: Same as Preop Cardiovascular: Satisfactory Nausea/Vomiting: Absent Respiratory: Satisfactory Pain: Controlled Complications: Absent Post Op Complications Complications None Follow Up Care/Instructions Patient Instructions None needed. Anesthesia/Patient Condition Patient Condition Patient is doing well, no complaints, stable vital signs, no apparent adverse anesthesia problems. No complications reported per nursing. MAGEN VILLA CRNA Oct 06, 2019 06:53
[2019-10-06 08:34] VITALS: BP 107/73
[2019-10-06] MEDS: ENOXAPARIN 40 MG/0.4 ML (LOVENOX) SYR SC SCH (09:26)
--- NOTE | 2019-10-06 10:11 | Progress Note - Surgery ---
Subjective Time Seen by a Provider: 10:01 Subjective/Events-last exam Pt seen and examined, she is tolerating clears. Nurse states she is walking around the halls and had some flatus and small BM. Pt states her pain is well controlled; "I only have a little discomfort at the upper incision". Review of Systems Pulmonary: No Dyspnea, No Cough Cardiovascular: No: Chest Pain Gastrointestinal: No: Nausea, Vomiting Objective Exam Vital Signs Date Time Temp Pulse Resp B/P (MAP) Pulse Ox O2 Delivery O2 Flow Rate FiO2 10/06/19 08:34 36.4 75 18 107/73 (84) 97 Room Air 10/06/19 04:36 36.6 88 16 104/72 (83) 95 Room Air 10/06/19 00:02 36.4 78 15 104/72 (83) 95 Room Air 10/05/19 21:00 Room Air 10/05/19 20:11 36.2 88 16 118/84 (95) 99 Room Air 10/05/19 16:08 36.4 92 18 112/77 (89) 98 Room Air 10/05/19 15:05 95 Room Air 10/05/19 11:15 36.4 18 124/87 (99) 95 Room Air 10/05/19 11:15 Room Air 10/05/19 11:10 36.0 90 18 126/87 (100) 98 Room Air 10/05/19 11:10 18 126/89 (101) 96 Room Air 10/05/19 11:03 Room Air 10/05/19 11:00 18 127/92 (104) 96 Room Air 10/05/19 10:57 Room Air 10/05/19 10:53 OxyMask 3 10/05/19 10:50 18 127/87 (100) 100 OxyMask 6 10/05/19 10:44 OxyMask 6 10/05/19 10:40 18 132/90 (104) 100 OxyMask 6 10/05/19 10:30 OxyMask 6 10/05/19 10:30 18 136/94 (108) 100 OxyMask 6 10/05/19 10:20 20 135/88 (104) 99 OxyMask 6 10/05/19 10:16 OxyMask 6 10/05/19 10:16 36.7 15 124/88 (100) 99 OxyMask 6 I & O 10/06/19 07:00 Intake Total 3890 ml Output Total 950 ml Balance 2940 ml Capillary Refill : Less Than 3 Seconds General Appearance: No Apparent Distress HEENT: PERRL/EOMI Respiratory: Chest Non Tender, Lungs Clear, Normal Breath Sounds, No Accessory Muscle Use, No Respiratory Distress Cardiovascular: Regular Rate, Rhythm, No Murmur Gastrointestinal: soft; No distended; tenderness (minimal at incisions) Results Lab Laboratory Tests 10/06/19 06:16: White Blood Count 13.1H, Red Blood Count 4.48, Hemoglobin 12.7#, Hematocrit 38, Mean Corpuscular Volume 84, Mean Corpuscular Hemoglobin 28, Mean Corpuscular Hemoglobin Concent 34, Red Cell Distribution Width 13.7, Platelet Count 210, Mean Platelet Volume 10.0, Creatinine 0.67 Microbiology 10/05/19 MRSA Screen - Final, Complete MRSA not isolated Assessment/Plan Assessment/Plan Assessment/Plan S/P colostomy reversal Increase to regular diet and continue IS use and ambulation. Will probably send home tomorrow. Clinical Quality Measures DVT/VTE Risk/Contraindication: Risk Factor Score Per Nursin RFS Level Per Nursing on Admit: 4+=Very High ARON BARKER DO Oct 06, 2019 10:10
[2019-10-06 11:46] VITALS: BP_SYST 109; BP_SYST 110; BP_DIAS 67; BP_DIAS 76
--- NOTE | 2019-10-06 14:08 | Consultation-Cardiology ---
HPI-Cardiology Cardiology Consultation: Date of Consultation 10/06/19 Date of Admission Attending Physician Kadeem Arriaga DO Admitting Physician Haley Alves MD Consulting Physician Jay JACOBS MD HPI: Time Seen by a Provider: 09:00 Chief Complaint: Recent surgical procedure. This is a 39-year-old lady with history of active smoking and endometriosis. She had previous hysterectomy but also required bowel surgery with Dr. Arriaga. Colostomy today. Recent prolonged ICU admission with sepsis and respiratory failure however recovered well. Denies any past medical or cardiac history. No significant cardiac symptoms including chest pain, shortness of breath, syncope or near syncope. No pertinent family history. Review of Systems-Cardiology Review of Systems Constitutional: As described under HPI; No As described under HPI, No no symptoms reported, No chills, No fever, No lightheadedness Eyes: No As described under HPI, No no symptoms reported, No blindness, No blurred vision, No contact lenses, No drainage, No decreased acuity, No foreign body sensation, No pain, No vision change Ears/Nose/Throat: No As described under HPI, No no symptoms reported, No chronic hearing loss, No ear discharge, No ear pain, No nasal drainage, No ulcerations Respiratory: No no symptoms reported; As described under HPI; No As described under HPI, No cough, No orthopnea, No shortness of breath, No SOB with excertion Cardiovascular: No no symptoms reported; As described under HPI; No As described under HPI, No chest pain, No edema, No irregular heart rate, No lightheadedness, No palpitations Gastrointestinal: No no symptoms reported, No As described under HPI, No abdomen distended; abdominal pain; No blood streaked bowels, No constipation, No diarrhea, No nausea, No vomiting, No stool coloration changes Genitourinary: No As described under HPI, No burning, No dysuria, No discharge, No frequency, No flank pain, No hematuria, No urgency : Yes : No Skin: No rash, No skin related problems, No ulcerations Psychiatric/Neurological: No anxiety, No depression, No seizure, No focal weakness, No syncope Hematologic: No bleeding abnormalities [id number] Hx Patient Social History Alcohol Use: Denies Use Recreational Drug Use: Yes (marijuana) Smoking Status: Current Everyday Smoker Type Used: Cigarettes 2nd Hand Smoke Exposure: Yes Recent Foreign Travel: No Recent Infectious Disease Expo: No Physical Abuse Screen: No Sexual Abuse: No Past Medical History PMH As described under Assessment. Family Medical History Family History: Cardiovascular disease 19 MOTHER Diabetes mellitus 19 MOTHER Respiratory disorder 19 MOTHER Allergies and Home Medications Allergies Coded Allergies: Penicillins (Verified Allergy, Severe, childhood reaction-unsure of reaction, 03/18/19) amoxicillin (Verified Allergy, Severe, BREATHING ISSUES, 02/09/19) Home Medications Albuterol Sulfate 1 Puff Puff, 2 PUFF INH Q4H PRN for WHEEZING, (Reported) 1 PUFF = 90 MCG Bupropion HCl 150 Mg Tab.er.24h, 150 MG PO BID, (Reported) Cetirizine HCl 10 Mg Tablet, 10 MG PO DAILY PRN for allergies, (Reported) Famotidine 20 Mg Tablet, 20 MG PO BID PRN for HEARTBURN, (Reported) Fluticasone/Vilanterol 1 Each Blst.w.dev, 1 EACH IH DAILY, (Reported) Ginkgo Biloba 60 Mg Tablet, 60 MG PO DAILY, (Reported) Multivitamin with Minerals 1 Each Tablet, 1 EACH PO DAILY, (Reported) Patient Home Medication List Home Medication List Reviewed: Yes Physical Exam-Cardiology Physical Exam Vital Signs/I&O 10/06/19 10/06/19 10/06/19 10/06/19 08:34 09:00 11:46 16:40 Temp 36.4 36.6 36.8 Pulse 75 82 66 Resp 18 20 18 B/P (MAP) 107/73 (84) 110/76 (87) 116/80 (92) Pulse Ox 97 99 100 O2 Delivery Room Air Room Air Room Air Room Air 10/06/19 00:00 Intake Total 840 ml Balance 840 ml Capillary Refill : Less Than 3 SecondsLess Than 3 Seconds Constitutional: appears stated age; No apparent distress; well-developed, well- nourished HEENT: PERRL; No discharge; hearing is well preserved, oral hygience is good; No ulceration, No xanthelasmas are seen Neck: No carotid bruit; carotid pulses are 2 + bilaterally Respiratory: chest is bilaterally symmetric, lungs clear to auscultation Cardiovascular: regular rate-rhythm, S1 and S2 Gastrointestinal: soft, tenderness; No spleenomegaly Rectal: deferred Extremities: normal range of motion, non-tender, normal inspection; No clubbing, No cyanosis; no lower extremity edema bilateral; No significant edema Neurologic/Psychiatric: no motor/sensory deficits, alert, normal mood/affect, oriented x 3, power is 5/5 both on sides Skin: normal color, warm/dry; No rash, No ulcerations Data Review Labs Laboratory Tests 10/06/19 06:16: White Blood Count 13.1H, Red Blood Count 4.48, Hemoglobin 12.7#, Hematocrit 38, Mean Corpuscular Volume 84, Mean Corpuscular Hemoglobin 28, Mean Corpuscular Hemoglobin Concent 34, Red Cell Distribution Width 13.7, Platelet Count 210, Mean Platelet Volume 10.0, Creatinine 0.67 Microbiology 10/05/19 MRSA Screen - Final, Complete MRSA not isolated A/P-Cardiology Assessment/Admission Diagnosis Recent abdominal surgery, Active smoking Plan Recent abdominal surgery, deferred to Dr. Arriaga. No active cardiac complaints. Smoking cessation was strongly recommended. Cardiology services to sign off. Thank you for your consultation. Please call me if you have any questions. Flora Jacobs MD, FACP, FACC, FSCAI, FHRS, CCDS Interventional Cardiology Cardiac Electrophysiology Vascular Medicine and Endovascular Interventions Clinical Quality Measures DVT/VTE Risk/Contraindication: Risk Factor Score Per Nursin RFS Level Per Nursing on Admit: 4+=Very High Jay JACOBS MD Oct 06, 2019 14:08
[2019-10-06 16:40] VITALS: BP 116/80
--- NOTE | 2019-10-06 16:48 | NUR ---
Pastoral care visit.
[2019-10-06 19:40] VITALS: BP 111/76
[2019-10-07] VITALS: BP 116/79
[2019-10-07] MEDS: ACETAMINOPHEN 500 MG TAB (TYLENOL) PO SCH ×2 (02:00→09:06)
[2019-10-07] MEDS: KETOROLAC 30 MG/ML VIAL IVP SCH ×3 (04:02→15:34)
[2019-10-07 04:10] VITALS: BP 104/72
[2019-10-07 08:05] VITALS: BP 110/76
[2019-10-07] MEDS: ENOXAPARIN 40 MG/0.4 ML (LOVENOX) SYR SC SCH (09:06)
--- NOTE | 2019-10-07 11:33 | Discharge Summary ---
Diagnosis/Chief Complaint Date of Admission Oct 05, 2019 at 06:15 Date of Discharge Discharge Time: 11:30 Admission Diagnosis Admission Diagnosis Colostomy Status Discharge Diagnosis Colostomy Reversal Discharge Summary Procedures: Lap Colostomy reversal with colon resection and primary anastomosis Lysis of Adhesions Discharge Physical Examination Allergies: Coded Allergies: Penicillins (Verified Allergy, Severe, childhood reaction-unsure of reaction, 03/18/19) amoxicillin (Verified Allergy, Severe, BREATHING ISSUES, 02/09/19) Vitals & I&Os Vital Signs Date Time Temp Pulse Resp B/P (MAP) Pulse Ox O2 Delivery O2 Flow Rate FiO2 10/07/19 08:05 37.5 81 16 110/76 (87) 96 Room Air 10/05/19 10:53 3 General Appearance: Alert, Oriented X3 Respiratory: Clear to Auscultation Cardiovascular: Regular Rate, No Murmurs Abdominal: Normal Bowel Sounds, Other (Inc C/D/I) Hospital Course Pt presented on 7 for elective colon resection and subsequently sent to the floor. She was started on clears after surgery and non-narcotic IV pain control. Tolerated diet and had flatus with some small bloody BM's on POD #1. Increased to a regular diet and continued to ambulate and use her IS. She was d/c'd home on POD #2 in stable condition. Pain minimal, well controlled with meds and tolerating diet. Discharge Instructions to patient/family Please see electronic discharge instructions given to patient. Discharge Medications Reviewed and agree with Discharge Medication list on patient's Discharge Ins truction sheet Clinical Quality Measures DVT/VTE Risk/Contraindication: Risk Factor Score Per Nursin RFS Level Per Nursing on Admit: 4+=Very High ARON BARKER DO Oct 07, 2019 11:33
[2019-10-07] MEDS ORDERED: KETO10TA PO (11:35)
--- NOTE | 2019-10-07 11:36 | Discharge Inst-Surgical ---
Discharge Inst-Surgical Depart Medication/Instructions New, Converted or Re-Newed RX: Transmitted to Pharmacy Patient Instructions Follow up Appt: Make appointment for 1 week. [phone] Instructions: No lifting greater than 20 pounds. No strenuous activity. May shower in 24 hours, no tub bath or soaking. Use incentive spirometer at home as directed. No Smoking Skin/Wound Care: May remove bandages in am. You need to leave the sandi in place and come to clinic to have them removed. Symptoms to Report: Appetite Changes, Extremity Discoloration, Numbness/Tingling, Swelling Increased, Bleeding Excessive, Eyesight Changes, Pain Increased, Urine Color Change, Constipation(Persistent), Fever over 101 degree F, Pain/Pressure in chest, Urinating Difficulty, Cough Up/Vomit Blood, Heart Beat Irreg/Pounding, Pain/Pressure in jaw, Cramps in feet or legs, Lightheadedness, Pain/Pressure in shoulder, Diarrhea(Persistent), Memory Changes Suddenly, Questions/Concerns, Weight gain consecutive days, Dizziness/Fainting, Nausea/Vomiting, Shortness of Breath, Weight gain over 2 pounds If questions or concerns contact your physician Or seek help at emergency department. Activity Activity as Tolerated: Yes Activity Instructions: Avoid Stress to Incision Driving Instructions: No Driving/Refer to Dr. Goncalves Discharge Diet: No Restrictions Diet After 24 Hours: Clear Liquid if Nauseous If Any Problems/Questions/Issu: Contact Your Physician, Go to Emergency Room Skin/Wound Care Infection Signs and Symptoms: Increased Redness, Foul Odor of Wound, Increased Drainage, Skin Itchy or Has a Rash, Increased Swelling, Temperature Above 101 F Bathing Instructions: Shower Stitches/Sandi/Dermabond Dis: Care of ARON Weller DO Oct 07, 2019 11:36
[2019-10-07 12:50] VITALS: BP 109/75
== END 2019-10-07 15:59 | disposition home or self-care (01) | DRG 331 ==
LOC: 4TH 06:15 → SURG 06:16 → 4TH 11:10
PROVIDERS: ADMIT Surgery; ATTEND Surgery
PROC: 0DBM4ZZ Excision of Descending Colon, Percutaneous Endoscopic Approach (ICD-10-PCS; principal; 2019-10-05 08:10)
DX: Z43.3 Encounter for attention to colostomy (principal); F17.210 Nicotine dependence, cigarettes, uncomplicated
CPT/HCPCS: 36415; 82565; 85025; 85027; 86850; 86900; 86901; 87081; 88304; 94664; 94760